=== PATIENT | female | born 1970 | race Hispanic/Latino ===

== ENCOUNTER 2016-11-07 19:16 | Inpatient (IN) | payer OTHER ==
[2016-11-07] MEDS ORDERED: Morphine 2 mg/ml ISec IVP STA (19:38)
--- NOTE | 2016-11-07 19:38 | ED PDOC ---
Arrival/HPI - General Chief Complaint: Weakness/Neurological Deficit Time Seen by Provider: 11/07/16 19:20 - Critical Care Critical Care Minutes: 45 minutes Narrative Critical Care (Text): Patient required my immediate attention upon arrival due to acuity of condition. Required frequent reassessments, complex decision making, consultation with inpatient specialists. - History of Present Illness Narrative History of Present Illness (Text): 46 y/o F c PMHx antiphospholipid syndrome on warfarin, Crohn's disease, previous CVA without residual deficit p/w paresthesias to lower face and anterior thorax associate with bilateral hand contractures/stiffness with inability to move them. She denies chest pain, shortness of breath, difficulty speaking, vision change, asymmetrical numbness, or any motor weakness. She notes that she was recently started on Torsemide and suspects that she may have a potassium imbalance. She denies any new leg swelling and states her legs are actually much improved in the extent of her edema. PMD [facility] GI at [facility] Past Medical History - Neurological HX Cerebrovascular Accident: Yes - Psychiatric Hx Depression: No Hx Emotional Abuse: No Hx Physical Abuse: No Hx Substance Use: No - Suicidal Assessment Feels Threatened In Home Enviroment: No Family/Social History Family/Social History: No Known Family HX Smoking Status: N Hx Alcohol Use: No Hx Substance Use: No Allergies/Home Meds Allergies/Adverse Reactions: Allergies No Known Allergies Allergy (Verified 11/29/12 22:00) Home Medications: Home Meds Medication Instructions Recorded Confirmed Warfarin Sodium [Warfarin Sodium] 5 mg PO QOTHERDAY 11/29/12 11/07/16 Furosemide [Lasix] 20 mg PO DAILY 11/07/16 11/07/16 Potassium Chloride [K-Dur 20] 20 meq PO BID 11/07/16 11/07/16 Warfarin [Coumadin] 7.5 mg PO QOTHERDAY 11/07/16 11/07/16 Review of Systems - Physician Review All systems were reviewed & negative as marked: Yes - Review of Systems Constitutional: absent: Fevers Cardiovascular: absent: Chest Pain Physical Exam - Physical Exam Narrative Physical Exam (Text): Constitutional: No acute distress. Head: Normocephalic. Atraumatic. Eyes: PERRL. ENT: Moist mucous membranes. Neck: Supple. Cardiovascular: Regular rate. Chest: No tenderness. Respiratory: Clear to auscultation bilaterally. GI: Soft. Nontender. Nondistended. Back: No CVA tenderness. Musculoskeletal: No tenderness or swelling of extremities. Skin: No rash. Neurologic: Alert, no focal deficit. No facial droop. Motor 5/5 x 4. Sensation to light touch intact bilaterally. Oriented x 3. Vital Signs Reviewed: Yes Vital Signs Temp Pulse Resp BP Pulse Ox 11/07/16 20:07 99.4 F 145 H 22 115/73 97 11/07/16 19:35 62 20 177/104 H 99 Temperature: Afebrile Blood Pressure: Normal Pulse: Regular Respiratory Rate: Normal Appearance: Positive for: Well-Appearing Pain Distress: None Mental Status: Positive for: Alert and Oriented X 3 Medical Decision Making ED Course and Treatment: IMPRESSION: Old left frontal infarct, no acute intracranial abnormality CXR no acute disease. EKG on arrival Sinus tachycardia, wide complexes and narrow complexes present, poor baseline. Patient with symptomatic hypocalcemia. Also supplementing for hypomagnesemia and hypokalemia. Repeat EKG with sinus tachycardia, solely narrow complex. Dr. Lau accepts patient to his service. Dr. Rice accepts patient to ICU. - Lab Interpretations Lab Results: 11/07/16 19:35 11/07/16 19:35 Lab Results 11/07/16 19:35: Sodium 131 L, Potassium 2.9 L*, Chloride 90 L, Carbon Dioxide 27 , Anion Gap 17, BUN 25 H, Creatinine 0.9, Est GFR ( Amer) > 60, Est GFR ( Non-Af Amer) > 60, Random Glucose 115 H, Calcium 6.8 L*, Phosphorus 3.1, Magnesium 1.1 L, Total Bilirubin 0.7, AST 28, ALT 35, Alkaline Phosphatase 81, Total Creatine Kinase 112, Troponin I < 0.01, Total Protein 5.7 L, Albumin 3.1, Globulin 2.7, Albumin/Globulin Ratio 1.1, Lipase 294 11/07/16 19:35: PT 67.3 H*, INR 6.23 H*, APTT 43.5 H 11/07/16 19:35: WBC 14.7 H, RBC 4.78, Hgb 15.3, Hct 44.9, MCV 93.9, MCH 32.0, MCHC 34.1, RDW 13.3, Plt Count 485 H, MPV 9.5, Gran % 73.5 H, Lymph % (Auto) 12.6 L, [place] % (Auto) 12.6 H, Eos % (Auto) 1.0 L, Baso % (Auto) 0.3, Gran # 10.83 H, Lymph # 1.9, [place] # 1.9 H, Eos # 0.2, Baso # 0.04 - RAD Interpretation Radiology Orders: 11/07/16 19:29 CHEST PORTABLE [RAD] Stat 11/07/16 19:30 HEAD W/O CONTRAST [CT] Stat - Medication Orders Current Medication Orders: Potassium Chloride (Potassium Chloride 20 Meq/100 Ml) 20 meq in 100 mls @ 50 mls/hr IVPB Q2H DANA Stop: 11/08/16 00:14 Last Admin: 11/07/16 20:20 Dose: 50 mls/hr Discontinued Medications Calcium Gluconate 1,000 mg/ (Dextrose) 110 mls @ 110 mls/hr IVPB ONCE ONE Stop: 11/07/16 21:03 Magnesium Sulfate 2 gm/ Sodium (Chloride) 104 mls @ 102 mls/hr IVPB ONCE ONE Stop: 11/07/16 21:09 Lorazepam (Ativan) 1 mg IVP ONCE ONE PRN Reason: Protocol Stop: 11/07/16 20:12 Last Admin: 11/07/16 20:16 Dose: 1 mg Morphine Sulfate (Morphine) 2 mg IVP STAT STA Stop: 11/07/16 19:39 Last Admin: 11/07/16 19:44 Dose: 2 mg Disposition/Present on Arrival - Present on Arrival Any Indicators Present on Arrival: No History of DVT/PE: No History of Uncontrolled Diabetes: No Urinary Catheter: No History of Decub. Ulcer: No History Surgical Site Infection Following: None - Disposition Have Diagnosis and Disposition been Completed?: Yes Diagnosis: Hypocalcemia, Hypokalemia, Hypomagnesemia Disposition: HOSPITALIZED Disposition Time: 20:20 Patient Plan: Admission, ICU Patient Problems: Current Active Problems Problem Status Onset Hypocalcemia Acute Condition: CRITICAL
[2016-11-07 19:50] LABS: BASO # 0.04 K/mm3 (0.0-2.0); BASO % 0.3 % (0.0-3.0); EOS # 0.2 (0.0-0.7); GRAN # 10.83 (1.4-6.5); GRAN % 73.5 % (50.0-68.0); HEMATOCRIT 44.9 % (36.0-48.0); LYMPH # 1.9 (1.2-3.4); LYMPH % 12.6 % (22.0-35.0); MEAN CELL VOLUME 93.9 fl (80.0-105.0); MEAN CORPUSCULAR HGB CONC 34.1 g/dl (31.0-37.0); MEAN PLATELET VOLUME 9.5 fl (7.0-11.0); MONO # 1.9 (0.1-0.6); MONO % 12.6 % (1.0-6.0); RED CELL DISTRIBUTION WIDTH 13.3 % (11.5-14.5); WHITE BLOOD COUNT 14.7 10^3/ul (4.5-11.0)
[2016-11-07 19:58] LABS: ALB/GLOB RATIO 1.1 (1.1-1.8); ALKALINE PHOSPHATASE 81 U/L (38-126); ALT/SGPT 35 U/L (7-56); AST/SGOT 28 U/L (14-36); BILIRUBIN,TOTAL 0.7 mg/dL (0.2-1.3); BLOOD UREA NITROGEN 25 mg/dL (7-21); CARBON DIOXIDE 27 mmol/L (21-33); CHLORIDE 90 mmol/L (98-107); GFR AFRICAN-AMERICAN > 60; GLUCOSE,RANDOM 115 mg/dL (70-110); LIPASE 294 U/L (23-300); MAGNESIUM 1.1 mg/dL (1.7-2.2); PHOSPHOROUS 3.1 mg/dL (2.5-4.5); SODIUM 131 mmol/L (132-148); TOTAL PROTEIN 5.7 g/dL (5.8-8.3)
[2016-11-07 20:01] LABS: CALCIUM 6.8 mg/dL (8.4-10.5); POTASSIUM 2.9 mmol/L (3.6-5.0)
[2016-11-07 20:02] LABS: PARTIAL THROMBOPLASTIN TIME 43.5 Seconds (23.7-30.8)
[2016-11-07 20:05] LABS: INR 6.23 (0.93-1.08)
[2016-11-07] MEDS ORDERED: Magnesium Sulfate 2 GM in Sodium Chloride 0.9% 100 ML IVPB ONE (20:08)
[2016-11-07 20:09] LABS: TROPONIN I < 0.01 ng/mL
--- NOTE | 2016-11-07 20:42 | CT ---
EXAM: CT Head Without Intravenous Contrast EXAM DATE/TIME: 11/07/2016 7:30 PM CLINICAL HISTORY: 46 years old, female; Signs and symptoms; Weakness, extremity; Bilateral; Patient HX: HX CVA; Additional info: Body numbness TECHNIQUE: Axial computed tomography images of the head/brain without intravenous contrast. All CT scans at this facility use one or more dose reduction techniques, viz.: automated exposure control; ma/kV adjustment per patient size (including targeted exams where dose is matched to indication; i.e. head); or iterative reconstruction technique. COMPARISON: There are no prior studies for comparison. FINDINGS: Brain: Overall ventricular size is normal. There is mild compensatory dilatation of frontal horn of the left lateral ventricle. There is no midline shift. There is left frontal encephalomalacia. There is mild prominence of sulci and gyri. There are no acute hemorrhages. There are no focal masses. Alberto-white differentiation is visualized. Ventricles: See above Bones: Cranial vault is intact. Soft tissues: unremarkable Sinuses: There is no acute sinusitis. Ears and mastoids: Middle ears and mastoids are unremarkable Orbits: Orbital contents are unremarkable. IMPRESSION: Old left frontal infarct, no acute intracranial abnormality
[2016-11-07] MEDS ORDERED: Sodium Chloride 0.9% 100 ML IV SCH (21:33)
[2016-11-07 21:36] LABS: URINE BILIRUBIN NEGATIVE (NEGATIVE); URINE BLOOD NEGATIVE (NEGATIVE); URINE GLUCOSE (UA) NEGATIVE (NEGATIVE); URINE KETONE NEGATIVE (NEGATIVE); URINE LEUKOCYTE ESTERASE NEGATIVE Leu/uL (NEGATIVE); URINE PROTEIN NEGATIVE mg/dL (<30 mg/dL); URINE UROBILINOGEN 0.2 E.U./dL (<1 E.U./dL)
[2016-11-07 21:38] LABS: URINE APPEARANCE CLEAR (CLEAR); URINE COLOR LIGHT YELLOW (YELLOW)
[2016-11-07] MEDS ORDERED: Sodium Chloride 0.9% 1,000 ML IV SCH (23:35)
[2016-11-08 00:17] VITALS: BMI 18.8
[2016-11-08 00:43] LABS: BASO # 0.02 K/mm3 (0.0-2.0); BASO % 0.1 % (0.0-3.0); GRAN # 22.85 (1.4-6.5); HEMATOCRIT 41.8 % (36.0-48.0); LYMPH # 0.8 (1.2-3.4); MEAN CELL VOLUME 92.9 fl (80.0-105.0); MEAN CORPUSCULAR HGB CONC 34.4 g/dl (31.0-37.0); MONO # 1.9 (0.1-0.6); MONO % 7.3 % (1.0-6.0); PLATELET COUNT 453 10^3/uL (120.0-450.0); RED CELL DISTRIBUTION WIDTH 13.2 % (11.5-14.5)
[2016-11-08 00:57] LABS: ALB/GLOB RATIO 1.1 (1.1-1.8); ALKALINE PHOSPHATASE 77 U/L (38-126); ALT/SGPT 38 U/L (7-56); AST/SGOT 44 U/L (14-36); BILIRUBIN,TOTAL 0.8 mg/dL (0.2-1.3); BLOOD UREA NITROGEN 26 mg/dL (7-21); CARBON DIOXIDE 30 mmol/L (21-33); CHLORIDE 95 mmol/L (98-107); GFR AFRICAN-AMERICAN > 60; GLUCOSE,RANDOM 138 mg/dL (70-110); MAGNESIUM 2.1 mg/dL (1.7-2.2); SODIUM 132 mmol/L (132-148); TOTAL PROTEIN 5.2 g/dL (5.8-8.3)
[2016-11-08 01:02] LABS: CALCIUM 6.9 mg/dL (8.4-10.5); POTASSIUM 2.4 mmol/L (3.6-5.0)
[2016-11-08 01:06] LABS: WHITE BLOOD COUNT 25.5 10^3/ul (4.5-11.0)
[2016-11-08 01:08] LABS: GRAN % 89.6 % (50.0-68.0)
[2016-11-08 01:09] LABS: NEUTROPHIL 89 % (50.0-70.0)
--- NOTE | 2016-11-08 01:09 | CP.PCM.CON ---
<Bennie Trimble - Last Filed: 11/08/16 03:59> History of Present Illness - History of Present Illness History of Present Illness: ICU Consult Note for Dr. Rice CC: lower face paresthesias and hand contractures HPI: This is a 46 yo F with PMH of antiphospholipid syndrome on warfarin, Crohn's disease, large bowel obstruction s/p resection and end-to-end anastomosis, and previous CVA without residual deficit who presented to [facility] [place] with complaint of paresthesias to lower face restricting speech and contractures /stiffening of hands with inability to break free. HPI/ROS details are limited as the patient struggles to speak due to her facial paresthesia, and PE is limited due to the extremities paresis/contractures and due to patient frequently experiencing sudden spikes of pain, causing her to cry out and lose focus throughout exam. Patient admits to prior stroke in the past, but states she has never had symptoms like these. Symptom onset was this AM while patient was resting at home (was already awake when symptoms began), and have progressively worsened throughout the day, causing patient to present here. She reports she was recently started on a new diuretic (Toresmide, loop diuretic ), and she is suspicious her potassium is too low. Admits to frequent pain, nausea, mild paresthesias in bilateral LE and UE, and recent contipation. Patient also reports cramping in bilateral LE, but still retains movement of both legs. Denies room spinning, vision changes, emesis, cough, diarrhea, dysuria/hematuria, medication non-compliance, or syncope/pre-syncope. All other ROS in 12-point system review negative. Of note, in the ED her INR was 6.23 (was 7.57 yesterday), so her Coumadin is currently being held; however she does not exhibit any signs of bleeding. Head CT was obtained in the ED and was negative for acute bleeding/stroke/mass effect. PMH: as above PSH: Large bowel obstruction s/p resection and end-to-end anastomosis FHx: denies SHx: denies tobacco/alcohol/illicits PMD: Dr. Lau Review of Systems - Review of Systems All systems: reviewed and no additional remarkable complaints except (as per HPI ) Past Patient History - Past Social History Smoking Status: Never Smoked - NEUROLOGICAL HX Cerebrovascular Accident: Yes - MUSCULOSKELETAL/RHEUMATOLOGICAL Hx Falls: No - GASTROINTESTINAL Hx Crohn's Disease: Yes - GENITOURINARY/GYNECOLOGICAL Other/Comment: Antiphospolipid sydrome - PSYCHIATRIC Hx Depression: No Hx Emotional Abuse: No Hx Physical Abuse: No Hx Substance Use: No Meds Allergies/Adverse Reactions: Allergies Allergy/AdvReac Type Severity Reaction Status Date / Time No Known Allergies Allergy Verified 11/29/12 22:00 - Medications Medications: Current Medications Calcium Gluconate 1,000 mg/ (Dextrose) 110 mls @ 110 mls/hr IVPB Q3 DANA Stop: 11/08/16 06:59 Magnesium Sulfate 2 gm/ Sodium (Chloride) 104 mls @ 102 mls/hr IVPB Q3 DANA Stop: 11/08/16 07:02 Sodium Chloride (Sodium Chloride 0.9%) 1,000 mls @ 100 mls/hr IV .Q10H DANA Morphine Sulfate (Morphine) 2 mg IVP Q4H PRN PRN Reason: Pain, moderate (4-7) Pantoprazole Sodium (Protonix Inj) 40 mg IVP Q12 DANA Physical Exam - Constitutional Appears: Non-toxic, In Acute Distress (intermittent spikes/spasms of pain causing patient to cry out, lose focus), Other (intermittently tearful, usually after trying to speak for a few minutes or after severeal spasms) - Head Exam Head Exam: ATRAUMATIC. absent: NORMAL INSPECTION Additional comments: lower facial paresthesia/paresis, jaw clenched but still able to move lips - Eye Exam Eye Exam: EOMI, Normal appearance, PERRL. absent: Conjunctival injection, Scleral icterus Pupil Exam: NORMAL ACCOMODATION, PERRL. absent: Fixed, Irregular, Miosis, Unequal - ENT Exam Additional comments: Unable to assess as mouth clenched shut, minimal jaw movement when trying to speak Nares clear, no discharge or epistaxis jaw clenched equally bilaterally, no sided-facial muscle droop, remains able to move lips - Neck Exam Neck exam: Negative for: Full Rom, Thyromegaly Additional comments: Some active head movement, but restricted, slightly more with passive movement but ROM still restricted - Respiratory Exam Respiratory Exam: Clear to Auscultation Bilateral, NORMAL BREATHING PATTERN. absent: Accessory Muscle Use, Chest Wall Tenderness, Decreased Breath Sounds, Rales, Rhonchi, Wheezes - Cardiovascular Exam Cardiovascular Exam: Tachycardia (tachy to 140's-150's on bedside monitor), REGULAR RHYTHM, +S1, +S2. absent: Bradycardia, Clicks, Irregular Rhythm, JVD, RRR, +S4 - GI/Abdominal Exam GI & Abdominal Exam: Normal Bowel Sounds, Soft. absent: Diminished Bowel Sounds , Distended, Firm, Guarding, Hyperactive Bowel Sounds, Hypoactive Bowel Sounds, Rigid, Tenderness - Extremities Exam Extremities exam: Positive for: normal capillary refill, pedal pulses present. Negative for: calf tenderness, joint swelling, pedal edema, tenderness Additional comments: reports some paresthesias and cramping in LE, but sensation intact and equal bilaterally on testing, and full ROM of bilateral LE appears intact 5/5 LE muscle strength testing, some cramping of legs provoked with movement Bilateral UE contractured, held rigid against chest with hands squeezed shut, unable to demonstrate rv repairer strength, twinges of movement when attempted to test rv repairer strength bilaterally No gross tremors, UE held rigid, but still palpable bilateral radial pulses, and sensation in bilateral UE intact - Neurological Exam Neurological exam: Oriented x3 Additional comments: Awake and alert, unable to follow many commands but continues to attempt to spontaneous movement of eyes and bilateral LE, minimal to no spontaneous movement of jaw and bilateral UE sensation in all extremities grossly intact and equal - Psychiatric Exam Psychiatric exam: Agitated, Anxious, Depressed Additional comments: Affect and mood fluctuating, some anxiety regarding condition and when attempting to move UE or when experiencing repeated spasms, becomes tearful - Skin Skin Exam: Dry, Intact, Normal Color, Warm Results - Vital Signs Recent Vital Signs: Last Vital Signs Temp 97.9 F 11/07/16 23:00 Pulse 90 11/08/16 00:00 Resp 36 H 11/08/16 00:00 BP 113/78 11/08/16 00:00 Pulse Ox 95 11/08/16 00:21 - Labs Result Diagrams: 11/08/16 00:30 11/08/16 00:30 Labs: Laboratory Results - last 24 hr 11/07/16 21:10 Urine Color Light yellow Urine Appearance Clear Urine pH 6.0 Ur Specific [place] 1.010 Urine Protein Negative Urine Glucose (UA) Negative Urine Ketones Negative Urine Blood Negative Urine Nitrate Negative Urine Bilirubin Negative Urine Urobilinogen 0.2 Ur Leukocyte Esterase Negative Urine HCG, Qual Negative Assessment & Plan - Assessment and Plan (Free Text) Assessment: This is a 46 yo F with PMH of antiphospholipid syndrome on warfarin, Crohn's disease, large bowel obstruction s/p resection and end-to-end anastomosis, and previous CVA without residual deficit who presented to [facility] [place] with complaint of paresthesias to lower face restricting speech and contractures /stiffening of hands with inability to break free. She is being admitted for possible CVA vs paresis of unclear etiology, and for narrow complex tachycardia in the setting of significant metabolic derangements, pending repletion. Plan: Neuro: -Facial and upper extremity paresis/paresthesias of unclear etiology; CVA vs 2/ 2 metabolic derangememtns -Doesn't appear to be true paresis, seems more like muscle spasm/contracture; EMG? -Head CT negative for acute stroke, will need MRI to rule out definitively -Maintain normothermia Pulm: -Satting well on room air, maintain SaO2 > 92% -CTAB on exam, CXR in ED appears unremarkable (pending official read) Cardio: -Tachycardic in ED up to 150's -EKG in ED read as possible SVT with occasional PVCs and fusion complexes, QTc prolonged at 521 -Likely more QTc prolonged than EKG indicated, as tachycardia artificially decreased QTc -arrythmia and QTc prolongation likely 2/2 metabolic derangements; K 2.9, Ca 6.8 (corrects to 7.6), Mag 1.1; replete all aggressively -Avoid ALL QT prolonging agents, push 1x Mag 2g for QTc prolongation -Repeat EKG in ICU when HR improved -Despite tachycardia, hemodynamically stable; maintain MAP > 65 -Holding home diuretic -Would benefit from Cardio consult GI: -NPO, pending swallow eval -Protonix for GI ppx Renal: -Cr 0.9, BUN 25 -BUN:Cr ratio suggestive of some dehydration -multiple metabolic derangements; K 2.9, Mag 1.1, Ca 6.9; repleting aggressively , f/u CMPs/Mg/Phos q4 and replete further as needed -maintain euvolemia and euglycemia -Would benefit from a Nephro consult Heme: -Hgb 15.3 -Hx antiphopholipid syndrome on warfarin, holding home coumadin currently as INR 6.23 -Stable right now, no sign of acute bleeding, so can just observe INR for now; if shows signs of acute bleeding, will administer Vit K +/- FFP -F/u repeat PT/PTT in AM -supratherapeutic INR covers for DVT ppx ID: -Leukocytosis of 14.5 on admit, but afebrile -may be stress rxn, if WBC count worsens, consider obtaining cultures and procal -No indication for antibiotics at this time Dispo: ICU for close monitoring and aggressive electrolyte repletion, pending improvement of cardiac rhythm and reassessment FEN: NPO, NS IVF 100cc/hr, K riders 20 mEq x2, Calcium carbonate IVPB x3, Mag Sulfate 2g IVPB x3 Access: Peripheral IV Consults: rec consults to Nephro and Cardio Ppx: Protonix for GI, Supratherapeutic INR covers for DVT ppx Patient seen, reviewed, and discussed with attending, Dr. Rice. <Krystal RODRIGUEZ,Jose - Last Filed: 11/08/16 06:51> Meds - Medications Medications: Current Medications Calcium Gluconate 1,000 mg/ (Dextrose) 110 mls @ 110 mls/hr IVPB Q3 [facility] Stop: 11/08/16 06:59 Last Admin: 11/08/16 05:51 Dose: 110 mls/hr Magnesium Sulfate 2 gm/ Sodium (Chloride) 104 mls @ 102 mls/hr IVPB Q3 [facility] Stop: 11/08/16 07:02 Last Admin: 11/08/16 05:50 Dose: 102 mls/hr Sodium Chloride (Sodium Chloride 0.9%) 1,000 mls @ 100 mls/hr IV .Q10H [facility] Last Admin: 11/08/16 01:00 Dose: 100 mls/hr Morphine Sulfate (Morphine) 2 mg IVP Q4H PRN PRN Reason: Pain, moderate (4-7) Last Admin: 11/08/16 05:48 Dose: 2 mg Pantoprazole Sodium (Protonix Inj) 40 mg IVP Q12 [facility] Last Admin: 11/08/16 01:51 Dose: 40 mg Results - Vital Signs Recent Vital Signs: Last Vital Signs Temp 97.9 F 11/07/16 23:00 Pulse 79 11/08/16 04:40 Resp 36 H 11/08/16 04:40 BP 131/89 11/08/16 04:00 Pulse Ox 96 11/08/16 04:40 - Labs Result Diagrams: 11/08/16 04:00 11/08/16 00:30 Labs: Laboratory Results - last 24 hr 11/07/16 11/08/16 11/08/16 21:10 00:30 00:30 WBC 25.5 H* D RBC 4.50 Hgb 14.4 Hct 41.8 MCV 92.9 MCH 32.0 MCHC 34.4 RDW 13.2 Plt Count 453 H MPV 9.0 Gran % 89.6 H Lymph % (Auto) 3.0 L [place] % (Auto) 7.3 H Eos % (Auto) 0.0 L Baso % (Auto) 0.1 Gran # 22.85 H Lymph # 0.8 L [place] # 1.9 H Eos # 0.0 Baso # 0.02 Neutrophils % (Manual) 89 H Lymphocytes % (Manual) 4 L Monocytes % (Manual) 7 H PT INR APTT Sodium 132 Potassium 2.4 L* Chloride 95 L Carbon Dioxide 30 Anion Gap 9 L BUN 26 H Creatinine 0.9 Est GFR ( Amer) > 60 Est GFR (Non-Af Amer) > 60 Random Glucose 138 H Calcium 6.9 L* Phosphorus 2.0 L Magnesium 2.1 Total Bilirubin 0.8 AST 44 H D ALT 38 Alkaline Phosphatase 77 Troponin I Total Protein 5.2 L Albumin 2.7 L Globulin 2.5 Albumin/Globulin Ratio 1.1 Urine Color Light yellow Urine Appearance Clear Urine pH 6.0 Ur Specific [place] 1.010 Urine Protein Negative Urine Glucose (UA) Negative Urine Ketones Negative Urine Blood Negative Urine Nitrate Negative Urine Bilirubin Negative Urine Urobilinogen 0.2 Ur Leukocyte Esterase Negative Urine HCG, Qual Negative 11/08/16 11/08/16 11/08/16 04:00 04:00 04:00 WBC 19.6 H D RBC 4.37 Hgb 13.7 Hct 40.8 MCV 93.4 MCH 31.4 MCHC 33.6 RDW 13.3 Plt Count 417 MPV 9.2 Gran % 88.0 H Lymph % (Auto) 3.9 L [place] % (Auto) 7.9 H Eos % (Auto) 0.1 L Baso % (Auto) 0.1 Gran # 17.25 H Lymph # 0.8 L [place] # 1.6 H Eos # 0.0 Baso # 0.01 Neutrophils % (Manual) Lymphocytes % (Manual) Monocytes % (Manual) PT 45.9 H* INR 4.25 H* APTT 42.8 H Sodium Potassium Chloride Carbon Dioxide Anion Gap BUN Creatinine Est GFR ( Amer) Est GFR (Non-Af Amer) Random Glucose Calcium Phosphorus Magnesium Total Bilirubin AST ALT Alkaline Phosphatase Troponin I 5.04 H* D Total Protein Albumin Globulin Albumin/Globulin Ratio Urine Color Urine Appearance Urine pH Ur Specific [place] Urine Protein Urine Glucose (UA) Urine Ketones Urine Blood Urine Nitrate Urine Bilirubin Urine Urobilinogen Ur Leukocyte Esterase Urine HCG, Qual Attending/Attestation - Attestation I have personally seen and examined this patient.: Yes I have fully participated in the care of the patient.: Yes I have reviewed all pertinent clinical information: Yes Notes (Text): -I agree with the above ICU consult note with the following additions and/or changes: The patient is a 46 year old woman with a history of antiphospholipid syndrome ( on Warfarin), Crohn's Disease, large bowel obstruction (s/p resection and end-to -end anastomosis) and CVA (with no residual deficits), who presents with acute onset of paresthesias to the lower face and muscle contractures of both hand muscle. In the ED, she was found to have numerous lab abnormalities, including, hypocalcemia, hypomagnisemia, hypokalemia and mild hyponatremia. She also had leukocytosis. She repeatedly denies any recent vomiting, diarrhea, fevers, chills, SOB, chest pain or cough. Despite initial electrolyte replacements, her serum potassium continued to decrease (as low as 2.3). Additionally, this morning, her troponin jumped from normal to 5.0. Her EKG initially showed narrow complex tachycardia with some non-specific ST changes but no evidence of ST-elevation. Because her INR was found to be supratherapeutic (INR>6.0), her home medication of Warfarin was held. Also, because of her supratherapeutic INR , she did not require empiric anticoagulation, for potential ACS. Cardiology and nrphrology consults have been placed. Also a 2D-echo has been ordered. Also , blood and urine cultures (and procalcitonin) ordered. BMP's will be monitored Q4hrs. =
[2016-11-08] MEDS: Magnesium Sulfate 2 GM in Sodium Chloride 0.9% 100 ML IVPB SCH ×3 (01:30→05:50)
[2016-11-08] MEDS: Morphine 2 mg/ml ISec IVP PRN ×5 (02:01→21:00)
[2016-11-08] MEDS: Potassium Chloride 20 mEq/15 ml LIQ UD PO SCH ×2 (04:37→05:51)
[2016-11-08 04:50] LABS: BASO # 0.01 K/mm3 (0.0-2.0); BASO % 0.1 % (0.0-3.0); EOS % 0.1 % (1.5-5.0); GRAN # 17.25 (1.4-6.5); HEMATOCRIT 40.8 % (36.0-48.0); LYMPH # 0.8 (1.2-3.4); LYMPH % 3.9 % (22.0-35.0); MEAN CELL VOLUME 93.4 fl (80.0-105.0); MEAN CORPUSCULAR HEMOGLOBIN 31.4 pg (25.0-35.0); MEAN CORPUSCULAR HGB CONC 33.6 g/dl (31.0-37.0); MEAN PLATELET VOLUME 9.2 fl (7.0-11.0); MONO # 1.6 (0.1-0.6); MONO % 7.9 % (1.0-6.0); RED CELL DISTRIBUTION WIDTH 13.3 % (11.5-14.5); WHITE BLOOD COUNT 19.6 10^3/ul (4.5-11.0)
[2016-11-08 04:51] LABS: PARTIAL THROMBOPLASTIN TIME 42.8 Seconds (23.7-30.8)
[2016-11-08 04:54] LABS: INR 4.25 (0.93-1.08)
[2016-11-08 06:49] LABS: ALKALINE PHOSPHATASE 75 U/L (38-126); ALT/SGPT 41 U/L (7-56); AST/SGOT 69 U/L (14-36); BILIRUBIN,TOTAL 0.7 mg/dL (0.2-1.3); BLOOD UREA NITROGEN 24 mg/dL (7-21); CALCIUM 7.8 mg/dL (8.4-10.5); CARBON DIOXIDE 29 mmol/L (21-33); CHLORIDE 96 mmol/L (98-107); GFR AFRICAN-AMERICAN > 60; GLUCOSE,RANDOM 187 mg/dL (70-110); MAGNESIUM 3.7 mg/dL (1.7-2.2); PHOSPHOROUS 2.6 mg/dL (2.5-4.5); SODIUM 130 mmol/L (132-148); TOTAL PROTEIN 4.9 g/dL (5.8-8.3)
[2016-11-08 06:51] LABS: POTASSIUM 2.7 mmol/L (3.6-5.0)
[2016-11-08] MEDS ORDERED: Magnesium Sulfate 2 GM in Sodium Chloride 0.9% 100 ML IVPB ONE (08:33)
[2016-11-08] MEDS: cefTRIAXone 1 gm 1 GM/100 ML BAG IVPB SCH (09:17)
--- NOTE | 2016-11-08 10:54 | US ---
HISTORY: Leg pain and swelling. Evaluate for DVT PHYSICIAN(S): Mark Enciso MD. TECHNIQUE: Duplex sonography and color-flow Doppler with graded compression were used to evaluate the deep venous systems of both lower extremities. 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 There is occlusive subacute/chronic thrombus in 1 of the 2 right femoral veins. The right popliteal vein is duplicated and patent. The right common femoral vein is patent and compressible. There is no sonographic evidence for deep venous thrombosis in the visualized segments of the left lower extremity. 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
--- NOTE | 2016-11-08 11:02 | RAD ---
HISTORY: chest numbness COMPARISON: No prior. FINDINGS: LUNGS: No active pulmonary disease. PLEURA: No significant pleural effusion identified, no pneumothorax apparent. CARDIOVASCULAR: Normal. OSSEOUS STRUCTURES: No significant abnormalities. VISUALIZED UPPER ABDOMEN: Normal. OTHER FINDINGS: None. IMPRESSION: No active disease.
--- NOTE | 2016-11-08 11:29 | CT ---
PROCEDURE: CT Abdomen and Pelvis without intravenous contrast HISTORY: abdominal pain COMPARISON: None. TECHNIQUE: Without contrast.. Contrast Dose: Radiation dose: Total exam DLP = 343 mGy-cm. This CT exam was performed using one or more of the following dose reduction techniques: Automated exposure control, adjustment of the mA and/or kV according to patient size, and/or use of iterative reconstruction technique. FINDINGS: LOWER THORAX: Unremarkable. LIVER: Unremarkable. No gross lesion or ductal dilatation. GALLBLADDER AND BILE DUCTS: Unremarkable. PANCREAS: Unremarkable. No gross lesion or ductal dilatation. SPLEEN: Unremarkable. ADRENALS: Unremarkable. No mass. KIDNEYS AND URETERS: Unremarkable. No hydronephrosis. No solid mass. VASCULATURE: There is a vascular stent in the upper IVC. This is just above a caval filter. Patency cannot be evaluated without IV contrast. BOWEL: There is moderate distention of the colon without evidence of obstruction. There is some fecal retention in the sigmoid and rectum APPENDIX: Unremarkable. Normal appendix. PERITONEUM: Unremarkable. No free fluid. No free air. LYMPH NODES: Unremarkable. No enlarged lymph nodes. BLADDER: Unremarkable. REPRODUCTIVE: Bilateral ovarian cysts are seen measuring 5.9 cm on the left and 4.5 cm on the right. There is no fluid in the cul-de-sac to suggest cyst rupture. BONES: No acute fracture. OTHER FINDINGS: None. IMPRESSION: Moderate distention of the colon and moderate constipation. No acute findings
[2016-11-08 11:52] LABS: BASO # 0.03 K/mm3 (0.0-2.0); BASO % 0.1 % (0.0-3.0); GRAN # 18.9 (1.4-6.5); GRAN % 87.5 % (50.0-68.0); HEMATOCRIT 40.8 % (36.0-48.0); LYMPH # 0.9 (1.2-3.4); MEAN CELL VOLUME 92.5 fl (80.0-105.0); MEAN CORPUSCULAR HEMOGLOBIN 32.2 pg (25.0-35.0); MEAN CORPUSCULAR HGB CONC 34.8 g/dl (31.0-37.0); MEAN PLATELET VOLUME 8.8 fl (7.0-11.0); MONO # 1.8 (0.1-0.6); MONO % 8.4 % (1.0-6.0); RED CELL DISTRIBUTION WIDTH 13.4 % (11.5-14.5); WHITE BLOOD COUNT 21.6 10^3/ul (4.5-11.0)
--- NOTE | 2016-11-08 12:28 | CON ---
DATE: 11/08/2016 HISTORY OF PRESENT ILLNESS: The patient is a 46-year-old lady with history of Crohn's disease, previously was treated with 6-mercaptopurine who presented with occasional paraesthesia and some numbness and was found to have significant electrolyte disturbances. The patient recently was started on thiazide diuretics for her bilateral leg swelling and it was attributed to this new medication. it is unclear why thiazides were started. Patient states that her heart was previously checked and denies any abnormalities found, however denies Echo was ever done. Electrolytes were aggressively supplemented and maintenance of IV fluid initiated. The patient clinically substantially improved. Her electrolytes improved as well. Her magnesium was supplemented and she was started on normal saline with 20 mEq of KCL at the rate of 100 mL per hour. She also started to complain of some abdominal pain and had some leukocytosis, which in the setting of Crohn's dx prompted CAT scan of the abdomen and initiation of empiric antibiotics with septic workup. The patient also had troponin leak after initial normal value, which prompted cardiology consult and echocardiogram. 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 She is in the process of eval to start TNF-alpha inhibitors for her Crohn's disease. The patient denies melena, bright red blood per rectum, diarrhea, nausea, vomiting, chest pain, fevers, chills, or sweats. PAST MEDICAL HISTORY: Crohn's disease, antiphospholipid antibody syndrome and DVT. ALLERGIES: NKDA. MEDICATIONS AT HOME: Lasix, warfarin, and some thiazide diuretics. FAMILY HISTORY: Noncontributory. REVIEW OF SYSTEMS: Review of 12-organ systems other than mentioned in history of present illness is negative. PHYSICAL EXAMINATION: VITAL SIGNS: The patient is afebrile, respiratory rate of 16, heart rate 86, and blood pressure 125/81. HEENT: Head and neck are atraumatic. LUNGS: Clear to auscultation bilaterally. HEART: Regular rate and rhythm, S1 and S2 normal. ABDOMEN: Soft, nontender and nondistended (the patient reports some achiness in the periumbilical area; however, denies any tenderness on palpation.) MUSCULOSKELETAL: 2+ bilateral pedal and ankle edema (venous Doppler is in progress.) SKIN: Color is moist. PSYCHIATRIC: The patient is alert and oriented x3. NEUROLOGIC: The patient moves all extremities spontaneously. LABORATORY DATA: WBC 19.6, hemoglobin 15.7, and platelet count 470. Sodium 135, potassium 2.7, chloride 96, carbon dioxide 29, BUN 24, creatinine 0.8, glucose 187, AST 69, ALT 41. Troponin 5.04, up from 0.01 (EKG is pending. The patient does not complain of chest pain.) INR 4.25. Urine is negative for hCG as well as negative for leukocyte esterase and nitrite. ASSESSMENT AND PLAN: This 46-year-old lady with wide range electrolyte abnormalities that was attributed to initiation of thiazide diuretics, which was stopped now. Two new findings are troponin leak and abdominal pain with leukocytosis. Echocardiogram and EKG is pending. Cardiology consult is pending (Dr. Livingston was consulted.) GI consult and CAT scan of the abdomen and pelvis is pending. Antibiotics started. Septic workup initiated. Venous Doppler is ongoing. We will continue to target euvolemia, euglycemia, normothermia and oxygen saturation of more than 90%. We will continue to supplement electrolytes aggressively. We will continue with serial BMP. Addendum: CT abdo/pelvis revealed moderately distended colon, c/w constipation, but no mural thickening, no changes suspicious for acute cholecystitis either. Echo, however revealed severe LV systolic dysfunction, which in the setting of troponin jump from <0.01 to more then 5, EKG changes (significant T-wave inversion in anterior leads) and some abdo pain-which may be referred pain from the chest and chest tightness, may represent NSTEMI: discussed with Dr. Lyles who agreed. No PCI presently as per Dr. Lylse as her INR, interestingly though, is above 4, (which would normally make primary coronary event less likely). Possibility of falsely elevated INR in the setting of APAP syndrome was raised with Dr. Hernandez (Hem) and her input is pending. Discussed case with Dr. Nielsen (GI as well): As patient does have h/o APAP syndrome and possibility of thrombotic event cant be fully ruled out even in the setting supratherapeutic INR (otherwise it is hard to explain primary coronary event presentation in this patient), complete abdominal dupplex was ordered in attempt to rule out (at least to some degree) possibility of mesenteric ischemia. Lactic acid level is pending. Addendum: Lactic acid level is 1.7-->unlikely acute mesenteric ischemia ccm time 40 min Kashmir Wallace MD MTDJoey
--- NOTE | 2016-11-08 12:37 | CARD ---
APPROVED REPORT EXAM: Two-dimensional and M-mode echocardiogram with Doppler and color Doppler. INDICATION 2D DIMENSIONS Left Atrium (2D)2.6 (1.6-4.0cm)IVSd0.8 (0.7-1.1cm) Aortic Root (2D)3.0 (2.0-3.7cm)LVDd5.0 (3.9-5.9cm) PWd0.9 (0.7-1.1cm)LVDs4.6 (2.5-4.0cm) FS (%) 9.2 %LVEF (%)20.1 (>50%) Aortic Valve AoV Peak Ljwqgorv981.0cm/Patrizia Peak GR.4mmHg Mitral Valve MV E Thanvdcg25.5cm/sMV A Uutijhqk60.0cm/sE/A ratio2.1 TDI Lateral E' Peak V8.77cm/sMedial E' Peak V6.92cm/sE/Lateral E'9.1 E/Medial E'11.5 Tricuspid Valve TR Peak Rtrpzpsd206op/sRAP UAZHOPPZ24vbGgMT Peak Gr.18mmHg [id number] LEFT VENTRICLE The left ventricle is normal size. There is normal left ventricular wall thickness. The ejection fraction is moderately to severely impaired. Severe anteroseptal and apical hypokinesis. No left ventricle thrombus noted on this study. RIGHT VENTRICLE The right ventricle is normal size. The right ventricular systolic function is normal. ATRIA The left atrium size is normal. The right atrium size is normal. The interatrial septum is intact with no evidence for an atrial septal defect. AORTIC VALVE The aortic valve is normal in structure. No aortic regurgitation is present. MITRAL VALVE The mitral valve is normal in structure. Mitral regurgitation is mild. TRICUSPID VALVE The tricuspid valve is normal in structure. There is no tricuspid valve regurgitation noted. PULMONIC VALVE The pulmonary valve is normal in structure. GREAT VESSELS The aortic root is normal in size. The IVC is normal in size and collapses >50% with inspiration. PERICARDIAL EFFUSION There is no pleural effusion. There is no pericardial effusion. <Conclusion> Normal chamber size. Moderate to severe LV systolic dysfunction with severe anteroseptal and apical hypokinesis. Mild MR. No LV thrombus visualized.
[2016-11-08] MEDS ORDERED: Potassium Chloride 30 MEQ in Sodium Chloride 0.9% 1,000 ML IV SCH (12:46)
--- NOTE | 2016-11-08 15:08 | CON ---
DATE: 11/08/2016 REQUESTING PHYSICIAN: Danilo Lau MD REASON FOR CONSULTATION: Apparent myocardial infarction. HISTORY OF PRESENT ILLNESS: This is a 46-year-old unfortunate woman with really complex past history of severe Crohn's disease and antiphospholipid antibody syndrome admitted with extreme weakness. She is found to be markedly hypokalemic and hypocalcemic. She is also complaining of severe abdominal discomfort. Initial electrocardiogram showed evidence of borderline anterior ST elevations with T-waves inversions and a markedly prolonged QT intervals. She denied any chest pain at the time of admission. Followup blood workup revealed an elevated troponin and an echocardiogram was performed at bedside showing evidence of apparent apical myocardial infarction. She is seen in the CCU in the presence of her . She is somewhat anxious. She denies any chest pain at the present time. She does have continued crampy abdominal pain. She denies any prior cardiac history. She is not hypertensive or diabetic. She does not smoke. She believes her cholesterol was normal. There is a family history of premature heart disease and that her father at the age of 55 from myocardial infarction. PAST MEDICAL HISTORY: Notable for the problems mentioned above. She does have a peripheral edema. She reportedly had a cerebrovascular accident several years ago with no significant residual. She has chronic venous insufficiency and has had a prior DVT. She has only got a prior partial bowel resection with end to end anastomosis. FAMILY HISTORY: Mother is alive and well. Father as mentioned at the age of 55 from myocardial infarction. SOCIAL HISTORY: She does not smoke or drink. She is lives with her . REVIEW OF SYSTEMS: The 10-point review of systems is otherwise unremarkable. She has noticed some increasing exertional dyspnea lately. PHYSICAL EXAMINATION: GENERAL: She is an anxious appearing middle-age woman. VITAL SIGNS: Blood pressure 126/80 with a pulse of 90, respirations are 16. She is currently afebrile. HEENT: Head is normocephalic, atraumatic. NECK: Supple. No JVD noted. CHEST: Clear to auscultation and percussion. HEART: PMI displaced laterally with soft tones present. ABDOMEN: Soft with normal bowel sounds. Diffuse tenderness is present. EXTREMITIES: 1+ leg edema noted. SKIN: Warm to dry. PSYCHIATRIC: Moderate anxiety, otherwise normal mood affect. NEUROLOGIC: Alert and oriented x3. No gross motor or sensory deficits appreciable. DIAGNOSTIC DATA: Initial potassium was 2.9 and last one is 2.7, calcium is 6.8, repeat is 7.8, sodium is 130. Initial troponin was negative, repeat is 5.04. BUN and creatinine are 24 and 0.8. Initial white count is 14.7 and has risen to 25.5, repeat is 21.6, hemoglobin and hematocrit of 14.2 and 40.8 this morning with platelet count of 484,000. Initial INR was 6.23, repeat is 4.25. Albumin is 2.5. Initial electrocardiogram reveals sinus rhythm with possible acute anterior wall septal myocardial infarction, pattern with markedly prolonged QT interval, repeat electrocardiogram reveals deepening of the anterior T-wave inversions. IMPRESSION: 1. Apparent acute anterior wall myocardial infarction, exact cause uncertain. May have significant coronary artery disease given her strong family history of premature heart disease, however, she has no other significant factors and is a relatively young woman. 2. Marked electrolyte abnormalities with severe hypokalemia and hypocalcemia. 3. History of thromboembolic events with prior cerebrovascular accident and deep vein thromboses in the setting of antiphospholipid antibody syndrome. The possibility of coronary artery embolism exists, but it would be fairly unusual. 4. Apparent left ventricular dysfunction, unclear if this is all secondary to infarct or if she has some underlying abnormalities. She is unaware of having had any prior echocardiogram performed. RECOMMENDATIONS: As she is in an excessively anticoagulated state at the present time and has no clear active cardiac ischemia, invasive angiography will be deferred to allow for stabilization of several factors including her marked electrolyte abnormalities and excessively high INR. Continue anticoagulation once the INR is corrected. Eventually cardiac catheterization will be planned. Serial cardiac enzymes will be obtained, as well as followup electrocardiograms. Her echocardiogram will be reviewed. Beta-nicole therapy and statin therapy will be initiated at this time. Aspirin will be withheld until her INR is in a therapeutic range. We will continue to follow and make further recommendations as appropriate. The above was discussed with Dr. Wallace, the nursing staff, and her , as well as the patient this morning. Thanks for the consultation. Josemanuel Lyles MD [facility] # [id number] GE
[2016-11-08 16:28] LABS: BASO # 0.02 K/mm3 (0.0-2.0); BASO % 0.1 % (0.0-3.0); GRAN # 19.81 (1.4-6.5); GRAN % 88.5 % (50.0-68.0); HEMATOCRIT 41.4 % (36.0-48.0); LYMPH # 0.8 (1.2-3.4); LYMPH % 3.5 % (22.0-35.0); MEAN CELL VOLUME 93.5 fl (80.0-105.0); MEAN CORPUSCULAR HEMOGLOBIN 32.3 pg (25.0-35.0); MEAN CORPUSCULAR HGB CONC 34.5 g/dl (31.0-37.0); MEAN PLATELET VOLUME 9.1 fl (7.0-11.0); MONO # 1.8 (0.1-0.6); MONO % 7.9 % (1.0-6.0); RED CELL DISTRIBUTION WIDTH 13.4 % (11.5-14.5); WHITE BLOOD COUNT 22.4 10^3/ul (4.5-11.0)
[2016-11-08 16:33] LABS: VENOUS BLOOD PH 7.53 (7.32-7.43)
[2016-11-08 16:45] LABS: BLOOD UREA NITROGEN 21 mg/dL (7-21); CALCIUM 8.1 mg/dL (8.4-10.5); CARBON DIOXIDE 25 mmol/L (21-33); CHLORIDE 100 mmol/L (98-107); GFR AFRICAN-AMERICAN > 60; GLUCOSE,RANDOM 135 mg/dL (70-110); MAGNESIUM 2.5 mg/dL (1.7-2.2); POTASSIUM 3.2 mmol/L (3.6-5.0); SODIUM 132 mmol/L (132-148)
--- NOTE | 2016-11-08 16:50 | CON ---
DATE: 11/08/2016 CONSULT REQUESTED BY: Dr. Wallace. REASON FOR CONSULTATION: Hypercoagulable state, DVT, non-STEMI. HISTORY OF PRESENT ILLNESS: Ms. Stewart is a 46-year-old female admitted to the hospital with electrolyte imbalance. She has history of antiphospholipid antibody positivity. For the past 10 years, she has been on Coumadin. Doppler of lower extremity showed right femoral nonocclusive chronic thrombosis. She has a history of Crohn's disease. Sees the GI at [facility]. Also has history of CVA without residual deficit. She had electrolyte imbalance, hypokalemia, hypocalcemia, which is corrected now. She is still complaining of weakness, generalized. PAST MEDICAL HISTORY: 1. History of Crohn's disease. 2. History of hypercoagulable state. 3. Antiphospholipid antibody positivity. 4. DVT right lower extremity. 5. History of CVA. ALLERGIES: NO KNOWN DRUG ALLERGIES. HOME MEDICATIONS: Coumadin 5 mg daily, Lasix 20 mg daily, potassium 20 mg mEq daily. PAST SURGICAL HISTORY: IVC filter placement. REVIEW OF SYSTEMS: As per HPI. Rest of the 12-point review of systems reviewed and negative. PHYSICAL EXAMINATION GENERAL: Comfortable in bed in no acute distress, drowsy arousable, able to give the history. VITAL SIGNS: Blood pressure 130/80, pulse ox is 99% on room air, heart rate is 75 per minute, respiratory rate 20 per minute, moving all the limbs. HEENT: Pallor positive. NECK: Supple. CHEST: Air entry present and equal and bilaterally. No added sounds. CARDIOVASCULAR: S1 and S2 normal. No murmur. No gallop. ABDOMEN: Soft, nontender. No hepatosplenomegaly. EXTREMITIES: No edema. CENTRAL NERVOUS SYSTEM: Sedated, arousable, oriented to time, place and person. SKIN: No petechiae, no rash. LABORATORY DATA: White count is 21,000, hemoglobin 14.2, hematocrit 40, platelet 454. Sodium 130, potassium 2.7, calcium 7.8, previously 6.8, AST 69, ALT 41, alkaline phosphatase 75. MEDICATIONS: Coreg 6.25 mg p.o. b.i.d., ceftriaxone 1 g daily, morphine 2 mg IV q. 4 hour p.r.n., Zofran 4 mg IV q. 4 hour p.r.n., Protonix 40 mg q. 12, Altace 2.5 mg daily. ASSESSMENT: 1. Electrolyte imbalance. 2. Hypercoagulable state. 3. Antiphospholipid antibody. 4. Right lower extremity deep venous thrombosis. 5. Crohn's disease. 6. Non-ST elevation myocardial infarction. 7. Leukocytosis. PLAN: She has hypercoagulable state with antiphospholipid antibody. I will do the titers for antiphospholipid antibody. She still has nonocclusive thrombosis in right femoral vein status post IVC filter placement. INR is supra-therapeutic with 4.2. It is unlikely Coumadin failure, non-STEMI might be due to atherosclerotic plaque. We will continue to hold Coumadin, monitor PT/INR. Resume Coumadin when INR is around 3. She has leukocytosis. No obvious source of infection. Predominantly granulocytosis. She is currently on IV antibiotic. [place] is declining[place] [id number] [place] [id number] might be related to Crohn's exacerbation. Non-STEMI cardiology following. Thank you Dr. Wallace for allowing us to participate in Ms. Stewart's care. Will continue to follow. Lucie Hernandez MD [facility]
--- NOTE | 2016-11-08 19:24 | CARD ---
APPROVED REPORT EKG Measurement Heart [id number] <Conclusion> Age and gender specific ECG analysis Normal sinus rhythm Inferior infarct, age undetermined Anterior injury pattern Prolonged QT ACUTE [place] Abnormal ECG
--- NOTE | 2016-11-08 19:25 | CARD ---
APPROVED REPORT EKG Measurement Heart [id number] <Conclusion> Poor data quality, interpretation may be adversely affected Age and gender specific ECG analysis Normal sinus rhythm Inferior infarct, age undetermined Anterior injury pattern Prolonged QT ACUTE [place] Abnormal ECG
[2016-11-08 19:28] LABS: PARTIAL THROMBOPLASTIN TIME 43.4 Seconds (23.7-30.8)
--- NOTE | 2016-11-08 19:28 | CARD ---
APPROVED REPORT EKG Measurement Heart [id number] <Conclusion> possibly Sinus tachycardia Inferior infarct, age undetermined Abnormal ECG
[2016-11-08 19:30] LABS: INR 4.62 (0.93-1.08)
--- NOTE | 2016-11-08 20:22 | CON ---
DATE: 11/08/2016 COVERING FOR: Dr. Wren. HISTORY OF PRESENTING ILLNESS: A 46-year-old young woman, previously unknown to me, presented to the emergency room with complaints of abdominal pain, abdominal cramping, paresthesias of the face and anterior thorax, bilateral hand contractures, stiffness and inability to move hands. She reported difficulty speaking, also complained of some chest tightness. She gives a history of antiphospholipid antibody syndrome, on Coumadin at home, Crohn disease, history of partial colectomy, history of DVT, PE, CVA. She also reports that recently her diuretic was changed. She was changed from triamterene to torsemide. She gives a history of for chronic lower extremity swelling. In the emergency room, she was found to have a blood pressure of 115/73, heart rate of 145, temperature of 99.4. Initial blood work showed potassium of 2.9, CO2 of 27 and sodium of 131. Consultation is requested for severe hypo kalemia, hypocalcemia, hypomagnesemia. The patient is currently seen in the ICU. She is lying in bed. She still has some abdominal discomfort. She denies any history of any excessive diarrhea. PAST MEDICAL AND SURGICAL HISTORY: Crohn disease, history of antiphospholipid antibody syndrome, DVT, PE, CVA, partial colectomy. FAMILY HISTORY: Noncontributory. SOCIAL HISTORY: No smoking, no alcohol use, no IV drug abuse. ALLERGIES: NO KNOWN DRUG ALLERGIES. MEDICATIONS AT HOME: Coumadin, torsemide 20 mg daily, potassium 20 mEq b.i.d. REVIEW OF SYSTEMS: All systems are reviewed, pertinent positives as mentioned in the history of presenting illness, rest unremarkable. PHYSICAL EXAMINATION: GENERAL EXAMINATION: Thinly built middle-aged lady, lying in bed in the ICU, in mild distress. VITAL SIGNS: Blood pressure 120/87, heart rate 82, respiratory rate 21, temperature 98, T-max 99.4. HEENT: Normocephalic, atraumatic, positive pallor. NECK: Supple, no JVD. LUNGS: Bilateral equal air entry, rales present. CARDIAC: S1 and S2, regular rate and rhythm, no murmur, no rub. ABDOMEN: Soft, nondistended, positive diffuse tenderness, bowel sounds present. EXTREMITIES: No lower extremity edema. INTAKE AND OUTPUT: 2140/300. LABORATORY DATA: WBC 21.6, hemoglobin 14, hematocrit 40, platelets 454. Sodium 130, potassium 2.7, chloride 96, CO2 of 29, BUN 24, creatinine 0.8, glucose 187, calcium 7.8, phosphorus 2.6, magnesium 3.7, albumin 2.5. Corrected calcium is now 8.7. Troponin 0.01, second set 5.0, third set 4.76. CT of the abdomen and pelvis: Moderate distention of the colon and moderate constipation, no acute findings. Echocardiogram showing severely hypokinetic ventricle with decreased ejection fraction of 15% only. CURRENT MEDICATIONS: Altace 2.5 daily, Coreg 6.25 b.i.d., morphine 2 mg, normal saline with 20 mEq of KCl at 100, Protonix, ceftriaxone 1 g daily, Zofran. The patient also received calcium gluconate 2 g, magnesium sulfate 3 doses of 2 g each and 20 mEq of potassium times total of 6 bags. ASSESSMENT AND PLAN: A 46-year-old young woman with history of antiphospholipid antibody syndrome, deep vein thrombosis, pulmonary embolism, cerebrovascular accident with no residual defect, Crohn disease, partial colectomy with end-to-end anastomosis, presenting with paresthesias, numbness of face, stiffness of the fingers in the setting of multiple metabolic derangements. The patient was found to be severely hypocalcemic, hypokalemia, hypomagnesemic. Suspect all her paresthesia and symptoms were related to these electrolyte abnormalities. 1. Severe hypocalcemia. 2. Hypokalemia. 3. Hypomagnesemia, now resolved. 4. Dehydration. 5. Acute coronary syndrome, elevated troponins. 6. Chronic malnutrition. 7. Hypoalbuminemia. 8. Leukocytosis, sepsis? source gastrointestinal? PLAN: 1. Aggressive potassium repletion, increase potassium in IV fluids to 30 mEq per bag. 2. Calcium gluconate IV piggyback x1 dose. 3. No further magnesium supplementation needed. 4. Núñez cultures. 5. Agree with empiric antibiotics. 6. Agree with holding Coumadin in the setting of elevated INR. 7. Monitor electrolytes q. 12 hours. 8. Case discussed with Dr. Wallace at bedside at length. Case discussed with nursing staff. More than 35 minutes spent in the care of this critically ill patient. Sierra Laguerre MD [facility] # [id number]
[2016-11-08] MEDS: metroNIDAZOLE IV 500 mg/100 ml 500 MG/100 ML BAG IVPB SCH (21:26)
[2016-11-09] MEDS: Morphine 2 mg/ml ISec IVP PRN ×9 (00:28→23:01)
[2016-11-09 00:46] LABS: BASO # 0.01 K/mm3 (0.0-2.0); BASO % 0.1 % (0.0-3.0); EOS % 0.1 % (1.5-5.0); GRAN # 15.02 (1.4-6.5); GRAN % 87.1 % (50.0-68.0); HEMATOCRIT 41.3 % (36.0-48.0); LYMPH % 5.6 % (22.0-35.0); MEAN CELL VOLUME 93.9 fl (80.0-105.0); MEAN CORPUSCULAR HEMOGLOBIN 31.6 pg (25.0-35.0); MEAN CORPUSCULAR HGB CONC 33.7 g/dl (31.0-37.0); MEAN PLATELET VOLUME 9.2 fl (7.0-11.0); MONO # 1.2 (0.1-0.6); MONO % 7.1 % (1.0-6.0); RED CELL DISTRIBUTION WIDTH 13.4 % (11.5-14.5); WHITE BLOOD COUNT 17.2 10^3/ul (4.5-11.0)
[2016-11-09 04:24] LABS: PARTIAL THROMBOPLASTIN TIME 45.5 Seconds (23.7-30.8)
[2016-11-09 04:28] LABS: ALKALINE PHOSPHATASE 71 U/L (38-126); ALT/SGPT 61 U/L (7-56); AST/SGOT 109 U/L (14-36); BILIRUBIN,TOTAL 0.9 mg/dL (0.2-1.3); BLOOD UREA NITROGEN 22 mg/dL (7-21); CALCIUM 7.7 mg/dL (8.4-10.5); CARBON DIOXIDE 26 mmol/L (21-33); CHLORIDE 104 mmol/L (98-107); GFR AFRICAN-AMERICAN > 60; GLUCOSE,RANDOM 105 mg/dL (70-110); MAGNESIUM 2.3 mg/dL (1.7-2.2); PHOSPHOROUS 3.3 mg/dL (2.5-4.5); POTASSIUM 4.6 mmol/L (3.6-5.0); SODIUM 134 mmol/L (132-148); TOTAL PROTEIN 5.4 g/dL (5.8-8.3)
[2016-11-09 04:34] LABS: INR 6.19 (0.93-1.08)
[2016-11-09 04:39] LABS: BASO # 0.02 K/mm3 (0.0-2.0); BASO % 0.1 % (0.0-3.0); EOS % 0.1 % (1.5-5.0); GRAN # 16.83 (1.4-6.5); HEMATOCRIT 42.7 % (36.0-48.0); LYMPH % 5.2 % (22.0-35.0); MEAN CELL VOLUME 94.9 fl (80.0-105.0); MEAN CORPUSCULAR HEMOGLOBIN 32.2 pg (25.0-35.0); MEAN PLATELET VOLUME 9.7 fl (7.0-11.0); MONO # 1.3 (0.1-0.6); MONO % 6.6 % (1.0-6.0); RED CELL DISTRIBUTION WIDTH 13.6 % (11.5-14.5); WHITE BLOOD COUNT 19.1 10^3/ul (4.5-11.0)
--- NOTE | 2016-11-09 04:43 | CON ---
DATE: 11/08/2016 HISTORY OF PRESENT ILLNESS: This patient was seen and evaluated earlier. Discussed with Dr. Wallace, playroom attendant and Dr. Hernandez at length. The patient's mother and other family members are at the bedside at the time of examination. This 46-year-old patient with history of Crohn's disease, antiphospholipid syndrome, had leg edema, recently started on diuretic torsemide, presented to the emergency room with paresthesia and numbness. He complained of hand contractures and stiffness and difficult to move them. She denied initially chest pain in the emergency room or shortness of breath. She did not complain of any significant abdominal discomfort at that time. The patient was found to have severe hypokalemia and also hypocalcemia and also had hypomagnesemia. The patient was admitted with the electrolyte imbalance. While in the ICU, the patient has been complaining of more abdominal cramping and discomfort. GI consult was requested to evaluate this. She points out the abdominal discomfort mainly in the upper abdomen. There is some dull discomfort with the episodes of cramping discomfort before. She reminds her previous Crohn's type of pain. She has a history of Crohn's disease, presently not on any medication. She was in the past treated with 6-MP. She was also on prednisone in the past. She was at one point on Cimzia for Crohn's disease. She could not tolerate the Cimzia. The patient mentioned to me that she has been waiting for Stelara approval by the insurance company. She has been followed by at [facility]. The patient did have a CT scan of the abdomen and pelvis done without contrast, which was reviewed. The patient does give history of episodes of constipation. Last bowel movement was a few days ago. The CT scan reviewed showed a moderate amount of stool, bilateral ovarian cysts, measuring 5.9 cm in the left, 4.5 cm on the right. The patient did mention that she has a rupture of the cyst in the past and she is fully aware of the cyst. She describes the pain in the upper abdominal area, not in the lower abdominal area, now cramping discomfort. No vomiting. The patient was also found to have an elevated white cell count of 25,000. When she came into the hospital on 11/07/2016, yesterday, it was 14.7 and got increased to 25.5. Denies any fevers, chills. The source is unclear. History of antiphospholipid syndrome. The patient has been on Coumadin. The patient's INR when admitted to the emergency room was 7.57, it has now come down to 4.6. The patient's CAT scan also revealed IVC filter placement and also has a stent in the IVC. Lower extremity Doppler showed chronic thrombus, right femoral vein. At the time of examination, the patient has been complaining of some cramping discomfort. PAST MEDICAL HISTORY: Her other past medical history is significant as above. History of CVA without residual defect in the past. The patient was diagnosed with Crohn's disease at the age of 20. The patient had a right colon resection done. Initially, she was treated with a steroid 6-MP, then Cimzia, she could not tolerate. Presently, has been not taking any medication for Crohn's. She is awaiting to have the medication, Stelara approved. History of antiphospholipid antibody syndrome, history of DVT on Coumadin. The patient did mention that she did have clots while on Coumadin. She was advised to follow up with a clinical lab assistant in [facility], but she did not follow through. ALLERGIES: NO KNOWN DRUG ALLERGIES. FAMILY HISTORY: Positive for father at the age of 55 from myocardial infarction. SOCIAL HISTORY: He denies smoking and alcohol. REVIEW OF SYSTEMS: Positive as above. All 12-organ systems reviewed, negative. PHYSICAL EXAMINATION GENERAL: The patient is lying on the bed, complaining of intermittent episodes of cramping, upper abdominal discomfort. VITAL SIGNS: Temperature is afebrile, heart rate 107, respirations 18, O2 saturation 99%, and blood pressure 116/85. HEENT: Atraumatic. Anicteric. NECK: Supple. HEART: S1 and S2, heard. ABDOMEN: Soft. There is a mild tenderness on deep palpation in the epigastric area, otherwise unremarkable. EXTREMITIES: No rebound or guarding. 1+ edema present. NEUROLOGIC: Alert and oriented. No gross motor or sensory deficit as such. PSYCHIATRIC: Anxiety. LABORATORY DATA: INR 4.62. WBC count 22.4, hemoglobin 14.3, hematocrit 41.4 and platelets 460. Chemistry: Potassium is improved to 3.2, magnesium improved to 2.5. Troponin elevated, it was 4.04, now 4.76. LFTs essentially unremarkable except AST mildly elevated to 69. The CT scan was reviewed. The CAT scan showed a moderate amount of stool and with distention of the colon. IVC filter and also stent, no obvious acute inflammatory findings noticed. The patient does have bilateral ovarian cyst as described above. IMPRESSION: 1. The etiology for abdominal pain is unclear. The patient does have cramping abdominal pain mainly in the upper abdomen. She does have ovarian cyst, but she did not complain of discomfort in the lower abdomen, mainly in the upper abdomen. The differential diagnosis should include gallstones, ulcer disease and also vascular etiology, Crohn's exacerbation also to be considered. 2. Acute myocardial infarction. 3. History of thromboembolic event status post cerebrovascular accident in the past. History of deep vein thrombosis. The patient has inferior vena cava filter and stent, but the patient is anticoagulated with INR of over 4. Initially, it was over 7. Vascular etiology includes abdominal pain, mesenteric ischemia less likely can occur with a history the patient described that having episodes of clot while on anticoagulation. 4. Elevated WBC, rule out sepsis. The patient's procalcitonin level is normal. The etiology for leukocytosis is unclear. 5. Electrolyte imbalance, being corrected. 6. History of constipation, episodes of significant amount of stool in the colon with colonic distention. RECOMMENDATIONS: 1. Requested for ultrasound scan to rule out any gallstones. 2. Continue Protonix IV. 3. We will change the diet to clear liquid diet. 4. Would recommend to start the patient on MiraLax 17 g twice a day for constipation. 5. Would start the patient follow up all the cultures, continue the antibiotics. 6. Would continue cardiological followup for acute [place]. 7. Would request for an ID evaluation in view of the leukocytosis, etiology is unclear, benefit from ID evaluation. 8. We had a detailed discussion with Dr. Hernandez, clinical lab assistant regarding the anticoagulation therapy. 9. Would continue to closely followup her care and suggest further management based on the clinical course. Thank you very much for allowing me to participate in the care of the patient. Leonora Yanes MD [facility] # [id number]
[2016-11-09] MEDS ORDERED: Potassium Chloride 30 MEQ in Sodium Chloride 0.9% 1,000 ML IV SCH (05:50)
[2016-11-09] MEDS: metroNIDAZOLE IV 500 mg/100 ml 500 MG/100 ML BAG IVPB SCH ×3 (06:00→21:19)
--- NOTE | 2016-11-09 07:19 | PN ---
DATE: 11/09/2016 SUBJECTIVE: The patient is seen lying in bed in the TCU. She continues to have intermittent abdominal pain. She denies any chest pain. She feels slightly better compared to yesterday. Her last recorded troponin was 4.76 and potassium this morning is 4.6. Her calcium is 7.7 with an albumin of 2.7. Her INR remains significantly elevated at 6.19. She has no evidence of active bleeding. CURRENT MEDICATIONS: Include Altace 2.5 mg daily, carvedilol 6.25 mg b.i.d., Flagyl, Rocephin, Protonix, morphine p.r.n., and potassium supplements. OBJECTIVE: GENERAL: She is a chronically ill appearing middle-aged woman. VITAL SIGNS: Her blood pressure is 126/84 with a pulse of 82 and sinus; respirations are 14. She is afebrile. HEENT: No JVD. CHEST: Clear to auscultation and percussion. HEART: Soft tones noted with a soft systolic murmur at the apex. ABDOMEN: Soft with moderate diffuse tenderness. Bowel sounds are present. EXTREMITIES: 1+ ankle edema. DIAGNOSTIC DATA: Potassium 4.6, sodium 134, BUN and creatinine 22 and 0.7, calcium is 7.7. White count 19.1, hemoglobin and hematocrit 14.5 and 42.7 with a platelet count of 375,000. PT/PTT is 66.8 and 45.5 with an INR of 6.19. Morning electrocardiogram is pending. IMPRESSION: 1. Apparent anterior wall myocardial infarction with severe anterior apical hypokinesis, remains hemodynamically stable at the present time. Started on NAYANA inhibitor and beta nicole yesterday. 2. Severe Crohn's disease, status post bowel resection. 3. History of cerebrovascular accident. 4. History of prior deep vein thromboses. 5. Antiphospholipid antibody syndrome. 6. Electrolyte abnormalities, gradually improving. 7. Moderately severe left ventricular systolic dysfunction. 8. An excessive anticoagulation. RECOMMENDATIONS: Her current medications will be continued. Avoidance of excessive of IV volume infusion is recommended. Her NAYANA inhibitor and beta nicole will be gradually increased as tolerated. Close monitoring of her INR and CBC are advised. An eventual cardiac catheterization will be planned. Further recommendations will be made based on her clinical course and results of her evaluation. We will continue to follow and make recommendations as needed. Josemanuel Lyles MD [facility] # [id number]
[2016-11-09] MEDS ORDERED: POLYETHYLENE GLYCOL 3350 17 GM/Dose PACKET PO ONE ×2 (08:45→19:24)
[2016-11-09] MEDS: cefTRIAXone 1 gm 1 GM/100 ML BAG IVPB SCH (09:52)
--- NOTE | 2016-11-09 11:19 | PN ---
DATE: 11/09/2016 SUBJECTIVE: The patient is seen and examined at bedside. She is complaining of abdominal pain. PHYSICAL EXAMINATION VITAL SIGNS: Heart rate 99, blood pressure 123/86, oxygen saturation 94% on room air, respiratory rate 16. HEAD AND NECK: Atraumatic. LUNGS: Clear to auscultation bilaterally. HEART: Regular rate and rhythm. S1 and S2 normal. ABDOMEN: Soft, nontender, nondistended. MUSCULOSKELETAL: No C/C/E. NEUROLOGIC: The patient moves all extremities spontaneously. SKIN: Color is moist. PSYCHIATRIC: The patient is alert and oriented x3 in distress due to abdominal pain. LABORATORY DATA: WBC 19.1, hemoglobin 14.5, platelet count 375. Sodium 134, potassium 4.6, chloride 104, carbon dioxide 26, BUN 22, creatinine 0.7, glucose 105. AST 109, ALT 61, troponin 2.66 down from 4.76. Procalcitonin 0.14, lactic acid 1.7. INR 6.19. MEDICATIONS: Coreg, Flagyl, morphine p.r.n., Zofran p.r.n., Protonix 40 mg IV q. 12, potassium in normal saline at 60 mL per hour, Altace, ceftriaxone. Abdominal ultrasound and abdominal duplex is done. ASSESSMENT AND PLAN: This is a 46-year-old lady, who presented with wide range of electrolyte disturbances, thought to be secondary to recent diuretic therapy. Those electrolytes abnormalities were corrected, however, during the course of ICU stay she was diagnosed with acute non-ST elevation myocardial infarction. She could not be going for a percutaneous coronary intervention, as her INR is supratherapeutic. She was started on beta-blockers and NAYANA inhibitors for severe left ventricular systolic dysfunction. The patient had a deep venous thrombosis in the past in the setting of antiphospholipid antibody syndrome and has been on Coumadin, which is held now. Her abdominal pain prompted gastrointestinal consult, CAT scan of the abdomen. The patient did have bowel movement yesterday, which did not have any blood or mucus in it, abdomen was soft. CAT scan of the abdomen did not reveal any changes suggestive of colitis or cholecystitis. [id number] colonic distention was noted. I will clarify whether or not GI service still recommends MiraLax, as the patient had bowel movements yesterday. Meanwhile, abdominal ultrasound to rule out acute cholecystitis is pending. Hemodynamic stability and absence of lactic acidosis make mesenteric ischemia less likely, however, abdominal ultrasound with Duplex is pending. I am not sure whether right ovarian cyst maybe a source of abdominal pain. As per gastrointestinal service, it is unlikely to represent Crohn's disease exacerbation. We might touch base with pain service for their recommendations. We will continue to target euvolemia, glycemia, normothermia and oxygen saturation more than 90%. We will continue with deep venous thrombosis and gastrointestinal prophylaxis. Addendum: Discussed with GI: will start miralax. ccm time 40 min Kashmir Wallace MD MTDD
--- NOTE | 2016-11-09 12:56 | CP.PCM.CON ---
History of Present Illness - History of Present Illness History of Present Illness: 46 year old female with PMH of Crohn's disease, antiphospholipid antibody syndrome on anticoagulation, S/P colonic obstruction and resection with anastomosis, history of CVA came in to [facility] because of abdominal pain, crampy, mostly on her right side with occasional nausea but no vomiting, no diarrhea, no melena or hematochezia. She is also complaining of occasional paresthesias on her face and hands. She denies fever or chills, no chest pain, no SOB, no headache or dizziness, no dysuria, no dysphagia, no sore throat, no cough or colds. In the ED, CT of the abdomen and pelvis showed moderate distention of the colon and constipation. She is also noted to have leukocytosis. Infectious Diseases consult is requested to further evaluate and manage. Patient has not been on antibiotics for the past 3 months. Review of Systems - Review of Systems All systems: reviewed and no additional remarkable complaints except (as per HPI ) Past Patient History - Past Social History Smoking Status: Never Smoked - CARDIAC Hx Cardiac Disorders: No Hx Peripheral Edema: Yes (Bilateral Lower extremity edema; +3-+4.) - PULMONARY Hx Respiratory Disorders: No - NEUROLOGICAL HX Cerebrovascular Accident: Yes (2007) - HEENT Hx HEENT Problems: No - RENAL Hx Chronic Kidney Disease: No - ENDOCRINE/METABOLIC Hx Endocrine Disorders: No - HEMATOLOGICAL/ONCOLOGICAL Hx Blood Disorders: Yes (Antiphospholipid Disorder (on Warfarin). [employer] Filter 2003.) - INTEGUMENTARY Hx Dermatological Problems: No - MUSCULOSKELETAL/RHEUMATOLOGICAL Hx Musculoskeletal Disorders: No - GASTROINTESTINAL Hx Gastrointestinal Disorders: Yes (Bowel Resection 25 years ago.) Hx Crohn's Disease: Yes (Exacerbation 1 month ago.) - GENITOURINARY/GYNECOLOGICAL Hx Genitourinary Disorders: No - PSYCHIATRIC Hx Psychophysiologic Disorder: No - SURGICAL HISTORY Hx Surgeries: Yes (Bowel Resection. Fem Bypass?) Meds Allergies/Adverse Reactions: Allergies Allergy/AdvReac Type Severity Reaction Status Date / Time No Known Allergies Allergy Verified 11/29/12 22:00 - Medications Medications: Current Medications Carvedilol (Coreg) 6.25 mg PO BID DANA Ceftriaxone Sodium (Rocephin 1 Gram Ivpb) 1 gm in 100 mls @ 100 mls/hr IVPB DAILY DANA PRN Reason: Protocol Last Admin: 11/08/16 09:17 Dose: 100 mls/hr Potassium Chloride 30 meq/ (Sodium Chloride) 1,015 mls @ 100 mls/hr IV .Q10H9M [facility] Last Admin: 11/08/16 14:24 Dose: 100 mls/hr Morphine Sulfate (Morphine) 2 mg IVP Q4H PRN PRN Reason: Pain, moderate (4-7) Last Admin: 11/08/16 17:03 Dose: 2 mg Ondansetron HCl (Zofran Inj) 4 mg IVP Q4H PRN PRN Reason: Nausea/Vomiting Last Admin: 11/08/16 14:25 Dose: 4 mg Pantoprazole Sodium (Protonix Inj) 40 mg IVP Q12 [facility] Last Admin: 11/08/16 09:17 Dose: 40 mg Ramipril (Altace) 2.5 mg PO DAILY [facility] Physical Exam - Constitutional Appears: Non-toxic, No Acute Distress - Head Exam Head Exam: NORMAL INSPECTION - ENT Exam ENT Exam: Mucous Membranes Moist - Neck Exam Neck exam: Negative for: Meningismus - Respiratory Exam Respiratory Exam: Decreased Breath Sounds - Cardiovascular Exam Cardiovascular Exam: +S1, +S2 - GI/Abdominal Exam GI & Abdominal Exam: Soft, Tenderness (right side). absent: Distended, Firm, Guarding, Rebound, Rigid Results - Vital Signs Recent Vital Signs: Last Vital Signs Temp 98 F 11/08/16 04:00 Pulse 94 H 11/08/16 15:00 Resp 21 11/08/16 14:30 BP 126/90 11/08/16 15:00 Pulse Ox 99 11/08/16 14:50 - Labs Result Diagrams: 11/09/16 04:00 11/09/16 04:00 Labs: Laboratory Results - last 24 hr 11/07/16 11/08/16 11/08/16 21:10 00:30 00:30 WBC 25.5 H* D RBC 4.50 Hgb 14.4 Hct 41.8 MCV 92.9 MCH 32.0 MCHC 34.4 RDW 13.2 Plt Count 453 H MPV 9.0 Gran % 89.6 H Lymph % (Auto) 3.0 L [place] % (Auto) 7.3 H Eos % (Auto) 0.0 L Baso % (Auto) 0.1 Gran # 22.85 H Lymph # 0.8 L [place] # 1.9 H Eos # 0.0 Baso # 0.02 Neutrophils % (Manual) 89 H Lymphocytes % (Manual) 4 L Monocytes % (Manual) 7 H PT INR APTT pO2 VBG pH VBG pCO2 VBG HCO3 VBG Total CO2 VBG O2 Sat (Calc) VBG Base Excess VBG Potassium Glucose Lactate FiO2 Sodium 132 Potassium 2.4 L* Chloride 95 L Carbon Dioxide 30 Anion Gap 9 L BUN 26 H Creatinine 0.9 Est GFR ( Amer) > 60 Est GFR (Non-Af Amer) > 60 Random Glucose 138 H Calcium 6.9 L* Phosphorus 2.0 L Magnesium 2.1 Total Bilirubin 0.8 AST 44 H D ALT 38 Alkaline Phosphatase 77 Troponin I Total Protein 5.2 L Albumin 2.7 L Globulin 2.5 Albumin/Globulin Ratio 1.1 25-OH Vitamin D Total Procalcitonin Venous Blood Potassium Urine Color Light yellow Urine Appearance Clear Urine pH 6.0 Ur Specific [place] 1.010 Urine Protein Negative Urine Glucose (UA) Negative Urine Ketones Negative Urine Blood Negative Urine Nitrate Negative Urine Bilirubin Negative Urine Urobilinogen 0.2 Ur Leukocyte Esterase Negative Urine HCG, Qual Negative 11/08/16 11/08/16 11/08/16 01:00 04:00 04:00 WBC 19.6 H D RBC 4.37 Hgb 13.7 Hct 40.8 MCV 93.4 MCH 31.4 MCHC 33.6 RDW 13.3 Plt Count 417 MPV 9.2 Gran % 88.0 H Lymph % (Auto) 3.9 L [place] % (Auto) 7.9 H Eos % (Auto) 0.1 L Baso % (Auto) 0.1 Gran # 17.25 H Lymph # 0.8 L [place] # 1.6 H Eos # 0.0 Baso # 0.01 Neutrophils % (Manual) Lymphocytes % (Manual) Monocytes % (Manual) PT INR APTT pO2 VBG pH VBG pCO2 VBG HCO3 VBG Total CO2 VBG O2 Sat (Calc) VBG Base Excess VBG Potassium Glucose Lactate FiO2 Sodium Potassium Chloride Carbon Dioxide Anion Gap BUN Creatinine Est GFR ( Amer) Est GFR (Non-Af Amer) Random Glucose Calcium Phosphorus Magnesium Total Bilirubin AST ALT Alkaline Phosphatase Troponin I 5.04 H* D Total Protein Albumin Globulin Albumin/Globulin Ratio 25-OH Vitamin D Total Procalcitonin 0.14 L Venous Blood Potassium Urine Color Urine Appearance Urine pH Ur Specific [place] Urine Protein Urine Glucose (UA) Urine Ketones Urine Blood Urine Nitrate Urine Bilirubin Urine Urobilinogen Ur Leukocyte Esterase Urine HCG, Qual 11/08/16 11/08/16 11/08/16 04:00 06:17 11:00 WBC RBC Hgb Hct MCV MCH MCHC RDW Plt Count MPV Gran % Lymph % (Auto) [place] % (Auto) Eos % (Auto) Baso % (Auto) Gran # Lymph # [place] # Eos # Baso # Neutrophils % (Manual) Lymphocytes % (Manual) Monocytes % (Manual) PT 45.9 H* INR 4.25 H* APTT 42.8 H pO2 VBG pH VBG pCO2 VBG HCO3 VBG Total CO2 VBG O2 Sat (Calc) VBG Base Excess VBG Potassium Glucose Lactate FiO2 Sodium 130 L Potassium 2.7 L* Chloride 96 L Carbon Dioxide 29 Anion Gap 8 L BUN 24 H Creatinine 0.8 Est GFR ( Amer) > 60 Est GFR (Non-Af Amer) > 60 Random Glucose 187 H Calcium 7.8 L Phosphorus 2.6 Magnesium 3.7 H Total Bilirubin 0.7 AST 69 H D ALT 41 Alkaline Phosphatase 75 Troponin I Total Protein 4.9 L Albumin 2.5 L Globulin 2.4 Albumin/Globulin Ratio 1.0 L 25-OH Vitamin D Total < 12.8 L Procalcitonin Venous Blood Potassium Urine Color Urine Appearance Urine pH Ur Specific [place] Urine Protein Urine Glucose (UA) Urine Ketones Urine Blood Urine Nitrate Urine Bilirubin Urine Urobilinogen Ur Leukocyte Esterase Urine HCG, Qual 11/08/16 11/08/16 11/08/16 11:40 11:40 16:10 WBC 21.6 H RBC 4.41 Hgb 14.2 Hct 40.8 MCV 92.5 MCH 32.2 MCHC 34.8 RDW 13.4 Plt Count 454 H MPV 8.8 Gran % 87.5 H Lymph % (Auto) 4.0 L [place] % (Auto) 8.4 H Eos % (Auto) 0.0 L Baso % (Auto) 0.1 Gran # 18.90 H Lymph # 0.9 L [place] # 1.8 H Eos # 0.0 Baso # 0.03 Neutrophils % (Manual) Lymphocytes % (Manual) Monocytes % (Manual) PT INR APTT pO2 VBG pH VBG pCO2 VBG HCO3 VBG Total CO2 VBG O2 Sat (Calc) VBG Base Excess VBG Potassium Glucose Lactate FiO2 Sodium 132 Potassium 3.2 L Chloride 100 Carbon Dioxide 25 Anion Gap 10 BUN 21 Creatinine 0.7 Est GFR ( Amer) > 60 Est GFR (Non-Af Amer) > 60 Random Glucose 135 H Calcium 8.1 L Phosphorus Magnesium 2.5 H Total Bilirubin AST ALT Alkaline Phosphatase Troponin I 4.76 H* Total Protein Albumin Globulin Albumin/Globulin Ratio 25-OH Vitamin D Total Procalcitonin Venous Blood Potassium Urine Color Urine Appearance Urine pH Ur Specific [place] Urine Protein Urine Glucose (UA) Urine Ketones Urine Blood Urine Nitrate Urine Bilirubin Urine Urobilinogen Ur Leukocyte Esterase Urine HCG, Qual 11/08/16 11/08/16 16:15 16:20 WBC 22.4 H RBC 4.43 Hgb 14.3 Hct 41.4 MCV 93.5 MCH 32.3 MCHC 34.5 RDW 13.4 Plt Count 460 H MPV 9.1 Gran % 88.5 H Lymph % (Auto) 3.5 L [place] % (Auto) 7.9 H Eos % (Auto) 0.0 L Baso % (Auto) 0.1 Gran # 19.81 H Lymph # 0.8 L [place] # 1.8 H Eos # 0.0 Baso # 0.02 Neutrophils % (Manual) Lymphocytes % (Manual) Monocytes % (Manual) PT INR APTT pO2 82 H VBG pH 7.53 H VBG pCO2 30.0 L VBG HCO3 25.1 VBG Total CO2 26.0 VBG O2 Sat (Calc) 97.2 H VBG Base Excess 3.0 H VBG Potassium 3.3 L Glucose 148 H Lactate 1.7 FiO2 21.0 Sodium 133.0 Potassium Chloride 98.0 Carbon Dioxide Anion Gap BUN Creatinine Est GFR ( Amer) Est GFR (Non-Af Amer) Random Glucose Calcium Phosphorus Magnesium Total Bilirubin AST ALT Alkaline Phosphatase Troponin I Total Protein Albumin Globulin Albumin/Globulin Ratio 25-OH Vitamin D Total Procalcitonin Venous Blood Potassium 3.3 L Urine Color Urine Appearance Urine pH Ur Specific [place] Urine Protein Urine Glucose (UA) Urine Ketones Urine Blood Urine Nitrate Urine Bilirubin Urine Urobilinogen Ur Leukocyte Esterase Urine HCG, Qual Assessment & Plan - Assessment and Plan (Free Text) Plan: Assessment Systemic Inflammatory Response Syndrome, consider due to acute exacerbation of Crohn's disease, R/O sepsis Crohn's disease antiphospholipid antibody syndrome on anticoagulation S/P colonic obstruction and resection with anastomosis history of CVA Plan Started patient on Rocephin and Flagyl pendinng blood cx, urine cx; will also check PCT and CXR; CT scan did not show abscess or intra-abdominal infection; patient does not have diarrhea follow up further GI evaluation will trend WBC count will monitor clinically
--- NOTE | 2016-11-09 13:26 | US ---
HISTORY: cholecystitis, choledocholithiasis COMPARISON: None. TECHNIQUE: Sonographic evaluation of the abdomen. FINDINGS: LIVER: Measures 19.6 cm. Normal echogenicity of the liver parenchyma. No mass. No intrahepatic bile duct dilatation. GALLBLADDER: Unremarkable. No gallstones. COMMON BILE DUCT: Measures 5 mm. No stones. No dilatation. PANCREAS: Not visualize due to bowel gas RIGHT KIDNEY: Measures 11.0 x 4.0 x 4.2cm. Normal echogenicity. No calculus, mass, or hydronephrosis. LEFT KIDNEY: Measures 10.14 x 4.6 x 4.9cm. Normal echogenicity. No calculus, mass, or hydronephrosis. SPLEEN: Normal in size and contour. No mass. AORTA: No aneurysmal dilatation. IVC: Unremarkable. OTHER FINDINGS: None. IMPRESSION: Unremarkable abdominal sonogram.
[2016-11-09 14:01] LABS: BASO # 0.02 K/mm3 (0.0-2.0); BASO % 0.1 % (0.0-3.0); EOS % 0.1 % (1.5-5.0); GRAN # 18.31 (1.4-6.5); GRAN % 91.8 % (50.0-68.0); HEMATOCRIT 46.9 % (36.0-48.0); LYMPH # 0.6 (1.2-3.4); LYMPH % 2.8 % (22.0-35.0); MEAN CELL VOLUME 96.1 fl (80.0-105.0); MEAN CORPUSCULAR HEMOGLOBIN 32.4 pg (25.0-35.0); MEAN CORPUSCULAR HGB CONC 33.7 g/dl (31.0-37.0); MEAN PLATELET VOLUME 9.4 fl (7.0-11.0); MONO % 5.2 % (1.0-6.0); RED CELL DISTRIBUTION WIDTH 13.7 % (11.5-14.5); WHITE BLOOD COUNT 19.9 10^3/ul (4.5-11.0)
[2016-11-09 14:37] LABS: ALKALINE PHOSPHATASE 91 U/L (38-126); ALT/SGPT 63 U/L (7-56); AST/SGOT 96 U/L (14-36); BILIRUBIN,TOTAL 0.7 mg/dL (0.2-1.3); BLOOD UREA NITROGEN 23 mg/dL (7-21); CARBON DIOXIDE 28 mmol/L (21-33); CHLORIDE 101 mmol/L (98-107); GFR AFRICAN-AMERICAN > 60; GLUCOSE,RANDOM 92 mg/dL (70-110); MAGNESIUM 2.1 mg/dL (1.7-2.2); PHOSPHOROUS 3.5 mg/dL (2.5-4.5); POTASSIUM 4.9 mmol/L (3.6-5.0); SODIUM 135 mmol/L (132-148); TOTAL PROTEIN 5.2 g/dL (5.8-8.3)
--- NOTE | 2016-11-09 16:26 | CP.PCM.PN ---
Subjective - Date & Time of Evaluation Date of Evaluation: 11/09/16 Time of Evaluation: 15:00 - Subjective Subjective: Patient reporting persistent upper abdominal pain; Regarding recent change in home meds, was on triamterene-hctz combo due to persistent leg edema despite not having htn history; changed to torsemide 20 mg daily a few days before presentation (by provider other than usual pmd) due to unavailability of previous med; Objective - Vital Signs/Intake and Output Vital Signs (last 24 hours): Temp Pulse Resp BP Pulse Ox 98.1 F 114 H 26 H 99/66 L 93 L 11/09/16 00:20 11/09/16 11:00 11/09/16 11:00 11/09/16 11:00 11/09/16 11:00 - Medications Medications: Current Medications Carvedilol (Coreg) 12.5 mg PO BID [facility] Last Admin: 11/09/16 09:54 Dose: Not Given Ceftriaxone Sodium (Rocephin 1 Gram Ivpb) 1 gm in 100 mls @ 100 mls/hr IVPB DAILY [facility] PRN Reason: Protocol Last Admin: 11/09/16 09:52 Dose: 100 mls/hr Metronidazole (Flagyl) 500 mg in 100 mls @ 100 mls/hr IVPB Q8 [facility] PRN Reason: Protocol Last Admin: 11/09/16 13:06 Dose: 100 mls/hr Potassium Chloride 30 meq/ (Sodium Chloride) 1,015 mls @ 60 mls/hr IV .[id number] [facility] Last Admin: 11/09/16 06:00 Dose: 60 mls/hr Morphine Sulfate (Morphine) 2 mg IVP Q2H PRN PRN Reason: Pain, moderate (4-7) Last Admin: 11/09/16 14:44 Dose: 2 mg Ondansetron HCl (Zofran Inj) 4 mg IVP Q4H PRN PRN Reason: Nausea/Vomiting Last Admin: 11/09/16 08:43 Dose: 4 mg Pantoprazole Sodium (Protonix Inj) 40 mg IVP Q12 [facility] Last Admin: 11/09/16 09:52 Dose: 40 mg Ramipril (Altace) 2.5 mg PO DAILY [facility] Last Admin: 11/09/16 09:53 Dose: Not Given - Labs Labs: 11/09/16 13:56 11/09/16 13:56 PT 66.8 Seconds (9.9-11.8) H* 11/09/16 04:00 INR 6.19 (0.93-1.08) H* 11/09/16 04:00 APTT 45.5 Seconds (23.7-30.8) H 11/09/16 04:00 - Constitutional Appears: Non-toxic - Head Exam Head Exam: NORMAL INSPECTION - Eye Exam Eye Exam: Normal appearance. absent: Scleral icterus - ENT Exam ENT Exam: Mucous Membranes Moist - Respiratory Exam Respiratory Exam: Clear to Ausculation Bilateral. absent: Rales, Rhonchi, Wheezes, Respiratory Distress - Cardiovascular Exam Cardiovascular Exam: REGULAR RHYTHM, +S1, +S2 - GI/Abdominal Exam GI & Abdominal Exam: Soft. absent: Distended Additional comments: epigastric and RUQ tenderness; - Exam Exam: absent: Bladder Distension - Extremities Exam Extremities Exam: Normal Capillary Refill Additional comments: mild to moderate lower leg edema; - Neurological Exam Neurological Exam: Alert, Awake, Oriented x3 - Psychiatric Exam Psychiatric exam: Normal Affect, Normal Mood - Skin Skin Exam: Normal Color, Warm. absent: Cyanosis Assessment and Plan (1) Hypocalcemia Assessment & Plan: Severe sympotmatic hypocalcemia secondary to strong dose of long acting loop diuretic torsemide in setting of normal renal function; resolved; would avoid loop diuretics without careful monitoring and gradual increase of dose (if needed); Status: Resolved (2) Hypokalemia Assessment & Plan: Worsened by loop diuretic; patient was on thiazide/triamterene (potassium sparing); resolved; can d/c potassium from IVF for now; can consider restarting potassium sparing diuretic (particularly aldactone in setting of cardiac wall motion abnormality); Status: Resolved (3) Hyponatremia Assessment & Plan: Mild, likely worsened by diuretics; monitor periodically; Status: Acute (4) Lower extremity edema Assessment & Plan: On diuretics for chronic leg edema in setting of multiple DVT's and on IVC filter; IVC unremarkable on abd US; awaiting official echo report for possible R sided dysfunction; Status: Chronic (5) NSTEMI (non-ST elevated myocardial infarction) Assessment & Plan: With anterior wall hypokinesis noted by cardio; started on B-nicole/NAYANA- inhibitor; f/u with cardio for further dose adjustments; Status: Acute
[2016-11-09] MEDS: Sodium Chloride 0.9% 1,000 ML IV SCH (17:27)
--- NOTE | 2016-11-09 18:00 | CARD ---
APPROVED REPORT EKG Measurement Heart [id number] CT 130P58 [id number] <Conclusion> Normal sinus rhythm Low voltage QRS ST & Marked T wave abnormality, consider anterolateral ischemia Prolonged QT Abnormal ECG
[2016-11-09 18:56] LABS: ALKALINE PHOSPHATASE 85 U/L (38-126); ALT/SGPT 67 U/L (7-56); AST/SGOT 91 U/L (14-36); BILIRUBIN,TOTAL 0.9 mg/dL (0.2-1.3); BLOOD UREA NITROGEN 22 mg/dL (7-21); CALCIUM 7.8 mg/dL (8.4-10.5); CARBON DIOXIDE 25 mmol/L (21-33); CHLORIDE 102 mmol/L (98-107); GFR AFRICAN-AMERICAN > 60; GLUCOSE,RANDOM 81 mg/dL (70-110); PHOSPHOROUS 3.4 mg/dL (2.5-4.5); POTASSIUM 4.2 mmol/L (3.6-5.0); SODIUM 134 mmol/L (132-148); TOTAL PROTEIN 5.5 g/dL (5.8-8.3)
[2016-11-09 19:15] LABS: INR 7.19 (0.93-1.08)
[2016-11-09 21:53] LABS: ALB/GLOB RATIO 0.9 (1.1-1.8); ALKALINE PHOSPHATASE 74 U/L (38-126); ALT/SGPT 62 U/L (7-56); AST/SGOT 71 U/L (14-36); BILIRUBIN,TOTAL 0.8 mg/dL (0.2-1.3); BLOOD UREA NITROGEN 22 mg/dL (7-21); CALCIUM 7.4 mg/dL (8.4-10.5); CARBON DIOXIDE 24 mmol/L (21-33); CHLORIDE 101 mmol/L (98-107); GFR AFRICAN-AMERICAN > 60; GLUCOSE,RANDOM 94 mg/dL (70-110); MAGNESIUM 1.9 mg/dL (1.7-2.2); PHOSPHOROUS 3.3 mg/dL (2.5-4.5); SODIUM 132 mmol/L (132-148)
[2016-11-09] MEDS ORDERED: Phytonadione 10 mg/ml Inj (Adult) SC ONE (22:39)
--- NOTE | 2016-11-09 22:58 | CP.PCM.PN ---
Subjective - Date & Time of Evaluation Date of Evaluation: 11/09/16 Time of Evaluation: 10:00 - Subjective Subjective: Ms. Stewart is still complaining of abdominal pain. No nausea, no vomiting. Pain comes in episodes every few minutes. She is stating that she had similar pain with chron's exacerbation but never had with this frequency. CT abdomen is negative. USG abdomen is unremarkable. 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 INR is supra therapeutic . Her last dose of coumadin was thrusday 5 mg. No bleeding. No shortness of breath. Objective - Vital Signs/Intake and Output Vital Signs (last 24 hours): Temp Pulse Resp BP Pulse Ox 98.9 F 106 H 16 101/76 98 11/09/16 20:35 11/09/16 20:00 11/09/16 20:00 11/09/16 20:00 11/09/16 20:00 Intake and Output: 11/09/16 11/10/16 18:59 06:59 Intake Total 1170 Output Total 550 Balance 620 - Medications Medications: Current Medications Carvedilol (Coreg) 12.5 mg PO BID [facility] Last Admin: 11/09/16 17:26 Dose: 12.5 mg Ceftriaxone Sodium (Rocephin 1 Gram Ivpb) 1 gm in 100 mls @ 100 mls/hr IVPB DAILY [facility] PRN Reason: Protocol Last Admin: 11/09/16 09:52 Dose: 100 mls/hr Metronidazole (Flagyl) 500 mg in 100 mls @ 100 mls/hr IVPB Q8 [facility] PRN Reason: Protocol Last Admin: 11/09/16 21:19 Dose: 100 mls/hr Sodium Chloride (Sodium Chloride 0.9%) 1,000 mls @ 60 mls/hr IV .[id number] [facility] Last Admin: 11/09/16 17:27 Dose: 60 mls/hr Morphine Sulfate (Morphine) 2 mg IVP Q2H PRN PRN Reason: Pain, moderate (4-7) Last Admin: 11/09/16 20:12 Dose: 2 mg Ondansetron HCl (Zofran Inj) 4 mg IVP Q4H PRN PRN Reason: Nausea/Vomiting Last Admin: 11/09/16 17:29 Dose: 4 mg Pantoprazole Sodium (Protonix Inj) 40 mg IVP Q12 [facility] Last Admin: 11/09/16 21:20 Dose: 40 mg Ramipril (Altace) 2.5 mg PO DAILY [facility] Last Admin: 11/09/16 09:53 Dose: Not Given - Labs Labs: 11/09/16 13:56 11/09/16 21:20 PT 77.6 Seconds (9.9-11.8) H* 11/09/16 18:35 INR 7.19 (0.93-1.08) H* 11/09/16 18:35 APTT 49.0 Seconds (23.7-30.8) H 11/09/16 18:35 - Constitutional Appears: In Acute Distress - Head Exam Head Exam: ATRAUMATIC, NORMAL INSPECTION, NORMOCEPHALIC - Eye Exam Eye Exam: Normal appearance Pupil Exam: NORMAL ACCOMODATION - ENT Exam ENT Exam: Mucous Membranes Moist, Normal Exam - Neck Exam Neck Exam: Normal Inspection - Cardiovascular Exam Cardiovascular Exam: REGULAR RHYTHM, +S1, +S2 - GI/Abdominal Exam GI & Abdominal Exam: Soft, Normal Bowel Sounds - Extremities Exam Extremities Exam: Normal Capillary Refill, Normal Inspection - Back Exam Back Exam: NORMAL INSPECTION - Neurological Exam Neurological Exam: Alert, CN II-XII Intact, Normal Gait, Oriented x3 - Psychiatric Exam Psychiatric exam: Normal Affect - Skin Skin Exam: Normal Color, Warm Assessment and Plan - Assessment and Plan (Free Text) Assessment: 1. Chron's disease abdominal pain. CT abdomen negative. Abdominal pain is concerning for mesentric ischemia. INR is supra-therapeutic. Repeat INR this evening is even higher. Last dose of coumadin she took was on . Likely falsely elevated. Anti phospholipid antibody can give false INR results in one third of patients. Start Heparin drip with bolus. Will closely monitor coags. PT, PTT, INR 2. DVT right femoral, s/p IVC filter. anti phospholipid antibody positive. AP antibody titers sent. 3. NSTEMI : cardiology following. 4. Leukocytosis : no obvious source of infection. predominately granulocytosis. Flow cytometry on peripheral blood to rule out leukemia/lymphoma. BCR ABL by PCR for CML. 5. Renal : hypocalcemia, BUN/creatinine normal. LDH, uric acid levels. Thank You DR. Lau for allowing us to participate in her care. Will continue to follow.
[2016-11-09] MEDS: Heparin 25,000units in D5W 25,000 UNITS/250 ML BAG IV SCH (23:35)
[2016-11-09] MEDS ORDERED: Sodium Chloride 0.9% 500 ML IV STA (23:45)
[2016-11-10] MEDS: Morphine 2 mg/ml ISec IVP PRN ×5 (02:53→22:03)
--- NOTE | 2016-11-10 04:25 | PN ---
DATE: 11/09/2016 SUBJECTIVE: This patient was seen and evaluated earlier. Discussed with director career services. Discussed with the patient at length. The patient feels slightly better now. Abdominal discomfort has also slightly subsided. The patient did have a bowel movements, small amount. On clear liquid diet. PHYSICAL EXAMINATION: VITAL SIGNS: Temperature is 98.9, pulse 100, blood pressure 101/76, respirations 16, and O2 saturation is 98%. HEENT: Atraumatic. Anicteric. NECK: Supple. ABDOMEN: Soft. There is a mild tenderness in the epigastric area. EXTREMITIES: No cyanosis and no clubbing. Mild edema present. NEUROLOGIC: Alert and oriented. Moves all the extremities. PSYCHIATRIC: Still anxious. LABORATORY DATA: White cell count has come down to 19.9, hemoglobin 15.8, hematocrit 45.9, and platelets 273. IMPRESSION AND PLAN: 1. Abdominal pain, etiology unclear, slightly better. Abdomen remain soft. There is a mild tenderness present in the epigastric and periumbilical area. There is no rebound or guarding. Infectious Disease note reviewed. With the careful exam, the CT was done without contrast; limited study, did not reveal any significant inflammatory changes or abscess or collection. 2. Sepsis, elevated white blood cell count. Followup of the cultures. Continue antibiotics as per Infectious Disease. 3. Acute myocardial infarction. 4. History of thromboembolic event, status post cerebrovascular accident in the past. 5. History of deep vein thrombosis. Inferior vena cava filter placement and also history of stent in the inferior vena cava. 6. Electrolyte imbalance is being corrected. 7. History of constipation, improving. We would recommend now use: 1. Continue Miralax. 2. Continue the Protonix. 3. We repeat the CT with the p.o. and IV contrast. We will also discuss with Dr. Fried, the patient's police inspector. The patient mentioned to me that she did develop shingle when she was treated with Cimzia in the past and that was the reason where there was no other anti-TNF biologic was considered. Stelara has been considered in view of this possible relapse of the Crohn's. The patient is due to have MR enterography done, which the patient was not able to do that, would continue the antibiotics. We will review the CT with p.o. and IV contrast and consider further evaluation based on after reviewing that. We will continue the clear liquid diet. Thank you very much for allowing me to participate in the care of the patient. Leonora Yanes MD
--- NOTE | 2016-11-10 06:01 | CP.PCM.PCO ---
Physician Communication Note - Physician Communication Note Physician Communication Note: Per Dr. David ruiz's, started Hep. gtt 2/2 concerns for falsely elevated INR
[2016-11-10] MEDS: metroNIDAZOLE IV 500 mg/100 ml 500 MG/100 ML BAG IVPB SCH ×3 (06:08→22:02)
[2016-11-10] MEDS ORDERED: Barium Sulfate Susp 2.1% w/v, 2.0% w/w 450 mL Bottle PO ONE (07:09)
[2016-11-10 08:25] LABS: ALKALINE PHOSPHATASE 83 U/L (38-126); ALT/SGPT 62 U/L (7-56); AST/SGOT 63 U/L (14-36); BILIRUBIN,TOTAL 0.9 mg/dL (0.2-1.3); BLOOD UREA NITROGEN 20 mg/dL (7-21); CALCIUM 7.7 mg/dL (8.4-10.5); CARBON DIOXIDE 26 mmol/L (21-33); CHLORIDE 102 mmol/L (98-107); CHOLESTEROL 183 mg/dL (130-200); GFR AFRICAN-AMERICAN > 60; GLUCOSE,RANDOM 84 mg/dL (70-110); PHOSPHOROUS 3.4 mg/dL (2.5-4.5); POTASSIUM 4.2 mmol/L (3.6-5.0); SODIUM 134 mmol/L (132-148); TOTAL PROTEIN 5.3 g/dL (5.8-8.3); URIC ACID 3.6 mg/dL (2.5-6.2)
[2016-11-10 08:55] LABS: TROPONIN I 0.96 ng/mL
[2016-11-10 08:56] LABS: FIBRINOGEN 567.9 mg/dL (187-400); PARTIAL THROMBOPLASTIN TIME 55.2 Seconds (23.7-30.8)
[2016-11-10 08:58] LABS: INR 4.6 (0.93-1.08)
--- NOTE | 2016-11-10 09:01 | CP.PCM.PN ---
Subjective - Date & Time of Evaluation Date of Evaluation: 11/10/16 Time of Evaluation: 07:00 - Subjective Subjective: Stable in CCU. No CP or SOB. V/S noted. Sinus Tachycardia at 100. 93/66 PE: Lungs: clear Cor.: S1S2 Abd.: soft Ext.: chronic edema Neuro.: alert I/O- 2510/550 Labs noted: K+= 4.2, Ca+= 7.7, Mg.++ = 2.0 ECG today: RSR, Normal QTc, NSSTW changes Objective - Vital Signs/Intake and Output Vital Signs (last 24 hours): Temp Pulse Resp BP Pulse Ox 98.1 F 100 H 18 93/66 L 100 11/10/16 04:00 11/10/16 06:30 11/10/16 06:30 11/10/16 06:00 11/10/16 06:30 Intake and Output: 11/10/16 11/10/16 06:59 18:59 Intake Total 1340 Balance 1340 - Medications Medications: Current Medications Carvedilol (Coreg) 12.5 mg PO BID [facility] Last Admin: 11/09/16 17:26 Dose: 12.5 mg Ceftriaxone Sodium (Rocephin 1 Gram Ivpb) 1 gm in 100 mls @ 100 mls/hr IVPB DAILY [facility] PRN Reason: Protocol Last Admin: 11/09/16 09:52 Dose: 100 mls/hr Metronidazole (Flagyl) 500 mg in 100 mls @ 100 mls/hr IVPB Q8 [facility] PRN Reason: Protocol Last Admin: 11/10/16 06:08 Dose: 100 mls/hr Sodium Chloride (Sodium Chloride 0.9%) 1,000 mls @ 60 mls/hr IV .[id number] [facility] Last Admin: 11/09/16 17:27 Dose: 60 mls/hr Heparin Sodium/Dextrose (Heparin 25,000 Units/250ml In D5w) 25,000 units in 250 mls @ 8.274 mls/hr IV .Q24H [facility]; 12 UNITS/KG/HR PRN Reason: Protocol Last Admin: 11/09/16 23:35 Dose: 12 units/kg/hr, 8.274 mls/hr Morphine Sulfate (Morphine) 2 mg IVP Q2H PRN PRN Reason: Pain, moderate (4-7) Last Admin: 11/10/16 06:34 Dose: 2 mg Ondansetron HCl (Zofran Inj) 4 mg IVP Q4H PRN PRN Reason: Nausea/Vomiting Last Admin: 11/10/16 07:26 Dose: 4 mg Pantoprazole Sodium (Protonix Inj) 40 mg IVP Q12 [facility] Last Admin: 11/09/16 21:20 Dose: 40 mg Ramipril (Altace) 2.5 mg PO DAILY [facility] Last Admin: 11/09/16 09:53 Dose: Not Given - Labs Labs: 11/09/16 13:56 11/10/16 07:45 PT 77.6 Seconds (9.9-11.8) H* 11/09/16 18:35 INR 7.19 (0.93-1.08) H* 11/09/16 18:35 APTT 49.0 Seconds (23.7-30.8) H 11/09/16 18:35 Assessment and Plan - Assessment and Plan (Free Text) Assessment: Large acute kang-apical IA (by echo), possibly several days prior to admission R/O CAD, R/O acute thrombosis Severe electrolyte abnormalities, resolving Antiphospholipid Syndrome with prior CVA, DVT with IVC Filter Crohns Disease, H/O bowel resection Abdominal Pain Chronic edema Chronic Venous Insufficiency FH of CAD/IA Shingles Plan: Very Complex Patient Continue current cardiac therapy: Coreg, ASA, Statin, ramipril Plan cardiac cath: timing to be determined As per Dr. Hernandez, Farzana, Intensivists, Renal and ID Heparin drip, as per Dr. Hernandez Monitor: I/O, labs, PTT's, INR's, sats., etc. Repeat bedside echocardigram in AM.
--- NOTE | 2016-11-10 09:41 | US ---
PROCEDURE: Portal vein duplex ultrasound. CLINICAL HISTORY: Deteriorating liver function. Evaluate for portal vein thrombosis. PHYSICIAN(S): Mark Enciso M.D. FINDINGS: The exam is limited by bowel gas. The extrahepatic portal vein is patent with hepatopetal flow. No sonographic evidence for thrombus or obstruction is seen. The 3 hepatic veins are visualized centrally and patent. The hepatic artery is patent. The hepatic parenchyma is normal in echotexture. No obvious mass is seen on these limited images. The midline is obscured by gas. The spleen is normal in size. No obvious ascites is appreciated. IMPRESSION: 1. Patent portal vein with hepatopetal flow.
[2016-11-10 09:50] LABS: BASO # 0.04 K/mm3 (0.0-2.0); BASO % 0.4 % (0.0-3.0); EOS # 0.1 (0.0-0.7); EOS % 0.6 % (1.5-5.0); GRAN # 9.68 (1.4-6.5); GRAN % 88.7 % (50.0-68.0); HEMATOCRIT 43.5 % (36.0-48.0); LYMPH # 0.4 (1.2-3.4); LYMPH % 3.8 % (22.0-35.0); MEAN CELL VOLUME 97.1 fl (80.0-105.0); MEAN CORPUSCULAR HEMOGLOBIN 32.1 pg (25.0-35.0); MEAN CORPUSCULAR HGB CONC 33.1 g/dl (31.0-37.0); MEAN PLATELET VOLUME 9.9 fl (7.0-11.0); MONO # 0.7 (0.1-0.6); MONO % 6.5 % (1.0-6.0); RED CELL DISTRIBUTION WIDTH 13.8 % (11.5-14.5); WHITE BLOOD COUNT 10.9 10^3/ul (4.5-11.0)
[2016-11-10] MEDS: cefTRIAXone 1 gm 1 GM/100 ML BAG IVPB SCH (10:01)
--- NOTE | 2016-11-10 10:55 | CP.PCM.PN ---
Subjective - Date & Time of Evaluation Date of Evaluation: 11/10/16 Time of Evaluation: 09:40 - Subjective Subjective: Patient has less abdominal pain, no fevers overnight, no nausea, no diarrhea but the patient has not eaten. Objective - Vital Signs/Intake and Output Vital Signs (last 24 hours): Temp Pulse Resp BP Pulse Ox 98.1 F 100 H 18 93/66 L 100 11/10/16 04:00 11/10/16 06:30 11/10/16 06:30 11/10/16 06:00 11/10/16 06:30 Intake and Output: 11/10/16 11/10/16 06:59 18:59 Intake Total 1340 Balance 1340 - Medications Medications: Current Medications Carvedilol (Coreg) 12.5 mg PO BID [facility] Last Admin: 11/09/16 17:26 Dose: 12.5 mg Ceftriaxone Sodium (Rocephin 1 Gram Ivpb) 1 gm in 100 mls @ 100 mls/hr IVPB DAILY [facility] PRN Reason: Protocol Last Admin: 11/09/16 09:52 Dose: 100 mls/hr Metronidazole (Flagyl) 500 mg in 100 mls @ 100 mls/hr IVPB Q8 [facility] PRN Reason: Protocol Last Admin: 11/10/16 06:08 Dose: 100 mls/hr Sodium Chloride (Sodium Chloride 0.9%) 1,000 mls @ 60 mls/hr IV .[id number] [facility] Last Admin: 11/09/16 17:27 Dose: 60 mls/hr Heparin Sodium/Dextrose (Heparin 25,000 Units/250ml In D5w) 25,000 units in 250 mls @ 8.274 mls/hr IV .Q24H [facility]; 12 UNITS/KG/HR PRN Reason: Protocol Last Admin: 11/09/16 23:35 Dose: 12 units/kg/hr, 8.274 mls/hr Morphine Sulfate (Morphine) 2 mg IVP Q2H PRN PRN Reason: Pain, moderate (4-7) Last Admin: 11/10/16 06:34 Dose: 2 mg Ondansetron HCl (Zofran Inj) 4 mg IVP Q4H PRN PRN Reason: Nausea/Vomiting Last Admin: 11/09/16 17:29 Dose: 4 mg Pantoprazole Sodium (Protonix Inj) 40 mg IVP Q12 [facility] Last Admin: 11/09/16 21:20 Dose: 40 mg Ramipril (Altace) 2.5 mg PO DAILY [facility] Last Admin: 11/09/16 09:53 Dose: Not Given - Labs Labs: 11/09/16 13:56 11/09/16 21:20 PT 77.6 Seconds (9.9-11.8) H* 11/09/16 18:35 INR 7.19 (0.93-1.08) H* 11/09/16 18:35 APTT 49.0 Seconds (23.7-30.8) H 11/09/16 18:35 - Constitutional Appears: Non-toxic, No Acute Distress - Head Exam Head Exam: NORMAL INSPECTION - ENT Exam ENT Exam: Mucous Membranes Moist - Neck Exam Neck Exam: absent: Lymphadenopathy, Meningismus - Respiratory Exam Respiratory Exam: Decreased Breath Sounds - Cardiovascular Exam Cardiovascular Exam: +S1, +S2 - GI/Abdominal Exam GI & Abdominal Exam: Soft, Tenderness (right side, mild). absent: Distended, Guarding, Rigid, Rebound Assessment and Plan - Assessment and Plan (Free Text) Plan: Assessment Systemic Inflammatory Response Syndrome, consider due to acute exacerbation of Crohn's disease, so far no other source of infection identified Crohn's disease antiphospholipid antibody syndrome on anticoagulation S/P colonic obstruction and resection with anastomosis history of CVA Plan continue Rocephin and Flagyl day 2; blood cx, urine cx are negative; PCT is only 0.14 and CXR does not show infiltrates; CT scan did not show abscess or intra-abdominal infection; patient does not have diarrhea follow up further GI evaluation will continue trend WBC count and follow up Hematology evaluation will continue to monitor clinically
--- NOTE | 2016-11-10 11:12 | CT ---
PROCEDURE: CT Abdomen and Pelvis without intravenous contrast HISTORY: NAUSEA COMPARISON: 11/08/2016 TECHNIQUE: Without contrast.. Contrast Dose: Radiation dose: Total exam DLP = 435 mGy-cm. This CT exam was performed using one or more of the following dose reduction techniques: Automated exposure control, adjustment of the mA and/or kV according to patient size, and/or use of iterative reconstruction technique. FINDINGS: LOWER THORAX: Small bilateral pleural effusions and atelectasis at the lung bases LIVER: Unremarkable. No gross lesion or ductal dilatation. GALLBLADDER AND BILE DUCTS: Unremarkable. PANCREAS: Unremarkable. No gross lesion or ductal dilatation. SPLEEN: Unremarkable. ADRENALS: Unremarkable. No mass. KIDNEYS AND URETERS: Unremarkable. No hydronephrosis. No solid mass. VASCULATURE: A vascular stent is seen in the superior portion of the inferior vena cava just above a caval filter. BOWEL: There is moderate distention of the stomach small bowel and colon. The pattern is suggestive of ileus. APPENDIX: Unremarkable. Normal appendix. PERITONEUM: Unremarkable. No free fluid. No free air. LYMPH NODES: Unremarkable. No enlarged lymph nodes. BLADDER: Unremarkable. REPRODUCTIVE: Unremarkable. BONES: No acute fracture. OTHER FINDINGS: None. IMPRESSION: Moderate distention of the stomach, small bowel and colon. The pattern is suggestive of ileus
--- NOTE | 2016-11-10 11:21 | CARD ---
APPROVED REPORT EKG Measurement Heart [id number] IN 138P58 [id number] <Conclusion> Normal sinus rhythm Low voltage QRS Nonspecific T wave abnormality Abnormal ECG
--- NOTE | 2016-11-10 12:15 | CP.PCM.PN ---
<Farzana,Kovil V - Last Filed: 11/10/16 21:36> Objective - Vital Signs/Intake and Output Vital Signs (last 24 hours): Temp Pulse Resp BP Pulse Ox 98.3 F 82 18 91/61 L 100 11/10/16 16:00 11/10/16 18:00 11/10/16 06:30 11/10/16 17:31 11/10/16 06:30 Intake and Output: 11/10/16 11/11/16 18:59 06:59 Intake Total 125.8 920 Output Total 800 Balance 125.8 120 - Medications Medications: Current Medications Carvedilol (Coreg) 12.5 mg PO BID DANA Last Admin: 11/10/16 17:31 Dose: 12.5 mg Ceftriaxone Sodium (Rocephin 1 Gram Ivpb) 1 gm in 100 mls @ 100 mls/hr IVPB DAILY DANA PRN Reason: Protocol Last Admin: 11/10/16 10:01 Dose: 100 mls/hr Metronidazole (Flagyl) 500 mg in 100 mls @ 100 mls/hr IVPB Q8 DANA PRN Reason: Protocol Last Admin: 11/10/16 13:31 Dose: 100 mls/hr Sodium Chloride (Sodium Chloride 0.9%) 1,000 mls @ 60 mls/hr IV .[id number] [facility] Last Admin: 11/10/16 17:31 Dose: 60 mls/hr Heparin Sodium/Dextrose (Heparin 25,000 Units/250ml In D5w) 25,000 units in 250 mls @ 8.274 mls/hr IV .Q24H DANA; 12 UNITS/KG/HR PRN Reason: Protocol Last Titration: 11/10/16 16:08 Dose: 11 units/kg/hr, 7.584 mls/hr Morphine Sulfate (Morphine) 2 mg IVP Q2H PRN PRN Reason: Pain, moderate (4-7) Last Admin: 11/10/16 13:37 Dose: 2 mg Ondansetron HCl (Zofran Inj) 4 mg IVP Q4H PRN PRN Reason: Nausea/Vomiting Last Admin: 11/10/16 18:50 Dose: 4 mg Pantoprazole Sodium (Protonix Inj) 40 mg IVP Q12 DANA Last Admin: 11/10/16 10:01 Dose: 40 mg Ramipril (Altace) 2.5 mg PO DAILY DANA Last Admin: 11/10/16 10:00 Dose: 2.5 mg - Labs Labs: 11/10/16 09:30 11/10/16 07:45 PT 49.7 Seconds (9.9-11.8) H* 11/10/16 07:45 INR 4.60 (0.93-1.08) H* 11/10/16 07:45 APTT > 180.0 Seconds (23.7-30.8) H* 11/10/16 14:00 Attending/Attestation - Attestation I have personally seen and examined this patient.: Yes I have fully participated in the care of the patient.: Yes I have reviewed all pertinent clinical information, including history, physical exam and plan: Yes Notes (Text): this is an addendum to the [facility] progress report dictated by Sandi Ruelas APN. Patient was seen and examined. Imaging studies were reviewed. Please slightly better, her abdominal discomfort was improving. On examination abdomen softly distended is a mild tenderness present on deep palpation in the epigastric area. CT scan showed dilated loops of the small bowel and also stomach. There was no contrast noticed in the colon. CT was done only with by mouth contrast. The differential diagnosis should include a partial small bowel obstruction. Patient did have what appears to be a right hemicolectomy in the past. Would recommend 1. Abdominal x-rays to follow through the contrast and to evaluate the small and large bowel distention 2. Continue the liquid diet and advance to full liquid 3. Patient's white cell count no-shows downward trend continue the antibiotics. No obvious intra-abdominal abscess or inflammatory changes noticed 4. Anti-phospholipid syndrome with the elevated INR history of thrombotic episodes. 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 Patient is been on IV heparin 5. Crohn's disease not on presently any medication the CT is reviewed did not reveal any significant inflammatory changes of the intestine or abscess. Patient did have a CAT scan done last month and he she was due to have a MR enterography which was not done. Patient was awaiting for medication Barbara approval thank you very much for allowing us to participate in the care of the patient. We will continue to closely follow up her care and suggest further management based on the clinical course 11/10/16 21:36 <Sandi Ruelas - Last Filed: 11/11/16 07:07> Subjective - Date & Time of Evaluation Date of Evaluation: 11/10/16 Time of Evaluation: 09:50 - Subjective Subjective: seen and examined at the bedside earlier today, the chart was reviewed. Patient is drinking oral contrast for CT scan of abdomen and pelvis, still has some abdominal pain, no acute distress. No nausea vomiting or reports of overt GI bleed. Objective - Vital Signs/Intake and Output Vital Signs (last 24 hours): Temp Pulse Resp BP Pulse Ox 98.1 F 94 H 18 101/76 100 11/10/16 04:00 11/10/16 09:59 11/10/16 06:30 11/10/16 10:00 11/10/16 06:30 Intake and Output: 11/10/16 11/10/16 06:59 18:59 Intake Total 1340 79 Balance 1340 79 - Medications Medications: Current Medications Carvedilol (Coreg) 12.5 mg PO BID DANA Last Admin: 11/10/16 09:59 Dose: 12.5 mg Ceftriaxone Sodium (Rocephin 1 Gram Ivpb) 1 gm in 100 mls @ 100 mls/hr IVPB DAILY DANA PRN Reason: Protocol Last Admin: 11/10/16 10:01 Dose: 100 mls/hr Metronidazole (Flagyl) 500 mg in 100 mls @ 100 mls/hr IVPB Q8 DANA PRN Reason: Protocol Last Admin: 11/10/16 06:08 Dose: 100 mls/hr Sodium Chloride (Sodium Chloride 0.9%) 1,000 mls @ 60 mls/hr IV .[id number] DANA Last Admin: 11/09/16 17:27 Dose: 60 mls/hr Heparin Sodium/Dextrose (Heparin 25,000 Units/250ml In D5w) 25,000 units in 250 mls @ 8.274 mls/hr IV .Q24H DANA; 12 UNITS/KG/HR PRN Reason: Protocol Last Titration: 11/10/16 10:04 Dose: 14 units/kg/hr, 9.652 mls/hr Morphine Sulfate (Morphine) 2 mg IVP Q2H PRN PRN Reason: Pain, moderate (4-7) Last Admin: 11/10/16 10:00 Dose: 2 mg Ondansetron HCl (Zofran Inj) 4 mg IVP Q4H PRN PRN Reason: Nausea/Vomiting Last Admin: 11/10/16 07:26 Dose: 4 mg Pantoprazole Sodium (Protonix Inj) 40 mg IVP Q12 [facility] Last Admin: 11/10/16 10:01 Dose: 40 mg Ramipril (Altace) 2.5 mg PO DAILY DANA Last Admin: 11/10/16 10:00 Dose: 2.5 mg - Labs Labs: 11/10/16 09:30 11/10/16 07:45 PT 49.7 Seconds (9.9-11.8) H* 11/10/16 07:45 INR 4.60 (0.93-1.08) H* 11/10/16 07:45 APTT 55.2 Seconds (23.7-30.8) H 11/10/16 07:45 - Constitutional Appears: No Acute Distress - Eye Exam Eye Exam: Normal appearance. absent: Scleral icterus - Neck Exam Neck Exam: Normal Inspection - Respiratory Exam Respiratory Exam: NORMAL BREATHING PATTERN. absent: Respiratory Distress - Cardiovascular Exam Cardiovascular Exam: +S1, +S2 - GI/Abdominal Exam GI & Abdominal Exam: Soft, Tenderness, Normal Bowel Sounds. absent: Guarding, Organomegaly, Rebound - Extremities Exam Extremities Exam: Normal Capillary Refill, Pedal Edema. absent: Calf Tenderness , Tenderness - Neurological Exam Neurological Exam: Alert, Awake, Oriented x3 Assessment and Plan - Assessment and Plan (Free Text) Assessment: Assessment: Abdominal pain, status post repeat CT scan of abdomen and pelvis, small bowel and colonic distention suspect ileus Acute AR History of DVT, with IVC filter and inferior vena cava stent Sepsis Plan: On heparin As per protocol Monitor for any overt GI bleed Nothing by mouth Continue IV fluids for hydration Continue PPI On IV antibiotics Monitor electrolytes Seen and discussed with Dr. Yanes.
--- NOTE | 2016-11-10 14:22 | PN ---
DATE: 11/10/2016 SUBJECTIVE: A 46-year-old white female seen in the ICU bed 5. The patient was awake, alert and oriented x3, complaining of 4/10 abdominal pain. 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 The patient was admitted to the hospital with severe hypokalemia, hypocalcemia, elevated white count, positive troponins and severe pain from cramping and also unable to speak because of cramping. The patient was admitted to the intensive care unit. Her potassium and calcium have restored to normal. Her troponins were positive. Her echo showed severe inferior wall hypokinesis and a decreased ejection fraction. She had a non-STEMI myocardial infarction by troponins, which has at this point returned to normal. PHYSICAL EXAMINATION: GENERAL: She is awake, alert and oriented x3. VITAL SIGNS: Her vital signs today are stable. Blood pressure 93/66, pulse of 100 and the patient is afebrile at 99.6. CHEST: Clear to auscultation and percussion . HEART: Regular sinus rhythm. ABDOMEN: Minimally tender and diffused in all walker with decreased bowel sounds, but no distention. The patient has not had any bloody bowel movements since she has had some diarrhea. EXTREMITIES: No cyanosis, clubbing or edema. LABORATORY DATA: Today showed a white count 19,900, hemoglobin of 15.8 and platelet count is normal. Her INR is still elevated at 4.6 and her Coumadin has been on hold. Her potassium is up to 4.2. Her calcium is 7.7, which is still low. Her LDH was 1002. Her troponin is back to 0.96, still elevated, but trending down. She does have an albumin of 2.6 and a total protein of 5.3, both low. IMPRESSION: Antiphospholipid syndrome, acute myocardial infarction, electrolyte imbalance, exacerbation of Crohn's colitis, history of deep venous thrombosis. PLAN: The patient is scheduled for a repeat CT of the abdomen with IV contrast. She was seen with her in consultation by GI, Hematology, Renal and Infectious Disease. Danilo Lau MD [facility] # [id number]
--- NOTE | 2016-11-10 15:25 | CP.CCUPN ---
CCU Subjective - Physician Review Events Since Last Encounter (Free Text): 11/10/16 15:12 46 y/o f admitted to the ICU for electrolyte abnormalities that has now resolved. The patient has a long standing history of Anti Phospholipid syndrome. CCU Objective - Vital Signs / Intake & Output Vital Signs (Last 4 hours): Vital Signs BP 11/10/16 13:53 101/76 Intake and Output (Last 8hrs): Intake & Output 11/10/16 11/10/16 11/10/16 06:59 14:59 22:59 Intake Total 1340 79 Balance 1340 79 Intake: IV 600 79 Left Forearm 600 Oral 240 Other 500 Other: Voiding Method Toilet # Voids Urine, Voided 4 - Physical Exam Head: Positive for: Atraumatic Pupils: Positive for: PERRL Extroacular Muscles: Positive for: EOMI Conjunctiva: Positive for: Normal Mouth: Positive for: Moist Mucous Membranes Neck: Positive for: Normal Range of Motion Respiratory/Chest: Positive for: Clear to Auscultation Cardiovascular: Positive for: Regular Rate and Rhythm Abdomen: Positive for: Normal Bowel Sounds Upper Extremity: Positive for: Normal Inspection - Medications Active Medications: Active Medications Generic Name Dose Route Start Last Admin Trade Name Freq PRN Reason Stop Dose Admin Carvedilol 12.5 mg 11/09/16 10:00 11/10/16 09:59 Coreg PO 12.5 mg BID DANA Administration Ceftriaxone Sodium 1 gm in 100 mls @ 100 mls/hr 11/08/16 10:00 11/10/16 10:01 Rocephin 1 Gram Ivpb IVPB 100 mls/hr DAILY DANA Administration Protocol Metronidazole 500 mg in 100 mls @ 100 mls/hr 11/08/16 22:00 11/10/16 13:31 Flagyl IVPB 100 mls/hr Q8 DANA Administration Protocol Sodium Chloride 1,000 mls @ 60 mls/hr 11/09/16 16:45 11/09/16 17:27 Sodium Chloride 0.9% IV 60 mls/hr .[id number] DANA Administration Heparin Sodium/Dextrose 25,000 units in 250 mls @ 8.274 mls/hr 11/09/16 22:45 11/10/16 10:04 Heparin 25,000 Units/250ml In D5w IV 14 units/kg/hr .Q24H DANA 9.652 mls/hr Protocol Titration 12 UNITS/KG/HR Morphine Sulfate 2 mg 11/09/16 04:12 11/10/16 13:37 Morphine IVP 2 mg Q2H PRN Administration Pain, moderate (4-7) Ondansetron HCl 4 mg 11/08/16 09:10 11/10/16 07:26 Zofran Inj IVP 4 mg Q4H PRN Administration Nausea/Vomiting Pantoprazole Sodium 40 mg 11/08/16 01:00 11/10/16 10:01 Protonix Inj IVP 40 mg Q12 DANA Administration Ramipril 2.5 mg 11/09/16 10:00 11/10/16 10:00 Altace PO 2.5 mg DAILY DANA Administration - Patient Studies Lab Studies: Microbiology Studies 11/08/16 04:15 Blood Culture - Preliminary Blood NO GROWTH AFTER 48 HOURS 11/08/16 03:45 Blood Culture - Preliminary Blood NO GROWTH AFTER 48 HOURS 11/07/16 22:30 MRSA Culture (Admit) - Final Nose MRSA NOT DETECTED Lab Studies 11/10/16 11/10/16 11/10/16 Range/Units 14:00 09:30 09:00 WBC 10.9 D (4.5-11.0) 10^3/ul RBC 4.48 (3.5-6.1) 10^6/uL Hgb 14.4 (12.0-16.0) g/dL Hct 43.5 (36.0-48.0) % MCV 97.1 (80.0-105.0) fl MCH 32.1 (25.0-35.0) pg MCHC 33.1 (31.0-37.0) g/dl RDW 13.8 (11.5-14.5) % Plt Count 231 (120.0-450.0) 10^3/uL MPV 9.9 (7.0-11.0) fl Gran % 88.7 H (50.0-68.0) % Lymph % (Auto) 3.8 L (22.0-35.0) % George % (Auto) 6.5 H (1.0-6.0) % Eos % (Auto) 0.6 L (1.5-5.0) % Baso % (Auto) 0.4 (0.0-3.0) % Gran # 9.68 H (1.4-6.5) Lymph # 0.4 L (1.2-3.4) George # 0.7 H (0.1-0.6) Eos # 0.1 (0.0-0.7) Baso # 0.04 (0.0-2.0) K/mm3 PT (9.9-11.8) Seconds INR (0.93-1.08) APTT > 180.0 H* (23.7-30.8) Seconds Fibrinogen (187-400) mg/dL Fibrin Degrad Products >10 <40 ug/ml (< 10 ug/mL) Sodium (132-148) mmol/L Potassium (3.6-5.0) mmol/L Chloride (98-107) mmol/L Carbon Dioxide (21-33) mmol/L Anion Gap (10-20) BUN (7-21) mg/dL Creatinine (0.5-1.4) mg/dL Est GFR ( Amer) Est GFR (Non-Af Amer) Random Glucose (70-110) mg/dL Uric Acid (2.5-6.2) mg/dL Calcium (8.4-10.5) mg/dL Phosphorus (2.5-4.5) mg/dL Magnesium (1.7-2.2) mg/dL Total Bilirubin (0.2-1.3) mg/dL AST (14-36) U/L ALT (7-56) U/L Alkaline Phosphatase (38-126) U/L Lactate Dehydrogenase (333-699) U/L Troponin I ng/mL Total Protein (5.8-8.3) g/dL Albumin (3.0-4.8) g/dL Globulin gm/dL Albumin/Globulin Ratio (1.1-1.8) Triglycerides (35-160) mg/dL Cholesterol (130-200) mg/dL LDL Cholesterol Direct (0-129) mg/dL HDL Cholesterol (29-60) mg/dL PTH Intact Whole Molec (14-64) pg/mL Urine Osmolality (50-645) mosm/kg Ur Random Creatinine mg/dL Ur Random Sodium meq/L Ur Random Potassium meq/L WB Flow Cytometry 11/10/16 11/10/16 11/10/16 Range/Units 07:45 07:45 05:00 WBC (4.5-11.0) 10^3/ul RBC (3.5-6.1) 10^6/uL Hgb (12.0-16.0) g/dL Hct (36.0-48.0) % MCV (80.0-105.0) fl MCH (25.0-35.0) pg MCHC (31.0-37.0) g/dl RDW (11.5-14.5) % Plt Count (120.0-450.0) 10^3/uL MPV (7.0-11.0) fl Gran % (50.0-68.0) % Lymph % (Auto) (22.0-35.0) % George % (Auto) (1.0-6.0) % Eos % (Auto) (1.5-5.0) % Baso % (Auto) (0.0-3.0) % Gran # (1.4-6.5) Lymph # (1.2-3.4) George # (0.1-0.6) Eos # (0.0-0.7) Baso # (0.0-2.0) K/mm3 PT 49.7 H* (9.9-11.8) Seconds INR 4.60 H* (0.93-1.08) APTT 55.2 H (23.7-30.8) Seconds Fibrinogen 567.9 H (187-400) mg/dL Fibrin Degrad Products (< 10 ug/mL) Sodium 134 (132-148) mmol/L Potassium 4.2 (3.6-5.0) mmol/L Chloride 102 (98-107) mmol/L Carbon Dioxide 26 (21-33) mmol/L Anion Gap 10 (10-20) BUN 20 (7-21) mg/dL Creatinine 0.8 (0.5-1.4) mg/dL Est GFR ( Amer) > 60 Est GFR (Non-Af Amer) > 60 Random Glucose 84 (70-110) mg/dL Uric Acid 3.6 (2.5-6.2) mg/dL Calcium 7.7 L (8.4-10.5) mg/dL Phosphorus 3.4 (2.5-4.5) mg/dL Magnesium 2.0 (1.7-2.2) mg/dL Total Bilirubin 0.9 (0.2-1.3) mg/dL AST 63 H (14-36) U/L ALT 62 H (7-56) U/L Alkaline Phosphatase 83 (38-126) U/L Lactate Dehydrogenase 1002 H (333-699) U/L Troponin I 0.96 H* D ng/mL Total Protein 5.3 L (5.8-8.3) g/dL Albumin 2.6 L (3.0-4.8) g/dL Globulin 2.7 gm/dL Albumin/Globulin Ratio 1.0 L (1.1-1.8) Triglycerides 144 (35-160) mg/dL Cholesterol 183 (130-200) mg/dL LDL Cholesterol Direct 103 (0-129) mg/dL HDL Cholesterol 66 H (29-60) mg/dL PTH Intact Whole Molec (14-64) pg/mL Urine Osmolality (50-645) mosm/kg Ur Random Creatinine mg/dL Ur Random Sodium meq/L Ur Random Potassium meq/L WB Flow Cytometry Reference test 11/09/16 11/09/16 11/09/16 Range/Units 21:20 18:35 18:35 WBC (4.5-11.0) 10^3/ul RBC (3.5-6.1) 10^6/uL Hgb (12.0-16.0) g/dL Hct (36.0-48.0) % MCV (80.0-105.0) fl MCH (25.0-35.0) pg MCHC (31.0-37.0) g/dl RDW (11.5-14.5) % Plt Count (120.0-450.0) 10^3/uL MPV (7.0-11.0) fl Gran % (50.0-68.0) % Lymph % (Auto) (22.0-35.0) % George % (Auto) (1.0-6.0) % Eos % (Auto) (1.5-5.0) % Baso % (Auto) (0.0-3.0) % Gran # (1.4-6.5) Lymph # (1.2-3.4) George # (0.1-0.6) Eos # (0.0-0.7) Baso # (0.0-2.0) K/mm3 PT 77.6 H* (9.9-11.8) Seconds INR 7.19 H* (0.93-1.08) APTT 49.0 H (23.7-30.8) Seconds Fibrinogen (187-400) mg/dL Fibrin Degrad Products (< 10 ug/mL) Sodium 132 134 (132-148) mmol/L Potassium 4.0 4.2 (3.6-5.0) mmol/L Chloride 101 102 (98-107) mmol/L Carbon Dioxide 24 25 (21-33) mmol/L Anion Gap 11 11 (10-20) BUN 22 H 22 H (7-21) mg/dL Creatinine 0.7 0.7 (0.5-1.4) mg/dL Est GFR ( Amer) > 60 > 60 Est GFR (Non-Af Amer) > 60 > 60 Random Glucose 94 81 (70-110) mg/dL Uric Acid (2.5-6.2) mg/dL Calcium 7.4 L 7.8 L (8.4-10.5) mg/dL Phosphorus 3.3 3.4 (2.5-4.5) mg/dL Magnesium 1.9 2.0 (1.7-2.2) mg/dL Total Bilirubin 0.8 0.9 (0.2-1.3) mg/dL AST 71 H D 91 H (14-36) U/L ALT 62 H 67 H (7-56) U/L Alkaline Phosphatase 74 85 (38-126) U/L Lactate Dehydrogenase (333-699) U/L Troponin I ng/mL Total Protein 5.0 L 5.5 L (5.8-8.3) g/dL Albumin 2.4 L 2.7 L (3.0-4.8) g/dL Globulin 2.6 2.8 gm/dL Albumin/Globulin Ratio 0.9 L 1.0 L (1.1-1.8) Triglycerides (35-160) mg/dL Cholesterol (130-200) mg/dL LDL Cholesterol Direct (0-129) mg/dL HDL Cholesterol (29-60) mg/dL PTH Intact Whole Molec (14-64) pg/mL Urine Osmolality (50-645) mosm/kg Ur Random Creatinine mg/dL Ur Random Sodium meq/L Ur Random Potassium meq/L WB Flow Cytometry 11/09/16 11/09/16 11/08/16 Range/Units 17:15 17:15 11:20 WBC (4.5-11.0) 10^3/ul RBC (3.5-6.1) 10^6/uL Hgb (12.0-16.0) g/dL Hct (36.0-48.0) % MCV (80.0-105.0) fl MCH (25.0-35.0) pg MCHC (31.0-37.0) g/dl RDW (11.5-14.5) % Plt Count (120.0-450.0) 10^3/uL MPV (7.0-11.0) fl Gran % (50.0-68.0) % Lymph % (Auto) (22.0-35.0) % George % (Auto) (1.0-6.0) % Eos % (Auto) (1.5-5.0) % Baso % (Auto) (0.0-3.0) % Gran # (1.4-6.5) Lymph # (1.2-3.4) George # (0.1-0.6) Eos # (0.0-0.7) Baso # (0.0-2.0) K/mm3 PT (9.9-11.8) Seconds INR (0.93-1.08) APTT (23.7-30.8) Seconds Fibrinogen (187-400) mg/dL Fibrin Degrad Products (< 10 ug/mL) Sodium (132-148) mmol/L Potassium (3.6-5.0) mmol/L Chloride (98-107) mmol/L Carbon Dioxide (21-33) mmol/L Anion Gap (10-20) BUN (7-21) mg/dL Creatinine (0.5-1.4) mg/dL Est GFR ( Amer) Est GFR (Non-Af Amer) Random Glucose (70-110) mg/dL Uric Acid (2.5-6.2) mg/dL Calcium (8.4-10.5) mg/dL Phosphorus (2.5-4.5) mg/dL Magnesium (1.7-2.2) mg/dL Total Bilirubin (0.2-1.3) mg/dL AST (14-36) U/L ALT (7-56) U/L Alkaline Phosphatase (38-126) U/L Lactate Dehydrogenase (333-699) U/L Troponin I ng/mL Total Protein (5.8-8.3) g/dL Albumin (3.0-4.8) g/dL Globulin gm/dL Albumin/Globulin Ratio (1.1-1.8) Triglycerides (35-160) mg/dL Cholesterol (130-200) mg/dL LDL Cholesterol Direct (0-129) mg/dL HDL Cholesterol (29-60) mg/dL PTH Intact Whole Molec 150 H (14-64) pg/mL Urine Osmolality 1007 H (50-645) mosm/kg Ur Random Creatinine 267 mg/dL Ur Random Sodium 9 meq/L Ur Random Potassium 64.2 meq/L WB Flow Cytometry Laboratory Results - last 24 hr 11/08/16 11/09/16 11/09/16 11:20 17:15 17:15 WBC RBC Hgb Hct MCV MCH MCHC RDW Plt Count MPV Gran % Lymph % (Auto) George % (Auto) Eos % (Auto) Baso % (Auto) Gran # Lymph # George # Eos # Baso # PT INR APTT Fibrinogen Fibrin Degrad Products Sodium Potassium Chloride Carbon Dioxide Anion Gap BUN Creatinine Est GFR ( Amer) Est GFR (Non-Af Amer) Random Glucose Uric Acid Calcium Phosphorus Magnesium Total Bilirubin AST ALT Alkaline Phosphatase Lactate Dehydrogenase Troponin I Total Protein Albumin Globulin Albumin/Globulin Ratio Triglycerides Cholesterol LDL Cholesterol Direct HDL Cholesterol PTH Intact Whole Molec 150 H Urine Osmolality 1007 H Ur Random Creatinine 267 Ur Random Sodium 9 Ur Random Potassium 64.2 WB Flow Cytometry 11/09/16 11/09/16 11/09/16 18:35 18:35 21:20 WBC RBC Hgb Hct MCV MCH MCHC RDW Plt Count MPV Gran % Lymph % (Auto) George % (Auto) Eos % (Auto) Baso % (Auto) Gran # Lymph # George # Eos # Baso # PT 77.6 H* INR 7.19 H* APTT 49.0 H Fibrinogen Fibrin Degrad Products Sodium 134 132 Potassium 4.2 4.0 Chloride 102 101 Carbon Dioxide 25 24 Anion Gap 11 11 BUN 22 H 22 H Creatinine 0.7 0.7 Est GFR ( Amer) > 60 > 60 Est GFR (Non-Af Amer) > 60 > 60 Random Glucose 81 94 Uric Acid Calcium 7.8 L 7.4 L Phosphorus 3.4 3.3 Magnesium 2.0 1.9 Total Bilirubin 0.9 0.8 AST 91 H 71 H D ALT 67 H 62 H Alkaline Phosphatase 85 74 Lactate Dehydrogenase Troponin I Total Protein 5.5 L 5.0 L Albumin 2.7 L 2.4 L Globulin 2.8 2.6 Albumin/Globulin Ratio 1.0 L 0.9 L Triglycerides Cholesterol LDL Cholesterol Direct HDL Cholesterol PTH Intact Whole Molec Urine Osmolality Ur Random Creatinine Ur Random Sodium Ur Random Potassium WB Flow Cytometry 11/10/16 11/10/16 11/10/16 05:00 07:45 07:45 WBC RBC Hgb Hct MCV MCH MCHC RDW Plt Count MPV Gran % Lymph % (Auto) George % (Auto) Eos % (Auto) Baso % (Auto) Gran # Lymph # George # Eos # Baso # PT 49.7 H* INR 4.60 H* APTT 55.2 H Fibrinogen 567.9 H Fibrin Degrad Products Sodium 134 Potassium 4.2 Chloride 102 Carbon Dioxide 26 Anion Gap 10 BUN 20 Creatinine 0.8 Est GFR ( Amer) > 60 Est GFR (Non-Af Amer) > 60 Random Glucose 84 Uric Acid 3.6 Calcium 7.7 L Phosphorus 3.4 Magnesium 2.0 Total Bilirubin 0.9 AST 63 H ALT 62 H Alkaline Phosphatase 83 Lactate Dehydrogenase 1002 H Troponin I 0.96 H* D Total Protein 5.3 L Albumin 2.6 L Globulin 2.7 Albumin/Globulin Ratio 1.0 L Triglycerides 144 Cholesterol 183 LDL Cholesterol Direct 103 HDL Cholesterol 66 H PTH Intact Whole Molec Urine Osmolality Ur Random Creatinine Ur Random Sodium Ur Random Potassium WB Flow Cytometry Reference test 11/10/16 11/10/16 11/10/16 09:00 09:30 14:00 WBC 10.9 D RBC 4.48 Hgb 14.4 Hct 43.5 MCV 97.1 MCH 32.1 MCHC 33.1 RDW 13.8 Plt Count 231 MPV 9.9 Gran % 88.7 H Lymph % (Auto) 3.8 L George % (Auto) 6.5 H Eos % (Auto) 0.6 L Baso % (Auto) 0.4 Gran # 9.68 H Lymph # 0.4 L George # 0.7 H Eos # 0.1 Baso # 0.04 PT INR APTT > 180.0 H* Fibrinogen Fibrin Degrad Products >10 <40 ug/ml Sodium Potassium Chloride Carbon Dioxide Anion Gap BUN Creatinine Est GFR ( Amer) Est GFR (Non-Af Amer) Random Glucose Uric Acid Calcium Phosphorus Magnesium Total Bilirubin AST ALT Alkaline Phosphatase Lactate Dehydrogenase Troponin I Total Protein Albumin Globulin Albumin/Globulin Ratio Triglycerides Cholesterol LDL Cholesterol Direct HDL Cholesterol PTH Intact Whole Molec Urine Osmolality Ur Random Creatinine Ur Random Sodium Ur Random Potassium WB Flow Cytometry EKG/Cardiology Studies: Cardiology / EKG Studies 11/10/16 07:00 ELECTROCARDIOGRAM DAILY Comment: Reason For Exam: f/u tachycardia to 150's Review of Systems - EENT Eyes: UNREMARKABLE Nose/Mouth/Throat: UNREMARKABLE - Breasts Breasts: UNREMARKABLE - Cardiovascular Cardiovascular: UNREMARKABLE - Respiratory Respiratory: UNREMARKABLE - Gastrointestinal Gastrointestinal: UNREMARKABLE - Genitourinary Genitourinary: UNREMARKABLE - Musculoskeletal Musculoskeletal: UNREMARKABLE Assessment/Plan - Assessment and Plan (Free Text) Assessment: 46 y/o F w/ APL sydrome with Crohns admitted for multiple electrolyte abnormalities . The patient is currently stable without any new complaints APL syndrome is stable but needs further work up and history due to concern for other organ damage . Increased INR in this setting without bleeding on heparin drip for APL. No bleeding currently. Concern for any further microvasculature blockage. Budd chiari , PBC, Splenic Vein thrombosis etc. NSTEMI in the setting of APl but found to have new ECHo findings and low EF%. Cardiology plans for repeat ECHO and possible need to r/o ischemic causes. Stable from ICU causes. ppi cc time 65 min
[2016-11-10] MEDS: Sodium Chloride 0.9% 1,000 ML IV SCH (17:31)
--- NOTE | 2016-11-10 18:27 | CP.PCM.PN ---
Subjective - Date & Time of Evaluation Date of Evaluation: 11/10/16 Time of Evaluation: 11:00 - Subjective Subjective: Abd somewhat improved; NPO for abd CT w/ PO contrast; Objective - Vital Signs/Intake and Output Vital Signs (last 24 hours): Temp Pulse Resp BP Pulse Ox 98.3 F 82 18 91/61 L 100 11/10/16 16:00 11/10/16 18:00 11/10/16 06:30 11/10/16 17:31 11/10/16 06:30 Intake and Output: 11/10/16 11/10/16 06:59 18:59 Intake Total 1340 125.8 Balance 1340 125.8 - Medications Medications: Current Medications Carvedilol (Coreg) 12.5 mg PO BID [facility] Last Admin: 11/10/16 17:31 Dose: 12.5 mg Ceftriaxone Sodium (Rocephin 1 Gram Ivpb) 1 gm in 100 mls @ 100 mls/hr IVPB DAILY [facility] PRN Reason: Protocol Last Admin: 11/10/16 10:01 Dose: 100 mls/hr Metronidazole (Flagyl) 500 mg in 100 mls @ 100 mls/hr IVPB Q8 DANA PRN Reason: Protocol Last Admin: 11/10/16 13:31 Dose: 100 mls/hr Sodium Chloride (Sodium Chloride 0.9%) 1,000 mls @ 60 mls/hr IV .[id number] [facility] Last Admin: 11/10/16 17:31 Dose: 60 mls/hr Heparin Sodium/Dextrose (Heparin 25,000 Units/250ml In D5w) 25,000 units in 250 mls @ 8.274 mls/hr IV .Q24H [facility]; 12 UNITS/KG/HR PRN Reason: Protocol Last Titration: 11/10/16 16:08 Dose: 11 units/kg/hr, 7.584 mls/hr Morphine Sulfate (Morphine) 2 mg IVP Q2H PRN PRN Reason: Pain, moderate (4-7) Last Admin: 11/10/16 13:37 Dose: 2 mg Ondansetron HCl (Zofran Inj) 4 mg IVP Q4H PRN PRN Reason: Nausea/Vomiting Last Admin: 11/10/16 07:26 Dose: 4 mg Pantoprazole Sodium (Protonix Inj) 40 mg IVP Q12 [facility] Last Admin: 11/10/16 10:01 Dose: 40 mg Ramipril (Altace) 2.5 mg PO DAILY [facility] Last Admin: 11/10/16 10:00 Dose: 2.5 mg - Labs Labs: 11/10/16 09:30 11/10/16 07:45 PT 49.7 Seconds (9.9-11.8) H* 11/10/16 07:45 INR 4.60 (0.93-1.08) H* 11/10/16 07:45 APTT > 180.0 Seconds (23.7-30.8) H* 11/10/16 14:00 - Constitutional Appears: Well, Non-toxic, No Acute Distress - Head Exam Head Exam: NORMAL INSPECTION - Eye Exam Eye Exam: Normal appearance - ENT Exam ENT Exam: Mucous Membranes Moist - Respiratory Exam Respiratory Exam: Clear to Ausculation Bilateral. absent: Respiratory Distress - Cardiovascular Exam Cardiovascular Exam: RRR, +S1, +S2 - GI/Abdominal Exam GI & Abdominal Exam: Soft, Tenderness. absent: Distended - Extremities Exam Additional comments: b/l lower leg edema; - Neurological Exam Neurological Exam: Alert, Awake - Psychiatric Exam Psychiatric exam: Normal Affect, Normal Mood - Skin Skin Exam: Normal Color, Warm. absent: Cyanosis Assessment and Plan (1) Hypocalcemia Status: Resolved (2) Hypokalemia Assessment & Plan: Due to loop diuretics; continue to monitor and replenish prn; Status: Resolved (3) Hyponatremia Assessment & Plan: In the setting of volume depletion and being on diuretics; improved with volume replenishment; urine lytes still indicative of volume depletion with low Ur Na and high serum osm; needing to be cautious with volume replenishment in the setting of severe systolic dysfunction; monitor; continue NS at 60 cc/hr; Status: Acute (4) Lower extremity edema Assessment & Plan: Chronic; no RV dysfunction noted on echo; was on diuretics for edema previously ; needs careful monitoring of electrolytes if placing back on diuretics and should start with very low doses; in setting of current volume depletion, should continue to hold for now; Status: Chronic (5) NSTEMI (non-ST elevated myocardial infarction) Assessment & Plan: In setting of anti-phospholipid syndrome; on coreg and NAYANA inhibitor for new systolic dysfunction; f/u with cardio for dose adjustment; Status: Acute
[2016-11-11] MEDS ORDERED: Sodium Chloride 0.9% 500 ML IV STA (01:10)
[2016-11-11] MEDS: Sodium Chloride 0.9% 1,000 ML IV SCH ×2 (02:10→20:40)
--- NOTE | 2016-11-11 02:22 | PN ---
FOLLOWUP NOTE DATE: 11/10/2016 SUBJECTIVE: She is still having abdominal pain episodic in nature, but has been markedly improved. She was started on heparin last night because INR kept on increasing; although her last dose of Coumadin was few days ago. CAT scan of the abdomen and pelvis was unremarkable. There was no abscess noted. She has a history of DVT, chronic right femoral. She has longstanding history of antiphospholipid antibody and has been on Coumadin for the past 10 years. Denies any shortness of breath. No chest pain. No diarrhea. No nausea or vomiting. REVIEW OF SYSTEMS: As per HPI. Rest of 12-point review of systems reviewed and negative. PHYSICAL EXAMINATION: GENERAL: Currently comfortable in bed, in no acute distress. VITAL SIGNS: Temperature 98.7, heart rate is 100 per minute, respiratory 18 per minute, blood pressure 110/76. HEENT: Normal. Mucosa pallor. NECK: No lymphadenopathy. CHEST: Air entry present and equal bilaterally. ABDOMEN: Soft and nontender. No rebound tenderness. Bowel sounds present in all four quadrants. EXTREMITIES: No edema. CENTRAL NERVOUS SYSTEM: Alert and oriented x3. No focal sensory or motor deficit. LABORATORY DATA: White count 10.9, hemoglobin 14.4, and platelet count 231. Sodium 134, potassium 4.2, calcium 7.7, troponin declined to 0.96, previously 2.66, AST 63, ALT 62, LDH 1000. Uric acid 3.6. MEDICATIONS: Coreg 12.5 mg p.o. b.i.d., ceftriaxone 1 g daily, Flagyl 500 mg q. 8 hours, morphine sulphate 2 mg q. 2 hour p.r.n. for pain, Zofran 4 mg IV q. 4 hour p.r.n., Protonix 40 mg q. 12, Altace 2.5 mg daily, IV fluids at 60 mL an hour normal saline. ASSESSMENT: 1. Crohn's disease. 2. Hypercoagulable state. 3. Antiphospholipid antibody. 4. Persistently elevated INR. 5. Abdominal pain, concerning for mesenteric ischemia. 6. Non-ST elevation myocardial infarction. 7. Leukocytosis. 8. Multiple electrolyte imbalance. PLAN: 1. History of hypercoagulable state, history of DVT, status post IVC filter, antiphospholipid antibody positive. Antiphospholipid antibody titers ordered, Results awaited. There is a concern that she might have falsely elevated INR because of liver dysfunction and also antiphospholipid antibody can falsely elevate PT/INR in around one-third of the patients. She was started on heparin drip. Abdominal pain has improved since than. Cardiac enzymes have been rapidly declining after starting heparin drip. We will continue heparin drip until stable. 2. Non-ST elevation myocardial infarction, cardiology following, cardiac enzyme declined. Electrolytes corrected now. 3. Leukocytosis. White count declined with antibiotic. Flow cytometry, BCR-ABL sent today to rule out abnormal cells in the blood. Tumor lysis labs are negative. LDH is improved, which might be related to liver. Thank you Dr. Lau for allowing us to participate in Ms. Stewart's care. We will continue to follow. Discussed with the staff. Lucie Hernandez MD MTDJoey
[2016-11-11 05:13] LABS: BASO # 0.02 K/mm3 (0.0-2.0); BASO % 0.4 % (0.0-3.0); EOS # 0.2 (0.0-0.7); GRAN # 4.38 (1.4-6.5); GRAN % 78.8 % (50.0-68.0); HEMATOCRIT 37.6 % (36.0-48.0); LYMPH # 0.4 (1.2-3.4); LYMPH % 7.6 % (22.0-35.0); MEAN CELL VOLUME 97.2 fl (80.0-105.0); MEAN CORPUSCULAR HEMOGLOBIN 31.5 pg (25.0-35.0); MEAN CORPUSCULAR HGB CONC 32.4 g/dl (31.0-37.0); MEAN PLATELET VOLUME 9.6 fl (7.0-11.0); MONO # 0.5 (0.1-0.6); MONO % 9.2 % (1.0-6.0); RED CELL DISTRIBUTION WIDTH 13.9 % (11.5-14.5); WHITE BLOOD COUNT 5.6 10^3/ul (4.5-11.0)
[2016-11-11 05:17] LABS: TROPONIN I 0.49 ng/mL
[2016-11-11 05:26] LABS: ALB/GLOB RATIO 0.8 (1.1-1.8); ALKALINE PHOSPHATASE 72 U/L (38-126); ALT/SGPT 49 U/L (7-56); AST/SGOT 37 U/L (14-36); BILIRUBIN,TOTAL 0.7 mg/dL (0.2-1.3); BLOOD UREA NITROGEN 13 mg/dL (7-21); CALCIUM 7.5 mg/dL (8.4-10.5); CARBON DIOXIDE 23 mmol/L (21-33); CHLORIDE 101 mmol/L (95-110); GFR AFRICAN-AMERICAN > 60; GLUCOSE,RANDOM 69 mg/dL (70-110); MAGNESIUM 1.8 mg/dL (1.7-2.2); PHOSPHOROUS 2.9 mg/dL (2.5-4.5); POTASSIUM 3.4 mmol/L (3.6-5.0); SODIUM 130 mmol/L (132-148); TOTAL PROTEIN 5.1 g/dL (5.8-8.3)
[2016-11-11] MEDS: metroNIDAZOLE IV 500 mg/100 ml 500 MG/100 ML BAG IVPB SCH ×3 (05:32→21:12)
--- NOTE | 2016-11-11 08:22 | CP.PCM.PN ---
Subjective - Date & Time of Evaluation Date of Evaluation: 11/11/16 Time of Evaluation: 07:00 - Subjective Subjective: Stable in CCU. No CP or SOB. BP low at times. Got IVF. V/S noted. RSR. SBP 80's - 90's PE: Lungs: clear Cor.: S1S2 Abd.: soft Ext.: chronic edema Neuro.: alert I/O- 2380/1300 Labs noted: PTT=54, Na+= 130, K+= 3.4, Ca+= 7.5, Trop=0.49 ECG 11/10: RSR, Normal QTc, NSSTW changes Objective - Vital Signs/Intake and Output Vital Signs (last 24 hours): Temp Pulse Resp BP Pulse Ox 98 F 66 17 88/56 L 99 11/11/16 04:00 11/11/16 06:00 11/11/16 06:00 11/11/16 06:00 11/11/16 06:00 Intake and Output: 11/11/16 11/11/16 06:59 18:59 Intake Total 2254 Output Total 1300 Balance 954 - Medications Medications: Current Medications Carvedilol (Coreg) 12.5 mg PO BID [facility] Last Admin: 11/10/16 17:31 Dose: 12.5 mg Ceftriaxone Sodium (Rocephin 1 Gram Ivpb) 1 gm in 100 mls @ 100 mls/hr IVPB DAILY [facility] PRN Reason: Protocol Last Admin: 11/10/16 10:01 Dose: 100 mls/hr Metronidazole (Flagyl) 500 mg in 100 mls @ 100 mls/hr IVPB Q8 [facility] PRN Reason: Protocol Last Admin: 11/11/16 05:32 Dose: 100 mls/hr Sodium Chloride (Sodium Chloride 0.9%) 1,000 mls @ 60 mls/hr IV .[id number] [facility] Last Admin: 11/11/16 02:10 Dose: 60 mls/hr Heparin Sodium/Dextrose (Heparin 25,000 Units/250ml In D5w) 25,000 units in 250 mls @ 8.274 mls/hr IV .Q24H [facility]; 12 UNITS/KG/HR PRN Reason: Protocol Last Titration: 11/10/16 16:08 Dose: 11 units/kg/hr, 7.584 mls/hr Morphine Sulfate (Morphine) 2 mg IVP Q2H PRN PRN Reason: Pain, moderate (4-7) Last Admin: 11/10/16 22:03 Dose: 2 mg Ondansetron HCl (Zofran Inj) 4 mg IVP Q4H PRN PRN Reason: Nausea/Vomiting Last Admin: 11/10/16 18:50 Dose: 4 mg Pantoprazole Sodium (Protonix Inj) 40 mg IVP Q12 [facility] Last Admin: 11/10/16 22:03 Dose: 40 mg Ramipril (Altace) 2.5 mg PO DAILY [facility] Last Admin: 11/10/16 10:00 Dose: 2.5 mg - Labs Labs: 11/11/16 04:20 11/11/16 04:20 PT 49.7 Seconds (9.9-11.8) H* 11/10/16 07:45 INR 4.60 (0.93-1.08) H* 11/10/16 07:45 APTT 54.6 Seconds (23.7-30.8) H 11/11/16 04:20 Assessment and Plan - Assessment and Plan (Free Text) Assessment: Large acute kang-apical FL (by echo), possibly several days prior to admission R/O CAD, R/O acute thrombosis in setting of antiphospholipid syndrome Severe electrolyte abnormalities, resolving Antiphospholipid Syndrome with prior CVA, DVT with IVC Filter Crohns Disease, H/O bowel resection Abdominal Pain Chronic edema Chronic Venous Insufficiency FH of CAD/FL Shingles Plan: Very Complex Patient Continue current cardiac therapy but reduce Coreg to 6.25 BID. Plan cardiac cath: timing to be determined. Replace K+ vigorously. Note urinary K+ level. Replace Ca.+ As per Dr. Hernandez, Farzana, Intensivists, Renal and ID Heparin drip, as per Dr. Hernandez Monitor: I/O, labs, PTT's, INR's, sats., etc. Repeat bedside echocardigram today: re-eval LV fx.
--- NOTE | 2016-11-11 09:28 | RAD ---
HISTORY: ilius COMPARISON: CT scan 11/10/2016 FINDINGS: BOWEL: There is moderate distention of the colon. The gastric and small bowel distention seen previously have improved BONES: Normal. OTHER FINDINGS: None. IMPRESSION: There is moderate distention of the colon. The gastric and small bowel distention seen previously have improved
[2016-11-11 09:29] LABS: T4 13.5 ug/dL (5.5-11.0)
[2016-11-11 09:43] LABS: T3 7.11 nmol/L (1.49-2.60); THYROID STIMULATING HORMONE 1.67 mIU/L (0.46-4.68)
[2016-11-11] MEDS: cefTRIAXone 1 gm 1 GM/100 ML BAG IVPB SCH (10:02)
--- NOTE | 2016-11-11 12:50 | PN ---
DATE: 11/11/2016 SUBJECTIVE: The patient was seen in ICU earlier this morning, in CCU #[id number], bed #5. Uneventful night. No fevers or chills. PHYSICAL EXAMINATION VITAL SIGNS: Temperature is 98, blood pressure is 90/60, respiratory rate of 18, heart rate of 70. HEENT: Unremarkable. NECK: Supple. HEART: Normal S1, S2. LUNGS: Have decreased breath sounds. ABDOMEN: Soft, nontender. LABORATORY EXAMINATION: Reveals a white count of 5.6, hemoglobin of 12, platelets of 195. Coagulation is noted. BUN of 13, creatinine of 0.7. Procalcitonin is 0.14. Urinalysis is noted. Blood cultures, no growth. Urine cultures, no growth. Nasal MRSA is negative. Review of orders reveals the patient to be on IV Flagyl and ceftriaxone and the 2 negative procalcitonin, negative cultures. CAT scan of the abdomen and pelvis suggestive of ileus. Dr. Livingston's note from this morning is reviewed. ASSESSMENT AND PLAN: A 46-year-old female with systemic inflammatory response syndrome and acute exacerbation of Crohn's disease and antiphospholipid antibody syndrome, on anticoagulation, status post elevated troponins with acute, large, anterior apical myocardial infarction. We will discontinue the antibiotics in next 24 to 48 hours if all cultures remain negative. Enzo Alex MD
--- NOTE | 2016-11-11 13:25 | CP.PCM.PN ---
<Sandi Ruelas - Last Filed: 11/11/16 13:24> Subjective - Date & Time of Evaluation Date of Evaluation: 11/11/16 Time of Evaluation: 12:05 - Subjective Subjective: seen and examined at the bedside this afternoon, the chart was reviewed. Patient reported having a bowel movement this morning, abdominal pain is better , denies nausea, vomiting. Denies shortness of breath or chest pain. No reports of overt GI bleed. Tolerated the clear liquids. Objective - Vital Signs/Intake and Output Vital Signs (last 24 hours): Temp Pulse Resp BP Pulse Ox 97.8 F 79 17 96/66 L 99 11/11/16 12:00 11/11/16 10:01 11/11/16 06:00 11/11/16 10:01 11/11/16 06:00 Intake and Output: 11/11/16 11/11/16 06:59 18:59 Intake Total 2254 Output Total 1300 Balance 954 - Medications Medications: Current Medications Carvedilol (Coreg) 6.[address] [facility] Last Admin: 11/11/16 10:01 Dose: 6.25 mg Carvedilol (Coreg) 6.25 mg PO [facility] Ceftriaxone Sodium (Rocephin 1 Gram Ivpb) 1 gm in 100 mls @ 100 mls/hr IVPB DAILY DANA PRN Reason: Protocol Last Admin: 11/11/16 10:02 Dose: 100 mls/hr Metronidazole (Flagyl) 500 mg in 100 mls @ 100 mls/hr IVPB Q8 [facility] PRN Reason: Protocol Last Admin: 11/11/16 05:32 Dose: 100 mls/hr Sodium Chloride (Sodium Chloride 0.9%) 1,000 mls @ 60 mls/hr IV .[id number] [facility] Last Admin: 11/11/16 02:10 Dose: 60 mls/hr Heparin Sodium/Dextrose (Heparin 25,000 Units/250ml In D5w) 25,000 units in 250 mls @ 8.274 mls/hr IV .Q24H [facility]; 12 UNITS/KG/HR PRN Reason: Protocol Last Titration: 11/10/16 16:08 Dose: 11 units/kg/hr, 7.584 mls/hr Morphine Sulfate (Morphine) 2 mg IVP Q2H PRN PRN Reason: Pain, moderate (4-7) Last Admin: 11/10/16 22:03 Dose: 2 mg Ondansetron HCl (Zofran Inj) 4 mg IVP Q4H PRN PRN Reason: Nausea/Vomiting Last Admin: 11/10/16 18:50 Dose: 4 mg Pantoprazole Sodium (Protonix Inj) [address] [facility] Last Admin: 11/11/16 10:00 Dose: 40 mg Ramipril (Altace) 2.[address] [facility] Last Admin: 11/11/16 10:00 Dose: 2.5 mg - Labs Labs: 11/11/16 04:20 11/11/16 04:20 PT 49.7 Seconds (9.9-11.8) H* 11/10/16 07:45 INR 4.60 (0.93-1.08) H* 11/10/16 07:45 APTT 60.1 Seconds (23.7-30.8) H 11/11/16 11:44 - Constitutional Appears: No Acute Distress - Head Exam Head Exam: NORMOCEPHALIC - Eye Exam Eye Exam: Normal appearance. absent: Scleral icterus - ENT Exam ENT Exam: Mucous Membranes Moist - Neck Exam Neck Exam: Normal Inspection - Respiratory Exam Respiratory Exam: NORMAL BREATHING PATTERN. absent: Respiratory Distress - Cardiovascular Exam Cardiovascular Exam: +S1, +S2 - GI/Abdominal Exam GI & Abdominal Exam: Distended, Soft, Tenderness, Normal Bowel Sounds. absent: Guarding, Rebound - Extremities Exam Extremities Exam: Normal Capillary Refill. absent: Calf Tenderness, Pedal Edema - Neurological Exam Neurological Exam: Alert, Awake, Oriented x3 - Skin Skin Exam: Dry, Warm Assessment and Plan - Assessment and Plan (Free Text) Assessment: Assessment: Abdominal pain, Probable partial small bowel obstruction, history of hemicolectomy status post repeat CT scan of abdomen and pelvis, small bowel and colonic distention suspect ileus Acute CT History of DVT, with IVC filter and inferior vena cava stent Sepsis Plan: On heparin As per protocol Monitor for any overt GI bleed Monitor H&H advance diet to full liquid Continue IV fluids for hydration Continue PPI On IV antibiotics Monitor electrolytes Recommend surgical evaluation Seen and discussed with Dr. Yanes. <Leonora Yanes V - Last Filed: 11/11/16 22:30> Objective - Vital Signs/Intake and Output Vital Signs (last 24 hours): Temp Pulse Resp BP Pulse Ox 101.3 F H 89 26 H 89/60 L 94 L 11/11/16 20:21 11/11/16 21:56 11/11/16 20:21 11/11/16 21:56 11/11/16 20:21 Intake and Output: 11/11/16 11/12/16 18:59 06:59 Intake Total 124.2 Balance 124.2 - Medications Medications: Current Medications Carvedilol (Coreg) 6.[address] [facility] Last Admin: 11/11/16 18:42 Dose: 6.25 mg Carvedilol (Coreg) 6.[address] [facility] Last Admin: 11/11/16 21:56 Dose: Not Given Ceftriaxone Sodium (Rocephin 1 Gram Ivpb) 1 gm in 100 mls @ 100 mls/hr IVPB DAILY [facility] PRN Reason: Protocol Last Admin: 11/11/16 10:02 Dose: 100 mls/hr Metronidazole (Flagyl) 500 mg in 100 mls @ 100 mls/hr IVPB Q8 [facility] PRN Reason: Protocol Last Admin: 11/11/16 21:12 Dose: 100 mls/hr Sodium Chloride (Sodium Chloride 0.9%) 1,000 mls @ 60 mls/hr IV .[id number] [facility] Last Admin: 11/11/16 20:40 Dose: Not Given Heparin Sodium/Dextrose (Heparin 25,000 Units/250ml In D5w) 25,000 units in 250 mls @ 8.274 mls/hr IV .Q24H [facility]; 12 UNITS/KG/HR PRN Reason: Protocol Last Admin: 11/11/16 21:13 Dose: 11 units/kg/hr, 7.584 mls/hr Morphine Sulfate (Morphine) 2 mg IVP Q2H PRN PRN Reason: Pain, moderate (4-7) Last Admin: 11/10/16 22:03 Dose: 2 mg Ondansetron HCl (Zofran Inj) 4 mg IVP Q4H PRN PRN Reason: Nausea/Vomiting Last Admin: 11/10/16 18:50 Dose: 4 mg Pantoprazole Sodium (Protonix Inj) [address] [facility] Last Admin: 11/11/16 21:12 Dose: 40 mg Ramipril (Altace) 2.[address] [facility] Last Admin: 11/11/16 10:00 Dose: 2.5 mg - Labs Labs: 11/11/16 04:20 11/11/16 04:20 PT 49.7 Seconds (9.9-11.8) H* 11/10/16 07:45 INR 4.60 (0.93-1.08) H* 11/10/16 07:45 APTT 60.1 Seconds (23.7-30.8) H 11/11/16 11:44 Attending/Attestation - Attestation I have personally seen and examined this patient.: Yes I have fully participated in the care of the patient.: Yes I have reviewed all pertinent clinical information, including history, physical exam and plan: Yes Notes (Text): this is an addendum to the [facility] progress report dictated by Sandi Isidro APN. Patient was seen and evaluated the area. Abdominal x-ray was reviewed. Patient does have dilated loops of the intestine. Physical examination abdomen soft minimal tenderness on deep palpation Patient overall feeling better WBC count has normalized ID note reviewed the concern is the intestinal obstruction partial now is slowly improving. Patient did have bowel movements. Plan Antiphospholipid syndrome, recent CT, history of DVT and IVC filter C evaluated INR presently on heparin Crohn's disease. Not on any medication. Repeat CT with oral contrast did not reveal any focal inflammatory changes in the bowel , no abscess or inflammatory changes noticed Will slowly advance the diet If the patient develops any obstructive symptoms of cramping abdominal pain would need a CT enterography to further evaluate the small bowel and the surgical evaluation ll
--- NOTE | 2016-11-11 18:51 | CP.PCM.PN ---
Subjective - Date & Time of Evaluation Date of Evaluation: 11/11/16 Time of Evaluation: 12:00 - Subjective Subjective: Patient started on clear liquid diet; hypotensive overnight and received IVF bolus; Objective - Vital Signs/Intake and Output Vital Signs (last 24 hours): Temp Pulse Resp BP Pulse Ox 97.8 F 68 20 105/64 99 11/11/16 18:13 11/11/16 18:42 11/11/16 18:13 11/11/16 18:42 11/11/16 06:00 Intake and Output: 11/11/16 11/11/16 06:59 18:59 Intake Total 2254 Output Total 1300 Balance 954 - Medications Medications: Current Medications Carvedilol (Coreg) 6.25 mg PO BID [facility] Last Admin: 11/11/16 18:42 Dose: 6.25 mg Carvedilol (Coreg) 6.25 mg PO HS [facility] Ceftriaxone Sodium (Rocephin 1 Gram Ivpb) 1 gm in 100 mls @ 100 mls/hr IVPB DAILY [facility] PRN Reason: Protocol Last Admin: 11/11/16 10:02 Dose: 100 mls/hr Metronidazole (Flagyl) 500 mg in 100 mls @ 100 mls/hr IVPB Q8 [facility] PRN Reason: Protocol Last Admin: 11/11/16 14:09 Dose: 100 mls/hr Sodium Chloride (Sodium Chloride 0.9%) 1,000 mls @ 60 mls/hr IV .[id number] [facility] Last Admin: 11/11/16 02:10 Dose: 60 mls/hr Heparin Sodium/Dextrose (Heparin 25,000 Units/250ml In D5w) 25,000 units in 250 mls @ 8.274 mls/hr IV .Q24H [facility]; 12 UNITS/KG/HR PRN Reason: Protocol Last Titration: 11/10/16 16:08 Dose: 11 units/kg/hr, 7.584 mls/hr Morphine Sulfate (Morphine) 2 mg IVP Q2H PRN PRN Reason: Pain, moderate (4-7) Last Admin: 11/10/16 22:03 Dose: 2 mg Ondansetron HCl (Zofran Inj) 4 mg IVP Q4H PRN PRN Reason: Nausea/Vomiting Last Admin: 11/10/16 18:50 Dose: 4 mg Pantoprazole Sodium (Protonix Inj) 40 mg IVP Q12 [facility] Last Admin: 11/11/16 10:00 Dose: 40 mg Ramipril (Altace) 2.5 mg PO DAILY [facility] Last Admin: 11/11/16 10:00 Dose: 2.5 mg - Labs Labs: 11/11/16 04:20 11/11/16 04:20 PT 49.7 Seconds (9.9-11.8) H* 11/10/16 07:45 INR 4.60 (0.93-1.08) H* 11/10/16 07:45 APTT 60.1 Seconds (23.7-30.8) H 11/11/16 11:44 - Constitutional Appears: Well, No Acute Distress - Head Exam Head Exam: NORMAL INSPECTION - Eye Exam Eye Exam: Normal appearance - ENT Exam ENT Exam: Mucous Membranes Moist - Respiratory Exam Respiratory Exam: Clear to Ausculation Bilateral, NORMAL BREATHING PATTERN - Cardiovascular Exam Cardiovascular Exam: RRR, +S1, +S2 - GI/Abdominal Exam GI & Abdominal Exam: Soft Additional comments: mild epigastric/RUQ tenderness (improved); - Extremities Exam Additional comments: mild lower leg edema (chronic); - Neurological Exam Neurological Exam: Alert, Awake - Psychiatric Exam Psychiatric exam: Normal Affect, Normal Mood - Skin Skin Exam: Normal Color, Warm. absent: Cyanosis Assessment and Plan (1) Hypocalcemia Status: Resolved (2) Hypokalemia Assessment & Plan: Likely due to secondary hyperaldo state in the setting of volume depletion and getting IVF; continue to replenish prn; Status: Acute (3) Hyponatremia Assessment & Plan: Likely secondary to volume depletion; getting gentle IVF w/ NS at 60 cc/hr; starting PO diet and reducing BP med dose should help; if Ur Na still low and Ur osm still high, need to give more IVF (no signs of overload despite wall motion abnormalities on echo); Status: Acute (4) Lower extremity edema Status: Chronic (5) NSTEMI (non-ST elevated myocardial infarction) Assessment & Plan: With wall motion abnormalities on echo; on B-nicole and low dose NAYANA inhibitor , being adjusted by cardio; Status: Acute
[2016-11-11] MEDS: Heparin 25,000units in D5W 25,000 UNITS/250 ML BAG IV SCH (21:13)
--- NOTE | 2016-11-11 23:48 | CP.PCM.PN ---
Subjective - Date & Time of Evaluation Date of Evaluation: 11/11/16 Time of Evaluation: 18:00 - Subjective Subjective: FOLLOWUP NOTE DATE: 11/11/2016 SUBJECTIVE: No abdominal pain today. She was started on clear liquids today. Tolerating so far. She was hypotensive in night, received fluid boluses. BP 89 systolic. Fever 102. WC declined to normal. REVIEW OF SYSTEMS: As per HPI. Rest of 12-point review of systems reviewed and negative. PHYSICAL EXAMINATION: GENERAL: Currently comfortable in bed, in no acute distress. VITAL SIGNS: reviewed. HEENT: Normal. Mucosa pallor. NECK: No lymphadenopathy. CHEST: Air entry present and equal bilaterally. ABDOMEN: Soft and nontender. No rebound tenderness. Bowel sounds present in all four quadrants. EXTREMITIES: No edema. CENTRAL NERVOUS SYSTEM: Alert and oriented x3. No focal sensory or motor deficit. LABORATORY DATA: reviewed. MEDICATIONS: reviewed. ASSESSMENT: 1. Crohn's disease. 2. Hypercoagulable state. 3. Antiphospholipid antibody. 4. fever 5. Abdominal pain - resolved 6. Non-ST elevation myocardial infarction. 7. Leukocytosis- resolved 8. electrolyte imbalance. PLAN: 1. History of hypercoagulable state, history of DVT, status post IVC filter, antiphospholipid antibody positive. On heparin drip. Continue heparin drip until stable. Will consider switch to eliquis when stable. Complete hypercoaguable work up can be done as out patient when stable. Clear liquids started today. Hypotension, fever today. 2. Non-ST elevation myocardial infarction, cardiology following, cardiac enzyme declined. Electrolytes corrected now. 3. Leukocytosis. resolved. Flow cytometry, BCR-ABL sent, results pending. 4. Chron's Ds. abdominal pain resolved. tolerating clear liquids today. GI following. Thank you Dr. Lau for allowing us to participate in Ms. Stewart's care. We will continue to follow. Discussed with the staff. Lucie Hernandez MD Objective - Vital Signs/Intake and Output Vital Signs (last 24 hours): Temp Pulse Resp BP Pulse Ox 97.7 F 81 18 89/60 L 98 11/11/16 23:31 11/11/16 23:31 11/11/16 23:31 11/11/16 23:31 11/11/16 23:31 Intake and Output: 11/11/16 11/12/16 18:59 06:59 Intake Total 124.2 Balance 124.2 - Medications Medications: Current Medications Carvedilol (Coreg) 6.25 mg PO BID [facility] Last Admin: 11/11/16 18:42 Dose: 6.25 mg Carvedilol (Coreg) 6.25 mg PO HS [facility] Last Admin: 11/11/16 21:56 Dose: Not Given Ceftriaxone Sodium (Rocephin 1 Gram Ivpb) 1 gm in 100 mls @ 100 mls/hr IVPB DAILY [facility] PRN Reason: Protocol Last Admin: 11/11/16 10:02 Dose: 100 mls/hr Metronidazole (Flagyl) 500 mg in 100 mls @ 100 mls/hr IVPB Q8 [facility] PRN Reason: Protocol Last Admin: 11/11/16 21:12 Dose: 100 mls/hr Sodium Chloride (Sodium Chloride 0.9%) 1,000 mls @ 60 mls/hr IV .[id number] [facility] Last Admin: 11/11/16 20:40 Dose: Not Given Heparin Sodium/Dextrose (Heparin 25,000 Units/250ml In D5w) 25,000 units in 250 mls @ 8.274 mls/hr IV .Q24H [facility]; 12 UNITS/KG/HR PRN Reason: Protocol Last Admin: 11/11/16 21:13 Dose: 11 units/kg/hr, 7.584 mls/hr Morphine Sulfate (Morphine) 2 mg IVP Q2H PRN PRN Reason: Pain, moderate (4-7) Last Admin: 11/10/16 22:03 Dose: 2 mg Ondansetron HCl (Zofran Inj) 4 mg IVP Q4H PRN PRN Reason: Nausea/Vomiting Last Admin: 11/10/16 18:50 Dose: 4 mg Pantoprazole Sodium (Protonix Inj) 40 mg IVP Q12 [facility] Last Admin: 11/11/16 21:12 Dose: 40 mg Ramipril (Altace) 2.5 mg PO DAILY [facility] Last Admin: 11/11/16 10:00 Dose: 2.5 mg - Labs Labs: 11/11/16 04:20 11/11/16 04:20 PT 49.7 Seconds (9.9-11.8) H* 11/10/16 07:45 INR 4.60 (0.93-1.08) H* 11/10/16 07:45 APTT 60.1 Seconds (23.7-30.8) H 11/11/16 11:44
--- NOTE | 2016-11-12 01:15 | PN ---
SUBJECTIVE: A 46-year-old white female with antiphospholipid syndrome, active Crohn colitis. The patient admitted to the hospital with severe hypocalcemia, hyperkalemia, admitted with severe cramping and inability to speak. The patient developed a non-STEMI myocardial infarction with a decreased ejection fraction and anterior wall hypokinesis. The patient also has recovered from her severe hypokalemia and hypocalcemia. She does have an ileus today and without evidence of active Crohn colitis. She has a distended abdomen, absent bowel sounds. Chest is clear to auscultation. Heart examination is regular sinus rhythm. The patient has no chest pain, no shortness of breath, no palpitations today. PHYSICAL EXAMINATION: VITAL SIGNS: Temperature 97.8, blood pressure 96/66. LABORATORY DATA: Shows normal H and H and a normal white count. The patient is on heparin. She had been on Coumadin in the past with elevated INR. She will be switched to Coumadin shortly. Her sodium remains at 130, potassium 3.4. Troponins are still mildly elevated at 0.49, but decreasing, trending down. The patient is awake and alert x3. IMPRESSION: Status post [id number] elevation myocardial infarction, antiphospholipid syndrome, severe electrolyte imbalance, and ileus and Crohn disease. Danilo Lau MD
[2016-11-12] MEDS: Sodium Chloride 0.9% 1,000 ML IV SCH ×2 (04:14→15:13)
[2016-11-12] MEDS: metroNIDAZOLE IV 500 mg/100 ml 500 MG/100 ML BAG IVPB SCH ×3 (05:05→22:03)
[2016-11-12 06:16] LABS: PHOSPHATIDYLSERINE AB IGM <25 U/mL (<25)
[2016-11-12 06:36] LABS: B2 GLYCOPROTEIN I AB(IGA) <9 SAU (<=20); B2 GLYCOPROTEIN I AB(IGG) <9 SGU (<=20); B2 GLYCOPROTEIN I AB(IGM) <9 SMU (<=20); CARDIOLIPIN AB (IGA) <11 APL (<=11); PHOSPHATIDYLSERINE AB IGA <20 U/mL (<20)
[2016-11-12 08:20] LABS: ALB/GLOB RATIO 0.9 (1.1-1.8); ALKALINE PHOSPHATASE 68 U/L (38-126); ALT/SGPT 51 U/L (7-56); AST/SGOT 33 U/L (14-36); BILIRUBIN,TOTAL 0.5 mg/dL (0.2-1.3); BLOOD UREA NITROGEN 7 mg/dL (7-21); CALCIUM 7.5 mg/dL (8.4-10.5); CARBON DIOXIDE 20 mmol/L (21-33); CHLORIDE 105 mmol/L (98-107); GFR AFRICAN-AMERICAN > 60; GLUCOSE,RANDOM 74 mg/dL (70-110); POTASSIUM 3.1 mmol/L (3.6-5.0); SODIUM 134 mmol/L (132-148); TOTAL PROTEIN 5.1 g/dL (5.8-8.3)
--- NOTE | 2016-11-12 09:34 | PN ---
DATE: 11/12/2016 SUBJECTIVE: A 46-year-old white female who admitted with antiphospholipid syndrome, acute myocardial infarction, electrolyte imbalance severe hypokalemia. Vital signs stable. The patient is out of the intensive care unit. She is on the floor. She is tolerating some ambulating. She has bowel movements yesterday, 1 this morning. Abdomen is soft. We are advancing her diet. We are switching her from IV heparin to p.o. Coumadin. We are also tapering her blood pressure medications. PHYSICAL EXAMINATION VITAL SIGNS: Stable. She is afebrile. PLAN: Switch to p.o. medications. Ambulate and eventually discharge home. Danilo Lau MD
[2016-11-12] MEDS: cefTRIAXone 1 gm 1 GM/100 ML BAG IVPB SCH (10:30)
[2016-11-12 10:40] LABS: INR 1.61 (0.93-1.08)
--- NOTE | 2016-11-12 11:41 | CARD ---
APPROVED REPORT EXAM: Two-dimensional and M-mode echocardiogram with Doppler and color Doppler. INDICATION ANTERIOR NV 2D DIMENSIONS Left Atrium (2D)4.0 (1.6-4.0cm)IVSd0.8 (0.7-1.1cm) LVDd4.8 (3.9-5.9cm)PWd1.0 (0.7-1.1cm) LVDs4.3 (2.5-4.0cm)FS (%) 11.3 % LVEF (%)24.7 (>50%) M-Mode DIMENSIONS Aortic Root3.10 (2.2-3.7cm)Aortic Cusp Exc.1.90 (1.5-2.0cm) Aortic Valve AoV Peak Vxtoiwtw569.0cm/Patrizia Peak GR.6mmHgLVOT Peak Mlfgegjz986.0cm/s LVOT VTI19.60cm Mitral Valve MV E Ufhonrjj30.3cm/sMV A Ycoqvhfk22.6cm/sE/A ratio1.2 TDI Lateral E' Peak V10.80cm/sMedial E' Peak V8.87cm/sE/Lateral E'8.4 E/Medial E'10.2 Pulmonary Valve PV Peak Watqvsfx70.6cm/sPV Peak Grad.2mmHg Tricuspid Valve TR Peak Fpajpfqg388cz/sRAP OHMPAZPH65kzCsEP Peak Gr.25mmHg [id number] LEFT VENTRICLE The left ventricle is normal size. There is normal left ventricular wall thickness. The systolic function is severely impaired. Overall EF 25-30%. Apical akinesis.Severe anteroseptal, anterior and anterolateral hypokinesis. RIGHT VENTRICLE The right ventricle is normal size. The right ventricular systolic function is normal. ATRIA The left atrium is borderline dilated. The right atrium size is normal. The interatrial septum is intact with no evidence for an atrial septal defect. AORTIC VALVE The aortic valve is normal in structure. No aortic regurgitation is present. MITRAL VALVE The mitral valve is normal in structure. There is no mitral valve regurgitation noted. TRICUSPID VALVE The tricuspid valve is normal in structure. There is trace tricuspid regurgitation. PULMONIC VALVE The pulmonary valve is normal in structure. GREAT VESSELS The aortic root is normal in size. The IVC is normal in size and collapses >50% with inspiration. PERICARDIAL EFFUSION There is no pleural effusion. There is no pericardial effusion. <Conclusion> Bordelrine LA enlargement. Normal LV size. Severe LV systolic function with wall motion abnormalities as described above. No significant change from echo of 11/08/16.
--- NOTE | 2016-11-12 13:23 | CP.PCM.PN ---
<Sandi Ruelas - Last Filed: 11/12/16 13:22> Subjective - Date & Time of Evaluation Date of Evaluation: 11/12/16 Time of Evaluation: 09:45 - Subjective Subjective: Seen and examined at the bedside earlier today. The chart was reviewed. Patient reports improvement of abdominal discomfort, no nausea, vomiting, fever , chills, shortness of breath or chest pain. She had 3 bowel movements yesterday and 1 AM she did have loose bowel movement, no reports of bleeding. Tolerated the full liquid diet. Objective - Vital Signs/Intake and Output Vital Signs (last 24 hours): Temp Pulse Resp BP Pulse Ox 98.4 F 75 20 89/57 L 98 11/12/16 12:00 11/12/16 12:00 11/12/16 12:00 11/12/16 12:00 11/12/16 06:00 Intake and Output: 11/12/16 11/12/16 06:59 18:59 Intake Total 1110 Balance 1110 - Medications Medications: Current Medications Carvedilol (Coreg) 6.25 mg PO HS [facility] Last Admin: 11/11/16 21:56 Dose: Not Given Ceftriaxone Sodium (Rocephin 1 Gram Ivpb) 1 gm in 100 mls @ 100 mls/hr IVPB DAILY [facility] PRN Reason: Protocol Last Admin: 11/12/16 10:30 Dose: 100 mls/hr Metronidazole (Flagyl) 500 mg in 100 mls @ 100 mls/hr IVPB Q8 [facility] PRN Reason: Protocol Last Admin: 11/12/16 05:05 Dose: 100 mls/hr Sodium Chloride (Sodium Chloride 0.9%) 1,000 mls @ 60 mls/hr IV .[id number] [facility] Last Admin: 11/12/16 04:14 Dose: 60 mls/hr Heparin Sodium/Dextrose (Heparin 25,000 Units/250ml In D5w) 25,000 units in 250 mls @ 8.274 mls/hr IV .Q24H [facility]; 12 UNITS/KG/HR PRN Reason: Protocol Last Admin: 11/11/16 21:13 Dose: 11 units/kg/hr, 7.584 mls/hr Morphine Sulfate (Morphine) 2 mg IVP Q2H PRN PRN Reason: Pain, moderate (4-7) Last Admin: 11/10/16 22:03 Dose: 2 mg Ondansetron HCl (Zofran Inj) 4 mg IVP Q4H PRN PRN Reason: Nausea/Vomiting Last Admin: 11/12/16 05:05 Dose: 4 mg Ramipril (Altace) 2.5 mg PO DAILY [facility] Last Admin: 11/12/16 10:30 Dose: Not Given Warfarin Sodium (Coumadin) 3 mg PO 1800 [facility] PRN Reason: Protocol - Labs Labs: 11/11/16 04:20 11/12/16 07:50 PT 17.4 Seconds (9.9-11.8) H 11/12/16 10:29 INR 1.61 (0.93-1.08) H 11/12/16 10:29 APTT 39.7 Seconds (23.7-30.8) H 11/12/16 07:50 - Constitutional Appears: No Acute Distress - Head Exam Head Exam: NORMOCEPHALIC - Eye Exam Eye Exam: Normal appearance. absent: Scleral icterus - ENT Exam ENT Exam: Mucous Membranes Moist - Neck Exam Neck Exam: Normal Inspection - Respiratory Exam Respiratory Exam: NORMAL BREATHING PATTERN. absent: Respiratory Distress - Cardiovascular Exam Cardiovascular Exam: +S1, +S2 - GI/Abdominal Exam GI & Abdominal Exam: Soft, Normal Bowel Sounds. absent: Guarding, Tenderness, Organomegaly, Rebound - Extremities Exam Extremities Exam: Normal Capillary Refill. absent: Calf Tenderness, Pedal Edema - Neurological Exam Neurological Exam: Alert, Awake, Oriented x3 Assessment and Plan - Assessment and Plan (Free Text) Assessment: Assessment: Abdominal pain, improving Probable partial small bowel obstruction, history of hemicolectomy status post repeat CT scan of abdomen and pelvis, small bowel and colonic distention suspect ileus Antiphospolipid Syndrom Acute [place] History of DVT, with IVC filter and inferior vena cava stent Sepsis Plan: On heparin As per protocol, to start Coumadin Monitor for any overt GI bleed Monitor H&H advance diet as tolerated, rec low residual/soft Continue IV fluids for hydration Continue PPI On IV antibiotics Monitor electrolytes any return of increasing abdominal pain/obstructive symptoms, patient will need CT enterography and surgical evaluation. Seen and discussed with Dr. Yanes. <Leonora Yanes V - Last Filed: 11/12/16 23:31> Objective - Vital Signs/Intake and Output Vital Signs (last 24 hours): Temp Pulse Resp BP Pulse Ox 98.4 F 89 20 95/67 L 98 11/12/16 12:00 11/12/16 22:00 11/12/16 12:00 11/12/16 22:02 11/12/16 06:00 Intake and Output: 11/12/16 11/13/16 18:59 06:59 Intake Total 250 600 Output Total 700 Balance 250 -100 - Medications Medications: Current Medications Carvedilol (Coreg) 6.25 mg PO HS [facility] Last Admin: 11/12/16 22:02 Dose: Not Given Ceftriaxone Sodium (Rocephin 1 Gram Ivpb) 1 gm in 100 mls @ 100 mls/hr IVPB DAILY [facility] PRN Reason: Protocol Last Admin: 11/12/16 10:30 Dose: 100 mls/hr Metronidazole (Flagyl) 500 mg in 100 mls @ 100 mls/hr IVPB Q8 [facility] PRN Reason: Protocol Last Admin: 11/12/16 22:03 Dose: 100 mls/hr Sodium Chloride (Sodium Chloride 0.9%) 1,000 mls @ 60 mls/hr IV .[id number] [facility] Last Admin: 11/12/16 15:13 Dose: Not Given Heparin Sodium/Dextrose (Heparin 25,000 Units/250ml In D5w) 25,000 units in 250 mls @ 8.274 mls/hr IV .Q24H [facility]; 12 UNITS/KG/HR PRN Reason: Protocol Last Admin: 11/12/16 16:46 Dose: 12.32 units/kg/hr, 8.5 mls/hr Morphine Sulfate (Morphine) 2 mg IVP Q2H PRN PRN Reason: Pain, moderate (4-7) Last Admin: 11/10/16 22:03 Dose: 2 mg Ondansetron HCl (Zofran Inj) 4 mg IVP Q4H PRN PRN Reason: Nausea/Vomiting Last Admin: 11/12/16 20:53 Dose: 4 mg Ramipril (Altace) 2.5 mg PO DAILY [facility] Last Admin: 11/12/16 10:30 Dose: Not Given Warfarin Sodium (Coumadin) 3 mg PO 1800 [facility] PRN Reason: Protocol Last Admin: 11/12/16 17:05 Dose: 3 mg - Labs Labs: 11/11/16 04:20 11/12/16 07:50 PT 17.4 Seconds (9.9-11.8) H 11/12/16 10:29 INR 1.61 (0.93-1.08) H 11/12/16 10:29 APTT 36.2 Seconds (23.7-30.8) H 11/12/16 17:04 Attending/Attestation - Attestation Notes (Text): This patient was seen and evaluated here earlier. This is an addendum to the GE progress report dictated by Sandi Ruelas APN. Tolerating diet abdomen soft On IV heparin Discussed with the patient at length and she would benefit from an MR enterography as an outpatient 11/12/16 23:30
[2016-11-12] MEDS ORDERED: Potassium Chloride 40 mEq/30 ml LIQ UD PO ONE (14:49)
--- NOTE | 2016-11-12 16:44 | CP.PCM.PN ---
Subjective - Date & Time of Evaluation Date of Evaluation: 11/12/16 Time of Evaluation: 16:00 - Subjective Subjective: Abdominal pain is much better, had nausea with the liquid potassium. Had fever last night, but noted that her IV site was infiltrated, and once it was removed , the patient defervesced and fever has not come back. Objective - Vital Signs/Intake and Output Vital Signs (last 24 hours): Temp Pulse Resp BP Pulse Ox 98.4 F 78 18 83/56 L 98 11/12/16 06:00 11/12/16 06:00 11/12/16 06:00 11/12/16 10:30 11/12/16 06:00 Intake and Output: 11/12/16 11/12/16 06:59 18:59 Intake Total 1110 Balance 1110 - Medications Medications: Current Medications Carvedilol (Coreg) 6.25 mg PO HS [facility] Last Admin: 11/11/16 21:56 Dose: Not Given Ceftriaxone Sodium (Rocephin 1 Gram Ivpb) 1 gm in 100 mls @ 100 mls/hr IVPB DAILY [facility] PRN Reason: Protocol Last Admin: 11/12/16 10:30 Dose: 100 mls/hr Metronidazole (Flagyl) 500 mg in 100 mls @ 100 mls/hr IVPB Q8 [facility] PRN Reason: Protocol Last Admin: 11/12/16 05:05 Dose: 100 mls/hr Sodium Chloride (Sodium Chloride 0.9%) 1,000 mls @ 60 mls/hr IV .[id number] [facility] Last Admin: 11/12/16 04:14 Dose: 60 mls/hr Heparin Sodium/Dextrose (Heparin 25,000 Units/250ml In D5w) 25,000 units in 250 mls @ 8.274 mls/hr IV .Q24H [facility]; 12 UNITS/KG/HR PRN Reason: Protocol Last Admin: 11/11/16 21:13 Dose: 11 units/kg/hr, 7.584 mls/hr Morphine Sulfate (Morphine) 2 mg IVP Q2H PRN PRN Reason: Pain, moderate (4-7) Last Admin: 11/10/16 22:03 Dose: 2 mg Ondansetron HCl (Zofran Inj) 4 mg IVP Q4H PRN PRN Reason: Nausea/Vomiting Last Admin: 11/12/16 05:05 Dose: 4 mg Ramipril (Altace) 2.5 mg PO DAILY [facility] Last Admin: 11/12/16 10:30 Dose: Not Given Warfarin Sodium (Coumadin) 3 mg PO 1800 [facility] PRN Reason: Protocol - Labs Labs: 11/11/16 04:20 11/12/16 07:50 PT 17.4 Seconds (9.9-11.8) H 11/12/16 10:29 INR 1.61 (0.93-1.08) H 11/12/16 10:29 APTT 39.7 Seconds (23.7-30.8) H 11/12/16 07:50 - Constitutional Appears: Non-toxic, No Acute Distress - Head Exam Head Exam: NORMAL INSPECTION - ENT Exam ENT Exam: Mucous Membranes Moist - Neck Exam Neck Exam: absent: Lymphadenopathy, Meningismus - Respiratory Exam Respiratory Exam: Decreased Breath Sounds - Cardiovascular Exam Cardiovascular Exam: +S1, +S2 - GI/Abdominal Exam GI & Abdominal Exam: Soft. absent: Tenderness Assessment and Plan - Assessment and Plan (Free Text) Plan: Assessment Systemic Inflammatory Response Syndrome, consider due to acute exacerbation of Crohn's disease, so far no other source of infection identified fever, probably from infiltrated peripheral IV site, now resolved and line has been removed Crohn's disease antiphospholipid antibody syndrome on anticoagulation S/P colonic obstruction and resection with anastomosis history of CVA Plan continue Rocephin and Flagyl day 4; blood cx, urine cx are negative; PCT is only 0.14 and CXR does not show infiltrates; CT scan did not show abscess or intra-abdominal infection; patient does not have diarrhea - will d/c antibiotics by tomorrow reviewed GI evaluation WBC count has normalized will continue to monitor for fever; continue warm compress on infiltrated IV site will continue to monitor clinically
[2016-11-12] MEDS: Heparin 25,000units in D5W 25,000 UNITS/250 ML BAG IV SCH (16:46)
--- NOTE | 2016-11-12 20:43 | CP.PCM.PN ---
Subjective - Date & Time of Evaluation Date of Evaluation: 11/12/16 Time of Evaluation: 11:00 - Subjective Subjective: Patient tolerating full diet well; has been ambulating without lightheadedness; Objective - Vital Signs/Intake and Output Vital Signs (last 24 hours): Temp Pulse Resp BP Pulse Ox 98.4 F 88 20 89/57 L 98 11/12/16 12:00 11/12/16 18:00 11/12/16 12:00 11/12/16 12:00 11/12/16 06:00 Intake and Output: 11/12/16 11/13/16 18:59 06:59 Intake Total 250 600 Output Total 700 Balance 250 -100 - Medications Medications: Current Medications Carvedilol (Coreg) 6.25 mg PO HS [facility] Last Admin: 11/11/16 21:56 Dose: Not Given Ceftriaxone Sodium (Rocephin 1 Gram Ivpb) 1 gm in 100 mls @ 100 mls/hr IVPB DAILY [facility] PRN Reason: Protocol Last Admin: 11/12/16 10:30 Dose: 100 mls/hr Metronidazole (Flagyl) 500 mg in 100 mls @ 100 mls/hr IVPB Q8 [facility] PRN Reason: Protocol Last Admin: 11/12/16 15:10 Dose: 100 mls/hr Sodium Chloride (Sodium Chloride 0.9%) 1,000 mls @ 60 mls/hr IV .[id number] [facility] Last Admin: 11/12/16 15:13 Dose: Not Given Heparin Sodium/Dextrose (Heparin 25,000 Units/250ml In D5w) 25,000 units in 250 mls @ 8.274 mls/hr IV .Q24H [facility]; 12 UNITS/KG/HR PRN Reason: Protocol Last Admin: 11/12/16 16:46 Dose: 12.32 units/kg/hr, 8.5 mls/hr Morphine Sulfate (Morphine) 2 mg IVP Q2H PRN PRN Reason: Pain, moderate (4-7) Last Admin: 11/10/16 22:03 Dose: 2 mg Ondansetron HCl (Zofran Inj) 4 mg IVP Q4H PRN PRN Reason: Nausea/Vomiting Last Admin: 11/12/16 05:05 Dose: 4 mg Ramipril (Altace) 2.5 mg PO DAILY [facility] Last Admin: 11/12/16 10:30 Dose: Not Given Warfarin Sodium (Coumadin) 3 mg PO 1800 [facility] PRN Reason: Protocol Last Admin: 11/12/16 17:05 Dose: 3 mg - Labs Labs: 11/11/16 04:20 11/12/16 07:50 PT 17.4 Seconds (9.9-11.8) H 11/12/16 10:29 INR 1.61 (0.93-1.08) H 11/12/16 10:29 APTT 36.2 Seconds (23.7-30.8) H 11/12/16 17:04 - Constitutional Appears: Non-toxic, No Acute Distress - Head Exam Head Exam: NORMAL INSPECTION - Eye Exam Eye Exam: Normal appearance. absent: Scleral icterus - ENT Exam ENT Exam: Mucous Membranes Moist - Respiratory Exam Respiratory Exam: Clear to Ausculation Bilateral, NORMAL BREATHING PATTERN - Cardiovascular Exam Cardiovascular Exam: RRR, +S1, +S2 - GI/Abdominal Exam GI & Abdominal Exam: Soft. absent: Distended, Tenderness - Extremities Exam Additional comments: chronic lower leg edema; - Neurological Exam Neurological Exam: Alert, Awake - Psychiatric Exam Psychiatric exam: Normal Affect, Normal Mood - Skin Skin Exam: Normal Color, Warm. absent: Cyanosis Assessment and Plan (1) Hypocalcemia Status: Resolved (2) Hypokalemia Assessment & Plan: Likely renal K wasting in setting of relative volume depletion; replenish prn; Status: Acute (3) Hyponatremia Assessment & Plan: Resolved; secondary to volume depletion; should continue to improve as patient started on regular diet; Status: Acute (4) Lower extremity edema Status: Chronic (5) NSTEMI (non-ST elevated myocardial infarction) Status: Acute
--- NOTE | 2016-11-12 21:55 | PN ---
DATE: 11/12/2016 SUBJECTIVE: The patient is seen as lying in bed on telemetry. She is currently comfortable. Blood pressure remains borderline low and that she is not tolerating medications for her heart condition because of this. Her potassium also remains low at 3.1. Her INR has corrected and she remains on IV heparin at the present time. She denies any chest pain. Repeat echocardiogram is relatively unchanged with evidence of moderately severe LV systolic dysfunction and apical infarct. MEDICATIONS: Her current medications include Altace 2.5 mg daily, carvedilol 6.25 mg at night, Flagyl, Rocephin, Zofran and IV heparin. PHYSICAL EXAMINATION: GENERAL: She is a middle-aged woman, who appears comfortable at rest. VITAL SIGNS: Her blood pressure 90/60 with pulse 90, respirations of 16. She is afebrile. HEENT: No JVD. CHEST: Clear to auscultation and percussion. HEART: PMI displaced laterally with soft tones noted. ABDOMEN: Soft, nontender, normoactive bowel sounds. EXTREMITIES: 1+ ankle edema. DIAGNOSTIC DATA: Potassium was 3.1, BUN and creatinine are 7 and 0.7, PT/INR 17.4 and 1.6 and PTT 39.7. IMPRESSION: 1. Apparent recent anteroseptal and apical infarct, etiology uncertain. 2. Multiple electrolyte abnormalities, clinically improved. 3. Coagulopathy improved as well. 4. History of antiphospholipid antibody syndrome with prior cerebrovascular accident and deep vein thrombosis. RECOMMENDATION: Her current medications will be continued for now. Cardiac catheterization would be advisable to assess the status for coronary origin in an attempt to determine the cause of her recent infarct. The timing of this will be discussed with Dr. Lau and the patient. Continue beta-nicole use and NAYANA inhibitor use as advised for now as tolerated. We will continue to follow and make further recommendations as appropriate. Josemanuel Lyles MD [facility]
[2016-11-12 22:16] LABS: BCR-ABL PRIOR RESULT NOT GIVEN; BCR-ABL SOURCE NOT GIVEN; P190 BCR-ABL1 NOT DETECTED; P210 BCR-ABL1 NOT DETECTED
[2016-11-13] MEDS: metroNIDAZOLE IV 500 mg/100 ml 500 MG/100 ML BAG IVPB SCH (05:02)
[2016-11-13] MEDS: Sodium Chloride 0.9% 1,000 ML IV SCH (05:03)
[2016-11-13] MEDS: Heparin 25,000units in D5W 25,000 UNITS/250 ML BAG IV SCH (05:17)
[2016-11-13 07:14] VITALS: O2SAT 98
[2016-11-13 07:26] LABS: INR 1.35 (0.93-1.08); PARTIAL THROMBOPLASTIN TIME 45.5 Seconds (23.7-30.8)
--- NOTE | 2016-11-13 07:53 | CP.PCM.PN ---
Subjective - Date & Time of Evaluation Date of Evaluation: 11/13/16 Time of Evaluation: 07:00 - Subjective Subjective: Stable on 2R. No CP or SOB. V/S noted. RSR. SBP 90's PE: Lungs: clear Cor.: S1S2 Abd.: soft Ext.: chronic edema Neuro.: alert I/O- 2488/800 Labs noted: PTT=45.5, INR= 1.35 ECG 11/10: RSR, Normal QTc, NSSTW changes BC x2 NG at 5 days. Echos noted. Objective - Vital Signs/Intake and Output Vital Signs (last 24 hours): Temp Pulse Resp BP Pulse Ox 98.6 F 84 18 90/55 L 98 11/13/16 06:00 11/13/16 06:00 11/13/16 06:00 11/13/16 06:00 11/13/16 06:00 Intake and Output: 11/13/16 11/13/16 06:59 18:59 Intake Total 2238.0 Output Total 800 Balance 1438.0 - Medications Medications: Current Medications Carvedilol (Coreg) 6.25 mg PO HS DANA Last Admin: 11/12/16 22:02 Dose: Not Given Ceftriaxone Sodium (Rocephin 1 Gram Ivpb) 1 gm in 100 mls @ 100 mls/hr IVPB DAILY DANA PRN Reason: Protocol Last Admin: 11/12/16 10:30 Dose: 100 mls/hr Metronidazole (Flagyl) 500 mg in 100 mls @ 100 mls/hr IVPB Q8 DANA PRN Reason: Protocol Last Admin: 11/13/16 05:02 Dose: 100 mls/hr Sodium Chloride (Sodium Chloride 0.9%) 1,000 mls @ 60 mls/hr IV .[id number] DANA Last Admin: 11/13/16 05:03 Dose: 60 mls/hr Heparin Sodium/Dextrose (Heparin 25,000 Units/250ml In D5w) 25,000 units in 250 mls @ 8.274 mls/hr IV .Q24H DANA; 12 UNITS/KG/HR PRN Reason: Protocol Last Admin: 11/13/16 05:17 Dose: 14.32 units/kg/hr, 9.873 mls/hr Ondansetron HCl (Zofran Inj) 4 mg IVP Q4H PRN PRN Reason: Nausea/Vomiting Last Admin: 11/12/16 20:53 Dose: 4 mg Ramipril (Altace) 2.5 mg PO DAILY DANA Last Admin: 11/12/16 10:30 Dose: Not Given Warfarin Sodium (Coumadin) 3 mg PO 1800 DANA PRN Reason: Protocol Last Admin: 11/12/16 17:05 Dose: 3 mg - Labs Labs: 11/11/16 04:20 11/12/16 07:50 PT 14.6 Seconds (9.9-11.8) H 11/13/16 06:50 INR 1.35 (0.93-1.08) H 11/13/16 06:50 APTT 45.5 Seconds (23.7-30.8) H 11/13/16 06:50 Assessment and Plan - Assessment and Plan (Free Text) Assessment: Large acute kang-apical WA (by echo), possibly several days prior to admission R/O CAD, R/O acute thrombosis in setting of antiphospholipid syndrome Severe electrolyte abnormalities, resolving Antiphospholipid Syndrome with prior CVA, DVT with IVC Filter Crohns Disease, H/O bowel resection Abdominal Pain Chronic edema Chronic Venous Insufficiency FH of CAD/WA Shingles Plan: Very Complex Patient Await AM BMP, pending Continue current cardiac therapy: change Coreg to 3.125 BID trial. Plan cardiac cath: timing to be determined. Replace K+ vigorously. Note urinary K+ level. W/U as per renal. Replace Ca.+ As per Dr. Hernandez, Farzana, Intensivists, Renal, ID and Dr. Lau Heparin drip, as per Dr. Hernandez Monitor: I/O, labs, PTT's, INR's, sats., etc. OOB as valeria.
[2016-11-13 08:39] LABS: BLOOD UREA NITROGEN 4 mg/dL (7-21); CALCIUM 7.1 mg/dL (8.4-10.5); CARBON DIOXIDE 22 mmol/L (21-33); CHLORIDE 107 mmol/L (98-107); GFR AFRICAN-AMERICAN > 60; GLUCOSE,RANDOM 77 mg/dL (70-110); SODIUM 135 mmol/L (132-148)
[2016-11-13] MEDS: cefTRIAXone 1 gm 1 GM/100 ML BAG IVPB SCH (10:04)
[2016-11-13] MEDS: Potassium Chloride 20 mEq ER Tab PO SCH ×2 (10:30→13:28)
--- NOTE | 2016-11-13 12:51 | PN ---
DATE: 11/13/2016 SUBJECTIVE: The patient was seen earlier. She is awake and alert. States she feels much better. She has had no fever. Last temperature was documented on , two days ago at 101.3. PHYSICAL EXAMINATION: VITAL SIGNS: At this time, temperature is 98.6, blood pressure is 90/50, respiratory rate 18, heart rate of 84. HEENT: Unremarkable. NECK: Supple. LUNGS: Have decrease breath sounds. HEART: Normal S1 and S2. ABDOMEN: Soft. LABORATORY EXAMINATION: Reveals a white count of 5.6, hemoglobin of 12, and platelets of 195. Chemistries reveals a BUN of 4, and creatinine of 0.6. Procalcitonin 0.14. Urinalysis is noted. Immunology is noted. The patient's hepatitis profile is negative and microbiology reveals the blood cultures are negative. Urine cultures are negative and the MRSA screen is negative. MEDICATIONS: Review of medication reveals the patient is on Flagyl IV and ceftriaxone IV. Dr. Livingston's note is reviewed. Dr. Wren's note is reviewed. ASSESSMENT AND PLAN: This is a 46-year-old female with systemic inflammatory response syndrome, acute exacerbation of Crohn's disease and did have one episode of fever, most likely peripheral IV site in a patient with Crohn's disease, antiphospholipid antibody syndrome and anticoagulation statu post colonic obstruction and resection and anastomosis, history of cerebrovascular accident, on Rocephin and Flagyl day #5 with negative cultures. CAT scan does not show any abscess or collection. We will discontinue the antibiotics. No further antibiotics at this point. The patient's white count has been normal. Afebrile. Cultures negative. Enzo Alex MD
[2016-11-13 12:56] VITALS: BP 100/69; PULSE 82; RESP 20; TEMP 98.8
--- NOTE | 2016-11-13 15:34 | CP.PCM.PN ---
<Sandi Ruelas - Last Filed: 11/13/16 15:33> Subjective - Date & Time of Evaluation Date of Evaluation: 11/13/16 Time of Evaluation: 09:40 - Subjective Subjective: Seen and examined the bedside earlier today, tolerated solids, no nausea, vomiting, abdominal pain continues to improve. She had bowel movement that were semi-loose, no acute overnight events. Objective - Vital Signs/Intake and Output Vital Signs (last 24 hours): Temp Pulse Resp BP Pulse Ox 98.8 F 82 20 100/69 98 11/13/16 12:00 11/13/16 12:00 11/13/16 12:00 11/13/16 12:00 11/13/16 06:00 Intake and Output: 11/13/16 11/13/16 06:59 18:59 Intake Total 2238.0 47 Output Total 800 Balance 1438.0 47 - Medications Medications: Current Medications Apixaban (Eliquis) 10 mg PO BID DANA PRN Reason: Protocol Last Admin: 11/13/16 10:03 Dose: 10 mg Carvedilol (Coreg) 3.125 mg PO BIDWM [facility] Last Admin: 11/13/16 08:47 Dose: Not Given Sodium Chloride (Sodium Chloride 0.9%) 1,000 mls @ 60 mls/hr IV .[id number] [facility] Last Admin: 11/13/16 05:03 Dose: 60 mls/hr Ondansetron HCl (Zofran Inj) 4 mg IVP Q4H PRN PRN Reason: Nausea/Vomiting Last Admin: 11/12/16 20:53 Dose: 4 mg Potassium Chloride (K-Dur 20 Meq Er Tab) 20 meq PO BRK [facility] Ramipril (Altace) 2.5 mg PO DAILY [facility] Last Admin: 11/13/16 10:03 Dose: 2.5 mg - Labs Labs: 11/11/16 04:20 11/13/16 08:15 PT 14.6 Seconds (9.9-11.8) H 11/13/16 06:50 INR 1.35 (0.93-1.08) H 11/13/16 06:50 APTT 45.5 Seconds (23.7-30.8) H 11/13/16 06:50 - Constitutional Appears: No Acute Distress - Head Exam Head Exam: NORMOCEPHALIC - Eye Exam Eye Exam: Normal appearance. absent: Scleral icterus - ENT Exam ENT Exam: Mucous Membranes Moist - Respiratory Exam Respiratory Exam: NORMAL BREATHING PATTERN. absent: Respiratory Distress - Cardiovascular Exam Cardiovascular Exam: +S1, +S2 - GI/Abdominal Exam GI & Abdominal Exam: Soft, Normal Bowel Sounds. absent: Guarding, Tenderness, Organomegaly, Rebound - Extremities Exam Extremities Exam: Normal Capillary Refill, Pedal Edema. absent: Calf Tenderness - Neurological Exam Neurological Exam: Alert, Awake, Oriented x3 - Skin Skin Exam: Dry, Warm Assessment and Plan - Assessment and Plan (Free Text) Assessment: Assessment: Abdominal pain, improving Probable partial small bowel obstruction, history of hemicolectomy Antiphospolipid Syndrom Acute KS History of DVT, with IVC filter and inferior vena cava stent Sepsis Plan: starting Eliquis Monitor for any overt GI bleed Monitor H&H continue diet as tolerated, rec low residual/soft Continue PPI On IV antibiotics Monitor electrolytes discussed with patient, elective outpatient MR enterography Seen and discussed with Dr. Yanes. <Leonora Yanes V - Last Filed: 11/13/16 23:29> Objective - Vital Signs/Intake and Output Vital Signs (last 24 hours): Temp Pulse Resp BP Pulse Ox 98.8 F 82 20 100/69 98 11/13/16 12:00 11/13/16 12:00 11/13/16 12:00 11/13/16 12:00 11/13/16 06:00 Intake and Output: 11/13/16 11/14/16 18:59 06:59 Intake Total 47 Balance 47 - Labs Labs: 11/11/16 04:20 11/13/16 08:15 PT 14.6 Seconds (9.9-11.8) H 11/13/16 06:50 INR 1.35 (0.93-1.08) H 11/13/16 06:50 APTT 45.5 Seconds (23.7-30.8) H 11/13/16 06:50 Attending/Attestation - Attestation I have personally seen and examined this patient.: Yes I have fully participated in the care of the patient.: Yes I have reviewed all pertinent clinical information, including history, physical exam and plan: Yes Notes (Text): This is an addendum to GI progress report dictated by Sandi Ruelas APN.The patient was seen and examined earlier. Medical records, lab studies, imagings were reviewed. Last 24 hours events reviewed. Agreed with the above treatment plan as outlined in Sandi Ruelas NP's notes the with the addition of the following abdomen soft no tenderness Patient is tolerating diet Patient is advised to follow up with GI and also schedule for MR enterography to further evaluate intestine And evaluation as per elementary summer school teacher 11/13/16 23:27
[2016-11-14] MEDS ORDERED: Potassium Chloride 20 mEq ER Tab PO SCH (08:00)
--- NOTE | 2016-11-15 06:28 | DS ---
HISTORY OF PRESENT ILLNESS: The patient is a 46-year-old white female who was admitted to the hospital with dehydration, abdominal pain, ileus and history of antiphospholipid syndrome. The patient was admitted with severe hypokalemia and hypocalcemia secondary to diuretics and severe pain. The patient developed non-ST segment elevation myocardial infarction, anterior wall, with ejection fraction dropped down to less than 30%. The patient was seen in consultation. The patient was admitted to intensive care unit for several days. Her calcium and potassium were replaced. She also had elevated INR. The patient is on Coumadin at home, but her INR is over 6. The patient's Coumadin was held. She was eventually placed on heparin. She was seen in consultation by Dr. Hernandez for Heme/Onc and also with Dr. Livingston for Cardiology. The patient eventually improved; however, she had a severe ileus which also eventually improved. She was seen in consultation by Dr. Yanes. The patient was transferred from the intensive care unit to the floor. She was started on physical therapy and occupational therapy. She started to move her bowels. Her ileus resolved. Her potassium and calcium horacio. She was switched from heparin to Eliquis due to her poorly-controlled INRs in the past and her history of antiphospholipid antibody syndrome, bilateral DVTs and Siva filter. The patient was tolerating ambulation, was able to be discharged home in improved condition to follow up as an outpatient. The patient will be need an outpatient cardiac catheterization and further assessment of her ejection fraction. FINAL DISCHARGE DIAGNOSES: Severe hypocalcemia and hypokalemia, ddx-NH-qqehgbu elevation myocardial infarction, ileus, history of Crohn's disease, history of antiphospholipid syndrome, history of bilateral deep venous thromboses. Danilo Lau MD
== END 2016-11-13 16:56 | disposition home or self-care (01) | DRG 281 ==
LOC: ED 19:16 → ERH 20:42 → CCU 22:40 → 2RNO 11-11 15:08
PROVIDERS: ADMIT Internal Medicine; ATTEND Internal Medicine
DX: I21.4 Non-ST elevation (NSTEMI) myocardial infarction (principal); E83.51 Hypocalcemia; E87.6 Hypokalemia; D68.61 Antiphospholipid syndrome; E46 Unspecified protein-calorie malnutrition; R65.10 Systemic inflammatory response syndrome (SIRS) of non-infectious origin without acute organ dysfunction; E87.1 Hypo-osmolality and hyponatremia; I82.511 Chronic embolism and thrombosis of right femoral vein; K50.10 Crohn's disease of large intestine without complications; K56.7 Ileus, unspecified; E86.0 Dehydration; E83.42 Hypomagnesemia; I87.2 Venous insufficiency (chronic) (peripheral); R20.0 Anesthesia of skin; N83.201 Unspecified ovarian cyst, right side; N83.202 Unspecified ovarian cyst, left side; M24.549 Contracture, unspecified hand; B02.9 Zoster without complications; Z86.73 Personal history of transient ischemic attack (TIA), and cerebral infarction without residual deficits; Z79.01 Long term (current) use of anticoagulants; Z82.49 Family history of ischemic heart disease and other diseases of the circulatory system; Z86.711 Personal history of pulmonary embolism; Z90.49 Acquired absence of other specified parts of digestive tract

== ENCOUNTER 2016-11-26 06:12 | Day surgery (SDC) | payer OTHER ==
[2016-11-21 10:04] VITALS: BMI 20.9
[2016-11-26] MEDS ORDERED: Lidocaine 2% Inj (20ml) ONE ×2 (06:26→09:14)
[2016-11-26] MEDS ORDERED: Iohexol 350mgl/ml 50 ML ONE (06:27)
[2016-11-26] MEDS ORDERED: Phenylephrine 10 mg/ml Inj ONE (06:27)
[2016-11-26] MEDS ORDERED: Iodixanol 320 MG/ML 200 ML BOTTLE IV ONE (06:27)
[2016-11-26] MEDS ORDERED: Iodixanol 320 MG/ML 100 ML BOTTLE IV ONE (06:27)
[2016-11-26] MEDS ORDERED: Nitroglycerin 50mg in D5W 50 MG/250 ML BOTTLE IV ONE (06:27)
[2016-11-26 07:07] VITALS: TEMP 97.4
[2016-11-26] MEDS ORDERED: Midazolam 2 MG/2 ML VIAL ONE (07:07)
[2016-11-26 07:10] LABS: INR 0.96 (0.93-1.08); PARTIAL THROMBOPLASTIN TIME 26.6 Seconds (23.7-30.8)
[2016-11-26] MEDS ORDERED: Sodium Chloride 0.9% 1,000 ML IV SCH (09:45)
[2016-11-26 10:51] VITALS: BP 100/64; PULSE 75; RESP 16; O2SAT 99
--- NOTE | 2016-11-28 08:14 | CARDCATH ---
PROCEDURE DATE: 11/26/2016 HISTORY: This is a 46-year-old woman status post recent anterior myocardial infarction admitted for cardiac catheterization. INDICATIONS; Recent myocardial infarction. PROCEDURES: 1. Left and right coronary angiography. 2. Left ventriculography. 3. Right femoral arteriography. 4. Angio-Seal deployment. FINDINGS: Hemodynamic: Aortic pressure was 90/60 with left ventricular pressure of 90/14. 1. The left main stent was normal. 2. The left anterior descending artery had mild irregularities proximally and was occluded after take off of the large septal perforated. A small diagonal branch appeared to be diffusely diseased. The distal vessel filled the right and left collaterals. 3. The left circumflex artery gave rise to one large obtuse marginal branch. This had a 20% lesion in the proximal segment and 30% lesion in the proximal obtuse marginal branch. 4. The right coronary artery was dominant. This had a mild proximal disease and 80% stenosis in the small posterolateral branch. Collaterals to distal LAD were seen via the PDA branch. LEFT VENTRICULOGRAPHY: Left ventriculogram was performed with hand injection in the REN projection. This revealed mild mid anterolateral hypokinesis with an overall ejection fraction of 45%. RIGHT FEMORAL ARTERIOGRAPHY: A right femoral arteriography was performed in the REN projection. This revealed no evidence of significant disease and appropriate level of arterial puncture. The puncture site was then closed with deployment of an Angio-Seal device. CONCLUSION: 1. Occluded and collateralized LAD. 2. Mildly reduced LV systolic function. 3. Caha-js-qmcyvirh circumflex and RCA disease as noted above. RECOMMENDATIONS: Continued medical therapy and risk factor control is advised. Given the total flush occlusion of the LAD with good collaterals from the RCA, attempted PCI is not appropriate and was not attempted. Josemanuel Lyles MD cc: Danilo Lau MD MTDD
== END 2016-11-26 13:30 | disposition home or self-care (01) ==
LOC: CATH 06:12
PROVIDERS: ATTEND Internal Medicine Cardiovascular Disease
DX: I25.10 Atherosclerotic heart disease of native coronary artery without angina pectoris (principal); I21.09 ST elevation (STEMI) myocardial infarction involving other coronary artery of anterior wall
CPT/HCPCS: 36415; 84703; 85610; 85730; 86850; 86900; 93458; 99152; 99153; C1760; C1769; C1894; C2629; J1644; J2250; J3010; J7030; J7040

== ENCOUNTER 2017-01-29 17:00 | Inpatient (IN) | payer BC, OTHER ==
[2017-01-29 17:02] VITALS: BMI 21.6
[2017-01-29] MEDS ORDERED: Nitroglycerin 2% Ointment Foilpak UD TOP STA (17:18)
--- NOTE | 2017-01-29 17:25 | ED PDOC ---
Arrival/HPI - General Chief Complaint: Chest Pain Time Seen by Provider: 01/29/17 17:01 Historian: Patient, Spouse - History of Present Illness Narrative History of Present Illness (Text): 01/29/17 17:21 pt p/w + substernal/left chest pain/tightness since 3:15pm today; pt states initial onset of chest pain was severe at 6/10 and reduced to 3/10, since then the pain has been waxing and waning; pt states + sob/dizziness, no loc, no fever /chills/sweats, no palpitations, no abd pain, no n/v, no numbness/tingling; pt also noted ~ 1 week onset of b/l leg swelling, no leg pain; pt denied urinary/ bowel changes, no rashes, no fall/trauma/sick contact, no travel; pt denied rashes; pt is here for further eval; pt's without other complaints. 01/29/17 17:23 pt was recently dx with AMI 10/2016 and had cath at [facility] by Dr Lyles (no stents at that time) pt was also admitted late November/early december at [facility] for abnl labs pt is due to see Dr Lyles in his office in 5 days Time/Duration: 1-3 hours Symptom Onset: Sudden Symptom Course: Intermittent Quality: Tightness, Stabbing, Cramping Severity Level: 3, Mild Activities at Onset: Rest Context: Sitting, Home Past Medical History - Provider Review Nursing Documentation Reviewed: Yes - Travel History Have you recently traveled outside [place] w/in the past 3 mons?: No - Past History Past History: No Previous (recent dx of AMI with negative cath; + left leg DVT) - Infectious Disease Hx of Infectious Diseases: None - Reproductive Menopause: No - Cardiac Hx Cardiac Disorders: Yes Hx Coronary Artery Disease: Yes Hx ND: Yes Hx Pacemaker: No Other/Comment: DVT - Pulmonary Hx Respiratory Disorders: No - Neurological Hx Paralysis: No - HEENT Hx HEENT Disorder: No - Renal Hx Renal Disorder: No - Endocrine/Metabolic Hx Endocrine Disorders: No - Hematological/Oncological Hx Blood Transfusions: No (POSSIBLY IN PAST DURING SURGERY) - Integumentary Hx Dermatological Disorder: No - Musculoskeletal/Rheumatological Hx Musculoskeletal Disorders: No - Gastrointestinal Hx Gastrointestinal Disorders: Yes (Bowel Resection 25 years ago.) Hx Crohn's Disease: Yes (Exacerbation 1 month ago.) - Genitourinary/Gynecological Hx Genitourinary Disorders: No - Psychiatric Hx Emotional Abuse: No Hx Physical Abuse: No Hx Substance Use: No - Surgical History Other/Comment: IVC filter - Anesthesia Hx Anesthesia Reactions: No Hx Malignant Hyperthermia: No - Suicidal Assessment Suicidal Thoughts: No Feels Threatened In Home Enviroment: No Family/Social History - Physician Review Nursing Documentation Reviewed: Yes Family/Social History: No Known Family HX Smoking Status: Never Smoked Hx Alcohol Use: No Hx Substance Use: No Allergies/Home Meds Allergies/Adverse Reactions: Allergies No Known Allergies Allergy (Verified 11/29/12 22:00) Home Medications: Home Meds Medication Instructions Recorded Confirmed Potassium Chloride [K-Dur 20 mEq 20 meq PO BID 11/07/16 01/29/17 ER Tab] Carvedilol [Coreg] 6.25 mg PO QPM 11/21/16 01/29/17 Lisinopril [Zestril] 5 mg PO DAILY 11/21/16 01/29/17 Rosuvastatin Calcium [Crestor] 20 mg PO DAILY 11/21/16 01/29/17 Apixaban [Eliquis] 5 mg PO BID 01/29/17 01/29/17 Review of Systems - Review of Systems Constitutional: Normal Eyes: Normal ENT: Normal Respiratory: SOB Cardiovascular: Chest Pain, Edema. absent: Palpitations, Syncope Gastrointestinal: Normal Genitourinary Female: Normal Musculoskeletal: Joint Swelling Skin: Normal Neurological: Dizziness. absent: Headache Endocrine: Normal Hemo/Lymphatic: Normal Psychiatric: Normal Physical Exam Vital Signs Reviewed: Yes (WNL) Vital Signs Temp Pulse Pulse Resp BP Pulse Ox 01/29/17 17:30 78 01/29/17 17:14 97.6 F 88 18 123/51 L 100 Temperature: Afebrile Blood Pressure: Normal Pulse: Regular Respiratory Rate: Normal Appearance: Positive for: Well-Appearing Pain Distress: Mild Mental Status: Positive for: Alert and Oriented X 3 - Systems Exam Head: Present: Atraumatic, Normocephalic Pupils: Present: PERRL Extroacular Muscles: Present: EOMI Conjunctiva: Present: Normal Ears: Present: Normal Mouth: Present: Moist Mucous Membranes Pharnyx: Present: Normal Nose (External): Present: Atraumatic Nose (Internal): Present: Normal Inspection Neck: Present: Normal Range of Motion Respiratory/Chest: Present: Clear to Auscultation, Good Air Exchange. No: Respiratory Distress, Accessory Muscle Use, Wheezes, Decreased Breath Sounds Cardiovascular: Present: Regular Rate and Rhythm, Normal S1, S2. No: Murmurs Abdomen: Present: Normal Bowel Sounds. No: Tenderness, Distention, Rebound, Guarding, McBurney's Point Tender, Rovsing's Sign Present Back: Present: Normal Inspection Upper Extremity: Present: Normal Inspection Lower Extremity: Present: Edema, Normal ROM, Swelling, Other (b/l lower ext swelling/pitting edema +2-3/5, neurovasc intact b/l; strength 5/5 grossly intact in all limbs). No: Tenderness Neurological: Present: GCS=15, CN II-XII Intact, Speech Normal Skin: Present: Warm, Normal Color Psychiatric: Present: Alert, Oriented x 3, Normal Insight, Normal Concentration Medical Decision Making ED Course and Treatment: 01/29/17 17:36 pt presents with sudden onset of chest pain, concern for ACS as well as 1 week onset of b/l leg swelling/intermittent sob a/p: chest pain, r/o acs; leg swelling - labs - iv - xray - acs eval - u/s - ekg - observe - supportive care pt is currently comfortable with chest pain ~ 2-3/10 01/29/17 19:17 after nitroglycerin, pt felt much improved; pt states no chest pain currently 7:10pm - I spoke to Dr Lyles, cardiologists wig sales consultant, made aware, agrees with ED mgt/txt, agrees with ED OBS/placement 7:12pm - i spoke to Dr Small, pt's admitting physician, made aware, agrees with ED mgt/txt and agrees with ED obs/placement pt is made aware of her medical results pt agrees with admission Re-evaluation Time: 18:15 Reassessment Condition: Re-examined, Improved - Critical Care Critical Care Minutes: Other (35min) Critical Care Time: Excluding Proc Time Narrative Critical Care (Text): 01/29/17 18:32 critical care time: 35min, excluding procedure time, excluding time teaching residents/students/mid-level providers; including initial eval/diagnosis, diagnostic interpretation, re-eval, consultations, final disposition - Lab Interpretations Narrative Lab Interpretation (Text): 01/29/17 19:21 decr Ca, otherwise WNL TROP Lab Results: 01/29/17 17:30 01/29/17 18:15 Lab Results 01/29/17 18:15: Sodium 133, Potassium 4.4, Chloride 106, Carbon Dioxide 27, Anion Gap 5 L, BUN 14, Creatinine 0.7, Est GFR ( Amer) > 60, Est GFR (Non -Af Amer) > 60, Random Glucose 79, Calcium 6.5 L*, Magnesium 1.1 L, Total Bilirubin 0.4, AST 43 H D, ALT 53, Alkaline Phosphatase 119, Lactate Dehydrogenase 389, Total Creatine Kinase 47, Troponin I < 0.01 D, NT-Pro-B Natriuret Pep 110, Total Protein 4.1 L, Albumin 1.8 L, Globulin 2.3, Albumin/ Globulin Ratio 0.8 L 01/29/17 18:15: PT 13.9 H, INR 1.27 H, APTT 32.4 01/29/17 17:30: WBC 7.4 D, RBC 4.52, Hgb 14.0, Hct 42.3, MCV 93.6 D, MCH 31.0 , MCHC 33.1, RDW 14.4, Plt Count 235, MPV 9.7, Gran % 74.0 H, Lymph % (Auto) 13.0 L, Lucas % (Auto) 10.2 H, Eos % (Auto) 2.3, Baso % (Auto) 0.5, Gran # 5.44, Lymph # 1.0 L, Lucas # 0.8 H, Eos # 0.2, Baso # 0.04 I have reviewed the lab results: Yes Interpretation: Abnormal lab values - RAD Interpretation Narrative RAD Interpretations (Text): 01/29/17 18:38 Parcel Carrier : Josemanuel Contreras Approver2 : Report Date : 11/11/2016 11:33:35 My Comment : APPROVED REPORT EXAM: Two-dimensional and M-mode echocardiogram with Doppler and color Doppler. INDICATION ANTERIOR ND 2D DIMENSIONS Left Atrium (2D) 4.0 (1.6-4.0cm) IVSd 0.8 (0.7-1.1cm) LVDd 4.8 (3.9-5.9cm) PWd 1.0 (0.7-1.1cm) LVDs 4.3 (2.5-4.0cm) FS (%) 11.3 % LVEF (%) 24.7 (>50%) M-Mode DIMENSIONS Aortic Root 3.10 (2.2-3.7cm) Aortic Cusp Exc. 1.90 (1.5-2.0cm) Aortic Valve AoV Peak Velocity 122.0cm/s AO Peak GR. 6mmHg LVOT Peak Velocity 107.0cm/s LVOT VTI 19.60cm Mitral Valve MV E Velocity 90.3cm/s MV A Velocity 72.6cm/s E/A ratio 1.2 TDI Lateral E' Peak V 10.80cm/s Medial E' Peak V 8.87cm/s E/Lateral E' 8.4 E/Medial E' 10.2 Pulmonary Valve PV Peak Velocity 65.6cm/s PV Peak Grad. 2mmHg Tricuspid Valve TR Peak Velocity 250cm/s RAP ESTIMATE 10mmHg TR Peak Gr. 25mmHg RVSP 35mmHg LEFT VENTRICLE The left ventricle is normal size. There is normal left ventricular wall thickness. The systolic function is severely impaired. Overall EF 25-30%. Apical akinesis.Severe anteroseptal, anterior and anterolateral hypokinesis. RIGHT VENTRICLE The right ventricle is normal size. The right ventricular systolic function is normal. ATRIA The left atrium is borderline dilated. The right atrium size is normal. The interatrial septum is intact with no evidence for an atrial septal defect. AORTIC VALVE The aortic valve is normal in structure. No aortic regurgitation is present. MITRAL VALVE The mitral valve is normal in structure. There is no mitral valve regurgitation noted. TRICUSPID VALVE The tricuspid valve is normal in structure. There is trace tricuspid regurgitation. PULMONIC VALVE The pulmonary valve is normal in structure. GREAT VESSELS The aortic root is normal in size. The IVC is normal in size and collapses >50% with inspiration. PERICARDIAL EFFUSION There is no pleural effusion. There is no pericardial effusion. <Conclusion> Bordelrine LA enlargement. Normal LV size. Severe LV systolic function with wall motion abnormalities as described above. No significant change from echo of 11/08/16. 01/29/17 19:21 prelim U/S: NO changes, + persistent right fem DVT as per Radiology/tech 01/29/17 19:30 CXR- NAD as read by me Radiology Orders: 01/29/17 17:18 DUPLEX LOWER EXTRM VEIN BILAT [US] Stat 01/29/17 17:19 CHEST PORTABLE [RAD] Stat Candy Spreader Helper: Radiologist - EKG Interpretation EKG Interpretation (Text): 01/29/17 17:37 sinus rhythm at 85 bpm, with PACs, normal axis, diffuse low voltage, qs in leads III, F, non-specific st-t changes, ABNL EKG; no gross changes compare with old ekg 10/201601/29/17 18:35 Interpreted by ED Physician: Yes Type: 12 lead EKG Comparison: Similar to previous EKG - Medication Orders Current Medication Orders: Discontinued Medications Nitroglycerin (Nitro-Bid 2% Oint) 1 ea TOP STAT STA Stop: 01/29/17 17:19 Last Admin: 01/29/17 17:34 Dose: 1 ea Disposition/Present on Arrival - Present on Arrival Any Indicators Present on Arrival: Yes History of DVT/PE: Yes History of Uncontrolled Diabetes: No Urinary Catheter: No History of Decub. Ulcer: No History Surgical Site Infection Following: None - Disposition Have Diagnosis and Disposition been Completed?: Yes Diagnosis: Chest pain, Hypocalcemia, Bilateral lower extremity edema Disposition: HOSPITALIZED Disposition Time: 19:06 Patient Plan: Admission, Observation Patient Problems: Current Active Problems Problem Status Onset Bilateral lower extremity edema Acute Chest pain Acute Hypocalcemia Acute Condition: STABLE
[2017-01-29 17:48] LABS: BASO # 0.04 K/mm3 (0.0-2.0); BASO % 0.5 % (0.0-3.0); EOS # 0.2 (0.0-0.7); EOS % 2.3 % (1.5-5.0); GRAN # 5.44 (1.4-6.5); HEMATOCRIT 42.3 % (36.0-48.0); MEAN CELL VOLUME 93.6 fl (80.0-105.0); MEAN CORPUSCULAR HGB CONC 33.1 g/dl (31.0-37.0); MEAN PLATELET VOLUME 9.7 fl (7.0-11.0); MONO # 0.8 (0.1-0.6); MONO % 10.2 % (1.0-6.0); RED CELL DISTRIBUTION WIDTH 14.4 % (11.5-14.5); WHITE BLOOD COUNT 7.4 10^3/ul (4.5-11.0)
[2017-01-29 18:47] LABS: TROPONIN I < 0.01 ng/mL
[2017-01-29 18:52] LABS: ALB/GLOB RATIO 0.8 (1.1-1.8); ALKALINE PHOSPHATASE 119 U/L (38-126); ALT/SGPT 53 U/L (7-56); AST/SGOT 43 U/L (14-36); BILIRUBIN,TOTAL 0.4 mg/dL (0.2-1.3); BLOOD UREA NITROGEN 14 mg/dL (7-21); CALCIUM 6.5 mg/dL (8.4-10.5); CARBON DIOXIDE 27 mmol/L (21-33); CHLORIDE 106 mmol/L (98-107); GFR AFRICAN-AMERICAN > 60; GLUCOSE,RANDOM 79 mg/dL (70-110); MAGNESIUM 1.1 mg/dL (1.7-2.2); POTASSIUM 4.4 mmol/L (3.6-5.0); SODIUM 133 mmol/L (132-148); TOTAL PROTEIN 4.1 g/dL (5.8-8.3)
[2017-01-29 19:17] LABS: INR 1.27 (0.93-1.08); PARTIAL THROMBOPLASTIN TIME 32.4 Seconds (25.1-36.5)
--- NOTE | 2017-01-29 19:38 | US ---
HISTORY: Leg pain and swelling. Evaluate for DVT PHYSICIAN(S): Mark Enciso MD. TECHNIQUE: Duplex sonography and color-flow Doppler with graded compression were used to evaluate the deep venous systems of both lower extremities. FINDINGS: There are post phlebitic changes in the proximal to mid right femoral vein. No acute DVT is seen. The right common femoral vein, proximal right profunda femoral vein, right popliteal vein, and visualized right tibial veins are patent. There is no sonographic evidence deep venous thrombosis the visualized segments of left lower extremity. 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
[2017-01-30 06:16] LABS: URINE BILIRUBIN NEGATIVE (NEGATIVE); URINE BLOOD NEGATIVE (NEGATIVE); URINE GLUCOSE (UA) NEGATIVE (NEGATIVE); URINE KETONE NEGATIVE (NEGATIVE); URINE LEUKOCYTE ESTERASE NEGATIVE Leu/uL (NEGATIVE); URINE PROTEIN NEGATIVE mg/dL (<30 mg/dL); URINE UROBILINOGEN 0.2 E.U./dL (<1 E.U./dL)
[2017-01-30 06:19] LABS: URINE APPEARANCE CLEAR (CLEAR); URINE COLOR YELLOW (YELLOW)
--- NOTE | 2017-01-30 08:57 | RAD ---
HISTORY: chest pain/sob COMPARISON: 11/07/2016. FINDINGS: LUNGS: The lungs are well inflated and clear. PLEURA: No significant pleural effusion identified, no pneumothorax apparent. CARDIOVASCULAR: Normal. OSSEOUS STRUCTURES: No significant abnormalities. VISUALIZED UPPER ABDOMEN: Normal. OTHER FINDINGS: None. IMPRESSION: No active pulmonary disease.
[2017-01-30 09:05] LABS: MEAN CELL VOLUME 93.3 fl (80.0-105.0); MEAN CORPUSCULAR HEMOGLOBIN 30.7 pg (25.0-35.0); MEAN CORPUSCULAR HGB CONC 32.9 g/dl (31.0-37.0); MEAN PLATELET VOLUME 9.7 fl (7.0-11.0); RED CELL DISTRIBUTION WIDTH 14.1 % (11.5-14.5); WHITE BLOOD COUNT 6.3 10^3/ul (4.5-11.0)
[2017-01-30 09:50] LABS: ALB/GLOB RATIO 0.8 (1.1-1.8); ALKALINE PHOSPHATASE 133 U/L (38-126); ALT/SGPT 63 U/L (7-56); AST/SGOT 60 U/L (14-36); BILIRUBIN,TOTAL 0.6 mg/dL (0.2-1.3); BLOOD UREA NITROGEN 12 mg/dL (7-21); CALCIUM 6.8 mg/dL (8.4-10.5); CARBON DIOXIDE 26 mmol/L (21-33); CHLORIDE 107 mmol/L (98-107); GFR AFRICAN-AMERICAN > 60; GLUCOSE,RANDOM 78 mg/dL (70-110); MAGNESIUM 1.1 mg/dL (1.7-2.2); PHOSPHOROUS 3.5 mg/dL (2.5-4.5); POTASSIUM 3.7 mmol/L (3.6-5.0); SODIUM 132 mmol/L (132-148); TOTAL PROTEIN 4.5 g/dL (5.8-8.3)
[2017-01-30] MEDS: Magnesium Sulfate 2 GM in Sodium Chloride 0.9% 100 ML IVPB SCH ×2 (10:11→11:32)
[2017-01-30] MEDS: Magnesium Oxide 400 mg Tab UD PO SCH ×2 (10:21→18:05)
--- NOTE | 2017-01-30 14:15 | CON ---
DATE: LOCATION: [facility]. NEPHROLOGY CONSULTATION HISTORY OF PRESENT ILLNESS: A 46-year-old female with past medical history of antiphospholipid syndrome, status post DVT, status post IVC filter, on Eliquis, Crohn disease status post proximal large bowel/terminal ileum resection with end-to-end anastomosis, previous CVA, recent anterior wall NC (October 2016), presented to the ER yesterday with chest pain and numbness of bilateral hands; the patient found to be profoundly hypocalcemic and hypomagnesemic; nephrology being consulted for electrolyte abnormalities. The patient reports being admitted early last month at a hospital in [place], [place] with similar symptoms; the patient reports being found to be hypomagnesemic and hypocalcemic at that time and was given IV electrolyte replenishment; the patient reports that current symptoms started yesterday with intermittent numbness of bilateral hands; the patient also reports having had difficulty with speech and later yesterday developed chest pain with accompanying shortness of breath; denies any palpitations. The patient currently is symptomatically improved; the patient reports having been started on Stelara for her Crohn disease approximately 1 month ago; she says that since starting the infusion, her bowel movements have improved with diarrhea only occurring two to three times per day; appetite has also improved significantly and the patient reports eating a normal diet and has been having increased protein intake; patient also reporting having had upper respiratory infection last week with accompanying fever for which she took only [id number] medications but denies taking any antibiotics. PAST MEDICAL HISTORY: As above. The patient recently switched from Coumadin to Eliquis about 2 months ago; the patient also reports having had IVC filter thrombosis approximately 10 years ago for which she was treated with higher doses of anticoagulation; the patient with anterior wall NC, status post cardiac cath in October 2016 that showed severe LAD occlusion but with significant collaterals and so PCI was not attempted. FAMILY HISTORY: SOCIAL HISTORY: Denies tobacco. PMD: Danilo Lau MD REVIEW OF SYSTEMS: CONSTITUTIONAL: Recent URI symptoms with fever that have resolved, otherwise good appetite. HEENT: Reports blurry vision that accompany migraine headaches intermittently. RESPIRATORY As per HPI. Recent URI with cough, resolved. CARDIOVASCULAR: As per HPI. GI: Denies nausea, vomiting. Rest per HPI. : Urinates about two to three times at night, otherwise no dysuria. MUSCULOSKELETAL: SKIN: Denies easy bruising. NEUROLOGIC: Numbness in hands as per HPI. EXTREMITIES: Bilateral lower leg edema worsened over past month after a long 8 hour car ride. PHYSICAL EXAMINATION: VITAL SIGNS: This morning, blood pressure 111/77, heart rate 80, respirations 18, temperature 98.7, O2 sat 98% on room air. GENERAL: No distress. Conversing coherently in full sentences. HEENT: Moist mucous membranes. Nonicteric. No cervical lymphadenopathy. RESPIRATORY: Lungs clear to auscultation bilaterally. No rales. No rhonchi. No wheezes. CARDIOVASCULAR: Heart sounds S1, S2 normal. No murmurs. No gallops. No rubs. Faint right carotid bruits auscultated. GI: Abdomen soft, nontender, nondistended. EXTREMITIES: Bilateral 2+ lower leg edema. NEURO: Bilateral brachioradialis reflexes intact. SKIN: Warm. No cyanosis. PSYCHIATRIC: Normal mood, normal affect. LABORATORY DATA: Labs on presentation, CBC, WBC 7.4, hemoglobin 14.0, hematocrit 42.3, platelets 235. Chemistry panel; sodium 133, potassium 4.4, chloride 106, bicarb 27, BUN 14, creatinine 0.7, glucose 79, calcium 6.5, magnesium 1.1, albumin 1.8. TSH 2.91. Chest x-ray, lungs clear. ASSESSMENT AND PLAN: 1. Electrolyte abnormalities. Profound hypomagnesemia and symptomatic hypocalcemia; although corrected for albumin, hypocalcemia does not appear severe; however, this correction for albumin is an approximation and since this patient is symptomatic, we should aim for higher calcium level; agree with giving calcium gluconate 1 g x 2; Etiology is unclear but hypomagnesemia results in hypocalcemia due to PTH resistance. With Crohn's disease, may be predisposed to Mag malabsorption; will look for renal wasting as well. -Once the patient has completed her IV replenishments, we will check labs for urine magnesium,calcium, creatinine. -Checking PTH and vitamin D 25-Hydroxy level. -Start the patient on Slow-Mag 1 tablet daily in addition to magnesium oxide 400 mg b.i.d. (when giving IV Mag, should supplement slowly - 1g per hour- to avoid renal mag wasting) -Start calcium carbonate 500 mg b.i.d. as well. 2. Hypoalbuminemia, severe and persistent in the setting of Crohn disease, although patient reports better nutritional intake; should continue protein supplements while here; should improve with better control of Crohn disease as the patient has started a new therapy (Stelara). 3. Congestive heart failure with systolic dysfunction. The patient currently is asymptomatic and appears euvolemic on exam despite lower extremity swelling. The patient was on Coreg and lisinopril at home, should continue the same; can consider starting aldactone as outpatient; should be careful if starting loop diuretics as this will worsen hypocalcemia/hypomagnesemia; 4. Lower extremity edema. The patient with previous inferior vena cava filter thrombosis. No repeat imaging available that would show recurrence of thrombosis. Recommend at some point patient to get CT angio to look for thrombosis (can be done as an outpatient). Thank you for this consult. We will be following closely. Peter Wren MD GE
--- NOTE | 2017-01-30 15:48 | CON ---
DATE: 01/30/2017 REASON FOR CONSULTATION: Chest pain and coronary artery disease. HISTORY OF PRESENT ILLNESS: This is a 46-year-old woman known to our practice, admitted through the emergency room yesterday when she complained of a tightness in the mid chest. She had an upper respiratory infection and was not feeling well for about a week. Yesterday, she developed tightness in the chest, this was similar to symptoms she had this past November when she presented with a myocardial infarction except that the discomfort was less intense. There was no shortness of breath, diaphoresis. There was no orthopnea, PND, syncope, presyncope, lightheadedness, dizziness, vertigo, palpitation, fever, chills, cough, sputum production, hemoptysis, abdominal pain, nausea, vomiting, diarrhea, constipation, or melena. PAST MEDICAL HISTORY: Complex. She presented with chest pain and myocardial infarction in November. Ultimately, she underwent a cardiac catheterization, which disclosed an occluded LAD with a well-collateralized territory. She also had moderate circumflex and a severe lesion in the posterolateral branch of the RCA, as noted in the report. She was treated medically. She has known antiphospholipid syndrome, Crohn's disease, an history of a bowel resection, remote stroke, history of DVT and venous insufficiency. She has a family history of coronary artery disease, myocardial infarction in her father. There is no history of rheumatic fever, congestive heart failure, arrhythmia, diabetes, or gout. MEDICATIONS: At the time of admission include Eliquis, Coreg, Crestor, lisinopril, and potassium chloride. ALLERGIES: THERE ARE NO MEDICATION ALLERGIES. SOCIAL HISTORY: She lives at home. She is . She is ambulatory. She does not smoke. She does not drink alcohol. FAMILY HISTORY: Notable for coronary artery disease and myocardial infarction in her father. REVIEW OF SYSTEMS: A 10-point review of systems otherwise unremarkable except as noted above. PHYSICAL EXAMINATION: GENERAL: She is a well-developed woman, in no acute distress, lying in bed on telemetry. VITAL SIGNS: She is in sinus rhythm at 66 beats per minute. She is afebrile, blood pressure ranges from 98/68 to 123/51, respirations 18 to 20, and O2 saturation 97% to 100% on room air. HEENT: Reveals no neck vein distention, thyromegaly, or carotid bruits. Mucous membranes moist. Conjunctivae pink. NECK: Supple. LUNGS: Ramos clear. HEART: Revealed normal first and second heart sounds without murmur, gallop, rub, or click. ABDOMEN: Soft. Bowel sounds present. No mass, organomegaly, tenderness, rebound, guarding, CVA tenderness, or palpable abdominal aortic aneurysm. EXTREMITIES: Revealed chronic edema. NEUROLOGIC: Awake, alert, and oriented. PSYCHIATRIC: Normal as to mood and affect. SKIN: Warm and dry. No rash or cellulitis. LABORATORY AND IMAGING: The EKG demonstrates regular sinus rhythm with nonspecific ST-T wave change, diffuse T-wave flattening, no change from a prior EKG. Extremity ultrasound reveals chronic changes, no acute DVT. A portable chest x-ray reveals no acute pulmonary disease. CBC is unremarkable. PT, INR, PTT are mildly elevated with a PT of 13.9, INR 1.27. Electrolytes; BUN, creatinine, and blood sugar are unremarkable. Calcium low at 6.5. AST 43, ALT 53, bilirubin normal. Magnesium low at 1.1. Troponin is negative x2. CK is 47. BNP 110. Urinalysis is unremarkable. IMPRESSION: Kandy Stewart is a 46-year-old woman with known coronary artery disease, known occluded left anterior descending, which is well collateralized with additional disease in circumflex artery and right coronary artery/PLB as noted in the report. She is also found to have low calcium and magnesium levels. She has a history of antiphospholipid syndrome and is on Eliquis. She has a history of Crohn's disease with bowel resection. At this time, she is on telemetry. I will review her cath data and discuss with Dr. Lyles. She seems to have a recurrence of ischemic type chest pain. Possibly repeat coronary angiography would be indicated. We should address her hypocalcemia and hypomagnesemia with replacement. I will review her old records. I will continue Eliquis for now. I will continue statin therapy with Lipitor as a substitute for Crestor which is not on formulary. I will follow along with you, make additional recommendations based on her clinical course. Derian Livingston MD [facility] # [id number] MTDD
--- NOTE | 2017-01-30 17:39 | CARD ---
APPROVED REPORT EKG Measurement Heart [id number] ID [id number] <Conclusion> Sinus rhythm with premature atrial complexes Low voltage QRS Nonspecific ST and T wave abnormality Prolonged QT Abnormal ECG
--- NOTE | 2017-01-30 19:52 | CP.PCM.CON ---
History of Present Illness - History of Present Illness History of Present Illness: Covering Dr. Hernandez 46 year old female with a history of crohns disease, hypercoagulable state, past antiphospholipid Ab positivity ?antiphospholipid Ab syndrome, CVA, WI, DVT s/p IVC filter on life long anticoagulation, admitted with chest pain, electrolyte abnormality. The patient reports to recurrent chest pain which prompted her to come to the ER. She notes to increasing swelling in both her legs after a trip to [facility]. An venous US of the LE's revealed chronic DVT in the RLE. She reports she is compliant with her anticoagulation. Past medical history: crohns disease, hypercoagulable state, past antiphospholipid Ab positivity ?antiphospholipid Ab syndrome, CVA, WI, DVT s/p IVC filter on life long anticoagulation Past surgical history: None Family history: Mother has factor V leiden mutation Social history: Denies tobacco, alcohol, and illicit drug use. Allergies: NKA Review of systems: All remaining review of systems including HEENT, cardiovacular, respiratory, gastrointestinal, genitourinary, musculoskeletal, dermatologic, neurologic, and psychiatric are negative unless mentioned in the HPI. Past Patient History - Infectious Disease Hx of Infectious Diseases: None - Past Social History Smoking Status: Never Smoked - CARDIAC Hx Cardiac Disorders: Yes Hx Pacemaker: No Other/Comment: DVT - PULMONARY Hx Respiratory Disorders: No - NEUROLOGICAL HX Cerebrovascular Accident: Yes - HEENT Hx HEENT Problems: No - RENAL Hx Chronic Kidney Disease: No - ENDOCRINE/METABOLIC Hx Endocrine Disorders: No - HEMATOLOGICAL/ONCOLOGICAL Hx Blood Disorders: Yes (Antiphospholipid Disorder (on Warfarin). [place] Filter 2003.) - INTEGUMENTARY Hx Dermatological Problems: No - MUSCULOSKELETAL/RHEUMATOLOGICAL Hx Falls: No - GASTROINTESTINAL Hx Gastrointestinal Disorders: Yes (Bowel Resection 25 years ago.) Hx Crohn's Disease: Yes (Exacerbation 1 month ago.) - GENITOURINARY/GYNECOLOGICAL Hx Genitourinary Disorders: No - PSYCHIATRIC Hx Emotional Abuse: No Hx Physical Abuse: No - SURGICAL HISTORY Other/Comment: IVC filter - ANESTHESIA Hx Anesthesia Reactions: No Hx Malignant Hyperthermia: No Meds Allergies/Adverse Reactions: Allergies Allergy/AdvReac Type Severity Reaction Status Date / Time No Known Allergies Allergy Verified 11/29/12 22:00 - Medications Medications: Current Medications Acetaminophen (Tylenol 325mg Tab) 650 mg PO Q6H PRN PRN Reason: Fever >100.4 F Last Admin: 01/30/17 19:39 Dose: 650 mg Apixaban (Eliquis) 5 mg PO BID [facility] PRN Reason: Protocol Last Admin: 01/30/17 18:05 Dose: 5 mg Atorvastatin Calcium (Lipitor) 80 mg PO DIN [facility] Last Admin: 01/30/17 18:05 Dose: 80 mg Carvedilol (Coreg) 3.125 mg PO BID [facility] Last Admin: 01/30/17 18:05 Dose: 3.125 mg Magnesium Oxide (Mag-Ox) 400 mg PO BID [facility] Last Admin: 01/30/17 18:05 Dose: 400 mg Physical Exam - Head Exam Head Exam: ATRAUMATIC - Eye Exam Eye Exam: Normal appearance - ENT Exam ENT Exam: Mucous Membranes Dry - Respiratory Exam Respiratory Exam: NORMAL BREATHING PATTERN - Cardiovascular Exam Cardiovascular Exam: +S1, +S2 - GI/Abdominal Exam GI & Abdominal Exam: Normal Bowel Sounds - Extremities Exam Extremities exam: Positive for: pedal edema - Neurological Exam Neurological exam: Oriented x3 - Psychiatric Exam Psychiatric exam: Normal Affect, Normal Mood - Skin Skin Exam: Warm Results - Vital Signs Recent Vital Signs: Last Vital Signs Temp 98 F 01/30/17 16:00 Pulse 90 01/30/17 18:05 Resp 20 01/30/17 16:00 BP 103/66 01/30/17 18:05 Pulse Ox 98 01/30/17 16:00 - Labs Result Diagrams: 01/30/17 08:45 01/30/17 08:45 Labs: Laboratory Results - last 24 hr 01/30/17 01/30/17 01/30/17 06:10 08:30 08:45 WBC 6.3 RBC 4.50 Hgb 13.8 Hct 42.0 MCV 93.3 MCH 30.7 MCHC 32.9 RDW 14.1 Plt Count 208 MPV 9.7 Sodium Potassium Chloride Carbon Dioxide Anion Gap BUN Creatinine Est GFR ( Amer) Est GFR (Non-Af Amer) Random Glucose Calcium Phosphorus Magnesium Total Bilirubin AST ALT Alkaline Phosphatase Total Creatine Kinase Troponin I < 0.01 Total Protein Albumin Globulin Albumin/Globulin Ratio TSH 3rd Generation Urine Color Yellow Urine Appearance Clear Urine pH 6.0 Ur Specific [place]ourt 1.010 Urine Protein Negative Urine Glucose (UA) Negative Urine Ketones Negative Urine Blood Negative Urine Nitrate Negative Urine Bilirubin Negative Urine Urobilinogen 0.2 Ur Leukocyte Esterase Negative 01/30/17 01/30/17 08:45 08:45 WBC RBC Hgb Hct MCV MCH MCHC RDW Plt Count MPV Sodium 132 Potassium 3.7 Chloride 107 Carbon Dioxide 26 Anion Gap 3 L BUN 12 Creatinine 0.7 Est GFR ( Amer) > 60 Est GFR (Non-Af Amer) > 60 Random Glucose 78 Calcium 6.8 L* Phosphorus 3.5 Magnesium 1.1 L Total Bilirubin 0.6 AST 60 H D ALT 63 H Alkaline Phosphatase 133 H Total Creatine Kinase 39 Troponin I Total Protein 4.5 L Albumin 2.0 L Globulin 2.5 Albumin/Globulin Ratio 0.8 L TSH 3rd Generation 2.91 Urine Color Urine Appearance Urine pH Ur Specific V[place]ourt Urine Protein Urine Glucose (UA) Urine Ketones Urine Blood Urine Nitrate Urine Bilirubin Urine Urobilinogen Ur Leukocyte Esterase Assessment & Plan (1) Hypercoagulable state Assessment and Plan: past arterial and venous clotting has IVC filter; if LE swelling continues, consider outpatient evaluation of IVC filter ?IVC filter thrombus lifelong anticoagulation Status: Acute (2) DVT (deep venous thrombosis) Assessment and Plan: chronic has IVC filter lifelong therapeutic anticoagulation outpatient f/u with Dr. Hernandez Thank you for this interesting consult. Status: Acute
[2017-01-31 07:57] LABS: HEMATOCRIT 41.2 % (36.0-48.0); MEAN CELL VOLUME 93.2 fl (80.0-105.0); MEAN CORPUSCULAR HEMOGLOBIN 30.8 pg (25.0-35.0); MEAN PLATELET VOLUME 9.6 fl (7.0-11.0); RED CELL DISTRIBUTION WIDTH 14.1 % (11.5-14.5); WHITE BLOOD COUNT 7.2 10^3/ul (4.5-11.0)
[2017-01-31 08:15] LABS: ALB/GLOB RATIO 0.8 (1.1-1.8); ALKALINE PHOSPHATASE 111 U/L (38-126); ALT/SGPT 54 U/L (7-56); AST/SGOT 56 U/L (14-36); BILIRUBIN,TOTAL 0.5 mg/dL (0.2-1.3); BLOOD UREA NITROGEN 14 mg/dL (7-21); CALCIUM 6.9 mg/dL (8.4-10.5); CARBON DIOXIDE 24 mmol/L (21-33); CHLORIDE 108 mmol/L (98-107); GFR AFRICAN-AMERICAN > 60; GLUCOSE,RANDOM 69 mg/dL (70-110); MAGNESIUM 2.1 mg/dL (1.7-2.2); PHOSPHOROUS 3.4 mg/dL (2.5-4.5); POTASSIUM 4.1 mmol/L (3.6-5.0); SODIUM 133 mmol/L (132-148); TOTAL PROTEIN 4.2 g/dL (5.8-8.3)
[2017-01-31] MEDS ORDERED: Ergocalciferol 50,000 Intl Units Cap PO SCH (09:00)
[2017-01-31] MEDS: Magnesium Oxide 400 mg Tab UD PO SCH ×2 (09:21→18:14)
[2017-01-31] MEDS: Magnesium Chloride 64 mg ER Tab PO SCH (09:21)
--- NOTE | 2017-01-31 10:06 | PN ---
DATE: 01/31/2017 SUBJECTIVE: The patient has no complaints of any chest pain. No shortness of breath. No headache. PHYSICAL EXAMINATION: VITAL SIGNS: Temperature is 97.4, pulse is 72, blood pressure is 98/68, respirations 18. GENERAL: The patient is lying in bed, flat, comfortable. HEENT: No oral lesion. Anicteric sclerae. Moist mucosa. NECK: No JVD, adenopathy, or thyromegaly. CARDIOVASCULAR: S1 and S2, regular. No murmurs, rubs, or gallops. LUNGS: Clear to auscultation bilaterally. No wheeze, rales, or rhonchi. ABDOMEN: Bowel sounds are positive, soft, nontender and nondistended. EXTREMITIES: Lower extremities, 1+ edema. LABORATORY DATA: Creatinine is 0.7. ASSESSMENT: 1. Hypomagnesemia. 2. Hypocalcemia. 3. Crohn's disease. 4. Congestive heart failure secondary to systolic dysfunction, stable. 5. Lower extremity edema. 6. Inferior vena cava filter. 7. Antiphospholipid antibody syndrome. PLAN: The patient is currently on Eliquis for the previous DVT. She is on calcium and magnesium replacement. The patient is on additional magnesium. She is on Lipitor for dyslipidemia. She is on carvedilol. She remains to be hypocalcemic. I will change her to an admission from observation. Continue following closely. Repeat blood work tomorrow. Ry Sagastume MD
[2017-01-31 10:09] LABS: ALB/GLOB RATIO 0.7 (1.1-1.8); ALKALINE PHOSPHATASE 132 U/L (38-126); ALT/SGPT 54 U/L (7-56); AST/SGOT 70 U/L (14-36); BILIRUBIN,TOTAL 0.5 mg/dL (0.2-1.3); BLOOD UREA NITROGEN 13 mg/dL (7-21); CARBON DIOXIDE 20 mmol/L (21-33); CHLORIDE 108 mmol/L (98-107); GFR AFRICAN-AMERICAN > 60; GLUCOSE,RANDOM 62 mg/dL (70-110); POTASSIUM 3.9 mmol/L (3.6-5.0); SODIUM 133 mmol/L (132-148); TOTAL PROTEIN 4.5 g/dL (5.8-8.3)
--- NOTE | 2017-01-31 14:05 | PN ---
DATE: 01/31/2017 SUBJECTIVE: The patient is seen sitting in bed on telemetry and she is currently comfortable. She denies any chest pain. Her cardiac enzymes have been negative. CURRENT MEDICATIONS: Remain carvedilol 3.125 mg b.i.d., Eliquis 5 mg b.i.d., Lipitor 80 mg b.i.d., magnesium, Os-Demarcus, and Tylenol p.r.n. OBJECTIVE: GENERAL: She is a middle-aged woman who appears comfortable at rest. VITAL SIGNS: Blood pressure is 116/80 with the pulse of 80 and sinus and respirations are 14. She is afebrile. NECK: No JVD. CHEST: Clear to auscultation and percussion. HEART: PMI normal in position. No pathological gallops noted. ABDOMEN: Soft and nontender with normal bowel sounds. EXTREMITIES: SHAUNA stockings are in place. She does have once 1 to 2+ leg edema. DIAGNOSTIC DATA: Potassium 4.1, BUN and creatinine 14 and 0.7, calcium is 6.9, her albumin had been 1.8. Cardiac enzymes are negative. Repeat electrocardiogram is unremarkable. IMPRESSION: 1. Recurrent chest pain, status post prior anterior infarct with occluded left anterior descending artery, which has been s well collateralized. She does have a residual lesion in a smaller posterior lateral branch of the right coronary artery as well. This has been treated medically at this time. The vessel appears fairly small and would not be an ideal lesion for stenting. 2. History of severe Crohn disease. 3. History of antiphospholipid antibody syndrome status post bowel resection. 4. History of deep vein thromboses and prior cerebrovascular accidents. RECOMMENDATIONS: At this time, continued conservative cardiac management appears appropriate. If she has recurrent chest pain and intensification beta-nicole therapy may be beneficial. At the present time, I would not repeat angiography unless she has stable symptoms with EKG changes. From cardiac standpoint, she appears stable and will be discharged home with close outpatient followup. Josemanuel Lyles MD
--- NOTE | 2017-01-31 17:26 | CP.PCM.PN ---
Subjective - Date & Time of Evaluation Date of Evaluation: 01/31/17 Time of Evaluation: 11:00 - Subjective Subjective: Patient reports feeling well, no more numbness of hands or chest pain; Objective - Vital Signs/Intake and Output Vital Signs (last 24 hours): Temp Pulse Resp BP Pulse Ox 98 F 86 16 91/67 L 98 01/31/17 12:08 01/31/17 12:08 01/31/17 12:08 01/31/17 12:08 01/31/17 06:00 - Medications Medications: Current Medications Acetaminophen (Tylenol 325mg Tab) 650 mg PO Q6H PRN PRN Reason: Fever >100.4 F Last Admin: 01/30/17 19:39 Dose: 650 mg Apixaban (Eliquis) 5 mg PO BID [facility] PRN Reason: Protocol Last Admin: 01/31/17 09:20 Dose: 5 mg Atorvastatin Calcium (Lipitor) 80 mg PO DIN [facility] Last Admin: 01/30/17 18:05 Dose: 80 mg Calcium Carbonate (Oscal) 500 mg PO BID [facility] Last Admin: 01/31/17 09:21 Dose: 500 mg Carvedilol (Coreg) 3.125 mg PO BID [facility] Last Admin: 01/31/17 09:20 Dose: 3.125 mg Ergocalciferol (Drisdol 50,000 Intl Units Cap) 1 cap PO Q7D [facility] Last Admin: 01/31/17 09:20 Dose: 1 cap Magnesium Chloride (Slow-Mag) 64 mg PO DAILY [facility] Last Admin: 01/31/17 09:21 Dose: 64 mg Magnesium Oxide (Mag-Ox) 400 mg PO BID [facility] Last Admin: 01/31/17 09:21 Dose: 400 mg - Labs Labs: 01/31/17 09:00 PT 13.9 SECONDS (9.4-12.5) H 01/29/17 18:15 INR 1.27 (0.93-1.08) H 01/29/17 18:15 APTT 32.4 Seconds (25.1-36.5) 01/29/17 18:15 - Constitutional Appears: Well, No Acute Distress - Head Exam Head Exam: NORMAL INSPECTION - Eye Exam Eye Exam: Normal appearance. absent: Scleral icterus - ENT Exam ENT Exam: Mucous Membranes Moist - Respiratory Exam Respiratory Exam: Clear to Ausculation Bilateral. absent: Respiratory Distress - Cardiovascular Exam Cardiovascular Exam: RRR, +S1, +S2 - GI/Abdominal Exam GI & Abdominal Exam: Soft. absent: Distended, Tenderness - Extremities Exam Additional comments: b/l chronic lower leg edema - Neurological Exam Neurological Exam: Alert, Awake - Psychiatric Exam Psychiatric exam: Normal Affect, Normal Mood - Skin Skin Exam: Warm. 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; being started on PO ergocalciferol 50,000 u weekly and calcium carbonate 500 mg bid; may need to increase dose if corrected Ca doesn't rise to well within normal level; -awaiting PTH and vit D 25 OH levels; Status: Acute (3) CHF (congestive heart failure) Assessment & Plan: Relatively euvoloemic on exam; should continue with B-nicole and restart low dose lisinopril for cardiac optimization (SBP in 90's would generally be acceptable as long as patient has no symptoms of hypotension); Status: Chronic (4) Hypercoagulable state Assessment & Plan: On eliquis 5 mg bid; continue; agree with heme regarding getting outpatient eval for possible IVC filter thrombosis; Status: Acute
--- NOTE | 2017-01-31 21:56 | CARD ---
APPROVED REPORT EKG Measurement Heart [id number] <Conclusion> Normal sinus rhythm Low voltage QRS Nonspecific T wave abnormality Prolonged QT Abnormal ECG
[2017-02-01 00:56] VITALS: RESP 18
[2017-02-01 06:26] VITALS: TEMP 98.3
[2017-02-01 07:21] LABS: MEAN CELL VOLUME 94.1 fl (80.0-105.0); MEAN CORPUSCULAR HEMOGLOBIN 30.2 pg (25.0-35.0); MEAN CORPUSCULAR HGB CONC 32.1 g/dl (31.0-37.0); MEAN PLATELET VOLUME 9.7 fl (7.0-11.0); RED CELL DISTRIBUTION WIDTH 13.9 % (11.5-14.5); WHITE BLOOD COUNT 6.8 10^3/ul (4.5-11.0)
[2017-02-01] MEDS: Magnesium Chloride 64 mg ER Tab PO SCH (10:21)
[2017-02-01] MEDS: Magnesium Oxide 400 mg Tab UD PO SCH (10:21)
[2017-02-01 10:23] VITALS: BP 104/77; PULSE 82
--- NOTE | 2017-02-01 11:18 | PN ---
DATE: 02/01/2017 SUBJECTIVE: The patient is seen lying in bed on telemetry. She is currently comfortable. She had no recurrent chest pain. She has been ambulating without symptoms. CURRENT MEDICATIONS: Include carvedilol 3.125 mg daily, Eliquis 5 mg b.i.d., Lipitor 80 mg daily, magnesium supplement, Os-Demarcus. OBJECTIVE: GENERAL: She is a middle-aged woman who appears comfortable at rest. VITAL SIGNS: Blood pressure 98/64 with pulse of 76 and sinus, respirations are 14. She is afebrile. HEENT: No JVD. CHEST: Few scattered rhonchi. HEART: PMI displaced laterally with systolic murmur at the left sternal border. ABDOMEN: Soft,nontender, normoactive bowel sounds. EXTREMITIES: 1+ leg edema. DIAGNOSTIC DATA: White count 6.8, hemoglobin and hematocrit 12.2 and 38.0 with platelet count of 220,000. IMPRESSION: 1. Recent chest pain, status post prior myocardial infarction secondary to an occluded left anterior descending, which was well-collateralized. She does have severe disease in a small posterolateral branch of the right coronary artery. This has been treated medically at this point in time. I should continue to do so while she has remaining symptoms. 2. History of severe Crohn disease. 3. History of antiphospholipid antibody syndrome. 4. Status post bowel resection. 5. History of prior deep vein thrombosis and prior cerebrovascular accidents. RECOMMENDATIONS: Continue conservative cardiac management appears most appropriate at this time. Beta-nicole therapy will continued and dose increased as tolerated. From cardiac standpoint, she appears stable to be discharged home today and close outpatient followup will be arranged. Josemanuel Lyles MD
[2017-02-01 12:01] VITALS: O2SAT 98
--- NOTE | 2017-02-01 20:10 | DS ---
HISTORY OF PRESENT ILLNESS: The patient is a 46-year-old female who had come to the hospital with leg weakness. She was found to have hypomagnesemia, hypocalcemia and low vitamin D. The patient is currently comfortable. She says she is able to ambulate better. She was seen by Renal and Cardiology. She was cleared by Cardiology to be discharged home. I did speak to her about taking calcium and vitamin D. I did write prescriptions for her. The patient is currently comfortable. No headaches or dizziness. No nausea or vomiting. PHYSICAL EXAMINATION: VITAL SIGNS: Temperature is 98.3, pulse is 78, blood pressure is 104/77, respirations 18, O2 saturation 95%. GENERAL: The patient is lying in bed, flat, comfortable. HEENT: No oral lesion. Anicteric sclerae. Moist mucosa. NECK: No JVD, adenopathy, or thyromegaly. CARDIOVASCULAR: S1 and S2, regular. No murmurs, rubs, or gallops. LUNGS: Clear to auscultation bilaterally. No wheeze, rales, or rhonchi. ABDOMEN: Bowel sounds are positive, soft, nontender and nondistended. EXTREMITIES: no cyanosis, clubbing or edema. ASSESSMENT: 1. Hypomagnesemia. 2. Hypocalcemia secondary to vitamin D deficiency. 3. Hypo vitamin D. 4. Crohn disease. 5. Congestive heart failure secondary to systolic dysfunction. Plan is inferior vena cava filter. 6. Lower extremity edema. 7. Antiphospholipid antibodies, on anticoagulation with Eliquis. 8. Coronary artery disease. 9. Deep venous thrombosis. PLAN: The patient is currently on carvedilol. She is going to continue with the vitamin D. She is on apixaban for her DVT. She is on calcium and magnesium replacement. She will be on a heart healthy diet. Condition is stable. Activity is increase as tolerated. She was advised to follow up with Dr. Lau in 1 week to repeat her blood pressures for her calcium and magnesium levels. Ry Sagastume MD
--- NOTE | 2017-02-02 14:05 | HP ---
HISTORY OF PRESENT ILLNESS: The patient is a 46-year-old white female with a long history of antiphospholipid syndrome. The patient has a history of chronic DVT, status post [place] filter, history of Crohn colitis, on Stelara, on Eliquis due to noncompliance with Coumadin. The patient has recent history of severe hypoalbuminemia, hypocalcemia and hypokalemia. The patient was admitted because of some severe swelling in her legs, also complained of some substernal left chest pain. Following day, chest pain was severe 6/10, better when she got to the emergency room, was waxing and waning. She does have a history of recent anterior wall myocardial infarction. Catheterization negative with some small vessel disease, which was treated medically. The patient had no numbness or tingling. No fever, chills or sweats. No palpitations. No leg pain. The patient's troponins were negative, and she was admitted for observation and possible treatment of her swelling and her hypokalemia and hypocalcemia. PHYSICAL EXAMINATION: GENERAL: Shows a well-developed, well-nourished white female, in no apparent distress. HEENT: Within normal limits. HEART: Reveal sinus rhythm. No S3 or murmur. CHEST: Clear to auscultation. ABDOMEN: Benign. EXTREMITIES: 2+ pedal and pretibial edema. NEUROLOGIC: Grossly intact. IMPRESSION: Chest pain in a patient with recent anterior wall myocardial infarction with known coronary artery disease, but nonobstructive disease, history of antiphospholipid syndrome, history of Crohn colitis, history of bilateral deep vein thrombosis and chronic leg edema. Danilo Lau MD
[2017-02-03 00:09] LABS: CALCIUM 6.7 mg/dL (8.6-10.2)
== END 2017-02-01 13:47 | disposition home or self-care (01) | DRG 641 ==
LOC: ED 17:00 → ERH 19:07 → 3RSO 21:55 → OBSVTOIN 01-31 08:52
PROVIDERS: ADMIT Internal Medicine; ATTEND Internal Medicine
DX: E83.42 Hypomagnesemia (principal); D68.61 Antiphospholipid syndrome; D68.59 Other primary thrombophilia; I50.20 Unspecified systolic (congestive) heart failure; E88.09 Other disorders of plasma-protein metabolism, not elsewhere classified; K50.10 Crohn's disease of large intestine without complications; E55.9 Vitamin D deficiency, unspecified; E83.51 Hypocalcemia; E87.6 Hypokalemia; I25.10 Atherosclerotic heart disease of native coronary artery without angina pectoris; I25.2 Old myocardial infarction; I87.2 Venous insufficiency (chronic) (peripheral); J06.9 Acute upper respiratory infection, unspecified; Z79.01 Long term (current) use of anticoagulants; Z79.899 Other long term (current) drug therapy; Z82.49 Family history of ischemic heart disease and other diseases of the circulatory system; Z86.718 Personal history of other venous thrombosis and embolism; Z86.73 Personal history of transient ischemic attack (TIA), and cerebral infarction without residual deficits; Z90.49 Acquired absence of other specified parts of digestive tract; Z91.14 Patient's other noncompliance with medication regimen; E78.5 Hyperlipidemia, unspecified

== ENCOUNTER 2017-04-13 12:55 | Emergency (ER) | payer BC, MEDICAID, OTHER ==
[2017-04-13] MEDS ORDERED: Sodium Chloride 0.9% 500 ML IV STA (15:15)
[2017-04-13 15:24] VITALS: BMI 21.6
--- NOTE | 2017-04-13 15:50 | ED PDOC ---
Arrival/HPI - General Chief Complaint: GI Problem Time Seen by Provider: 04/13/17 14:36 Historian: Patient - History of Present Illness Narrative History of Present Illness (Text): 04/13/17 14:40 Kandy Stewart is a 46 year old female, whose past medical history includes palpitations, who presents to the emergency department complaining of multiple episodes of vomiting throughout yesterday and today. Patient notes that she has not been able to take her heart medication and now complains of palpitations with associated nausea. Patient denies any abdominal pain or any other complaints at this time. Time/Duration: < week Symptom Onset: Gradual Symptom Course: Intermittent Activities at Onset: Light Context: Home Past Medical History - Provider Review Nursing Documentation Reviewed: Yes - Past History Past History: No Previous (recent dx of AMI with negative cath; + left leg DVT) - Infectious Disease Hx of Infectious Diseases: None - Cardiac Hx Cardiac Disorders: Yes Hx [place]: Yes Hx Pacemaker: No Other/Comment: DVT - Pulmonary Hx Respiratory Disorders: No - Neurological HX Cerebrovascular Accident: Yes - HEENT Hx HEENT Disorder: No - Renal Hx Renal Disorder: No - Endocrine/Metabolic Hx Endocrine Disorders: No - Hematological/Oncological Hx Blood Disorders: Yes (Antiphospholipid Disorder (on Warfarin). [place] Filter 2003.) - Integumentary Hx Dermatological Disorder: No - Musculoskeletal/Rheumatological Hx Falls: No - Gastrointestinal Hx Gastrointestinal Disorders: Yes (Bowel Resection 25 years ago.) Hx Crohn's Disease: Yes (Exacerbation 1 month ago.) - Genitourinary/Gynecological Hx Genitourinary Disorders: No - Psychiatric Hx Emotional Abuse: No Hx Physical Abuse: No Hx Substance Use: No - Surgical History Other/Comment: IVC filter, bowel resection - Anesthesia Hx Anesthesia Reactions: No Hx Malignant Hyperthermia: No - Suicidal Assessment Feels Threatened In Home Enviroment: No Family/Social History - Physician Review Nursing Documentation Reviewed: Yes Family/Social History: No Known Family HX Smoking Status: Never Smoked Hx Alcohol Use: No Hx Substance Use: No Allergies/Home Meds Allergies/Adverse Reactions: Allergies No Known Allergies Allergy (Verified 04/13/17 15:23) Home Medications: Home Meds Medication Instructions Recorded Confirmed Potassium Chloride [K-Dur 20 mEq 20 meq PO BID 11/07/16 01/29/17 ER Tab] Carvedilol [Coreg] 6.25 mg PO QPM 11/21/16 01/29/17 Lisinopril [Zestril] 5 mg PO DAILY 11/21/16 01/29/17 Rosuvastatin Calcium [Crestor] 20 mg PO DAILY 11/21/16 01/29/17 Apixaban [Eliquis] 5 mg PO BID 01/29/17 01/29/17 Review of Systems - Physician Review All systems were reviewed & negative as marked: Yes - Review of Systems Constitutional: absent: Fevers, Night Sweats Eyes: absent: Vision Changes ENT: absent: Hearing Changes Respiratory: absent: SOB, Cough Cardiovascular: Palpitations Gastrointestinal: Vomiting Genitourinary Female: absent: Dysuria Musculoskeletal: absent: Arthralgias Skin: absent: Rash, Cellulitis Neurological: absent: Headache Endocrine: absent: Diaphoresis Hemo/Lymphatic: absent: Adenopathy Psychiatric: absent: Anxiety, Depression Physical Exam Vital Signs Reviewed: Yes Vital Signs Temp Pulse Resp BP Pulse Ox 04/13/17 22:30 98.2 F 84 18 106/64 99 04/13/17 16:56 98 F 78 18 132/78 98 - Systems Exam Head: Present: Atraumatic, Normocephalic Pupils: Present: PERRL Extroacular Muscles: Present: EOMI Conjunctiva: Present: Normal Mouth: Present: Moist Mucous Membranes Neck: Present: Normal Range of Motion Respiratory/Chest: Present: Clear to Auscultation, Good Air Exchange. No: Respiratory Distress, Accessory Muscle Use Cardiovascular: Present: Tachycardic Abdomen: Present: Normal Bowel Sounds. No: Tenderness, Distention, Peritoneal Signs Back: Present: Normal Inspection Upper Extremity: Present: Normal Inspection. No: Cyanosis, Edema Lower Extremity: Present: Normal Inspection. No: Edema Neurological: Present: GCS=15, CN II-XII Intact, Speech Normal Skin: Present: Warm, Dry, Normal Color. No: Rashes Psychiatric: Present: Alert, Oriented x 3, Normal Insight, Normal Concentration Medical Decision Making ED Course and Treatment: 04/13/17 15:52 Impression: 46 year old female complaining of multiple episodes of vomiting for two days and palpitations today. Differential Diagnosis included but are not limited to: Plan: -- Chest X-ray -- Urinalysis -- Labs -- Zofran, Protonix, and IV fluids -- Reassess and disposition Prior Visits: Notes and results from previous visits were reviewed. Patient was last seen in the emergency department on 01/29/17 for substernal/left chest pain/tightness. Patient was admitted to hospitalist care for further evaluation. Progress Notes: EKG: Ordered, reviewed, and independently interpreted the EKG. Rate : 107 BPM Rhythm : Sinus Tachycardia Interpretation : No ST-segment elevations or depressions, no T-wave inversions, normal intervals. 04/13/17 20:43 Calcium 8.6 when corrected for albumin. 04/13/17 21:57 Cxray negative. Patient had low Mag and K which was replaced. Has no current complaints and feels well. She is requesting to be discharged. - Lab Interpretations Lab Results: 04/13/17 20:06 04/13/17 20:06 Lab Results 04/13/17 20:06: Sodium 135, Potassium 3.5 L, Chloride 107, Carbon Dioxide 23, Anion Gap 9 L, BUN 14, Creatinine 0.9, Est GFR ( Amer) > 60, Est GFR (Non -Af Amer) > 60, Random Glucose 75, Calcium 7.0 L, Phosphorus 3.9, Magnesium 1.2 L, Total Bilirubin 0.3, AST 20, ALT 40, Alkaline Phosphatase 124, Total Creatine Kinase 59, Troponin I < 0.01, Total Protein 4.5 L, Albumin 2.0 L, Globulin 2.5, Albumin/Globulin Ratio 0.8 L, Lipase 98 04/13/17 20:06: PT 13.8 H, INR 1.21 H, APTT 33.5 04/13/17 20:06: WBC 6.0, RBC 4.41, Hgb 13.2, Hct 39.9, MCV 90.5, MCH 29.9, MCHC 33.1, RDW 13.8, Plt Count 214, MPV 10.1, Gran % 68.3 H, Lymph % (Auto) 19.2 L, [place] % (Auto) 9.8 H, Eos % (Auto) 2.2, Baso % (Auto) 0.5, Gran # 4.10, Lymph # ( Auto) 1.2, [place] # (Auto) 0.6, Eos # (Auto) 0.1, Baso # (Auto) 0.03 04/13/17 18:00: Urine Color Yellow, Urine Appearance Sl cloudy, Urine pH 6.0, Ur Specific [place] 1.025, Urine Protein Trace H, Urine Glucose (UA) Negative, Urine Ketones 40 H, Urine Blood Negative, Urine Nitrate Negative, Urine Bilirubin Moderate H, Urine Urobilinogen 0.2, Ur Leukocyte Esterase Negative, Urine RBC Negative, Urine WBC Negative, Ur Epithelial Cells 1 - 3 I have reviewed the lab results: Yes - RAD Interpretation Radiology Orders: 04/13/17 20:47 CHEST TWO VIEWS (PA/LAT) [RAD] Stat - Medication Orders Current Medication Orders: Discontinued Medications Sodium Chloride (Sodium Chloride 0.9%) 500 mls @ 1,000 mls/hr IV .Q30M STA Stop: 04/13/17 15:44 Last Admin: 04/13/17 16:41 Dose: 1,000 mls/hr eMAR Start Stop Document 04/13/17 16:41 [facility] (Rec: 04/13/17 16:41 [id number]) Intravenous Solution Start Date 04/13/17 Start Time 16:41 Magnesium Oxide (Mag-Ox) 400 mg PO STAT STA Stop: 04/13/17 20:45 Last Admin: 04/13/17 21:12 Dose: 400 mg Ondansetron HCl (Zofran Inj) 4 mg IVP STAT STA Stop: 04/13/17 15:16 Last Admin: 04/13/17 16:35 Dose: 4 mg IVP Administration Document 04/13/17 16:35 [facility] (Rec: 04/13/17 16:35 [id number]) Charges for Administration # of IVP Administrations 1 Pantoprazole Sodium (Protonix Inj) 40 mg IVP STAT STA Stop: 04/13/17 15:16 Last Admin: 04/13/17 16:36 Dose: 40 mg IVP Administration Document 04/13/17 16:36 [facility] (Rec: 04/13/17 16:37 [id number] Charges for Administration # of IVP Administrations 1 Potassium Chloride (K-Dur 20 Meq Er Tab) 40 meq PO STAT STA Stop: 04/13/17 20:45 Last Admin: 04/13/17 21:12 Dose: 40 meq - Scribe Statement The provider has reviewed the documentation as recorded by the [place] Provider Scribe Attestation: All medical record entries made by the Scribe were at my direction and personally dictated by me. I have reviewed the chart and agree that the record accurately reflects my personal performance of the history, physical exam, medical decision making, and the department course for this patient. I have also personally directed, reviewed, and agree with the discharge instructions and disposition. Disposition/Present on Arrival - Present on Arrival Any Indicators Present on Arrival: No History of DVT/PE: No History of Uncontrolled Diabetes: No Urinary Catheter: No History of Decub. Ulcer: No History Surgical Site Infection Following: None - Disposition Have Diagnosis and Disposition been Completed?: Yes Diagnosis: Hypokalemia, Hypomagnesemia, Vomiting, Palpitations Disposition: HOME/ ROUTINE Disposition Time: 21:58 Patient Plan: Discharge Condition: GOOD Additional Instructions: Follow-up with PMD within 2 days. Return to ED if condition worsens. Referrals: Danilo Lau MD [Primary Care Provider] - Follow up with primary Forms: [employer] (Swazi)
[2017-04-13 18:33] LABS: URINE BILIRUBIN MODERATE (NEGATIVE); URINE BLOOD NEGATIVE (NEGATIVE); URINE GLUCOSE (UA) NEGATIVE (NEGATIVE); URINE LEUKOCYTE ESTERASE NEGATIVE Leu/uL (NEGATIVE); URINE NITRATE NEGATIVE (NEGATIVE); URINE PROTEIN TRACE mg/dL (<30 mg/dL); URINE UROBILINOGEN 0.2 E.U./dL (<1 E.U./dL)
[2017-04-13 18:35] LABS: URINE APPEARANCE SL CLOUDY (CLEAR); URINE COLOR YELLOW (YELLOW)
[2017-04-13 18:37] LABS: URINE RBC NEGATIVE /hpf (0-2); URINE WBC NEGATIVE /hpf (0-6)
[2017-04-13 19:56] VITALS: RESP 18
[2017-04-13 20:18] LABS: BASO # 0.03 K/mm3 (0.0-2.0); BASO % 0.5 % (0.0-3.0); EOS # 0.1 (0.0-0.7); EOS % 2.2 % (1.5-5.0); GRAN # 4.1 (1.4-6.5); GRAN % 68.3 % (50.0-68.0); HEMOGLOBIN 13.2 g/dL (12.0-16.0); LYMPH # 1.2 (1.2-3.4); LYMPH % 19.2 % (22.0-35.0); MEAN CELL VOLUME 90.5 fl (80.0-105.0); MEAN CORPUSCULAR HEMOGLOBIN 29.9 pg (25.0-35.0); MEAN CORPUSCULAR HGB CONC 33.1 g/dl (31.0-37.0); MEAN PLATELET VOLUME 10.1 fl (7.0-11.0); MONO # 0.6 (0.1-0.6); MONO % 9.8 % (1.0-6.0); RBC 4.41 10^6/uL (3.5-6.1); RED CELL DISTRIBUTION WIDTH 13.8 % (11.5-14.5)
[2017-04-13 20:28] LABS: ALB/GLOB RATIO 0.8 (1.1-1.8); ALT/SGPT 40 U/L (7-56); AST/SGOT 20 U/L (14-36); BLOOD UREA NITROGEN 14 mg/dL (7-21); GFR AFRICAN-AMERICAN > 60; GFR NON-AFRICAN AMERICAN > 60; LIPASE 98 U/L (23-300); MAGNESIUM 1.2 mg/dL (1.7-2.2)
[2017-04-13 20:29] LABS: INR 1.21 (0.93-1.08); PARTIAL THROMBOPLASTIN TIME 33.5 Seconds (25.1-36.5); PROTHROMBIN TIME 13.8 SECONDS (9.4-12.5)
[2017-04-13 20:38] LABS: TROPONIN I < 0.01 ng/mL
[2017-04-13] MEDS ORDERED: Magnesium Sulfate 2 GM in Sodium Chloride 0.9% 100 ML IVPB ONE (20:43)
[2017-04-13] MEDS ORDERED: Potassium Chloride 20 mEq ER Tab PO STA (20:44)
[2017-04-13] MEDS ORDERED: Magnesium Oxide 400 mg Tab UD PO STA (20:44)
[2017-04-13 22:31] VITALS: BP 106/64; PULSE 84; TEMP 98.2; O2SAT 99
--- NOTE | 2017-04-14 08:50 | RAD ---
HISTORY: palpitations COMPARISON: 01/29/2017 TECHNIQUE: Chest PA and lateral FINDINGS: LUNGS: No active pulmonary disease. PLEURA: No significant pleural effusion identified. No pneumothorax apparent. CARDIOVASCULAR: Normal. OSSEOUS STRUCTURES: No significant abnormalities. VISUALIZED UPPER ABDOMEN: Normal. OTHER FINDINGS: None. IMPRESSION: No active disease.
--- NOTE | 2017-04-15 08:11 | CARD ---
APPROVED REPORT EKG Measurement Heart [id number] <Conclusion> Sinus tachycardia NSSTW changes Prolonged QTc
== END 2017-04-13 22:31 | disposition home or self-care (01) ==
LOC: ED 12:55
DX: R00.2 Palpitations (principal); E87.6 Hypokalemia; E83.42 Hypomagnesemia; R11.10 Vomiting, unspecified; I25.2 Old myocardial infarction; Z86.718 Personal history of other venous thrombosis and embolism
CPT/HCPCS: 71046; 80053; 81001; 82550; 83690; 83735; 84100; 84484; 85025; 85610; 85730; 93005; 96374; 96375; 99284; C9113; J2405; J7040

== ENCOUNTER 2017-05-02 15:46 | Emergency (ER) | payer OTHER ==
[2017-05-02 15:46] VITALS: BMI 21.6
[2017-05-02 16:28] LABS: BASO # 0.02 K/mm3 (0.0-2.0); BASO % 0.4 % (0.0-3.0); EOS # 0.1 (0.0-0.7); EOS % 1.7 % (1.5-5.0); GRAN # 3.32 (1.4-6.5); GRAN % 68.6 % (50.0-68.0); HEMOGLOBIN 12.8 g/dL (12.0-16.0); LYMPH # 0.8 (1.2-3.4); LYMPH % 16.1 % (22.0-35.0); MEAN CELL VOLUME 92.4 fl (80.0-105.0); MEAN CORPUSCULAR HEMOGLOBIN 30.3 pg (25.0-35.0); MEAN CORPUSCULAR HGB CONC 32.7 g/dl (31.0-37.0); MEAN PLATELET VOLUME 10.9 fl (7.0-11.0); MONO # 0.6 (0.1-0.6); MONO % 13.2 % (1.0-6.0); RBC 4.23 10^6/uL (3.5-6.1); RED CELL DISTRIBUTION WIDTH 14.1 % (11.5-14.5); WHITE BLOOD COUNT 4.8 10^3/ul (4.5-11.0)
--- NOTE | 2017-05-02 17:03 | RAD ---
HISTORY: chest pain COMPARISON: 04/13/2017 FINDINGS: LUNGS: No active pulmonary disease. PLEURA: No significant pleural effusion identified, no pneumothorax apparent. CARDIOVASCULAR: Normal. OSSEOUS STRUCTURES: No significant abnormalities. VISUALIZED UPPER ABDOMEN: Normal. OTHER FINDINGS: None. IMPRESSION: No active disease.
--- NOTE | 2017-05-02 17:09 | ED PDOC ---
Arrival/HPI - General Historian: Patient - History of Present Illness Time/Duration: Prior to Arrival, 24 hours Symptom Course: Improving <Shadi Bo - Last Filed: 05/02/17 21:21> <Robby Wray DO - Last Filed: 05/02/17 22:34> - General Chief Complaint: Palpitations Time Seen by Provider: 05/02/17 15:48 - History of Present Illness Narrative History of Present Illness (Text): 05/02/17 16:56 46F w/ significant PMHx of antiphospholipid syndrome, hypercoagulable state, NSTEMI (10/2016) w/ no stents, presents to [facility] ED w/ numbness around right side of face that started yesterday. Today patient was sitting and watching TV and developed heart palpitations and diaphoresis. There were no instigating factors. symptoms resolved on its own after a few minutes. patient had similar episode in 10/2016. Patient admits to recently being sick w/ a stomach virus. Of note: patient has bilateral LE swelling and edema, and at this time it is larger than normal PMH: CVA (2007) no residual symptoms at this time, non-lupus antiphospholipid syndrome, CAD, NSTEMI, DVT, intermediate anti-coagulation PSH: SB resection, cardiac cath (LAD occluded- no stent placement), IVC filter ALL: NKDA SocialHx: Denies ETOH, tobacco, recreational drug use (Shadi Bo) Past Medical History - Provider Review Nursing Documentation Reviewed: Yes - Past History Past History: No Previous (recent dx of AMI with negative cath; + left leg DVT) - Infectious Disease Hx of Infectious Diseases: None - Reproductive Menopause: Yes - Cardiac Hx Cardiac Disorders: Yes Hx UT: Yes Hx Pacemaker: No Other/Comment: DVT - Pulmonary Hx Respiratory Disorders: No - Neurological HX Cerebrovascular Accident: Yes - HEENT Hx HEENT Disorder: No - Renal Hx Renal Disorder: No - Endocrine/Metabolic Hx Endocrine Disorders: No - Hematological/Oncological Hx Blood Disorders: Yes (Antiphospholipid Disorder (on Warfarin). [place] Filter 2003.) - Integumentary Hx Dermatological Disorder: No - Musculoskeletal/Rheumatological Hx Falls: No - Gastrointestinal Hx Gastrointestinal Disorders: Yes (Bowel Resection 25 years ago.) Hx Crohn's Disease: Yes (Exacerbation 1 month ago.) - Genitourinary/Gynecological Hx Genitourinary Disorders: No - Psychiatric Hx Emotional Abuse: No Hx Physical Abuse: No Hx Substance Use: No - Surgical History Other/Comment: IVC filter, bowel resection - Anesthesia Hx Anesthesia: Yes Hx Anesthesia Reactions: No Hx Malignant Hyperthermia: No - Suicidal Assessment Feels Threatened In Home Enviroment: No <Shadi Bo - Last Filed: 05/02/17 21:21> Family/Social History Family/Social History: Other (Mother had factor V lieden) Smoking Status: Never Smoked Hx Alcohol Use: No Hx Substance Use: No <Shadi Bo - Last Filed: 05/02/17 21:21> Allergies/Home Meds <Shadi Bo - Last Filed: 05/02/17 21:21> <Robby Wray DO - Last Filed: 05/02/17 22:34> Allergies/Adverse Reactions: Allergies No Known Allergies Allergy (Verified 05/02/17 16:42) Home Medications: Home Meds Medication Instructions Recorded Confirmed Potassium Chloride [K-Dur 20 mEq 20 meq PO BID 11/07/16 05/02/17 ER Tab] Carvedilol [Coreg] 6.25 mg PO QPM 11/21/16 05/02/17 Lisinopril [Zestril] 5 mg PO DAILY 11/21/16 05/02/17 Rosuvastatin Calcium [Crestor] 20 mg PO DAILY 11/21/16 05/02/17 Apixaban [Eliquis] 5 mg PO BID 01/29/17 05/02/17 Review of Systems - Physician Review All systems were reviewed & negative as marked: Yes - Review of Systems Constitutional: Normal Eyes: absent: Photophobia, Eye Pain ENT: Normal Respiratory: Normal. absent: SOB, Cough, Sputum Cardiovascular: Palpitations, Edema. absent: Calf Pain Musculoskeletal: Normal Skin: Normal Neurological: Normal Hemo/Lymphatic: Normal <Shadi Bo - Last Filed: 05/02/17 21:21> Physical Exam Vital Signs Reviewed: Yes Temperature: Afebrile Blood Pressure: Normal Pulse: Regular Respiratory Rate: Normal Appearance: Positive for: Well-Appearing, Non-Toxic, Comfortable Pain Distress: None Mental Status: Positive for: Alert and Oriented X 3 - Systems Exam Head: Present: Atraumatic Pupils: Present: PERRL Extroacular Muscles: Present: EOMI Mouth: Present: Moist Mucous Membranes Respiratory/Chest: Present: Clear to Auscultation, Good Air Exchange. No: Respiratory Distress, Accessory Muscle Use, Wheezes, Rhonchi Cardiovascular: Present: Regular Rate and Rhythm, Normal S1, S2. No: Murmurs, Tachycardic, Bradycardic, Rub, Gallop Abdomen: Present: Normal Bowel Sounds. No: Tenderness, Distention, Peritoneal Signs, Guarding Upper Extremity: Present: Normal Inspection, NORMAL PULSES. No: Edema Lower Extremity: Present: Edema. No: Geno's Sign, Tenderness Neurological: Present: GCS=15, CN II-XII Intact, Speech Normal, Normal Sensory Function Skin: Present: Warm Psychiatric: Present: Alert, Oriented x 3 <Shadi Bo - Last Filed: 05/02/17 21:21> Vital Signs Temp Pulse Resp BP Pulse Ox 05/02/17 21:00 98 F 68 18 106/67 98 05/02/17 19:41 98 F 72 18 106/58 L 98 05/02/17 18:38 71 18 110/74 100 05/02/17 15:46 97.9 F 94 H 15 122/90 100 Medical Decision Making - EKG Interpretation Type: 12 lead EKG <Shadi Bo - Last Filed: 05/02/17 21:21> <Robby Wray DO - Last Filed: 05/02/17 22:34> ED Course and Treatment: 05/02/17 17:13 - EKG - CXR - CBC, CMP, Trops 05/02/17 18:35 Spoke w/ Dr. Lau pt's PMD; discussed case in detail and agreed to replete Magnesium, and discharge home to follow up as outpatient IV Magnesium was administered. Transfusion complete. Pt heart palpitations resolved. Cleared to be discharged home and follow up w/ PMD. (Shadi Bo) - Lab Interpretations Narrative Lab Interpretation (Text): 05/02/17 17:14 Calcium- low Potassium low end of normal- Troponin-I (Shadi Bo) Lab Results: 05/02/17 16:20 05/02/17 17:00 Lab Results 05/02/17 17:40: Urine Color Yellow, Urine Appearance Clear, Urine pH 6.0, Ur Specific [place] 1.025, Urine Protein Trace H, Urine Glucose (UA) Negative, Urine Ketones Negative, Urine Blood Negative, Urine Nitrate Negative, Urine Bilirubin Negative, Urine Urobilinogen 0.2, Ur Leukocyte Esterase Negative, Urine RBC 0 - 2, Urine WBC 0 - 2, Ur Epithelial Cells 1 - 3, Urine Bacteria Neg 05/02/17 17:00: Sodium 139, Potassium 3.7, Chloride 109 H, Carbon Dioxide 26, Anion Gap 8 L, BUN 15, Creatinine 0.9, Est GFR ( Amer) > 60, Est GFR (Non -Af Amer) > 60, Random Glucose 78, Calcium 5.9 L*, Magnesium 1.0 L*, Total Bilirubin 0.2, AST 69 H D, ALT 64 H, Alkaline Phosphatase 116, Lactate Dehydrogenase 605, Total Creatine Kinase 131, Troponin I < 0.01, NT-Pro-B Natriuret Pep 334, Total Protein 4.5 L, Albumin 2.0 L, Globulin 2.6, Albumin/ Globulin Ratio 0.8 L 05/02/17 16:20: WBC 4.8, RBC 4.23, Hgb 12.8, Hct 39.1, MCV 92.4, MCH 30.3, MCHC 32.7, RDW 14.1, Plt Count 179, MPV 10.9, Gran % 68.6 H, Lymph % (Auto) 16.1 L, [place] % (Auto) 13.2 H, Eos % (Auto) 1.7, Baso % (Auto) 0.4, Gran # 3.32, Lymph # (Auto) 0.8 L, [place] # (Auto) 0.6, Eos # (Auto) 0.1, Baso # (Auto) 0.02 - RAD Interpretation Radiology Orders: 05/02/17 16:15 CHEST PORTABLE [RAD] Stat 05/02/17 17:50 HEAD W/O CONTRAST [CT] Stat - EKG Interpretation EKG Interpretation (Text): 05/02/17 17:42 Normal sinus rhythm slightly prolonged QTC (Shadi Bo) - Medication Orders Current Medication Orders: Discontinued Medications Magnesium Sulfate/Dextrose (Magnesium Sulfate 1 Gm/100 Ml D5w) 1 gm in 100 mls @ 100 mls/hr IVPB ONCE ONE Stop: 05/02/17 18:59 Last Admin: 05/02/17 18:45 Dose: 100 mls/hr eMAR Start Stop Document 05/02/17 18:45 SRE (Rec: 05/02/17 18:45 SRE [id number]) Intravenous Solution Start Date 05/02/17 Start Time 18:45 End Date 05/02/17 End time 19:45 Total Infusion Time 60 Magnesium Sulfate/Dextrose (Magnesium Sulfate 1 Gm/100 Ml D5w) 1 gm in 100 mls @ 100 mls/hr IVPB ONCE ONE Stop: 05/02/17 19:00 Last Admin: 05/02/17 19:45 Dose: 100 mls/hr eMAR Start Stop Document 05/02/17 19:45 LA (Rec: 05/02/17 19:45 LA [id number]) Intravenous Solution Start Date 05/02/17 Start Time 19:45 - PA / PLASTIC PARTS FABRICATOR / Resident Statement LAMONT has reviewed & agrees with the documentation as recorded. LAMONT has examined the patient and agrees with the treatment plan. <Shadi Bo - Last Filed: 05/02/17 21:21> - PA / PLASTIC PARTS FABRICATOR / Resident Statement LAMONT has reviewed & agrees with the documentation as recorded. LAMONT has examined the patient and agrees with the treatment plan. <Robby Wray DO - Last Filed: 05/02/17 22:34> Disposition/Present on Arrival - Present on Arrival Any Indicators Present on Arrival: No History of DVT/PE: No History of Uncontrolled Diabetes: No Urinary Catheter: No History of Decub. Ulcer: No History Surgical Site Infection Following: None - Disposition Have Diagnosis and Disposition been Completed?: Yes Disposition Time: 21:00 Patient Plan: Discharge <Shadi Bo - Last Filed: 05/02/17 21:21> - Disposition Disposition Time: 18:00 <Robby Wray DO - Last Filed: 05/02/17 22:34> - Disposition Diagnosis: Hypomagnesemia Disposition: HOME/ ROUTINE Condition: IMPROVED Discharge Instructions (ExitCare): Low Magnesium Level (DC) Additional Instructions: Thank you for letting us take care of you today. The emergency medical care you received today was directed at your acute symptoms. If you were prescribed any medication, please fill it and take as directed. It may take several days for your symptoms to resolve. Return to the Emergency Department if your symptoms worsen, do not improve, or if you have any other problems. Please contact your doctor or call one of the physicians/clinics you have been referred to that are listed on the Patient Visit Information form that is included in your discharge packet. Bring any paperwork you were given at discharge with you along with any medications you are taking to your follow up visit. Our treatment cannot replace ongoing medical care by a primary care provider (PCP) outside of the emergency department. Thank you for allowing the [facility] team to be part of your care today. Follow up with Dr. Lau in 2-3 days for re-evaluation and further management. Referrals: Danilo Lau MD [Primary Care Provider] - Follow up with primary Forms: [employer] (Indonesian)
[2017-05-02 17:23] LABS: ALB/GLOB RATIO 0.8 (1.1-1.8); ALT/SGPT 64 U/L (7-56); AST/SGOT 69 U/L (14-36); BLOOD UREA NITROGEN 15 mg/dL (7-21); CALCIUM 5.9 mg/dL (8.4-10.5); GFR AFRICAN-AMERICAN > 60; GFR NON-AFRICAN AMERICAN > 60
[2017-05-02 17:51] LABS: URINE BILIRUBIN NEGATIVE (NEGATIVE); URINE BLOOD NEGATIVE (NEGATIVE); URINE GLUCOSE (UA) NEGATIVE (NEGATIVE); URINE LEUKOCYTE ESTERASE NEGATIVE Leu/uL (NEGATIVE); URINE NITRATE NEGATIVE (NEGATIVE); URINE PROTEIN TRACE mg/dL (<30 mg/dL); URINE UROBILINOGEN 0.2 E.U./dL (<1 E.U./dL)
[2017-05-02 17:53] LABS: URINE APPEARANCE CLEAR (CLEAR); URINE COLOR YELLOW (YELLOW)
[2017-05-02 17:56] LABS: URINE BACTERIA NEG (NEG); URINE RBC 0 - 2 /hpf (0-2); URINE WBC 0 - 2 /hpf (0-6)
[2017-05-02] MEDS ORDERED: Magnesium Sulfate 1 gm in D5W 1 GM/100 ML BAG IVPB ONE ×2 (18:00→18:01)
[2017-05-02 18:07] LABS: B-TYPE NATRIURETIC PEPTIDE 334 pg/mL (0-450)
[2017-05-02 18:08] LABS: TROPONIN I < 0.01 ng/mL
[2017-05-02 18:39] VITALS: RESP 18
--- NOTE | 2017-05-02 19:36 | CT ---
EXAM: CT Head Without Intravenous Contrast EXAM DATE/TIME: 05/02/2017 5:50 PM CLINICAL HISTORY: The patient age is 46 years old and is female; Signs and symptoms; Other: Lethargic R/O ich; Patient HX: HX of stroke Facility exam id and description: Ct heads head w/o contrast TECHNIQUE: Axial computed tomography images of the head/brain without intravenous contrast. All CT scans at this facility use one or more dose reduction techniques, viz.: automated exposure control; ma/kV adjustment per patient size (including targeted exams where dose is matched to indication; i.e. head); or iterative reconstruction technique. Coronal and sagittal reformatted images were created and reviewed. COMPARISON: CT - HEAD W/O CONTRAST 2016-11-07 19:48 FINDINGS: Brain: A few tiny hypodense lacunar infarcts are visualized within the bilateral thalami, too small to determine acuity. Hypodense encephalomalacia is visualized within the left frontal lobe, which is stable. This is consistent with an old infarct. There is a small stable chronic lacunar infarct within the right basal ganglia. There is mild atrophy of the frontal sulci. The white-mohan differentiation is preserved demonstrating no acute territorial type infarct. No acute intracranial hemorrhage is seen. Midline shift: There is no midline shift. Ventricles: There is mild ex vacuo dilatation of the frontal horn of the left lateral ventricle. Bones/joints: The calvarium demonstrates no evidence for a depressed fracture. Soft tissues: No acute abnormality. Sinuses: Unremarkable as visualized. No acute sinusitis. Mastoid air cells: No mastoid effusion. IMPRESSION: 1. A few tiny hypodense lacunar infarcts are visualized within the bilateral thalami, too small to determine acuity. Otherwise, there is no acute territorial type infarct. If further evaluation is clinically indicated, an MRI of the brain is recommended. 2. No acute intracranial hemorrhage. 3. Hypodense encephalomalacia is visualized within the left frontal lobe, which is stable. This is consistent with an old infarct. There is a small stable chronic lacunar infarct within the right basal ganglia. 4. There is mild atrophy of the frontal sulci. 5. There is mild ex vacuo dilatation of the frontal horn of the left lateral ventricle.
[2017-05-02 19:43] VITALS: TEMP 98; O2SAT 98
[2017-05-02 21:32] VITALS: BP 106/67; PULSE 68
--- NOTE | 2017-05-03 11:53 | CARD ---
APPROVED REPORT EKG Measurement Heart [id number] OK [id number] <Conclusion> Normal sinus rhythm Possible Inferior infarct, age undetermined Abnormal ECG
== END 2017-05-02 21:38 | disposition home or self-care (01) ==
LOC: ED 15:46
DX: E83.42 Hypomagnesemia (principal); I25.10 Atherosclerotic heart disease of native coronary artery without angina pectoris; I25.2 Old myocardial infarction; Z86.73 Personal history of transient ischemic attack (TIA), and cerebral infarction without residual deficits; Z86.718 Personal history of other venous thrombosis and embolism; Z79.01 Long term (current) use of anticoagulants; D68.61 Antiphospholipid syndrome
CPT/HCPCS: 70450; 71045; 80053; 81001; 82550; 83615; 83735; 83880; 84484; 85025; 93005; 96365; 99285; J3475

== ENCOUNTER 2017-05-03 16:41 | Observation (INO) | payer OTHER ==
[2017-05-03] MEDS ORDERED: Sodium Chloride 0.9% 500 ML IV STA (17:51)
[2017-05-03] MEDS ORDERED: DiphenhydrAMINE 50 mg/ml Inj IVP STA (17:51)
--- NOTE | 2017-05-03 17:51 | ED PDOC ---
Arrival/HPI - General Chief Complaint: Headache Time Seen by Provider: 05/03/17 17:42 Historian: Patient - History of Present Illness Narrative History of Present Illness (Text): 05/03/17 17:45 46 y/o female, pmh including DVT/NSTEMI/CHF/Antiphospholipid/Hypercoagulable state/chronic headache, chronically on the eliquis, nkda, c/o headache started again today which feels like her usual type of the migraine headache. Throbbing , unilateral, nausea with no vomiting, no change in vision, aggravated by bright light, no neck stiffness or pain, no palpitation, no rash, no dizziness, no other medical or psychological complaints. Past Medical History - Provider Review Nursing Documentation Reviewed: Yes - Past History Past History: No Previous (recent dx of AMI with negative cath; + left leg DVT) - Infectious Disease Hx of Infectious Diseases: None - Cardiac Hx Cardiac Disorders: Yes Hx ND: Yes - Pulmonary Hx Respiratory Disorders: No - Neurological Hx Neurological Disorder: Yes HX Cerebrovascular Accident: Yes - HEENT Hx HEENT Disorder: No - Renal Hx Renal Disorder: No - Endocrine/Metabolic Hx Endocrine Disorders: No - Hematological/Oncological Hx Blood Disorders: Yes (Antiphospholipid Disorder (on Warfarin). [place] Filter 2003.) - Integumentary Hx Dermatological Disorder: No - Musculoskeletal/Rheumatological Hx Musculoskeletal Disorders: Yes Other/Comment: DVT - Gastrointestinal Hx Gastrointestinal Disorders: Yes (Bowel Resection 25 years ago.) Hx Crohn's Disease: Yes (Exacerbation 1 month ago.) - Genitourinary/Gynecological Hx Genitourinary Disorders: No - Psychiatric Hx Psychophysiologic Disorder: Yes Hx Anxiety: Yes Hx Depression: Yes Hx Substance Use: No - Surgical History Other/Comment: IVC filter, bowel resection - Anesthesia Hx Anesthesia: Yes - Suicidal Assessment Feels Threatened In Home Enviroment: No Family/Social History - Physician Review Nursing Documentation Reviewed: Yes Family/Social History: Unknown Family HX Smoking Status: Never Smoked Hx Alcohol Use: No Hx Substance Use: No Allergies/Home Meds Allergies/Adverse Reactions: Allergies No Known Allergies Allergy (Verified 05/03/17 17:02) Home Medications: Home Meds Medication Instructions Recorded Confirmed Potassium Chloride [K-Dur 20 mEq 20 meq PO BID 11/07/16 05/03/17 ER Tab] Carvedilol [Coreg] 6.25 mg PO QPM 11/21/16 05/03/17 Lisinopril [Zestril] 5 mg PO DAILY 11/21/16 05/03/17 Rosuvastatin Calcium [Crestor] 20 mg PO DAILY 11/21/16 05/03/17 Apixaban [Eliquis] 5 mg PO BID 01/29/17 05/03/17 Ustekinumab [Stelara] 45 mg SC .[id number] 05/03/17 05/03/17 Review of Systems - Review of Systems Constitutional: absent: Fatigue, Fevers Eyes: absent: Vision Changes ENT: absent: Hearing Changes Respiratory: absent: SOB, Cough Cardiovascular: absent: Chest Pain Gastrointestinal: Nausea. absent: Abdominal Pain, Diarrhea, Vomiting Skin: absent: Rash, Pruritis Neurological: Headache. absent: Dizziness, Focal Weakness Psychiatric: absent: Anxiety, Depression, Suicidal Ideation Physical Exam Vital Signs Reviewed: Yes Vital Signs Temp Pulse Resp BP Pulse Ox 05/03/17 17:10 97.9 F 75 17 114/80 99 Temperature: Afebrile Blood Pressure: Normal Pulse: Regular Respiratory Rate: Normal Appearance: Positive for: Well-Appearing, Non-Toxic, Comfortable Pain Distress: Moderate Mental Status: Positive for: Alert and Oriented X 3 - Systems Exam Head: Present: Atraumatic, Normocephalic, Other (no temporal artery tenderness, no jaw claudication. ). No: Tenderness, Contusion, Swelling, Ecchymosis, Abrasion, Laceration Pupils: Present: PERRL Extroacular Muscles: Present: EOMI Conjunctiva: Present: Normal Ears: Present: NORMAL TM, Normal Canal. No: Erythema Mouth: Present: Moist Mucous Membranes Neck: Present: Normal Range of Motion Respiratory/Chest: Present: Clear to Auscultation, Good Air Exchange. No: Respiratory Distress, Accessory Muscle Use Cardiovascular: Present: Regular Rate and Rhythm, Normal S1, S2. No: Murmurs Abdomen: Present: Normal Bowel Sounds. No: Tenderness, Distention, Peritoneal Signs Back: Present: Normal Inspection Upper Extremity: Present: Normal Inspection. No: Cyanosis, Edema Lower Extremity: Present: Normal Inspection. No: Edema Neurological: Present: GCS=15, CN II-XII Intact, Speech Normal, Motor Func Grossly Intact, Gait Normal, Memory Normal, Other (no focal neurological deficits. ) Skin: Present: Warm, Dry, Normal Color. No: Rashes Psychiatric: Present: Alert, Oriented x 3, Normal Insight, Normal Concentration Medical Decision Making ED Course and Treatment: 05/03/17 17:55 -labs/magnesium/ua -IVF/reglan/benadryl/tylenol -Observe and reassess 05/03/17 19:35 -CT head from yesterday reviewed, no visible acute hemorrhage. -Chest xray show no active disease -EKG: NSR @ 71 BPM, no ST elevation or depression, no T wave inversion, no prolong QT, compared with previous ekg. -Carboxyhemoglobin is -1.1 -Labs are non-significant with no acute findings except wbc 2.9, Ca 6.7 (Ca Carbonate po ordered), Mg 1.5 (Mg 2gm IV ordered) -Headache decreased to 2/10 from 7/10 pain scale but not resolved, no focal neurological deficits. -The etiology of this headache and decrease magnesium/decrease calcium is very unclear and not stable for outpatient follow up at this time as this is the 2nd time she's coming back in 24 hours. -Pt. will need admission, discussed with DR. Horner and agreed to admission. 05/03/17 19:42 -I expressed my concerns and labs to DR. Lau, agreed to observe the patient over night and repeat the electrolyte tomorrow along with reassess for her headache. - Lab Interpretations Lab Results: 05/03/17 18:00 05/03/17 18:00 Lab Results 05/03/17 19:25: pCO2 28 L, pO2 119.0 H, HCO3 19.5 L, ABG pH 7.45, ABG Total CO2 20.4 L, ABG O2 Saturation 95.9, ABG O2 Content 15.2, ABG Base Excess -3.4 L, ABG Hemoglobin 11.6 L, ABG Carboxyhemoglobin -1.1 L, POC ABG HHb (Measured) 3.9 , ABG Methemoglobin 0.7, ABG O2 Capacity 15.8 L, Hgb O2 Saturation 91.8 L, FiO2 21.0 05/03/17 19:00: Lactate Dehydrogenase 671, Total Creatine Kinase 143, Troponin I < 0.01 05/03/17 18:00: Beta HCG, Quant < 2.39 05/03/17 18:00: WBC 2.9 L* D, RBC 4.38, Hgb 13.4, Hct 40.3, MCV 92.0, MCH 30.6, MCHC 33.3, RDW 14.1, Plt Count 189, MPV 10.3, Gran % 57.2, Lymph % (Auto) 23.8, [place] % (Auto) 14.6 H, Eos % (Auto) 3.7, Baso % (Auto) 0.7, Gran # 1.68, Lymph # (Auto) 0.7 L, [place] # (Auto) 0.4, Eos # (Auto) 0.1, Baso # (Auto) 0.02 05/03/17 18:00: Sodium 139, Potassium 4.0, Chloride 110 H, Carbon Dioxide 23, Anion Gap 10, BUN 14, Creatinine 0.8, Est GFR ( Amer) > 60, Est GFR (Non- Af Amer) > 60, Random Glucose 88, Calcium 6.7 L*, Magnesium 1.5 L, Total Bilirubin 0.2, AST 61 H, ALT 68 H, Alkaline Phosphatase 147 H D, Total Protein 4.9 L, Albumin 2.2 L, Globulin 2.8, Albumin/Globulin Ratio 0.8 L - RAD Interpretation Radiology Orders: 05/03/17 19:02 CHEST PORTABLE [RAD] Stat - EKG Interpretation EKG Interpretation (Text): 05/03/17 20:01 -EKG: NSR @ 71 BPM, no ST elevation or depression, no T wave inversion, no prolong QT, compared with previous ekg. Interpreted by ED Physician: Yes Type: 12 lead EKG Comparison: Com.w/previous EKG - Medication Orders Current Medication Orders: Sodium Chloride (Sodium Chloride 0.9%) 1,000 mls @ 70 mls/hr IV .[id number] [facility] Last Admin: 05/03/17 19:33 Dose: 70 mls/hr eMAR Start Stop Document 05/03/17 19:33 CNR (Rec: 05/03/17 19:33 [facility]NR [id number] Intravenous Solution Start Date 05/03/17 Start Time 19:33 Magnesium Sulfate 2 gm/ Sodium (Chloride) 104 mls @ 102 mls/hr IVPB ONCE ONE Stop: 05/03/17 20:07 Last Admin: 05/03/17 19:32 Dose: 102 mls/hr eMAR Start Stop Document 05/03/17 19:32 CNR (Rec: 05/03/17 19:33 [place]NR [id number] Intravenous Solution Start Date 05/03/17 Start Time 19:33 End Date 05/03/17 End time 20:35 Total Infusion Time 62 Discontinued Medications Acetaminophen (Tylenol 325mg Tab) 650 mg PO STAT STA Stop: 05/03/17 17:58 Last Admin: 05/03/17 18:24 Dose: 650 mg MAR Pain/Vitals Document 05/03/17 18:24 GMI (Rec: 05/03/17 18:24 GMI [id number]) Pain Reassessment Is This A Pain ReAssessment? Yes Sleep Is patient sleeping during reassessment? 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 Description Constant Intensity 9 Scale Used Numeric Pain Behavior Facial Grimacing Alleviating Factors Medication Calcium Carbonate (Oscal) 500 mg PO STAT STA Stop: 05/03/17 19:08 Last Admin: 05/03/17 19:32 Dose: 500 mg Diphenhydramine HCl (Benadryl) 50 mg IVP STAT STA Stop: 05/03/17 17:52 Last Admin: 05/03/17 18:25 Dose: 50 mg IVP Administration Document 05/03/17 18:25 GMI (Rec: 05/03/17 18:25 GMI [id number]) Charges for Administration # of IVP Administrations 1 Sodium Chloride (Sodium Chloride 0.9%) 500 mls @ 999 mls/hr IV .Q31M STA Stop: 05/03/17 18:21 Last Admin: 05/03/17 18:24 Dose: 999 mls/hr eMAR Start Stop Document 05/03/17 18:24 GMI (Rec: 05/03/17 18:25 GMI [id number]) Intravenous Solution Start Date 05/03/17 Start Time 18:24 End Date 05/03/17 End time 18:25 Total Infusion Time 1 Metoclopramide HCl (Reglan) 10 mg IVP STAT STA Stop: 05/03/17 17:52 Last Admin: 05/03/17 18:25 Dose: 10 mg IVP Administration Document 05/03/17 18:25 GMI (Rec: 05/03/17 18:25 GMI [id number]) Charges for Administration # of IVP Administrations 1 - PA / DIRECTOR CALL / Resident Statement MD/DO has reviewed & agrees with the documentation as recorded. Disposition/Present on Arrival - Present on Arrival Any Indicators Present on Arrival: No History of DVT/PE: Yes History of Uncontrolled Diabetes: No Urinary Catheter: No History of Decub. Ulcer: No History Surgical Site Infection Following: None - Disposition Have Diagnosis and Disposition been Completed?: Yes Diagnosis: Headache, Electrolyte abnormality, Hypocalcemia, Hypomagnesemia Disposition: HOSPITALIZED Disposition Time: 17:56 Patient Plan: Admission, Observation, Telemetry Patient Problems: Current Active Problems Problem Status Onset Hypocalcemia Acute Headache Acute Electrolyte abnormality Acute Hypomagnesemia Acute Condition: STABLE
[2017-05-03 18:11] LABS: BASO # 0.02 K/mm3 (0.0-2.0); BASO % 0.7 % (0.0-3.0); EOS # 0.1 (0.0-0.7); EOS % 3.7 % (1.5-5.0); GRAN # 1.68 (1.4-6.5); GRAN % 57.2 % (50.0-68.0); HEMOGLOBIN 13.4 g/dL (12.0-16.0); LYMPH # 0.7 (1.2-3.4); LYMPH % 23.8 % (22.0-35.0); MEAN CORPUSCULAR HEMOGLOBIN 30.6 pg (25.0-35.0); MEAN CORPUSCULAR HGB CONC 33.3 g/dl (31.0-37.0); MEAN PLATELET VOLUME 10.3 fl (7.0-11.0); MONO # 0.4 (0.1-0.6); MONO % 14.6 % (1.0-6.0); RBC 4.38 10^6/uL (3.5-6.1); RED CELL DISTRIBUTION WIDTH 14.1 % (11.5-14.5)
[2017-05-03 18:13] LABS: WHITE BLOOD COUNT 2.9 10^3/ul (4.5-11.0)
[2017-05-03 18:40] LABS: ALB/GLOB RATIO 0.8 (1.1-1.8); ALBUMIN 2.2 g/dL (3.0-4.8); ALT/SGPT 68 U/L (7-56); AST/SGOT 61 U/L (14-36); BLOOD UREA NITROGEN 14 mg/dL (7-21); CALCIUM 6.7 mg/dL (8.4-10.5); GFR AFRICAN-AMERICAN > 60; GFR NON-AFRICAN AMERICAN > 60; MAGNESIUM 1.5 mg/dL (1.7-2.2)
[2017-05-03] MEDS ORDERED: Magnesium Sulfate 2 GM in Sodium Chloride 0.9% 100 ML IVPB ONE (19:06)
[2017-05-03 19:32] LABS: ARTERIAL BLOOD GAS HCO3 19.5 mmol/L (21-28); ARTERIAL BLOOD GAS HEMOGLOBIN 11.6 g/dL (11.7-17.4); ARTERIAL BLOOD GAS O2 CAPACITY 15.8 mL/dl (16-24); ARTERIAL BLOOD GAS O2 CONTENT 15.2 ML/dl (15-23); ARTERIAL BLOOD GAS O2 SAT 95.9 % (95-98); ARTERIAL BLOOD GAS PCO2 28 mm/Hg (35-45); ARTERIAL BLOOD GAS PH 7.45 (7.35-7.45); ARTERIAL BLOOD GAS TCO2 20.4 mmol.L (22-28)
[2017-05-03] MEDS: Sodium Chloride 0.9% 1,000 ML IV SCH (19:33)
[2017-05-03 19:35] LABS: TROPONIN I < 0.01 ng/mL
[2017-05-03 20:12] LABS: URINE BILIRUBIN NEGATIVE (NEGATIVE); URINE BLOOD NEGATIVE (NEGATIVE); URINE GLUCOSE (UA) NEGATIVE (NEGATIVE); URINE LEUKOCYTE ESTERASE NEGATIVE Leu/uL (NEGATIVE); URINE NITRATE NEGATIVE (NEGATIVE); URINE PROTEIN NEGATIVE mg/dL (<30 mg/dL); URINE UROBILINOGEN 0.2 E.U./dL (<1 E.U./dL)
[2017-05-03 20:33] LABS: URINE APPEARANCE CLEAR (CLEAR); URINE COLOR YELLOW (YELLOW)
[2017-05-03 21:06] VITALS: BMI 22.3
[2017-05-04 06:13] VITALS: O2SAT 99
[2017-05-04 07:00] LABS: ALB/GLOB RATIO 0.7 (1.1-1.8); ALBUMIN 1.7 g/dL (3.0-4.8); ALT/SGPT 51 U/L (7-56); AST/SGOT 38 U/L (14-36); BLOOD UREA NITROGEN 12 mg/dL (7-21); GFR AFRICAN-AMERICAN > 60; GFR NON-AFRICAN AMERICAN > 60
--- NOTE | 2017-05-04 08:49 | RAD ---
HISTORY: medical clearance COMPARISON: 05/02/2017. FINDINGS: LUNGS: The lungs are well inflated and clear. PLEURA: No significant pleural effusion identified, no pneumothorax apparent. CARDIOVASCULAR: Normal. OSSEOUS STRUCTURES: No significant abnormalities. VISUALIZED UPPER ABDOMEN: Normal. OTHER FINDINGS: None. IMPRESSION: No active pulmonary disease.
[2017-05-04] MEDS ORDERED: Potassium Chloride 40 mEq/30 ml LIQ UD PO ONE (09:22)
[2017-05-04 09:40] LABS: BASO # 0.02 K/mm3 (0.0-2.0); BASO % 0.7 % (0.0-3.0); EOS # 0.1 (0.0-0.7); EOS % 3.3 % (1.5-5.0); GRAN # 1.9 (1.4-6.5); GRAN % 62.7 % (50.0-68.0); HEMOGLOBIN 12.4 g/dL (12.0-16.0); LYMPH # 0.7 (1.2-3.4); LYMPH % 22.1 % (22.0-35.0); MEAN CELL VOLUME 92.4 fl (80.0-105.0); MEAN CORPUSCULAR HEMOGLOBIN 30.5 pg (25.0-35.0); MEAN PLATELET VOLUME 10.8 fl (7.0-11.0); MONO # 0.3 (0.1-0.6); MONO % 11.2 % (1.0-6.0); RBC 4.07 10^6/uL (3.5-6.1); RED CELL DISTRIBUTION WIDTH 14.4 % (11.5-14.5)
--- NOTE | 2017-05-04 09:52 | CARD ---
APPROVED REPORT EKG Measurement Heart [id number] [place] [id number] <Conclusion> Normal sinus rhythm Normal ECG
[2017-05-04] MEDS ORDERED: Non Formulary Medication (Rosuvastatin Calcium [Crestor] 20 MG) PO SCH (10:00)
[2017-05-04] MEDS: Potassium Chloride 20 mEq ER Tab PO SCH ×2 (10:35→17:19)
[2017-05-04] MEDS: Sodium Chloride 0.9% 1,000 ML IV SCH (10:39)
[2017-05-04 12:19] VITALS: RESP 20; TEMP 98.2
[2017-05-04 18:35] VITALS: BP 126/85; PULSE 93
--- NOTE | 2017-05-04 20:39 | HP ---
HISTORY OF PRESENT ILLNESS: A 46-year-old white female with long history of antiphospholipid syndrome, Crohn's colitis, history of bilateral DVT and PE, Siva filter, acute [place] approximately 4 months ago, severe hypoalbuminemia, hypocalcemia, hypomagnesemia, patient is on Eliquis for her DVT and antiphospholipid syndrome. Patient had severe lightheadedness, dizziness and blocked ears over the last 3 to 5 days. Denied any fever or chills, nausea or vomiting. Doing well with Stelara for her Crohn colitis, less diarrhea, less abdominal pain, less bloating, less swelling in her legs than previously noted. Patient is nonsmoker, nondrinker, no illicit drugs, no street drugs, and she has no travel history. Past for Siva filter and for Crohn colitis. PHYSICAL EXAMINATION GENERAL: Shows a well-developed with swollen legs bilaterally, but otherwise thin white female, in no apparent distress. HEENT: Essentially within normal limits. HEART: Regular sinus rhythm. No S3 or murmurs. CHEST: Clear to auscultation and percussion. ABDOMEN: Benign. EXTREMITIES: Show 1 to 2+ pedal and pretibial edema to the knees. IMPRESSION: Weakness, hypokalemia, hypocalcemia, hypomagnesemia, and hypoalbuminemia in a 46-year-old white female, with recent history of myocardial infraction, long history of antiphospholipid syndrome, and Crohn's colitis. Danilo Lau MD
== END 2017-05-04 18:38 | disposition home or self-care (01) ==
LOC: ED 16:41 → ERH 19:43 → 2RNO 20:46
PROVIDERS: ADMIT Internal Medicine; ATTEND Internal Medicine
DX: E87.6 Hypokalemia (principal); E83.51 Hypocalcemia; E83.42 Hypomagnesemia; K50.10 Crohn's disease of large intestine without complications; D68.61 Antiphospholipid syndrome; R53.1 Weakness; E88.09 Other disorders of plasma-protein metabolism, not elsewhere classified; I25.2 Old myocardial infarction; Z86.718 Personal history of other venous thrombosis and embolism; Z86.711 Personal history of pulmonary embolism; Z79.01 Long term (current) use of anticoagulants
CPT/HCPCS: 36415; 71045; 80053; 81003; 82550; 82803; 83615; 83735; 84484; 84702; 85025; 93005; 96365; 96375; 99285; G0378; J1200; J2765; J3475; J3480; J7040

== ENCOUNTER 2017-08-12 20:20 | Inpatient (IN) | payer MEDICAID, OTHER ==
--- NOTE | 2017-08-12 21:08 | ED PDOC ---
Arrival/HPI - General Chief Complaint: Chest Pain Time Seen by Provider: 08/12/17 20:22 Historian: Patient - History of Present Illness Narrative History of Present Illness (Text): 08/12/17 21:01 Patient is a 47 year old female whose past medical history includes myocardial infarction(October 2016), antiphospholipid disorder, left thigh DVT, and TIA(~ 10 years ago), who presents to the emergency department complaining of intermittent cramping of her eyes, hands, and feet, which started 2 days ago, and recent chest pressure. Patient reports that her cramping happens randomly and doesn't occur to all her stated areas at the same time. She states that today at approximately 19:00 her tongue started cramping with associated difficulty swallowing. She also mentions that today she started experiencing chest pressure and dyspnea on exertion. She currently feels her eyes cramping and that her tongue symptom has resolved. Patient also complains of experiencing dizziness upon standing. Patient notes that she had a URI with associated coughing approximately 1.5 months ago, and while her symptoms improve it didn't resolve, and now has residual congestion. Patient has a DVT in her right thigh and had a IVC filter placed. She is compliant with her Eliquis regimen for her DVT. Of note she mentions having a magnesium, potassium , and sodium abnormality in the past. Patient denies any pain with breathing, nausea, vomiting, diarrhea, fever, or any other symptoms. 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: Time/Duration: < week Symptom Onset: Sudden Symptom Course: Intermittent Quality: Cramping Context: Home Past Medical History - Provider Review Nursing Documentation Reviewed: Yes - Past History Past History: No Previous (recent dx of AMI with negative cath; + left leg DVT) - Infectious Disease Hx of Infectious Diseases: None - Cardiac Hx Cardiac Disorders: Yes Hx NE: Yes - Pulmonary Hx Respiratory Disorders: No - Neurological Hx Neurological Disorder: Yes HX Cerebrovascular Accident: Yes - HEENT Hx HEENT Disorder: No - Renal Hx Renal Disorder: No - Endocrine/Metabolic Hx Endocrine Disorders: No - Hematological/Oncological Hx Blood Disorders: Yes (Antiphospholipid Disorder (on Warfarin). Siva Filter 2004.) - Integumentary Hx Dermatological Disorder: No - Musculoskeletal/Rheumatological Hx Musculoskeletal Disorders: Yes Other/Comment: DVT - Gastrointestinal Hx Gastrointestinal Disorders: Yes (Bowel Resection 25 years ago.) Hx Crohn's Disease: Yes (Exacerbation 1 month ago.) - Genitourinary/Gynecological Hx Genitourinary Disorders: No - Psychiatric Hx Psychophysiologic Disorder: Yes Hx Anxiety: Yes Hx Depression: Yes Hx Substance Use: No - Surgical History Other/Comment: IVC filter, bowel resection - Anesthesia Hx Anesthesia: Yes - Suicidal Assessment Feels Threatened In Home Enviroment: No Family/Social History - Physician Review Nursing Documentation Reviewed: Yes Family/Social History: No Known Family HX Smoking Status: Never Smoked Hx Alcohol Use: No Hx Substance Use: No Allergies/Home Meds Allergies/Adverse Reactions: Allergies No Known Allergies Allergy (Verified 08/12/17 20:22) Home Medications: Home Meds Medication Instructions Recorded Confirmed Potassium Chloride [K-Dur 20 mEq 20 meq PO TID 11/07/16 08/13/17 ER Tab] Carvedilol [Coreg] 6.25 mg PO DAILY 11/21/16 08/13/17 Lisinopril [Zestril] 5 mg PO DAILY 11/21/16 08/13/17 Rosuvastatin Calcium [Crestor] 20 mg PO DAILY 11/21/16 08/13/17 Apixaban [Eliquis] 5 mg PO BID 01/29/17 08/13/17 Ustekinumab [Stelara] 45 mg SC .[id number] 05/03/17 08/13/17 Review of Systems - Physician Review All systems were reviewed & negative as marked: Yes - Review of Systems Constitutional: absent: Fevers Cardiovascular: Chest Pain, HADLEY Gastrointestinal: absent: Diarrhea, Nausea, Vomiting Neurological: Dizziness Physical Exam Vital Signs Reviewed: Yes Vital Signs Temp Pulse Resp BP Pulse Ox 08/12/17 23:23 67 18 113/67 100 08/12/17 20:23 88 20 128/88 97 08/12/17 20:20 98.3 F Blood Pressure: Normal Pulse: Regular Respiratory Rate: Normal Appearance: Positive for: Well-Appearing Mental Status: Positive for: Alert and Oriented X 3 - Systems Exam Head: Present: Atraumatic, Normocephalic Pupils: Present: PERRL Extroacular Muscles: Present: EOMI Conjunctiva: Present: Normal Mouth: Present: Moist Mucous Membranes Neck: Present: Normal Range of Motion Respiratory/Chest: Present: Clear to Auscultation, Good Air Exchange. No: Respiratory Distress, Accessory Muscle Use Cardiovascular: Present: Normal S1, S2, Tachycardic (Monitor showed episode of tachycardia which resolved). No: Murmurs Abdomen: Present: Other (Soft). No: Tenderness, Distention, Peritoneal Signs Back: Present: Normal Inspection Upper Extremity: Present: Normal Inspection. No: Cyanosis, Edema Lower Extremity: Present: Edema (Bilateral lower extremity edema) Neurological: Present: GCS=15, CN II-XII Intact, Speech Normal Skin: Present: Warm, Dry, Normal Color. No: Rashes Psychiatric: Present: Alert, Oriented x 3, Normal Insight, Normal Concentration Medical Decision Making ED Course and Treatment: 08/12/17 21:23 Impression: Patient is a 47 year old female who is complaining of intermittent cramping of eyes, tongue, hands, and feet, which started 2 days ago. Patient experienced chest pressure today. Differential Diagnosis included but are not limited to: electrolyte abnormality vs. Anemia vs. ACS vs. pulmonary embolism Plan: --EKG --Cardiac enzymes --labs --Venous blood gas --Chest CT --Head CT without contrast --Chest X-ray --Reassess and disposition Prior Visits: Notes and results from previous visits were reviewed. Progress Notes: 08/12/17 21:10 EKG shows NSR at 80 BPM with Q waves in lead III and aVF. Interpreted by me. 08/12/17 22:10 Patient given stat Calcium and Magnesium upon results of blood work. Case discussed with Dr. Berman for an ICU consult. He recommends Telemetry. Case discussed with Dr. Lau who will admit to his service. 08/12/17 22:14 LFTs resulted. Corrected Calcium 6.1. 08/12/17 22:33 Dr. Berman came to evaluate patient. He added additional Calcium and Magnesium. Resident Luis Miguel will f/u on CT results. Case endorsed to Dr. Riley to f/u CT results. - Critical Care Critical Care Minutes: 30 minutes - Lab Interpretations Lab Results: 08/12/17 21:28 08/12/17 21:28 Lab Results 08/12/17 22:02: Total Bilirubin 0.3, Direct Bilirubin 0.0, AST 62 H D, ALT 62 H , Alkaline Phosphatase 103, Total Protein 4.9 L, Albumin 2.1 L, Globulin 2.8, Albumin/Globulin Ratio 0.8 L 08/12/17 21:38: pO2 103 H, VBG pH 7.37, VBG pCO2 36.0 L, VBG HCO3 20.8 L, VBG Total CO2 21.9 L, VBG O2 Sat (Calc) 95.1 H, VBG Base Excess -4.0 L, VBG Potassium 4.6, Glucose 93, Lactate 0.8, FiO2 21.0, Sodium 135.0, Chloride 108.0 H, Venous Blood Potassium 4.6 08/12/17 21:28: Sodium 135, Potassium 3.8, Chloride 109 H, Carbon Dioxide 19 L, Anion Gap 12, BUN 17, Creatinine 1.0, Est GFR ( Amer) > 60, Est GFR (Non- Af Amer) 60, Random Glucose 90, Calcium 4.6 L*, Phosphorus 4.3, Magnesium 0.5 L* , Lactate Dehydrogenase 676, Total Creatine Kinase 205, Troponin I < 0.01, NT- Pro-B Natriuret Pep 300, Triglycerides 129, Cholesterol 93 L, LDL Cholesterol Direct 47, HDL Cholesterol 37 08/12/17 21:28: PT 14.8 H, INR 1.29 H, APTT 29.9 08/12/17 21:28: WBC 5.9 D, RBC 3.85, Hgb 10.5 L, Hct 32.7 L, MCV 84.9 D, MCH 27.3, MCHC 32.1, RDW 14.0, Plt Count 195, MPV 10.2, Gran % 66.7, Lymph % (Auto) 14.9 L, Collin % (Auto) 11.4 H, Eos % (Auto) 6.3 H, Baso % (Auto) 0.7, Gran # 3.94 , Lymph # (Auto) 0.9 L, Collin # (Auto) 0.7 H, Eos # (Auto) 0.4, Baso # (Auto) 0.04 I have reviewed the lab results: Yes - RAD Interpretation Radiology Orders: 08/12/17 21:11 ANGIO CHEST PE PROTOCOL [CT] Stat CHEST ONE VIEW [RAD] Stat 08/12/17 21:20 HEAD W/O CONTRAST [CT] Stat - EKG Interpretation Interpreted by ED Physician: Yes Type: 12 lead EKG - Medication Orders Current Medication Orders: Apixaban (Eliquis) 5 mg PO BID [facility] PRN Reason: Protocol Last Admin: 08/13/17 09:01 Dose: 5 mg Atorvastatin Calcium (Lipitor) 80 mg PO DIN [facility] Carvedilol (Coreg) 6.25 mg PO DAILY [facility] Enoxaparin Sodium (Lovenox) 70 mg SC Q12H [facility] PRN Reason: Protocol Last Admin: 08/13/17 10:09 Dose: 70 mg Subcutaneous Administrations Document 08/13/17 10:09 KMS (Rec: 08/13/17 10:10 [place] [id number]) Injection Site MAR Injection Site Left Abdomen Charges for Administration # of Subcutaneous Administrations 1 Lisinopril (Zestril) 5 mg PO DAILY [facility] Last Admin: 08/13/17 09:11 Dose: Not Given Non-Admin Reason: BP Parameters Not Met MAR Pulse and Blood Pressure Document 08/13/17 09:11 KMS (Rec: 08/13/17 09:12 KMS [place] [id number]) Pulse Pulse Rate (60-90) 71 Blood Pressure Blood Pressure (100/60-150/90) 96/63 Magnesium Oxide (Mag-Ox) 400 mg PO BID [facility] Last Admin: 08/13/17 09:01 Dose: 400 mg Non-Formulary Medication (Ustekinumab [Stelara]) 45 mg SC .[id number] [facility] Ondansetron HCl (Zofran Inj) 4 mg IVP Q4H PRN PRN Reason: Nausea/Vomiting Potassium Chloride (K-Dur 20 Meq Er Tab) 20 meq PO TID [facility] Last Admin: 08/13/17 09:01 Dose: 20 meq Discontinued Medications Aspirin (Aspirin) 325 mg PO ONCE STA Stop: 08/13/17 00:00 Last Admin: 08/13/17 00:34 Dose: 325 mg Calcium Gluconate (Calcium Gluconate Iv) 1,000 mg IVP ONCE ONE Stop: 08/12/17 22:15 Last Admin: 08/12/17 22:26 Dose: 1,000 mg IVP Administration Document 08/12/17 22:26 AD (Rec: 08/12/17 22:26 AD [id number]) Charges for Administration # of IVP Administrations 1 Heparin Sodium (Porcine) (Heparin) 5,500 units 80 units/kg (5300 units) IV ONCE ONE PRN Reason: Protocol Stop: 08/12/17 23:57 Last Admin: 08/13/17 00:32 Dose: 5,500 units eMAR Start Stop Document 08/13/17 00:32 AD (Rec: 08/13/17 00:32 AD [id number]) Intravenous Solution Start Date 08/13/17 Start Time 00:32 MAR aPTT Document 08/13/17 00:32 AD (Rec: 08/13/17 00:32 AD [id number]) aPTT aPTT (secs) 29.9 Calcium Gluconate 1,000 mg/ (Sodium Chloride) 110 mls @ 110 mls/hr IVPB ONCE ONE Stop: 08/12/17 22:56 Last Admin: 08/12/17 22:27 Dose: 110 mls/hr eMAR Start Stop Document 08/12/17 22:27 AD (Rec: 08/12/17 22:27 AD [id number]) Intravenous Solution Start Date 08/12/17 Start Time 22:27 Magnesium 2 gm/50 ml NS (Magnesium Sulfate 2 Gm/50 Ml Ns) 2 gm in 50 mls @ 50 mls/hr IVPB ONCE ONE Stop: 08/12/17 22:59 Last Admin: 08/12/17 22:06 Dose: 50 mls/hr eMAR Start Stop Document 08/12/17 22:06 AD (Rec: 08/12/17 22:08 AD [id number]) Intravenous Solution Start Date 08/12/17 Start Time 22:08 Magnesium 2 gm/50 ml NS (Magnesium Sulfate 2 Gm/50 Ml Ns) 2 gm in 50 mls @ 50 mls/hr IVPB ONCE ONE Stop: 08/12/17 23:12 Last Admin: 08/12/17 22:38 Dose: 50 mls/hr eMAR Start Stop Document 08/12/17 22:38 AD (Rec: 08/12/17 22:38 AD [id number]) Intravenous Solution Start Date 08/12/17 Start Time 22:38 Heparin Sodium/Sodium Chloride (Heparin 95597 Units/250ml 1/2 Normal Saline) 25 ,000 units in 250 mls @ 12.492 mls/hr IV .Q20H1M PRN; Protocol; 18 UNITS/KG/HR PRN Reason: ADJUST RATE PER PROTOCOL Last Admin: 08/13/17 00:32 Dose: 18 units/kg/hr, 12.492 mls/hr eMAR Start Stop Document 08/13/17 00:32 AD (Rec: 08/13/17 00:33 AD [id number]) Intravenous Solution Start Date 08/13/17 Start Time 00:33 MAR aPTT Document 08/13/17 00:32 AD (Rec: 08/13/17 00:33 AD [id number]) aPTT aPTT (secs) 29.9 Titration Intervention Document 08/13/17 00:32 AD (Rec: 08/13/17 00:33 AD [id number]) Titration Intake Waste Amount 0 Container Volume 250 Titration Dosing Titration Dose 18 IV Rate 12.492 Intake/Decrease Started Calcium Gluconate 1,000 mg/ (Dextrose) 110 mls @ 110 mls/hr IVPB ONCE ONE Stop: 08/13/17 08:41 Last Admin: 08/13/17 09:00 Dose: 110 mls/hr eMAR Start Stop Document 08/13/17 09:00 KMS (Rec: 08/13/17 09:00 KMS [id number]) Intravenous Solution Start Date 08/13/17 Start Time 09:00 End Date 08/13/17 End time 10:00 Total Infusion Time 60 Non-Formulary Medication (Rosuvastatin Calcium [Crestor]) 20 mg PO DAILY [facility] - Scribe Statement The provider has reviewed the documentation as recorded by the Sanjay Trevino Provider Scribe Attestation: All medical record entries made by the Goibclau were at my direction and personally dictated by me. I have reviewed the chart and agree that the record accurately reflects my personal performance of the history, physical exam, medical decision making, and the department course for this patient. I have also personally directed, reviewed, and agree with the discharge instructions and disposition. Disposition/Present on Arrival - Present on Arrival Any Indicators Present on Arrival: Yes History of DVT/PE: Yes History of Uncontrolled Diabetes: No Urinary Catheter: No History of Decub. Ulcer: No History Surgical Site Infection Following: None - Disposition Have Diagnosis and Disposition been Completed?: Yes Diagnosis: Hypocalcemia, Hypomagnesemia, Chest pain, Pulmonary embolism Disposition: HOSPITALIZED Disposition Time: 22:09 Patient Plan: Admission Patient Problems: Current Active Problems Problem Status Onset Chest pain Acute Hypocalcemia Acute Hypomagnesemia Acute Pulmonary embolism Acute Condition: STABLE
[2017-08-12 21:37] LABS: BASO # 0.04 K/mm3 (0.0-2.0); BASO % 0.7 % (0.0-3.0); EOS # 0.4 (0.0-0.7); EOS % 6.3 % (1.5-5.0); GRAN # 3.94 (1.4-6.5); GRAN % 66.7 % (50.0-68.0); HEMOGLOBIN 10.5 g/dL (12.0-16.0); LYMPH # 0.9 (1.2-3.4); LYMPH % 14.9 % (22.0-35.0); MEAN CELL VOLUME 84.9 fl (80.0-105.0); MEAN CORPUSCULAR HEMOGLOBIN 27.3 pg (25.0-35.0); MEAN CORPUSCULAR HGB CONC 32.1 g/dl (31.0-37.0); MEAN PLATELET VOLUME 10.2 fl (7.0-11.0); MONO # 0.7 (0.1-0.6); MONO % 11.4 % (1.0-6.0); RBC 3.85 10^6/uL (3.5-6.1); WHITE BLOOD COUNT 5.9 10^3/ul (4.5-11.0)
[2017-08-12 21:43] LABS: INR 1.29 (0.93-1.08); PARTIAL THROMBOPLASTIN TIME 29.9 Seconds (25.1-36.5); PROTHROMBIN TIME 14.8 SECONDS (9.4-12.5)
[2017-08-12 21:53] LABS: BLOOD UREA NITROGEN 17 mg/dL (7-21); CALCIUM 4.6 mg/dL (8.4-10.5); GFR AFRICAN-AMERICAN > 60; GFR NON-AFRICAN AMERICAN 60; HDL CHOLESTEROL 37 mg/dL (29-60)
[2017-08-12 21:57] LABS: VENOUS BLOOD GAS PO2 103 mm/Hg (30-55); VENOUS BLOOD PH 7.37 (7.32-7.43)
[2017-08-12 21:58] LABS: LDL CHOLESTEROL 47 mg/dL (0-129)
[2017-08-12] MEDS ORDERED: Magnesium 2 gm/50 ml NS 2 GM/50 ML BAG IVPB ONE ×2 (22:00→22:13)
[2017-08-12 22:01] LABS: B-TYPE NATRIURETIC PEPTIDE 300 pg/mL (0-450); TROPONIN I < 0.01 ng/mL
[2017-08-12 22:11] LABS: ALBUMIN 2.1 g/dL (3.0-4.8)
[2017-08-12] MEDS ORDERED: Iohexol 350 MG/100 ML VIAL ONE (22:15)
--- NOTE | 2017-08-12 22:46 | CP.PCM.CON ---
Addendum entered and electronically signed by XiomyJosh Noel, 08/12/17 23:58: Chest CTA showed filling defect within branch of pulmonary artery to the right lower lobe, suspicious for pulmonary embolism. Heparin bolus and IV drip was ordered. Original Note: <Josh Stauffer - Last Filed: 08/12/17 23:19> History of Present Illness - History of Present Illness History of Present Illness: PGY-1 Critical Care Consult Note for Dr. Berman This is a 47 year old female with PMHx Crohn's Disease, large bowel obstruction s/p bowel resection and end-to-end anastomosis 25 years ago, Antiphospholipid syndrome on Eliquis, left thigh DVT in 1993, CVA 10 years ago, NH in October 2016 who presents with cramping and tingling sensations in the eyes, tongue, and lips. This began Thursday night and has been intermittent. Patient came in today because her symptoms have worsened. She also had an episode of chest pressure earlier today which has resolved. Patient also had some shortness of breath earlier as well. Patient states that she has experienced paresthesias before, and her electrolytes were abnormal at the time as well. Patient denies any leg pain or recent travel. At baseline, her legs are swollen and she uses compression stockings, but patient states that presently her legs are not as swollen as usual. Patient stated that she had already taken all of her home medications earlier today including her Eliquis as prescribed. PMHx: Crohn's Disease, large bowel obstruction s/p resection and end-to-end anastomosis 25 years ago, Antiphospholipid syndrome on Eliquis, CVA without any residual deficits 10 years ago, NH in October 2016, left thigh DVT in 1993 PSHx: Large bowel resection and end-to-end anastomosis 25 years ago, PCI Allergies: NKDA Social: Denies tobacco, alcohol, drug use. Family Hx: Denies Home meds: Reviewed with patient as per APR PMD: Dr. Lau Customer Service Representative: Dr. Lyles Heme/onc: Dr. Hernandez Review of Systems - Constitutional Constitutional: absent: Chills, Fever - EENT Eyes: absent: Change in Vision Ears: absent: Decreased Hearing Nose/Mouth/Throat: absent: Nasal Congestion - Cardiovascular Cardiovascular: Other (chest pressure resolved). absent: Chest Pain - Respiratory Respiratory: Dyspnea (resolved) - Gastrointestinal Gastrointestinal: absent: Abdominal Pain, Nausea, Vomiting - Genitourinary Genitourinary: absent: Dysuria - Musculoskeletal Musculoskeletal: absent: Back Pain - Integumentary Integumentary: absent: Rash - Neurological Neurological: Paresthesias, Tingling. absent: Dizziness, Weakness - Psychiatric Psychiatric: absent: Anxiety - Endocrine Endocrine: absent: Palpitations Past Patient History - Infectious Disease Hx of Infectious Diseases: None - Past Social History Smoking Status: Never Smoked - CARDIAC Hx Cardiac Disorders: Yes Hx Heart Attack: Yes - PULMONARY Hx Respiratory Disorders: No - NEUROLOGICAL Hx Neurological Disorder: Yes HX Cerebrovascular Accident: Yes - HEENT Hx HEENT Problems: No - RENAL Hx Chronic Kidney Disease: No - ENDOCRINE/METABOLIC Hx Endocrine Disorders: No - HEMATOLOGICAL/ONCOLOGICAL Hx Blood Disorders: Yes (Antiphospholipid Disorder (on Warfarin). [place] Filter 2003.) - INTEGUMENTARY Hx Dermatological Problems: No - MUSCULOSKELETAL/RHEUMATOLOGICAL Hx Musculoskeletal Disorders: Yes Other/Comment: DVT - GASTROINTESTINAL Hx Gastrointestinal Disorders: Yes (Bowel Resection 25 years ago.) Hx Crohn's Disease: Yes (Exacerbation 1 month ago.) - GENITOURINARY/GYNECOLOGICAL Hx Genitourinary Disorders: No - PSYCHIATRIC Hx Psychophysiologic Disorder: Yes Hx Anxiety: Yes Hx Depression: Yes Hx Substance Use: No - SURGICAL HISTORY Other/Comment: IVC filter, bowel resection - ANESTHESIA Hx Anesthesia: Yes Meds Allergies/Adverse Reactions: Allergies Allergy/AdvReac Type Severity Reaction Status Date / Time No Known Allergies Allergy Verified 08/12/17 20:22 - Medications Medications: Current Medications Calcium Gluconate 1,000 mg/ (Sodium Chloride) 110 mls @ 110 mls/hr IVPB ONCE ONE Stop: 08/12/17 22:56 Last Admin: 08/12/17 22:27 Dose: 110 mls/hr Magnesium 2 gm/50 ml NS (Magnesium Sulfate 2 Gm/50 Ml Ns) 2 gm in 50 mls @ 50 mls/hr IVPB ONCE ONE Stop: 08/12/17 22:59 Last Admin: 08/12/17 22:06 Dose: 50 mls/hr Magnesium 2 gm/50 ml NS (Magnesium Sulfate 2 Gm/50 Ml Ns) 2 gm in 50 mls @ 50 mls/hr IVPB ONCE ONE Stop: 08/12/17 23:12 Last Admin: 08/12/17 22:38 Dose: 50 mls/hr Physical Exam - Constitutional Appears: No Acute Distress - Head Exam Head Exam: ATRAUMATIC, NORMOCEPHALIC - Eye Exam Eye Exam: EOMI, PERRL - ENT Exam ENT Exam: Mucous Membranes Moist - Respiratory Exam Respiratory Exam: Clear to Auscultation Bilateral, NORMAL BREATHING PATTERN. absent: Rales, Rhonchi, Wheezes - Cardiovascular Exam Cardiovascular Exam: REGULAR RHYTHM, +S1, +S2. absent: JVD - GI/Abdominal Exam GI & Abdominal Exam: Normal Bowel Sounds, Soft. absent: Tenderness - Extremities Exam Extremities exam: Positive for: pedal edema (non-pitting bilateral) - Neurological Exam Neurological exam: Alert, CN II-XII Intact, Oriented x3 Additional comments: Muscle strength 5/5 bilateral upper and lower extremities Sensations to light touch intact throughout. - Psychiatric Exam Psychiatric exam: Normal Affect, Normal Mood - Skin Skin Exam: Dry, Warm Results - Vital Signs Recent Vital Signs: Last Vital Signs Temp 98.3 F 08/12/17 20:20 Pulse 88 08/12/17 20:23 Resp 20 08/12/17 20:23 BP 128/88 08/12/17 20:23 Pulse Ox 97 08/12/17 20:23 - Labs Result Diagrams: 08/12/17 21:28 08/12/17 21:28 Assessment & Plan - Assessment and Plan (Free Text) Assessment: This is a 47 year old female with PMHx Crohn's Disease, large bowel obstruction s/p bowel resection and end-to-end anastomosis 25 years ago, Antiphospholipid syndrome on Eliquis, left thigh DVT in 1993, CVA 10 years ago, NH in October 2016 who presents with cramping and tingling sensations in the eyes, tongue, and lips. This is likely due to metabolic derangement in the forms of hypocalcemia and hypomagnesemia. Plan: In the emergency department, the patient has received 2 gm of Magnesium sulfate and 1 gm of Calcium Gluconate. Another dose of 2 gm Magnesium sulfate and 1 gm calcium gluconate were ordered. Repeat labs CBC, CMP, Troponin, EKG, Magnesium, Phosphorous in the morning F/u CT chest / head ordered in the ED At this time, the patient is hemodynamically stable to be monitored on the telemetry floor. Please re-consult as necessary. Discussed with Dr. Cullen Stauffer PGY-1 <Diaz Berman - Last Filed: 08/13/17 00:17> Meds - Medications Medications: Current Medications Heparin Sodium (Porcine) (Heparin) 5,300 units 80 units/kg (5300 units) IV ONCE ONE PRN Reason: Protocol Stop: 08/12/17 23:57 Heparin Sodium/Sodium Chloride (Heparin 64717 Units/250ml 1/2 Normal Saline) 25 ,000 units in 250 mls @ 11.839 mls/hr IV .Q21H7M PRN; Protocol; 18 UNITS/KG/HR PRN Reason: ADJUST RATE PER PROTOCOL Ondansetron HCl (Zofran Inj) 4 mg IVP Q4H PRN PRN Reason: Nausea/Vomiting Results - Vital Signs Recent Vital Signs: Last Vital Signs Temp 98.3 F 08/12/17 20:20 Pulse 67 08/12/17 23:23 Resp 18 08/12/17 23:23 BP 113/67 08/12/17 23:23 Pulse Ox 100 08/12/17 23:23 - Labs Result Diagrams: 08/12/17 21:28 08/12/17 21:28 Attending/Attestation - Attestation I have personally seen and examined this patient.: Yes I have fully participated in the care of the patient.: Yes I have reviewed all pertinent clinical information: Yes Notes (Text): 08/13/17 00:15 Patient was seen when she was in bed # 8 in the ER. Agree with consultation note. CT angio showed filling defect in pulmonary artery branch of right lower lobe. Discussed with . Will start on heparin.
[2017-08-12 23:06] LABS: ALB/GLOB RATIO 0.8 (1.1-1.8)
--- NOTE | 2017-08-12 23:31 | CT ---
EXAM: CT Head Without Intravenous Contrast EXAM DATE/TIME: 08/12/2017 9:20 PM CLINICAL HISTORY: The patient age is 47 years old and is female; Signs and symptoms; Numbness / parasthesia; Bilateral; Additional info: B/l hand numbness/b/l feet numbness h/o CVA Facility exam id and description: Ct heads head w/o contrast TECHNIQUE: Axial computed tomography images of the head/brain without intravenous contrast. All CT scans at this facility use one or more dose reduction techniques, viz.: automated exposure control; ma/kV adjustment per patient size (including targeted exams where dose is matched to indication; i.e. head); or iterative reconstruction technique. Coronal and sagittal reformatted images were created and reviewed. COMPARISON: CT - HEAD W/O CONTRAST 2017-05-02 18:26 FINDINGS: Brain: Hypodense encephalomalacia is visualized within the left frontal lobe, which is stable. This is consistent with an old infarct. There is a small chronic lacunar infarct within the right basal ganglia. There is mild atrophy of the frontal sulci. There is mild ex vacuo dilatation of the frontal horn of the left lateral ventricle. The white-mohan differentiation is otherwise preserved demonstrating no acute territorial type infarct. No acute intracranial hemorrhage is seen. No significant white matter disease is visualized. Midline shift: There is no midline shift. Ventricles: See above. Bones/joints: The calvarium demonstrates no evidence for a depressed fracture. Soft tissues: No acute abnormality. Sinuses: Unremarkable as visualized. No acute sinusitis. Mastoid air cells: No mastoid effusion. IMPRESSION: 1. No acute intracranial hemorrhage or acute territorial infarct. 2. Hypodense encephalomalacia is visualized within the left frontal lobe, which is stable. This is consistent with an old infarct. There is a small chronic lacunar infarct within the right basal ganglia. 3. There is mild atrophy of the frontal sulci. There is mild ex vacuo dilatation of the frontal horn of the left lateral ventricle. 4. If further evaluation is clinically indicated, an MRI of the brain is recommended.
--- NOTE | 2017-08-12 23:44 | CT ---
EXAM: CT Angiography Chest With Intravenous Contrast EXAM DATE/TIME: 08/12/2017 9:11 PM CLINICAL HISTORY: The patient age is 47 years old and is female; Signs and symptoms; Shortness of breath and other: Numbness bilat extremities; Additional info: Cp/sob R/O pe Facility exam id and description: Ct [facility] angio chest pe protocol TECHNIQUE: Axial computed tomographic angiography images of the chest with intravenous contrast using pulmonary embolism protocol. All CT scans at this facility use one or more dose reduction techniques, viz.: automated exposure control; ma/kV adjustment per patient size (including targeted exams where dose is matched to indication; i.e. head); or iterative reconstruction technique. MIP reconstructed images were created and reviewed. Coronal and sagittal reformatted images were created and reviewed. CONTRAST: 95 mL of omnipaque 350 administered intravenously. COMPARISON: DX - CHEST PORTABLE 2017-05-03 19:32 FINDINGS: Pulmonary arteries: A filling defect is identified within a pulmonary artery branch to the right lower lobe, suspicious for pulmonary embolism. Artifact limits evaluation of pulmonary arterial branches within the left lower lobe. There is no acute pulmonary embolism involving the pulmonary trunk, main pulmonary arteries, or proximal lobar arteries. Aorta: No acute findings. No thoracic aortic aneurysm. Inferior vena cava: A stent is identified within the IVC. Lungs: A small consolidation is visualized within the right lower lobe. Differential considerations include atelectatic change, infiltrate, malignancy, and infarct. A consolidation is also visualized within the lingula and left upper lobe, which extends to the left hilum. Bibasilar atelectatic changes are visualized. Mild patchy interstitial and airspace disease is seen within the left lower lobe, with scattered nodules. One of the larger nodules is identified on series 4 and 54 measuring 7 mm. Pleural space: There is a small left pleural effusion. No pneumothorax. Heart: A small amount of fluid is seen in the superior pericardial recess. Bones/joints: Mild spondylosis is visualized within the thoracic spine. Lymph nodes: No significant mediastinal lymphadenopathy. IMPRESSION: 1. A filling defect is identified within a pulmonary artery branch to the right lower lobe, suspicious for pulmonary embolism. 2. A small consolidation is visualized within the right lower lobe. Differential considerations include atelectatic change, infiltrate, malignancy, and infarct. A consolidation is also visualized within the lingula and left upper lobe, which extends to the left hilum. Bibasilar atelectatic changes are visualized. A follow-up CT is recommended. 3. There is a small left pleural effusion. 4. Mild patchy interstitial and airspace disease is seen within the left lower lobe, with scattered nodules. One of the larger nodules is identified on series 4 and 54 measuring 7 mm. See recommendations below. 5. Additional CT findings described above. FLEISCHNER SOLID 6-8mm MULTIPLE As per Fleischner Society 2017 guidelines for follow-up and management of pulmonary nodules: For patients at low risk (minimal or absent history of smoking and of other known risk factors), recommend CT at 3-6 months, then consider CT at 18-24 months. For patient at high risk (history of smoking or of other known risk factors), recommend CT at 3-6 months, then CT at 18-24 months.
[2017-08-12] MEDS ORDERED: Heparin25000 units/250ml 1/2NS 25,000 UNITS/250 ML BAG IV PRN (23:57)
--- NOTE | 2017-08-13 | ED PDOC ---
Physical Exam Vital Signs Temp Pulse Resp BP Pulse Ox 08/12/17 23:23 67 18 113/67 100 08/12/17 20:23 88 20 128/88 97 08/12/17 20:20 98.3 F Medical Decision Making ED Course and Treatment: 08/12/17 23:00 Case endorsed to me by Dr. Gil, pending results of CT scan. Pt with preliminary admission to Telemetry. 08/12/17 23:55 Reviewed radiology, CT Head shows: Brain: Hypodense encephalomalacia is visualized within the left frontal lobe, which is stable. This is consistent with an old infarct. There is a small chronic lacunar infarct within the right basal ganglia. There is mild atrophy of the frontal sulci. There is mild ex vacuo dilatation of the frontal horn of the left lateral ventricle. The white-mohan differentiation is otherwise preserved demonstrating no acute territorial type infarct. No acute intracranial hemorrhage is seen. No significant white matter disease is visualized. Midline shift: There is no midline shift. Ventricles: See above. Bones/joints: The calvarium demonstrates no evidence for a depressed fracture. Soft tissues: No acute abnormality. Sinuses: Unremarkable as visualized. No acute sinusitis. Mastoid air cells: No mastoid effusion. CTA Chest shows: Pulmonary arteries: A filling defect is identified within a pulmonary artery branch to the right lower lobe, suspicious for pulmonary embolism. Artifact limits evaluation of pulmonary arterial branches within the left lower lobe. There is no acute pulmonary embolism involving the pulmonary trunk, main pulmonary arteries, or proximal lobar arteries. Aorta: No acute findings. No thoracic aortic aneurysm. Inferior vena cava: A stent is identified within the IVC. Lungs: A small consolidation is visualized within the right lower lobe. Differential considerations include atelectatic change, infiltrate, malignancy, and infarct. A consolidation is also visualized within the lingula and left upper lobe, which extends to the left hilum. Bibasilar atelectatic changes are visualized. Mild patchy interstitial and airspace disease is seen within the left lower lobe, with scattered nodules. One of the larger nodules is identified on series 4 and 54 measuring 7 mm. Pleural space: There is a small left pleural effusion. No pneumothorax. Heart: A small amount of fluid is seen in the superior pericardial recess. Bones/joints: Mild spondylosis is visualized within the thoracic spine. Lymph nodes: No significant mediastinal lymphadenopathy. IMPRESSION: 1. A filling defect is identified within a pulmonary artery branch to the right lower lobe, suspicious for pulmonary embolism. 2. A small consolidation is visualized within the right lower lobe. Differential considerations include atelectatic change, infiltrate, malignancy, and infarct. A consolidation is also visualized within the lingula and left upper lobe, which extends to the left hilum. Bibasilar atelectatic changes are visualized. A follow-up CT is recommended. 3. There is a small left pleural effusion. 4. Mild patchy interstitial and airspace disease is seen within the left lower lobe, with scattered nodules. One of the larger nodules is identified on series 4 and 54 measuring 7 mm. See recommendations below. 5. Additional CT findings described above. Results of CT noted. Calls placed to PMD and Dr. Hernandez. 08/13/17 00:[address] Hernandez, who is aware, had spoken previously with Dr. Berman and resident Dr. Stauffer who had ordered Heparin anti-coagulation for the pt and will follow the pt on Telemetry. - Lab Interpretations Lab Results: 08/12/17 21:28 08/12/17 21:28 Lab Results 08/12/17 22:02: Total Bilirubin 0.3, Direct Bilirubin 0.0, AST 62 H D, ALT 62 H , Alkaline Phosphatase 103, Total Protein 4.9 L, Albumin 2.1 L, Globulin 2.8, Albumin/Globulin Ratio 0.8 L 08/12/17 21:38: pO2 103 H, VBG pH 7.37, VBG pCO2 36.0 L, VBG HCO3 20.8 L, VBG Total CO2 21.9 L, VBG O2 Sat (Calc) 95.1 H, VBG Base Excess -4.0 L, VBG Potassium 4.6, Glucose 93, Lactate 0.8, FiO2 21.0, Sodium 135.0, Chloride 108.0 H, Venous Blood Potassium 4.6 08/12/17 21:28: Sodium 135, Potassium 3.8, Chloride 109 H, Carbon Dioxide 19 L, Anion Gap 12, BUN 17, Creatinine 1.0, Est GFR ( Amer) > 60, Est GFR (Non- Af Amer) 60, Random Glucose 90, Calcium 4.6 L*, Phosphorus 4.3, Magnesium 0.5 L* , Lactate Dehydrogenase 676, Total Creatine Kinase 205, Troponin I < 0.01, NT- Pro-B Natriuret Pep 300, Triglycerides 129, Cholesterol 93 L, LDL Cholesterol Direct 47, HDL Cholesterol 37 08/12/17 21:28: PT 14.8 H, INR 1.29 H, APTT 29.9 08/12/17 21:28: WBC 5.9 D, RBC 3.85, Hgb 10.5 L, Hct 32.7 L, MCV 84.9 D, MCH 27.3, MCHC 32.1, RDW 14.0, Plt Count 195, MPV 10.2, Gran % 66.7, Lymph % (Auto) 14.9 L, [place] % (Auto) 11.4 H, Eos % (Auto) 6.3 H, Baso % (Auto) 0.7, Gran # 3.94 , Lymph # (Auto) 0.9 L, [place] # (Auto) 0.7 H, Eos # (Auto) 0.4, Baso # (Auto) 0.04 - RAD Interpretation Radiology Orders: 08/12/17 21:11 ANGIO CHEST PE PROTOCOL [CT] Stat CHEST ONE VIEW [RAD] Stat 08/12/17 21:20 HEAD W/O CONTRAST [CT] Stat - Medication Orders Current Medication Orders: Heparin Sodium/Sodium Chloride (Heparin 13276 Units/250ml 1/2 Normal Saline) 25 ,000 units in 250 mls @ 12.492 mls/hr IV .Q20H1M PRN; Protocol; 18 UNITS/KG/HR PRN Reason: ADJUST RATE PER PROTOCOL Ondansetron HCl (Zofran Inj) 4 mg IVP Q4H PRN PRN Reason: Nausea/Vomiting Discontinued Medications Aspirin (Aspirin) 325 mg PO ONCE STA Stop: 08/13/17 00:00 Calcium Gluconate (Calcium Gluconate Iv) 1,000 mg IVP ONCE ONE Stop: 08/12/17 22:15 Last Admin: 08/12/17 22:26 Dose: 1,000 mg IVP Administration Document 08/12/17 22:26 AD (Rec: 08/12/17 22:26 AD [id number]) Charges for Administration # of IVP Administrations 1 Heparin Sodium (Porcine) (Heparin) 5,500 units 80 units/kg (5300 units) IV ONCE ONE PRN Reason: Protocol Stop: 08/12/17 23:57 Calcium Gluconate 1,000 mg/ (Sodium Chloride) 110 mls @ 110 mls/hr IVPB ONCE ONE Stop: 08/12/17 22:56 Last Admin: 08/12/17 22:27 Dose: 110 mls/hr eMAR Start Stop Document 08/12/17 22:27 AD (Rec: 08/12/17 22:27 AD [id number]) Intravenous Solution Start Date 08/12/17 Start Time 22:27 Magnesium 2 gm/50 ml NS (Magnesium Sulfate 2 Gm/50 Ml Ns) 2 gm in 50 mls @ 50 mls/hr IVPB ONCE ONE Stop: 08/12/17 22:59 Last Admin: 08/12/17 22:06 Dose: 50 mls/hr eMAR Start Stop Document 08/12/17 22:06 AD (Rec: 08/12/17 22:08 AD [id number]) Intravenous Solution Start Date 08/12/17 Start Time 22:08 Magnesium 2 gm/50 ml NS (Magnesium Sulfate 2 Gm/50 Ml Ns) 2 gm in 50 mls @ 50 mls/hr IVPB ONCE ONE Stop: 08/12/17 23:12 Last Admin: 08/12/17 22:38 Dose: 50 mls/hr eMAR Start Stop Document 08/12/17 22:38 AD (Rec: 08/12/17 22:38 AD [id number]) Intravenous Solution Start Date 08/12/17 Start Time 22:38 Disposition/Present on Arrival - Present on Arrival Any Indicators Present on Arrival: No History of DVT/PE: Yes History of Uncontrolled Diabetes: No Urinary Catheter: No History of Decub. Ulcer: No History Surgical Site Infection Following: None - Disposition Have Diagnosis and Disposition been Completed?: Yes Diagnosis: Hypocalcemia, Hypomagnesemia, Chest pain, Pulmonary embolism Disposition: HOSPITALIZED Disposition Time: 00:26 Condition: STABLE
[2017-08-13] MEDS ORDERED: Heparin 25,000units in 1/2NS /250 ML BAG IV PRN (00:20)
[2017-08-13 01:48] VITALS: BMI 21.3
[2017-08-13 07:08] LABS: BASO # 0.02 K/mm3 (0.0-2.0); BASO % 0.3 % (0.0-3.0); EOS # 0.3 (0.0-0.7); EOS % 5.1 % (1.5-5.0); GRAN # 4.27 (1.4-6.5); GRAN % 68.3 % (50.0-68.0); HEMOGLOBIN 10.4 g/dL (12.0-16.0); LYMPH % 16.6 % (22.0-35.0); MEAN CORPUSCULAR HEMOGLOBIN 27.3 pg (25.0-35.0); MEAN CORPUSCULAR HGB CONC 32.1 g/dl (31.0-37.0); MEAN PLATELET VOLUME 9.9 fl (7.0-11.0); MONO # 0.6 (0.1-0.6); MONO % 9.7 % (1.0-6.0); RBC 3.81 10^6/uL (3.5-6.1); RED CELL DISTRIBUTION WIDTH 14.1 % (11.5-14.5); WHITE BLOOD COUNT 6.3 10^3/ul (4.5-11.0)
[2017-08-13 07:30] LABS: TROPONIN I < 0.01 ng/mL
[2017-08-13 07:38] LABS: ALB/GLOB RATIO 0.8 (1.1-1.8); ALT/SGPT 60 U/L (7-56); AST/SGOT 57 U/L (14-36); BLOOD UREA NITROGEN 17 mg/dL (7-21); CALCIUM 5.3 mg/dL (8.4-10.5); GFR AFRICAN-AMERICAN > 60; GFR NON-AFRICAN AMERICAN > 60
[2017-08-13] MEDS ORDERED: USTEKINUMAB 45 MG SC SCH ×2 (07:45→08:00)
--- NOTE | 2017-08-13 08:54 | RAD ---
PROCEDURE: CHEST RADIOGRAPH, 1 VIEW HISTORY: chest pain/sob COMPARISON: 05/03/2017 FINDINGS: LUNGS: New opacity left upper lobe overlying medial border left scapula. Concerning for neoplasm. Possible pneumonia. Followup advised to clearing to exclude neoplasm. No other abnormal opacity. PLEURA: No pneumothorax or pleural fluid seen. CARDIOVASCULAR: Normal. OSSEOUS STRUCTURES: No significant abnormalities. VISUALIZED UPPER ABDOMEN: Normal. OTHER FINDINGS: None. IMPRESSION: Focal abnormal opacity left upper lobe. Followup to clearing to exclude neoplasm.
[2017-08-13 08:59] LABS: IRON 31 ug/dL (45-180)
[2017-08-13] MEDS: Potassium Chloride 20 mEq ER Tab PO SCH ×3 (09:01→20:10)
[2017-08-13] MEDS: Magnesium Oxide 400 mg Tab UD PO SCH ×2 (09:01→20:11)
[2017-08-13 09:08] LABS: % IRON SATURATION 8 % (20-55); TOTAL IRON BINDING CAPACITY 387 ug/dL (265-497)
--- NOTE | 2017-08-13 09:11 | CON ---
DATE: 08/13/2017 CONSULT REQUESTED BY: Danilo Lau MD. REASON FOR CONSULTATION: Hypercoagulable state, pulmonary embolism. HISTORY OF PRESENT ILLNESS: Ms. Stewart is a 47-year-old female, presented to ED with intermittent cramping of hands and feet and difficulty in swallowing. She has diagnosis of Crohn's disease. She had DVT in the left thigh in the past, hypercoagulable state, history of positivity for antiphospholipid antibody. She has been noncompliant and has not been seen in office for more than a year. She also has IVC filter placed. History of iron-deficiency anemia. She received IV iron infusions more than a year ago. No nausea. No vomiting. CT angio of the chest showed right lower lobe infarction, filling defect in the right lower lobe pulmonary artery. She was started on heparin drip. She has been on Eliquis. Not sure about the compliance with anticoagulation. PAST MEDICAL HISTORY: Crohn's disease, history of DVT, myocardial infarction, negative cardiac cath, history of CVA. PAST SURGICAL HISTORY: IVC filter placement, bowel resection 25 years ago. PERSONAL HISTORY: Never smoked. No history of alcohol abuse. ALLERGIES: NO KNOWN DRUG ALLERGIES. SOCIAL HISTORY: Lives at home. HOME MEDICATIONS: Coreg 6.25 mg daily, lisinopril 5 mg daily, Crestor 20 mg daily, Eliquis 5 mg p.o. b.i.d., Stelara every 8 weeks, potassium b.i.d. REVIEW OF SYSTEMS: As per HPI. Rest of 12-point review of systems reviewed negative. PHYSICAL EXAMINATION: GENERAL: Comfortable in bed, in no acute distress. VITAL SIGNS: Temperature 98.3, heart rate 97 per minute, respiratory rate 20 per minute, blood pressure 120/80. HEENT: Normal mucosa, pallor positive. NECK: No lymphadenopathy. CHEST: Air entry present and equal bilateral. No added sound. CARDIOVASCULAR: S1, S2 normal. No murmur. No gallop. ABDOMEN: Soft, nontender. No hepatosplenomegaly. EXTREMITIES: No edema. Peripheral pulsations present. SPINE: Nontender. ENGINE WATCHMAN: Alert and oriented x3. No focal sensorimotor deficit. LABORATORY DATA: White count 5.9, hemoglobin 10.5, hematocrit 32.7, platelet 195. Sodium 135, potassium 3.8, BUN 17, creatinine 1, glucose 90, magnesium 0.5. INR 1.2. ASSESSMENT: 1. Hypercoagulable state. 2. Positivity for antiphospholipid antibody. 3. Possible right lung pulmonary embolism. 4. Electrolyte imbalance. 5. Crohn's disease. PLAN: She is currently on heparin drip. She is currently on Eliquis 5 mg p.o. b.i.d. Heparin drip was started in the night. We will continue heparin drip until stable. Electrolyte imbalance. Received calcium in the night. On oral K-Dur. Zofran p.r.n., Zestril 5 mg daily, Coreg 6.25 mg daily. Anemia, we will do the workup. Iron studies, ferritin, B12, folate. She has Crohn's disease. She is likely to have iron absorption defect and B12 absorption defect. This has been discussed with her in the past. Thank you, Dr. Lau for allowing us to participate in Ms. Stewart's care. Lucie Hernandez MD
[2017-08-13] MEDS ORDERED: Non Formulary Medication (Rosuvastatin Calcium [Crestor] 20 MG) PO SCH (10:00)
[2017-08-13] MEDS: Enoxaparin 80 mg Syringe SC SCH ×2 (10:09→21:45)
[2017-08-13 12:36] LABS: FERRITIN 11.3 ng/mL
--- NOTE | 2017-08-13 15:40 | CON ---
DATE: 08/13/2017 INDICATIONS: Chest pain, pulmonary embolism, hypocalcemia, hypomagnesemia. HISTORY OF PRESENT ILLNESS: This is a 47-year-old woman, known to our practice, with known coronary artery disease, myocardial infarction who developed cramping in her face, tongue, eyes and had associated chest discomfort. She came to the emergency room yesterday evening, was found to be hypocalcemic, hypomagnesemic. A CT scan of the chest revealed evidence of a pulmonary embolus. She was on Eliquis at the time. She has received calcium and magnesium replacement. She is on telemetry. She feels better this morning. There was no chest pain, shortness of breath, orthopnea, PND, syncope, presyncope, lightheadedness, dizziness, vertigo, palpitations, edema, claudication, fever, chills, hemoptysis, abdominal pain, nausea, vomiting, diarrhea, constipation, or melena. PAST MEDICAL HISTORY: Notable for coronary artery disease. She suffered with myocardial infarction November of last year. Cardiac catheterization demonstrated an occluded LAD which was collateralized and a severe lesion in the small posterolateral branch as well as moderate disease elsewhere. She was treated medically. She was followed by Dr. Lyles. She has antiphospholipid syndrome, Crohn disease. She has had bowel resection and remote TIA or stroke. She had DVT and an IVC filter and venous insufficiency. She is anemic with iron and B12 deficiencies. MEDICATIONS AT THE TIME OF ADMISSION: Include Coreg, Crestor, Eliquis, potassium chloride, Stelara, lisinopril. ALLERGIES: THERE ARE NO MEDICATION ALLERGIES REPORTED. SOCIAL HISTORY: She lives at home. She is ambulatory. She does not smoke cigarettes. She does not drink alcohol. FAMILY HISTORY: Positive for heart disease in her father. REVIEW OF SYSTEMS: A 10-point review of systems is otherwise unremarkable except as noted above. PHYSICAL EXAMINATION GENERAL: She is a well-developed woman, lying in bed on telemetry, in no acute distress. VITAL SIGNS: Notable for sinus rhythm at 63 beats per minute. She is afebrile, blood pressure 107/70, respirations 20, O2 saturation 97% to 100% on room air. HEENT: Reveals no neck vein distention, thyromegaly, or carotid bruits. Mucous membranes moist. Conjunctivae pink. NECK: Supple. LUNGS: Ramos clear. HEART: Revealed normal first and second heart sounds. ABDOMEN: Soft. Bowel sounds present. No mass, organomegaly, tenderness, rebound, guarding, CVA tenderness, or palpable abdominal aortic aneurysm. EXTREMITIES: Revealed no cyanosis or clubbing. There was mild lower extremity edema. Negative Geno's sign. NEUROLOGIC: Awake, alert, and oriented. PSYCHIATRIC: Normal as to mood and affect. SKIN: Warm and dry. No rash or cellulitis. LABORATORY AND IMAGING: A CT scan of the chest revealed filling defect within the pulmonary artery branch to the right lower lobe suspicious for pulmonary embolism, small consolidation in the right lower lobe, small left pleural effusion, etc. A CT scan of the head revealed no acute intracranial hemorrhage or territorial infarct. There is evidence of an old infarct in the left frontal lobe, etc. EKG was done, but not available in the system. I will follow up on that. A chest x-ray is not read yet. Lungs appear unremarkable to my reading. White count normal, hemoglobin 10.4, hematocrit 32.4, platelet count normal. PT 14.8, INR of 1.29, PTT 29.9. Blood gases are noted. Electrolytes, BUN and creatinine noted. Calcium is 4.6, repeat 5.3. Magnesium 0.5, repeat 1.4. LFTs are mildly abnormal. Troponins negative x2. BNP 300. Cholesterol 93, LDL 47, HDL 37. IMPRESSION: Kandy Stewart is a 47-year-old woman with coronary artery disease who developed chest pain in the setting of symptomatic severe hypocalcemia and hypomagnesemia with antiphospholipid syndrome and an abnormal CT scan suggesting a pulmonary embolus (possibly old) as described. PLAN: At this time, she is on telemetry. Calcium and magnesium are being replaced. I will review her EKG. I have reviewed her cardiac catheterization report. She will be seen by Dr. Hernandez. Appropriate anticoagulation will be addressed. At this point, she continues on Eliquis. She received the bolus of heparin yesterday. Continued medical therapy for coronary artery disease seems appropriate. I will follow along with you. I will make additional recommendations based on her clinical course. Derian Livingston MD [facility] # [id number] GE
--- NOTE | 2017-08-13 18:20 | US ---
HISTORY: Leg pain and swelling. Evaluate for DVT PHYSICIAN(S): Mark Enciso MD. TECHNIQUE: Duplex sonography and color-flow Doppler with graded compression were used to evaluate the deep venous systems of both lower extremities. FINDINGS: The visualized deep venous systems of both lower extremities are sonographically normal and compressible. Normal wave forms and augmentation are seen. There is no sonographic evidence for deep venous thrombosis in the visualized segments of both lower extremities. IMPRESSION: No sonographic evidence for deep venous thrombosis in the visualized segments of both lower extremities.
--- NOTE | 2017-08-13 18:54 | HP ---
HISTORY OF PRESENT ILLNESS: A 47-year-old white female with history of antiphospholipid syndrome, history of Crohn disease, history of Siva filter DVT, PE in the past, history of chronic hypocalcemia, and hypoalbuminemia. The patient recently was admitted last night with some severe cramping, tingling, paresthesias, found to be severely hypoalbuminemic and hypocalcemic. Patient was admitted, also was found on CT to have a PE, probably old in her right lower lobe. She was started on heparin, had been on Eliquis already at home. On admission, she had elevated liver enzymes of 60 AST and ALT of 62. Her calcium was 4.6, her magnesium was 0.5, both were repleted. Her troponin initially was negative. Her BNP was 300. Total protein was 4.9, albumin was 2.1, which is about her baseline. The patient was admitted, gotten \calcium gluconate and magnesium. She is improved today. PHYSICAL EXAMINATION: GENERAL: Patient is awake and oriented x3. Sensation grossly intact. CHEST: Clear to auscultation and percussion. ABDOMEN: Soft. Bowel sounds are normoactive. EXTREMITIES: Without cyanosis, clubbing, or edema. NEUROLOGIC: Patient is grossly intact. We will recheck her potassium and magnesium today and repeat troponin. Pending these, the patient will be restarted on her Eliquis and discharged home, if her calcium and magnesium are within normal limits. Danilo Lau MD
--- NOTE | 2017-08-13 23:46 | CARD ---
APPROVED REPORT EKG Measurement Heart [id number] <Conclusion> Normal sinus rhythm Inferior infarct, age undetermined Prolonged QT Abnormal ECG
--- NOTE | 2017-08-13 23:52 | CARD ---
APPROVED REPORT EKG Measurement Heart [id number] <Conclusion> Normal sinus rhythm Inferior infarct, age undetermined Abnormal ECG
[2017-08-14 06:23] VITALS: O2SAT 98
[2017-08-14 06:59] LABS: ALB/GLOB RATIO 0.7 (1.1-1.8); ALT/SGPT 56 U/L (7-56); AST/SGOT 39 U/L (14-36); BLOOD UREA NITROGEN 14 mg/dL (7-21); GFR AFRICAN-AMERICAN > 60; GFR NON-AFRICAN AMERICAN > 60
--- NOTE | 2017-08-14 08:12 | CP.PCM.PN ---
Subjective - Date & Time of Evaluation Date of Evaluation: 08/14/17 Time of Evaluation: 07:00 - Subjective Subjective: Stable on 2R. No chest pain or SOB. She feels much better and wants to go home. V/S noted. RSR PE: Lungs: clear Cor.: S1S2 Abd.: soft Ext.: no edema Neuro: alert Labs noted. Ca+ = 6.0, K+= 3.9 ECG 08/13: RSR, NSSTW changes, prolonged QTc LE nabil Dopplers: No DVT Objective - Vital Signs/Intake and Output Vital Signs (last 24 hours): Temp Pulse Resp BP Pulse Ox 97.5 F L 66 20 101/65 98 08/14/17 06:00 08/14/17 06:00 08/14/17 06:00 08/14/17 06:00 08/14/17 06:00 Intake and Output: 08/14/17 08/14/17 06:59 18:59 Intake Total 720 Output Total 0 Balance 720 - Medications Medications: Current Medications Apixaban (Eliquis) 5 mg PO BID PENDING SALE TO [facility] PRN Reason: Protocol Last Admin: 08/13/17 09:01 Dose: 5 mg Atorvastatin Calcium (Lipitor) 80 mg PO DIN PENDING SALE TO [facility] Last Admin: 08/13/17 20:10 Dose: 80 mg Carvedilol (Coreg) 6.25 mg PO DAILY PENDING SALE TO [facility] Last Admin: 08/13/17 10:00 Dose: Not Given Enoxaparin Sodium (Lovenox) 70 mg SC Q12H PENDING SALE TO [facility] PRN Reason: Protocol Last Admin: 08/13/17 21:45 Dose: 70 mg Lisinopril (Zestril) 5 mg PO DAILY PENDING SALE TO [facility] Last Admin: 08/13/17 09:11 Dose: Not Given Magnesium Oxide (Mag-Ox) 400 mg PO BID PENDING SALE TO [facility] Last Admin: 08/13/17 20:11 Dose: 400 mg Non-Formulary Medication (Ustekinumab [Stelara]) 45 mg SC .[id number] PENDING SALE TO [facility] Ondansetron HCl (Zofran Inj) 4 mg IVP Q4H PRN PRN Reason: Nausea/Vomiting Potassium Chloride (K-Dur 20 Meq Er Tab) 20 meq PO TID PENDING SALE TO [facility] Last Admin: 08/13/17 20:10 Dose: 20 meq - Labs Labs: 08/13/17 06:30 08/14/17 05:20 PT 14.8 SECONDS (9.4-12.5) H 08/12/17 21:28 INR 1.29 (0.93-1.08) H 08/12/17 21:28 APTT 38.3 Seconds (25.1-36.5) H 08/13/17 10:10 Assessment and Plan - Assessment and Plan (Free Text) Assessment: Muscular spasms Chest Pain Low Ca+ and Mg.++ CAD/GA 12/16 Antiphospholipid syndrome Crohn's disease S/P bowel resection Anemia, Iron and B12 deficiency'CVA DVT/IVC Filter Venous Insufficiency FH of CAD and GA Plan: Await AM labs Replace Ca+, Mg.++ As per Hematology As per Dr. Lau Out-pt cardiology f/u to be arranged.
[2017-08-14] MEDS ORDERED: Magnesium Sulfate 2 GM in Dextrose 5% In Water 100 ML IV ONE (09:10)
[2017-08-14] MEDS: Potassium Chloride 20 mEq ER Tab PO SCH (09:30)
[2017-08-14] MEDS: Magnesium Oxide 400 mg Tab UD PO SCH (09:30)
[2017-08-14] MEDS: Enoxaparin 80 mg Syringe SC SCH (09:37)
[2017-08-14 11:29] VITALS: BP 96/62; PULSE 71; RESP 18; TEMP 98.1
--- NOTE | 2017-08-15 05:15 | DS ---
HISTORY OF PRESENT ILLNESS: A 47-year-old white female admitted to the hospital with severe hypocalcemia, hypokalemia. Patient has potassium, calcium repleted and magnesium repleted. Patient has history of severe Crohn's colitis, on Stelara, history of DVT in the past. She was found to have a right lower lobe PE. Patient has had multiple PEs in the past. She does have filter. She is on Eliquis. The ultrasound of legs was negative. Patient has recovered. She has no further paresthesias or further cramping. She is tolerating her diet well. We will discharge her home on potassium and calcium to follow as an outpatient. FINAL DISCHARGE DIAGNOSES: Severe hypocalcemia and hypomagnesemia, Crohn's colitis, history of pulmonary embolism on Eliquis, history of malabsorption syndrome and history of [place] filter. Patient will be followed up as an outpatient. Danilo Lau MD
== END 2017-08-14 13:55 | disposition home or self-care (01) | DRG 296 ==
LOC: ED 20:20 → ERH 22:09 → 2RNO 08-13 00:46
PROVIDERS: ADMIT Internal Medicine; ATTEND Internal Medicine
DX: E83.51 Hypocalcemia (principal); D68.61 Antiphospholipid syndrome; E87.6 Hypokalemia; E53.8 Deficiency of other specified B group vitamins; E83.42 Hypomagnesemia; I25.10 Atherosclerotic heart disease of native coronary artery without angina pectoris; K50.10 Crohn's disease of large intestine without complications; I87.2 Venous insufficiency (chronic) (peripheral); D64.9 Anemia, unspecified; Z86.718 Personal history of other venous thrombosis and embolism; Z79.01 Long term (current) use of anticoagulants; I25.2 Old myocardial infarction; Z86.73 Personal history of transient ischemic attack (TIA), and cerebral infarction without residual deficits; Z82.49 Family history of ischemic heart disease and other diseases of the circulatory system

== ENCOUNTER 2018-02-17 11:01 | Observation (INO) | payer OTHER ==
--- NOTE | 2018-02-17 11:55 | ED PDOC ---
Arrival/HPI - General Historian: Patient - History of Present Illness Narrative History of Present Illness (Text): 47 y/o F with PMHx of antiphospholipid syndrome, previous DVTs, PE on eliquis & siva filter, crohns disease, hypocalcemia, hypomagnesemia presents today after she felt an episode of "passing out when trying to get out of bed." Pt reports she ate breakfast this am, returned to bed, and tried to stand back up when she fell backwards on her pillows. She denies any preceding aura, dizziness, chest pain, palpitations, shortness of breath, tongue biting. She reports she hasn't had recent syncopal episodes. She also reports generalized weakness over the past month. She reports she has been compliant with all her medications and has been consuming a regular diet. She denies fevers, chills, headache, dizziness, chest pain, palpitations, shortness of breath, nausea, vomiting, constipation, hematuria, hematochezia PMD: Dr. Lau 02/17/18 11:48 Time/Duration: Prior to Arrival Symptom Onset: Sudden, Gradual Symptom Course: Unchanged Context: Home, Fainted <Suni Owen - Last Filed: 02/17/18 13:13> <Sancho Farrell - Last Filed: 02/17/18 14:18> - General Time Seen by Provider: 02/17/18 11:03 Past Medical History - Provider Review Nursing Documentation Reviewed: Yes - Past History Past History: No Previous (recent dx of AMI with negative cath; + left leg DVT) - Infectious Disease Hx of Infectious Diseases: None - Cardiac Hx Cardiac Disorders: Yes Hx [place]: Yes - Pulmonary Hx Respiratory Disorders: No - Neurological Hx Neurological Disorder: Yes HX Cerebrovascular Accident: Yes - HEENT Hx HEENT Disorder: No - Renal Hx Renal Disorder: No - Endocrine/Metabolic Hx Endocrine Disorders: No - Hematological/Oncological Hx Blood Disorders: Yes (Antiphospholipid Disorder (on Warfarin). Siva Filter 2004.) - Integumentary Hx Dermatological Disorder: No - Musculoskeletal/Rheumatological Hx Musculoskeletal Disorders: Yes Other/Comment: DVT - Gastrointestinal Hx Gastrointestinal Disorders: Yes (Bowel Resection 25 years ago.) Hx Crohn's Disease: Yes (Exacerbation 1 month ago.) - Genitourinary/Gynecological Hx Genitourinary Disorders: No - Psychiatric Hx Psychophysiologic Disorder: Yes Hx Anxiety: Yes Hx Depression: Yes Hx Substance Use: No - Surgical History Other/Comment: IVC filter, bowel resection - Anesthesia Hx Anesthesia: Yes - Suicidal Assessment Feels Threatened In Home Enviroment: No <Brayden,Rayan - Last Filed: 02/17/18 13:13> Family/Social History - Physician Review Nursing Documentation Reviewed: Yes Family/Social History: Unknown Family HX Smoking Status: Never Smoked Hx Alcohol Use: No Hx Substance Use: No <BraydenIsrealwalter - Last Filed: 02/17/18 13:13> Allergies/Home Meds <BraydenSuni - Last Filed: 02/17/18 13:13> <Sancho Farrell - Last Filed: 02/17/18 14:18> Allergies/Adverse Reactions: Allergies No Known Allergies Allergy (Verified 08/12/17 20:22) Home Medications: Home Meds Medication Instructions Recorded Confirmed RX: Carvedilol [Coreg] 6.25 mg PO DAILY 11/21/16 08/13/17 RX: Lisinopril [Zestril] 5 mg PO DAILY 11/21/16 08/13/17 RX: Rosuvastatin Calcium [Crestor] 20 mg PO DAILY 11/21/16 08/13/17 RX: Apixaban [Eliquis] 5 mg PO BID 01/29/17 08/13/17 RX: Ustekinumab [Stelara] 45 mg SC .[id number] 05/03/17 08/13/17 Review of Systems - Review of Systems Constitutional: Normal Eyes: Normal ENT: Normal Respiratory: Normal Cardiovascular: Normal Gastrointestinal: Normal Genitourinary Female: Normal Musculoskeletal: Normal Skin: Normal Neurological: Normal Endocrine: Normal Hemo/Lymphatic: Normal Psychiatric: Normal <Suni Owen - Last Filed: 02/17/18 13:13> Physical Exam Vital Signs Reviewed: Yes Temperature: Afebrile Blood Pressure: Hypotensive Pulse: Regular Respiratory Rate: Normal Appearance: Positive for: Well-Appearing, Non-Toxic, Comfortable Pain Distress: None Mental Status: Positive for: Alert and Oriented X 3 - Systems Exam Head: Present: Atraumatic, Normocephalic Pupils: Present: PERRL Extroacular Muscles: Present: EOMI Conjunctiva: Present: Normal Mouth: Present: Moist Mucous Membranes Neck: Present: Normal Range of Motion Respiratory/Chest: Present: Clear to Auscultation, Good Air Exchange. No: Respiratory Distress, Accessory Muscle Use Cardiovascular: Present: Regular Rate and Rhythm, Normal S1, S2. No: Murmurs Abdomen: No: Tenderness, Distention, Peritoneal Signs Back: Present: Normal Inspection Upper Extremity: Present: Normal Inspection. No: Cyanosis, Edema Lower Extremity: Present: Normal Inspection, Edema (b/l). No: CALF TENDERNESS Neurological: Present: GCS=15, CN II-XII Intact, Speech Normal Skin: Present: Warm, Dry, Pale. No: Rashes Psychiatric: Present: Alert, Oriented x 3, Normal Insight, Normal Concentration <Suni Owen - Last Filed: 02/17/18 13:13> Medical Decision Making ED Course and Treatment: Impression: 47 y/o F with PMHx of antiphospholipid syndrome, previous DVTs, PE on eliquis & siva filter, crohns disease, hypocalcemia, hypomagnesemia presents to ED after an episode of passing out at home. Plan Pt presents with Hgb of 7.4. No active bleeding. FOBT (-), no acute abomen. Tranfuse 2u pRBC Replete magnesium Corrected Ca: 8.[address] Lau, accepted to his service. Admit to telemetry. - Lab Interpretations I have reviewed the lab results: Yes - RAD Interpretation Radiology Orders: 02/17/18 11:38 CHEST PORTABLE [RAD] Stat School Photographer: Radiologist - EKG Interpretation EKG Interpretation (Text): Normal sinus rhythm Low voltage QRS 93 bpm QTc: 457 ms 02/17/18 12:05 Interpreted by ED Physician: Yes Type: 12 lead EKG <Suni Owen - Last Filed: 02/17/18 13:13> ED Course and Treatment: 02/17/18 12:18 47 year old female presents to the ED s/p syncopal episode at home prior to arrival. In agreement with resident note which contains more details about the patient. Patient seen and evaluated with resident. Came up with plan and treatment together. 02/17/18 14:17 pt seen with resident s/p syncope, "dizziness x weeks " h/ o of heavy menstruation. in er, noted anemia, on eliquis, no active bleeidng guiac neg. vitals stable. neuro intact. cxr neg. accepte dby pmd cardiello for transfusion. - RAD Interpretation Radiology Orders: 02/17/18 11:38 CHEST PORTABLE [RAD] Stat <Sancho Farrell - Last Filed: 02/17/18 14:18> - PA / INSTRUMENT ASSEMBLER / Resident Statement LAMONT has reviewed & agrees with the documentation as recorded. LAMONT has examined the patient and agrees with the treatment plan. <Suni Owen - Last Filed: 02/17/18 13:13> - PA / INSTRUMENT ASSEMBLER / Resident Statement LAMONT has reviewed & agrees with the documentation as recorded. / has examined the patient and agrees with the treatment plan. - Scribe Statement The provider has reviewed the documentation as recorded by the Scribe Corwin Dan. All medical record entries made by the Goibclau were at my direction and personally dictated by me. I have reviewed the chart and agree that the record accurately reflects my personal performance of the history, physical exam, medical decision making, and the department course for this patient. I have also personally directed, reviewed, and agree with the discharge instructions and disposition. <Sancho Farrell - Last Filed: 02/17/18 14:18> Disposition/Present on Arrival - Present on Arrival Any Indicators Present on Arrival: Yes History of DVT/PE: Yes History of Uncontrolled Diabetes: No Urinary Catheter: No History Surgical Site Infection Following: None - Disposition Have Diagnosis and Disposition been Completed?: Yes Disposition Time: 13:08 Patient Plan: Admission, Telemetry <Suni Owen - Last Filed: 02/17/18 13:13> <Sancho Farrell - Last Filed: 02/17/18 14:18> - Disposition Diagnosis: Syncope, Shortness of breath, History of DVT (deep vein thrombosis), History of pulmonary embolism, Bilateral lower extremity edema, Anemia Disposition: HOSPITALIZED Patient Problems: Current Active Problems Problem Status Onset Bilateral lower extremity edema Acute History of DVT (deep vein thrombosis) Acute History of pulmonary embolism Acute Shortness of breath Acute Syncope Acute Condition: FAIR
[2018-02-17 12:34] LABS: BASO # 0.03 K/mm3 (0.0-2.0); BASO % 0.6 % (0.0-3.0); EOS # 0.1 (0.0-0.7); EOS % 1.9 % (1.5-5.0); GRAN # 3.65 (1.4-6.5); GRAN % 70.9 % (50.0-68.0); HEMOGLOBIN 7.4 g/dL (12.0-16.0); LYMPH # 0.8 (1.2-3.4); LYMPH % 15.5 % (22.0-35.0); MEAN CELL VOLUME 79.5 fl (80.0-105.0); MEAN CORPUSCULAR HGB CONC 27.7 g/dl (31.0-37.0); MEAN PLATELET VOLUME 9.5 fl (7.0-11.0); MONO # 0.6 (0.1-0.6); MONO % 11.1 % (1.0-6.0); RBC 3.36 10^6/uL (3.5-6.1); RED CELL DISTRIBUTION WIDTH 18.4 % (11.5-14.5); WHITE BLOOD COUNT 5.2 10^3/uL (4.5-11.0)
[2018-02-17 12:44] LABS: INR 1.74; PARTIAL THROMBOPLASTIN TIME 33.2 Seconds (25.1-36.5); PROTHROMBIN TIME 20.2 SECONDS (9.4-12.5)
[2018-02-17 12:59] LABS: ALB/GLOB RATIO 0.7 (1.1-1.8); ALBUMIN 1.8 g/dL (3.0-4.8); ALT/SGPT 52 U/L (7-56); AST/SGOT 58 U/L (14-36); B-TYPE NATRIURETIC PEPTIDE 218 pg/mL (0-450); BLOOD UREA NITROGEN 15 mg/dL (7-21); CALCIUM 6.6 mg/dL (8.4-10.5); GFR NON-AFRICAN AMERICAN > 60; TROPONIN I < 0.01 ng/mL
[2018-02-17 13:07] LABS: URINE BILIRUBIN NEGATIVE (NEGATIVE); URINE BLOOD NEGATIVE (NEGATIVE); URINE GLUCOSE (UA) NEGATIVE (NEGATIVE); URINE LEUKOCYTE ESTERASE NEGATIVE Leu/uL (NEGATIVE); URINE PROTEIN NEGATIVE mg/dL (<30 mg/dL); URINE UROBILINOGEN 0.2 E.U./dL (<1 E.U./dL)
[2018-02-17] MEDS ORDERED: Magnesium Sulfate 1 gm in D5W 1 GM/100 ML BAG IVPB ONE (13:10)
[2018-02-17 13:11] LABS: HCG,QUALITATIVE URINE NEGATIVE (NEGATIVE); URINE APPEARANCE CLEAR (CLEAR); URINE COLOR YELLOW (YELLOW)
--- NOTE | 2018-02-17 13:19 | RAD ---
Date of service: 02/17/2018 HISTORY: syncope COMPARISON: 08/12/2017 FINDINGS: LUNGS: No active pulmonary disease. PLEURA: No significant pleural effusion identified, no pneumothorax apparent. CARDIOVASCULAR: No aortic atherosclerotic calcification present. Normal cardiac size. No pulmonary vascular congestion. OSSEOUS STRUCTURES: No significant abnormalities. VISUALIZED UPPER ABDOMEN: Normal. OTHER FINDINGS: None. IMPRESSION: No active disease.
[2018-02-17 22:16] VITALS: BMI 28.3
[2018-02-17] MEDS ORDERED: Influenza Vaccine 60 mcg/0.5 mL SYR (4YR UP) IM ONE (22:17)
[2018-02-17] MEDS ORDERED: Pneumococcal 23-Valent Vaccine IM ONE (22:17)
--- NOTE | 2018-02-18 09:01 | CARD ---
APPROVED REPORT Date of service: 02/17/2018 EKG Measurement Heart [id number] NM 156P50 [id number] <Conclusion> Normal sinus rhythm Low voltage QRS Small q 3,F NSSTW changes, new
[2018-02-18] MEDS ORDERED: Non Formulary Medication (Rosuvastatin Calcium [Crestor] 20 MG) PO SCH (10:00)
[2018-02-18] MEDS: Potassium Chloride 20 mEq ER Tab PO SCH ×3 (10:04→17:21)
--- NOTE | 2018-02-18 12:14 | HP ---
DATE OF EXAM: 02/18/2018 HISTORY OF PRESENT ILLNESS: This is a 47-year-old white female with a long history of antiphospholipid syndrome, history of DVT and PE in the past, history of [place] filter, history of bilateral DVTs with clotting all the way to the right atrium with lysis. The patient has also has a history of chronic anemia, Crohn disease controlled with as an outpatient. The patient has a long history of chronic anemia secondary to her GI blood loss and her antiphospholipid syndrome. 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 REVIEW OF SYSTEMS: Pertinent only for shortness of breath. Patient denies chest pain, palpitations, or diaphoresis. PULMONARY: Negative for cough, but positive for shortness of breath. GI: Negative for any change in her bowels recently. No recent history of blood in the stool, diarrhea, or vomiting. NEUROLOGICAL: The patient is negative for syncope, headache, or lightheadedness or weakness in the upper or lower extremities. : Negative for dysuria, polyuria, or hematuria. SOCIAL HISTORY: The patient has no travel history. She is a nonsmoker, nondrinker. ALLERGIES: SHE HAS NO ALLERGIES. PHYSICAL EXAMINATION: GENERAL: Shows a well-developed, well-nourished white female with massive swelling in the lower extremities, positive 3+, 4+ to the thighs. CHEST: Clear to auscultation and percussion. HEART: Regular sinus rhythm. ABDOMEN: Soft. Bowel sounds are normoactive. No masses are palpable. HEENT: Sclerae are clear. Conjunctivae are pale. EXTREMITIES: Her nail beds are also pale. IMPRESSION: Severe anemia, antiphospholipid syndrome, iron deficiency, Crohn disease, massive swelling, history of pulmonary embolism, and history of coronary artery disease, also with low ejection fraction, on Eliquis. PLAN: To transfuse iron infusions, re-stabilize diuresis and short followup. Danilo Lau MD
[2018-02-18] MEDS ORDERED: LAMOTRIGINE 50 MG PO SCH (14:30)
[2018-02-18 17:29] VITALS: RESP 20
[2018-02-19 06:53] LABS: BASO # 0.02 K/mm3 (0.0-2.0); BASO % 0.5 % (0.0-3.0); EOS # 0.2 (0.0-0.7); EOS % 3.6 % (1.5-5.0); GRAN # 2.76 (1.4-6.5); GRAN % 62.7 % (50.0-68.0); LYMPH # 0.7 (1.2-3.4); LYMPH % 16.6 % (22.0-35.0); MEAN CELL VOLUME 80.8 fl (80.0-105.0); MEAN CORPUSCULAR HEMOGLOBIN 24.1 pg (25.0-35.0); MEAN CORPUSCULAR HGB CONC 29.8 g/dl (31.0-37.0); MEAN PLATELET VOLUME 9.8 fl (7.0-11.0); MONO # 0.7 (0.1-0.6); MONO % 16.6 % (1.0-6.0); RBC 3.95 10^6/uL (3.5-6.1); RED CELL DISTRIBUTION WIDTH 18.3 % (11.5-14.5); WHITE BLOOD COUNT 4.4 10^3/uL (4.5-11.0)
[2018-02-19 07:23] LABS: HEMOGLOBIN 9.5 g/dL (12.0-16.0)
[2018-02-19 07:32] LABS: ALB/GLOB RATIO 0.7 (1.1-1.8); ALBUMIN 1.6 g/dL (3.0-4.8); ALT/SGPT 57 U/L (7-56); AST/SGOT 44 U/L (14-36); BLOOD UREA NITROGEN 9 mg/dL (7-21); CALCIUM 6.6 mg/dL (8.4-10.5); GFR NON-AFRICAN AMERICAN > 60
[2018-02-19 07:45] VITALS: TEMP 97.6; O2SAT 92
[2018-02-19] MEDS: Potassium Chloride 20 mEq ER Tab PO SCH (09:32)
[2018-02-19 09:34] VITALS: BP 90/61
[2018-02-19 11:08] VITALS: PULSE 60
--- NOTE | 2018-02-20 01:18 | DS ---
HISTORY OF PRESENT ILLNESS: This is a 47-year-old white female with antiphospholipid syndrome, Crohn's colitis, PE, DVT in the past on Eliquis. The patient was admitted with severe fatigue, marked edema, severe anemia down to 7.5. The patient was transfused 2 units and also given and Lasix. She is remarkably improved today. Her hemoglobin is 9.5. The patient's blood pressure was 88/55. She is afebrile. Her BUN and creatinine are 9 and 0.7. Her have decreased in diameter with diuresis. The patient will be discharged to home in improved condition. Followup as an outpatient. FINAL DISCHARGE DIAGNOSES: Severe anemia, iron-deficiency, Crohn's colitis, antiphospholipid syndrome, history of coronary artery disease with ischemic cardiomyopathy, peripheral edema, and weakness. Danilo Lau MD
== END 2018-02-19 12:13 | disposition home or self-care (01) ==
LOC: ED 11:01 → ERH 13:03 → 3RSO 18:09
PROVIDERS: ADMIT Internal Medicine; ATTEND Internal Medicine
DX: D50.9 Iron deficiency anemia, unspecified (principal); R55 Syncope and collapse; D68.61 Antiphospholipid syndrome; I25.10 Atherosclerotic heart disease of native coronary artery without angina pectoris; K50.10 Crohn's disease of large intestine without complications; I25.5 Ischemic cardiomyopathy; Z86.711 Personal history of pulmonary embolism; Z86.718 Personal history of other venous thrombosis and embolism; Z79.02 Long term (current) use of antithrombotics/antiplatelets

== ENCOUNTER 2018-04-29 11:01 | Outpatient (CLI) | payer OTHER | END 2018-04-29 11:02 | disposition home or self-care (01) | LOC: LAB 11:01 ==

== ENCOUNTER 2018-06-23 13:28 | Inpatient (IN) | payer OTHER ==
--- NOTE | 2018-06-23 14:08 | ED PDOC ---
Arrival/HPI - General Chief Complaint: Syncope Time Seen by Provider: 06/23/18 13:29 Historian: Patient - History of Present Illness Narrative History of Present Illness (Text): 06/23/18 13:29 Pt is a 48 year old female, with a history of Crohn's disease and antiphospholipid syndrome on eliquis, who presents to the emergency department complaining of syncopal episode this morning. Patient informs she was washing dishes and notes preceding dizziness prior to loss of consciousness. Patient also informs she was able to move to a chair prior to loss of consciousness. She denies fevers, chest pain, abdominal pain or major lifestyle changes prior to episode this morning. Patient also informs of syncopal episodes one month ago and two weeks ago; both episodes witnessed by family. Pt was admitted to [facility] [place] on 02/17/2018 for similar complaints. Patient states she is currently experiencing a flare up of Crohn's disease symptoms. Patient appreciates dizziness in the emergency department. Patient informs taking water pills but denies recent usage. Patient denies head injury, trauma, fevers, chills, night sweats, vision changes, headache, shortness of breath, cough, chest pain, abdominal pain, diarrhea, nausea, vomiting, bloody stool, dysuria, hematuria, back pain, neck pain, rash, diaphoresis, or any other complaint. Time/Duration: < week (past few days) Symptom Course: Resolved Activities at Onset: Light Context: Home Past Medical History - Provider Review Nursing Documentation Reviewed: Yes - Past History Past History: No Previous (recent dx of AMI with negative cath; + left leg DVT) - Infectious Disease Hx of Infectious Diseases: None - Cardiac Hx Cardiac Disorders: Yes (mi 11/2016) Hx [place]: Yes Hx Peripheral Edema: Yes (chronic +2 pitting edema ble/+1 thighs) Other/Comment: pt dx with antiphospholipid disorder at age 32, prone to blood clots, had gff inserted 2003, + dvt lower extremity - Pulmonary Hx Respiratory Disorders: No - Neurological Hx Neurological Disorder: Yes HX Cerebrovascular Accident: Yes (10 yrs ago age 37) Hx Migraine: Yes - HEENT Hx HEENT Disorder: Yes (eyeglasses) - Renal Hx Renal Disorder: No - Endocrine/Metabolic Hx Endocrine Disorders: No - Hematological/Oncological Hx Blood Disorders: Yes (Antiphospholipid Disorder (on Warfarin). [place] Filter 2003.) Hx Anemia: Yes (possible blood transafusion?) Hx Shingles: Yes (head 2012) Other/Comment: pt was receiving iron infusions recently but her insurance changed and wouldn't pay for it so she stopped for 1 year - Integumentary Hx Dermatological Disorder: No - Musculoskeletal/Rheumatological Hx Musculoskeletal Disorders: Yes Hx Falls: No - Gastrointestinal Hx Gastrointestinal Disorders: Yes (Bowel Resection 25 years ago.) Hx Crohn's Disease: Yes Hx Gastroesophageal Reflux: Yes Other/Comment: ileus - Genitourinary/Gynecological Hx Genitourinary Disorders: Yes (ruptured ovarian cyst 2014) Other/Comment: pt did not get her prion x 1 yr then it started 6 months ago - Psychiatric Hx Psychophysiologic Disorder: Yes Hx Anxiety: Yes Hx Depression: Yes Hx Substance Use: No - Surgical History Hx Cardiac Catheterization: Yes Other/Comment: IVC filter, bowel resection - Anesthesia Hx Anesthesia: Yes - Suicidal Assessment Feels Threatened In Home Enviroment: No Family/Social History - Physician Review Nursing Documentation Reviewed: Yes Family/Social History: Unknown Family HX Smoking Status: Never Smoked Hx Alcohol Use: No Hx Substance Use: No Allergies/Home Meds Allergies/Adverse Reactions: Allergies No Known Allergies Allergy (Verified 06/23/18 13:35) Home Medications: Home Meds Medication Instructions Recorded Confirmed Apixaban [Eliquis] 5 mg PO BID 01/29/17 06/23/18 Bumetanide [Bumex] 1 mg PO DAILY 02/17/18 06/23/18 Lamotrigine [Lamictal Xr] 50 mg PO DAILY 02/17/18 06/23/18 predniSONE [predniSONE Tab] 30 mg PO DAILY 06/23/18 06/23/18 Review of Systems - Review of Systems Constitutional: absent: Fevers, Night Sweats, Other (chills) Eyes: absent: Vision Changes Respiratory: absent: SOB, Cough Cardiovascular: Syncope (this morning; also 1 month ago and two weeks ago). absent: Chest Pain Gastrointestinal: absent: Abdominal Pain, Diarrhea, Nausea, Vomiting, Hematochezia Genitourinary Female: absent: Dysuria, Hematuria Musculoskeletal: absent: Back Pain, Neck Pain, Other (head injury, trauma) Skin: absent: Rash Neurological: Dizziness (dizziness prior to syncopal episode; currently dizzy in ED). absent: Headache Physical Exam - Physical Exam Narrative Physical Exam (Text): 06/23/18 13:29 Gen: VS reviewed, alert, pale appearing, mild distress. ENT: normal pharynx. Eye: EOMI, PERRL. Neck: no JVD, supple, no adenopathy. CV: regular rate, regular rhythm, no rubs, no murmur, no gallops, S1, S2, pulses equal and strong. Pulm: no distress, clear to auscultation, no wheeze, no rhonchi, breath sounds equal, no rales. Abd: soft, nontender, no guarding, no rebound, no rigidity, normal bowel sounds. Ext: bilateral lower extremity pitting edema Skin: good color, no rash, no cyanosis. Psych: responds appropriately to questions, normal affect. Neuro: oriented x 3, CN2-12 intact grossly, motor intact, sensation intact. Vital Signs Reviewed: Yes Vital Signs Temp Pulse Resp BP Pulse Ox 06/23/18 13:31 99.3 F 113 H 16 127/74 100 Temperature: Afebrile Blood Pressure: Normal Pulse: Tachycardic Respiratory Rate: Normal Appearance: Positive for: Well-Appearing, Non-Toxic, Comfortable Pain Distress: None Mental Status: Positive for: Alert and Oriented X 3 Medical Decision Making ED Course and Treatment: 06/23/18 14:[address] Lau, admitted for symptomatic anemia; presumably from a GI source, patient is on anticoagulants for clotting disorder. 06/23/18 15:09 patient refusing rectal exam at this time for hemoccult. patient is willing to give stool for hemoccult. - RAD Interpretation Radiology Orders: 06/23/18 13:47 CHEST PORTABLE [RAD] Stat - Scribe Statement The provider has reviewed the documentation as recorded by the Scribe Robby Plunkett All medical record entries made by the Scribe were at my direction and personally dictated by me. I have reviewed the chart and agree that the record accurately reflects my personal performance of the history, physical exam, medical decision making, and the department course for this patient. I have also personally directed, reviewed, and agree with the discharge instructions and disposition. Disposition/Present on Arrival - Present on Arrival Any Indicators Present on Arrival: No History of DVT/PE: Yes History of Uncontrolled Diabetes: No Urinary Catheter: No History of Decub. Ulcer: No History Surgical Site Infection Following: None - Disposition Have Diagnosis and Disposition been Completed?: Yes Diagnosis: Anemia, Syncope Disposition: HOSPITALIZED Disposition Time: 14:53 Patient Plan: Admission Condition: STABLE
[2018-06-23 14:22] LABS: BASO # 0.01 K/mm3 (0.0-2.0); BASO % 0.1 % (0.0-3.0); EOS # 0.1 (0.0-0.7); EOS % 1.9 % (1.5-5.0); HEMOGLOBIN 7.8 g/dL (12.0-16.0); LYMPH # 0.9 (1.2-3.4); LYMPH % 12.7 % (22.0-35.0); MEAN CELL VOLUME 74.1 fl (80.0-105.0); MEAN PLATELET VOLUME 9.5 fl (7.0-11.0); MONO # 0.7 (0.1-0.6); MONO % 10.4 % (1.0-6.0); RBC 3.9 10^6/uL (3.5-6.1); WHITE BLOOD COUNT 6.8 10^3/uL (4.5-11.0)
[2018-06-23 14:30] LABS: ALB/GLOB RATIO 1.1 (1.1-1.8); ALBUMIN 2.8 g/dL (3.0-4.8); ALT/SGPT 16 U/L (7-56); AST/SGOT 14 U/L (14-36); BLOOD UREA NITROGEN 21 mg/dL (7-21); CALCIUM 7.6 mg/dL (8.4-10.5); GFR NON-AFRICAN AMERICAN 59
[2018-06-23 14:37] LABS: B-TYPE NATRIURETIC PEPTIDE 215 pg/mL (0-450)
[2018-06-23] MEDS: Sodium Chloride 0.9% 1,000 ML IV SCH (16:31)
[2018-06-23 16:34] LABS: URINE BILIRUBIN NEGATIVE (NEGATIVE); URINE BLOOD NEGATIVE (NEGATIVE); URINE GLUCOSE (UA) NEGATIVE (NEGATIVE); URINE LEUKOCYTE ESTERASE TRACE Leu/uL (NEGATIVE); URINE PROTEIN NEGATIVE mg/dL (<30 mg/dL); URINE UROBILINOGEN 0.2 E.U./dL (<1 E.U./dL)
[2018-06-23 16:35] LABS: URINE APPEARANCE SL CLOUDY (CLEAR); URINE COLOR YELLOW (YELLOW)
[2018-06-23 16:53] LABS: URINE BACTERIA FEW /hpf; URINE WBC 15 - 20 /hpf (0-6)
--- NOTE | 2018-06-23 17:12 | RAD ---
Date of service: 06/23/2018 HISTORY: Congestive heart failure. COMPARISON: 02/07/2018. FINDINGS: LUNGS: No active pulmonary disease. PLEURA: No significant pleural effusion identified, no pneumothorax apparent. CARDIOVASCULAR: No atherosclerotic calcification present Normal. OSSEOUS STRUCTURES: No significant abnormalities. VISUALIZED UPPER ABDOMEN: Normal. OTHER FINDINGS: None. IMPRESSION: No active disease. No significant interval change compared to the prior examination(s).
--- NOTE | 2018-06-23 18:32 | CARD ---
APPROVED REPORT Date of service: 06/23/2018 EKG Measurement Heart [id number] [id number] <Conclusion> Normal sinus rhythm Possible Inferior infarct, age Old?
[2018-06-23 21:12] VITALS: RESP 20
[2018-06-23 22:35] VITALS: BMI 21.6
--- NOTE | 2018-06-24 03:40 | HP ---
DATE OF EXAM: <> 06/23/2018 HISTORY OF PRESENT ILLNESS: A 48-year-old white female history of Crohn's disease, Crohn's colitis, history of DVT, pulmonary embolism, Siva filter in the past, history of chronic anemia from chronic GI blood loss and bone marrow suppression. The patient had a syncopal episode today and was brought to emergency room, he was found to have a hemoglobin of 7.8, no source found to be hypoalbuminemic, hypocalcemic. Albumin of 2.8, total protein 5.3, also found to have some bacteria in the urine and the patient was admitted for transfusions. The patient had repeat syncopal episodes in the past from low hemoglobin and fatigue. REVIEW OF SYSTEMS: NEUROLOGIC: Positive for syncope, collapse and fatigue. CARDIAC: Negative for palpitations, chest pain, shortness of breath. The patient does have a history of coronary artery disease status post myocardial infarction in the past. RESPIRATORY: Negative for cough, sputum production, shortness of breath. GASTROINTESTINAL: Positive for loose bowels and abdominal cramping. GENITOURINARY: Negative for hematuria, dysuria, or polyuria. SOCIAL HISTORY: The patient is nonsmoker, nondrinker. No illicit medications. No illicit drugs. PHYSICAL EXAMINATION GENERAL: A well-developed pale white female in . VITAL SIGNS: Stable. CHEST: Clear to auscultation and percussion. HEART: Regular sinus rhythm. EXTREMITIES: 1 to 2+ pedal and pretibial edema. NEUROLOGIC: Grossly intact. IMPRESSION: Syncope secondary to low blood counts, history of Crohn's disease, history of coronary artery disease, history of myocardial infarction in the past, history of deep vein thrombosis and pulmonary embolism. Danilo Lau MD
[2018-06-24] MEDS: Sodium Chloride 0.9% 1,000 ML IV SCH (04:50)
[2018-06-24 05:42] VITALS: O2SAT 97
--- NOTE | 2018-06-24 08:42 | CON ---
DATE: 06/24/2018 CONSULT REQUESTED BY: Danilo Lau MD REASON FOR CONSULTATION: Anemia and syncope. HISTORY OF PRESENT ILLNESS: Ms. Stewart is a 48-year-old female known to me from past admissions. She has history of iron deficiency, Crohn's disease, possibility of occult GI bleed. She presented to the hospital with syncope, found to have hemoglobin of 7.8. She is noncompliant and does not come to office. She was admitted with similar complaint to the hospital in January. She also has hypercoagulable state with positivity of antiphospholipid antibody. She has been on Coumadin for a long time. Also has IVC filter placed. She received 1 unit of blood transfusion since yesterday. No history of bleeding from any site. PAST MEDICAL HISTORY: History of negative cardiac cath, left leg DVT, Crohn's disease, chronic edema, hypercoagulable state, DVT in 2003. Siva filter placed in 2003. CVA 10 yeas ago at age , migraine headaches, chronic anemia, history of shingles. PAST SURGICAL HISTORY: Bowel resection 25 years ago, Crohn's disease, GE reflux and ruptured ovarian cyst. REVIEW OF SYSTEMS: As per HPI. Rest of 12-point review of systems reviewed and negative. FAMILY HISTORY: Noncontributory. PERSONAL HISTORY: Never smoked. No history of alcohol abuse. ALLERGIES: NO KNOWN DRUG ALLERGIES. HOME MEDICATIONS: Eliquis 5 mg p.o. b.i.d., Lamictal 50 mg daily., Bumex 1 mg daily and prednisone 30 mg daily. PHYSICAL EXAMINATION: VITAL SIGNS: Temperature 99.3, heart rate is 100 per minute, respiratory rate 16 per minute, blood pressure 127/70 and pulse ox is 100% per minute. HEENT: Pallor positive. NECK: No lymphadenopathy. CHEST: Air entry present and equal bilateral. No added sounds. CARDIOVASCULAR: S1 and S2 normal. No murmur. No gallop. ABDOMEN: Soft and nontender. No hepatosplenomegaly. EXTREMITIES: Bilateral lower extremity edema. NEURO: Alert and oriented x3. No focal sensory or motor deficits. LABORATORY DATA: White count 6.8, hemoglobin 7.8, hematocrit 28.9 and platelet 230. Sodium 136, potassium 4, BUN 21, creatinine 1, calcium 7.6 and magnesium 1.7. ASSESSMENT: 1. Symptomatic anemia. 2. Syncope. 3. Iron deficiency. 4. Crohn's disease. 5. Hypercoagulable state, history of deep venous thrombosis. 6. Pulmonary embolism, status post IV filter placed. PLAN: 1. She received 1 unit of blood transfusion. Iron studies will not be accurate now. She need IV iron transfusion, she might have iron absorption defect because of the Crohn's disease. Oral iron might not be very helpful for her. I discussed the same with the patient. She understand my discussion with her and I also discussed compliance with her. She need a close followup with warehouse operations manager. 2. Hypercoagulable state, DVT antiphospholipid antibody. She is on Eliquis 5 mg p.o. b.i.d., advised to continue the same, I explained the risk of bleeding with Eliquis. 3. White blood count within normal limits. She is on steroids chronically. Need osteoporosis screening, calcium is low 7.6. Management as per Dr. Lau. Thank you, Dr. Lau for allowing us to participate in Ms. Stewart's care. Lucie Hernandez MD
[2018-06-24 10:02] LABS: HEMOGLOBIN 8.5 g/dL (12.0-16.0); MEAN CELL VOLUME 76.2 fl (80.0-105.0); MEAN CORPUSCULAR HEMOGLOBIN 21.1 pg (25.0-35.0); MEAN CORPUSCULAR HGB CONC 27.7 g/dl (31.0-37.0); MEAN PLATELET VOLUME 9.2 fl (7.0-11.0); RBC 4.03 10^6/uL (3.5-6.1); RED CELL DISTRIBUTION WIDTH 17.4 % (11.5-14.5); WHITE BLOOD COUNT 5.9 10^3/uL (4.5-11.0)
[2018-06-24 10:26] LABS: ALBUMIN 2.6 g/dL (3.0-4.8); ALT/SGPT 16 U/L (7-56); AST/SGOT 11 U/L (14-36); BLOOD UREA NITROGEN 15 mg/dL (7-21); CALCIUM 7.9 mg/dL (8.4-10.5); GFR NON-AFRICAN AMERICAN > 60
--- NOTE | 2018-06-24 12:07 | PN ---
DATE: 06/24/2018 SUBJECTIVE: A 48-year-old white female with history of CAD history of low ejection fraction after anterior wall DE several years ago, history of Crohn's colitis with chronic anemia, history of Siva filter, DVT, PE in the past. The patient was admitted with a syncopal episode and severe drop in her hemoglobin. The patient was transfused 2 units of blood last night. We are waiting for a repeat CBC this morning. The patient is stable. No further bleeding. No lightheadedness or dizziness. The patient is tolerating her diet well. She will be discharged home if her H and H is above 8 and a half. Danilo Lau MD
[2018-06-24 12:14] VITALS: BP 105/78; PULSE 94; TEMP 98
== END 2018-06-24 12:55 | disposition home or self-care (01) | DRG 395 ==
LOC: ED 13:28 → ERH 14:54 → 2RSO 18:30
PROVIDERS: ADMIT Internal Medicine; ATTEND Internal Medicine
PROC: 30233N1 Transfusion of Nonautologous Red Blood Cells into Peripheral Vein, Percutaneous Approach (ICD-10-PCS; principal; 2018-06-23)
DX: D64.9 Anemia, unspecified (principal); R82.71 Bacteriuria; D68.61 Antiphospholipid syndrome; I25.10 Atherosclerotic heart disease of native coronary artery without angina pectoris; I25.2 Old myocardial infarction; K21.9 Gastro-esophageal reflux disease without esophagitis; K50.10 Crohn's disease of large intestine without complications; Z79.01 Long term (current) use of anticoagulants; Z79.899 Other long term (current) drug therapy; Z86.19 Personal history of other infectious and parasitic diseases; Z86.711 Personal history of pulmonary embolism; Z86.718 Personal history of other venous thrombosis and embolism; Z86.73 Personal history of transient ischemic attack (TIA), and cerebral infarction without residual deficits; Z91.19 Patient's noncompliance with other medical treatment and regimen; Z95.828 Presence of other vascular implants and grafts; E83.51 Hypocalcemia; E88.09 Other disorders of plasma-protein metabolism, not elsewhere classified; R55 Syncope and collapse; B96.20 Unspecified Escherichia coli [E. coli] as the cause of diseases classified elsewhere

== ENCOUNTER 2018-07-05 12:11 | Outpatient (CLI) | payer OTHER | END 2018-07-05 12:12 | disposition home or self-care (01) | LOC: LAB 12:11 ==